=== PATIENT | male | born 1935 | race African-American/Black ===

== ENCOUNTER 2016-05-14 23:15 | Emergency (ER) | payer MEDICARE, MEDICAID ==
[~2016-05-14] VITALS: Ht 177.8 cm; Wt 90.7 kg
[~2016-05-14 23:15] MED LIST: ACETAMINOPHEN500 MG GT; ASPIR-LOW81 MG GT; AZO CRANBERRY1 EACH GT; CARAFATE1 G1 ORAL; COLACE100 MG GT; DIFLUCAN100 MG ORAL; DUONEB 0.5 MG-33 ML IH; FLOMAX0.4 MG GT; FLUCONAZOLE100 MG GT; GUAIFENESIN-CO118 M1 GT; INVANZ1 G1 IM; K-DUR20 MEQ GT; LACTULOSE20 GM/301 GT; LOPRESSOR25 M1 GT; M.V.I. ADULT10 ML GT; METOCLOPRAM5 MG/5 M1 GT; MULTIVITAMIN HEX5 ML GT; NEXIUM40 MG GT; NOVOLOG100 UNITS1 SUBQ; PROTONIX40 M2 GT; REGLAN5 MG GT; ROBITUSSIN COU118 M1 PO; SALINE 10ML FLU10 ML IVF; SIMVASTATIN20 MG GT; SIMVASTATIN40 MG GT; TYLENOL650 MG GT; VITAMIN D1000 UNI1 GT; VITAMIN D400 INTLU GT
[2016-05-14 23:30] VITALS: BP 142/72
[2016-05-15 01:30] VITALS: BP 132/69
[2016-05-15] MEDS ORDERED: BACITRACIN15 GM TOPIC (02:28)
[2016-05-15 03:00] VITALS: BP 135/70
[2016-05-15] MEDS ORDERED: TYLENOL325 MG ORAL (04:16)
[2016-05-15 05:00] VITALS: BP 137/76
[2016-05-15 06:36] VITALS: BP 127/82
--- NOTE | 2016-05-15 10:07 | Emergency Room Report ---
History of Present Illness General Chief Complaint: Multiple Trauma/Fall Source: EMS Present Illness HPI Pt fell and was sent to get xrays to eval for fx. Bedridden. Aphasic from CVA , but able to nod yes/no. The RN report only state "fall incident" but do not mention what or how. They also noted "scrape L hip area". Denies pain. G tube. No fever. Last admitted 2013 - . Sepsis, bacteremia, urinary tract infection. 2. Pneumonia. 3. Diabetes mellitus. 4. Old cerebrovascular accident. 5. Rhabdomyolysis. 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 Hx Speech Problem: Yes - APHASIA Hx Aphasia: Yes Hx Weakness: Yes - Generalized muscle weakness Review of Systems All Other Systems: limited Physical Exam Vital Signs Date Time Temp Pulse Resp B/P Pulse Ox O2 Delivery O2 Flow Rate FiO2 05/14/16 23:23 98.2 84 16 146/70 95 Sp02 EP Interpretation: reviewed, normal General Appearance: well appearing, no apparent distress, alert, non-toxic, Chronically Ill Head: normocephalic, atraumatic Eyes: bilateral eye PERRL, bilateral eye normal inspection ENT: hearing grossly normal, normal voice, moist mucus membranes Neck: full range of motion, supple, no bony tend Respiratory: chest non-tender, lungs clear, no respiratory distress, speaking full sentences Cardiovascular #1: regular rate, rhythm Cardiovascular #2: 2+ radial (L) Gastrointestinal: non tender, no mass, other - G tube Musculoskeletal: back normal, non-tender, no calf tenderness, pelvis stable, decreased range of mation - Contractures R UE, other - PROM bilat LE without tenderness Neurologic: alert, normal gait, aphasia, motor weakness - R Psychiatric: mood/affect normal Skin: no rash, other - min abrasion L hip Medical Decision Making Diagnostic Impression: Primary Impression: Fall Additional Impression: L hip contusion ER Course Patient presents post alleged mechanical fall. Patient with aphasia post stroke with hemiparesis. Complicated patient with some decreased mental capacity. Need to perform x-rays to exclude fx or bleed. Patient declines pain medicine at this time. Xrays with DJD, but no fx. Old lacunar infarct. Patient stable for outpatient observation and treatment. Chest X-Ray Diagnostic Results EP Interpretation: Yes Findings: no consolidation, no effusion, no pneumothorax, no acute cardiopulmonary disease Number of Views: 1 Other X-Ray Diagnostic Results Other X-Ray Diagnostic Results #1: X-Ray Ordered: pelvis EP Interpretation: Yes Findings: no fractures, no dislocation, no soft tissue swelling, other - DJD Number of Views: 1 Other X-Ray Diagnostic Results #2: X-Ray Ordered: L hip EP Interpretation: Yes Findings: no fractures, no dislocation, no soft tissue swelling, other - DJD Number of Views: 3 CT/MRI/US Diagnostic Results CT/MRI/US Diagnostic Results : Imaging Test Ordered: head Impression Old lacunar infarcts (stable) maxillary retention cysts Last Vital Signs Date Time Temp Pulse Resp B/P Pulse Ox O2 Delivery O2 Flow Rate FiO2 05/15/16 06:36 99.0 73 16 127/82 98 Status: unchanged Disposition: XFER SNF Condition: Stable Scripts Acetaminophen (Tylenol) 325 Mg Tablet 650 MG ORAL Q6H Y for Prn Pain/Headache/Temp > 101, #30 TAB 0 Refills Prov: Manuel Shelley M.D. 05/15/16 Patient Instructions: Contusion, Fall Prevention in Hospitals, Adult Manuel Shelley M.D. May 15, 2016 10:07
--- NOTE | 2016-05-15 14:37 | Diagnostic Imaging Report ---
Indications: Head trauma, pain Technique: Continuous helical CT imaging of the brain was performed with automatic exposure control on a Siemens sensation [address] scanner. Axial and coronal images were reconstructed at 5 mm slice thickness and interval. CTDI volume(s): 70 mGy Total DLP: 1453 mGy-cm Findings: Comparison: 05/08/2009 Old lacunar infarcts left basal ganglia and bilateral napier radiata, chronic microvascular ischemic changes bilateral cerebral periventricular and deep white matter, moderate diffuse atrophy unchanged.. No evidence of mass or hemorrhage, other attenuation abnormality, mass effect, midline shift, hydrocephalus or increased intracranial pressure. Bone window images are unremarkable. Polypoid soft tissue densities bilateral maxillary sinuses. Remainder visualized Paranasal sinuses and mastoid air cells are clear. IMPRESSION: No evidence of acute injury or other acute intracranial pathology, unchanged Stable chronic intracranial changes as described. 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 The CT scanner at [facility] is accredited by the [employer] and the scans are performed using protocols designed to limit radiation exposure to as low as reasonably achievable to attain images of sufficient resolution adequate for diagnostic evaluation.
--- NOTE | 2016-05-15 14:42 | Diagnostic Imaging Report ---
Indications: Trauma to left hip, pain Technique: 2 views left hip. Findings: Comparison: None No fracture, dislocation, joint space widening , surrounding soft tissue swelling/foreign body/other abnormality, or other acute changes are identified. IMPRESSION: No evidence of acute injury to left hip.
--- NOTE | 2016-05-17 08:30 | Diagnostic Imaging Report ---
Indications: Pelvic trauma, pain Technique: AP pelvis. Findings: Comparison: None No fracture, dislocation, joint space widening , surrounding soft tissue swelling/foreign body/other abnormality, or other acute changes are identified. IMPRESSION: No evidence of acute injury to the pelvis.
--- NOTE | 2016-05-17 08:30 | Diagnostic Imaging Report ---
Indications: Chest trauma, pain Technique: Portable AP chest Findings: Comparison: 10/15/15 Again, suboptimal inspiration limits evaluation. Increased interstitial/vascular markings persist in both lung bases. Gas lucencies persist in both hemidiaphragms. Cardiac silhouette partially obscured. No abnormal widening. Pulmonary vasculature within normal limits. No pleural abnormality. No obvious fracture demonstrated. IMPRESSION: No evidence of acute injury or other acute pathology, limited as described Stable chronic changes as described
== END 2016-05-15 06:36 ==
LOC: EDBD 23:15 → EMR 23:54
DX: S70.02XA Contusion of left hip, initial encounter (principal); S70.212A Abrasion, left hip, initial encounter; W19.XXXA Unspecified fall, initial encounter; Y92.129 Unspecified place in nursing home as the place of occurrence of the external cause; I69.320 Aphasia following cerebral infarction; I69.354 Hemiplegia and hemiparesis following cerebral infarction affecting left non-dominant side; E11.9 Type 2 diabetes mellitus without complications; J44.9 Chronic obstructive pulmonary disease, unspecified; I10 Essential (primary) hypertension; Z93.1 Gastrostomy status; M24.50 Contracture, unspecified joint; R51 Headache
CPT/HCPCS: 70450; 71010; 72170; 73502; 99284

== ENCOUNTER 2016-09-10 12:18 | Inpatient (IN) | payer MEDICARE, MEDICAID ==
[~2016-09-10] VITALS: Ht 175.3 cm; Wt 81.6 kg
[~2016-09-10 12:18] MED LIST changes: +BACITRACIN15 GM TOPIC; +TYLENOL325 MG ORAL
[2016-09-10 13:15] VITALS: BP 129/70
[2016-09-10] MEDS ORDERED: OMEPRAZOLE20 M2 GT (13:34)
[2016-09-10] MEDS ORDERED: Pantoprazole Inj IVP ONE (14:15)
[2016-09-10 14:16] LABS: BASOPHILS % (AUTO) 0.5 % (0.0-2.0); EOSINOPHILS % (AUTO) 0.1 % (0.0-3.0); LYMPHOCYTES % (AUTO) 12.2 % (20.0-45.0); MEAN CORPUSCULAR HEMOGLOBIN 31.4 PG (27.0-31.0); MEAN CORPUSCULAR HGB CONC 31.3 G/DL (32.0-36.0); MEAN CORPUSCULAR VOLUME 100 FL (80-99); MEAN PLATELET VOLUME 8.8 FL (6.5-10.1); MONOCYTES % (AUTO) 3.8 % (1.0-10.0); NEUTROPHILS % (AUTO) 83.5 % (45.0-75.0); PLATELET COUNT 225 K/UL (150-450); RED BLOOD COUNT 6.01 M/UL (4.70-6.10); RED CELL DISTRIBUTION WIDTH 13.2 % (11.6-14.8); WHITE BLOOD COUNT 9.7 K/UL (4.8-10.8)
[2016-09-10] MEDS ORDERED: Acetaminophen 650 MG SUPP RECTAL ONE ×2 (14:22→14:45)
[2016-09-10 14:25] VITALS: BP 129/70
[2016-09-10 14:29] LABS: TROPONIN I < 0.30 ng/mL (<=0.30)
[2016-09-10 14:45] LABS: APPEARANCE,URINE SLIGHTLY CLOUDY; KETONES,URINE NEGATIVE (NEGATIVE); LEUKOCYTE ESTERASE ,URINE 2+ (NEGATIVE); NITRITE,URINE POSITIVE (NEGATIVE); PH,URINE 5 (4.5-8.0); PROTEIN,URINE 2+ (NEGATIVE); UROBILINOGEN,URINE NORMAL MG/DL (0.0-1.0)
[2016-09-10 14:53] LABS: AMORPHOUS SEDIMENT,UR FEW /LPF; BACTERIA,URINE FEW /HPF; RBC,URINE 0-2 /HPF (0 - 0); SQUAMOUS EPITHELIAL CELL,UR MODERATE /LPF (NONE/OCC)
[2016-09-10 14:55] LABS: ALANINE AMINOTRANSFERASE 22 U/L (3-41); ANION GAP 19 (5-15); ASPARTATE AMINO TRANSFERASE 20 U/L (5-40); CALCIUM 9.6 mg/dL (8.6-10.2); CARBON DIOXIDE 20 mEQ/L (20-30); CHLORIDE 94 mEQ/L (98-107); CREATININE 0.9 mg/dL (0.7-1.2); HEMOLYSIS 2; POTASSIUM 4.2 mEQ/L (3.4-4.9); SODIUM 133 mEQ/L (135-145); TOTAL PROTEIN 7.7 g/dL (6.6-8.7)
[2016-09-10 15:05] LABS: CKMB < 1.5 ng/mL (< 6.7)
--- NOTE | 2016-09-10 15:10 | Diagnostic Imaging Report ---
Indication: Altered mental status Technique: Contiguous 5 mm thick transaxial imaging of the head obtained in a Siemens Sensation [address] scanner. Soft tissue and bone windows generated. Total Dose length Product (DLP): [address] Dose Index Volume (CTDIvol): 70.38 mGy Comparison: none Findings: There is moderate prominence of the ventricles, basal cisterns, and cerebral sulci consistent with atrophy. Moderate, nonspecific, white matter hypoattenuation is noted throughout the brain consistent with chronic small vessel disease. Volume loss associated with cystic changes in left basal ganglia region consistent with old infarct. Similar findings more mild in degree within the right frontal napier radiata. There is no midline shift, edema, acute hemorrhage, mass effect, or abnormal extra-axial fluid collections. Bones and extra osseous soft tissues are unremarkable. Impression: No acute intracranial bleed, mass effect or edema. Old small vessel infarcts. Moderate atrophy of the brain. Evidence of chronic small vessel disease involving white matter tracts. The CT scanner at [facility] is accredited by the [employer] and the scans are performed using protocols designed to limit radiation exposure to as low as reasonably achievable to attain images of sufficient resolution adequate for diagnostic evaluation.
--- NOTE | 2016-09-10 15:23 | Diagnostic Imaging Report ---
Indication: Chest Pain Comparison: 05/15/16 A single view chest radiograph was obtained. Findings: Interstitial opacities are prominent especially at the lung bases likely atelectasis. Mild heart failure is not excluded. Heart size is borderline enlarged. Bones are osteopenic. Impression: Basilar atelectasis. The possibility of mild interstitial edema is not excluded. Please correlate clinically.
[2016-09-10] MEDS ORDERED: cefTRIAXone 1 GM in D5W 55 ML IVPB ONE (15:30)
--- NOTE | 2016-09-10 15:35 | Emergency Room Report ---
History of Present Illness General Chief Complaint: Vomiting Source: Medical Record Present Illness HPI 81-year-old male presents to ED for evaluation. Per EMS patient noted to be vomiting twice today at detention. Patient also tachycardic. Patient has reported fever. Denies cough. Denies chest pain or shortness of breath. Patient is unable to provide any additional history at this time. PMD is Dr. Meza. no other aggravating or relieving factors. denies any other associated symptoms Allergies: Coded Allergies: MILK (Unverified Allergy, Unknown, 05/14/16) SOY (Unverified Allergy, Unknown, 05/14/16) SOYBEAN (Unverified Allergy, Unknown, 05/14/16) Patient History Past Medical History: DM, HTN, COPD, CVA/TIA Past Surgical History: none Pertinent Family History: none Social History: Denies: alcohol use, drug use, smoking Immunizations: UTD Reviewed Nursing Documentation: PMH: Agreed, PSxH: Agreed Nursing Documentation-PMH Hx Hypertension: Yes - Osteoarthritis Hx COPD: Yes Hx Diabetes: Yes Hx Cancer: No Hx Gastrointestinal Problems: Yes - G-tube Hx Neurological Problems: Yes 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 Hx Speech Problem: Yes - APHASIA Hx Aphasia: Yes Hx Weakness: Yes - Generalized muscle weakness Review of Systems All Other Systems: limited Physical Exam Vital Signs Date Time Temp Pulse Resp B/P Pulse Ox O2 Delivery O2 Flow Rate FiO2 09/10/16 12:20 97.7 120 18 146/82 92 Room Air 09/10/16 14:25 10.0 Sp02 EP Interpretation: reviewed, normal General Appearance: lethargic Head: normocephalic Eyes: bilateral eye PERRL, bilateral eye normal inspection ENT: normal ENT inspection Neck: normal inspection Respiratory: crackles Cardiovascular #1: tachycardia Gastrointestinal: normal bowel sounds, non tender, soft, non-distended, no guarding, no rebound, other - Gtube Rectal: deferred Genitourinary: no CVA tenderness Musculoskeletal: normal inspection Neurologic: other - dementia Psychiatric: other - dementia Skin: normal inspection Lymphatic: normal inspection Medical Decision Making Diagnostic Impression: Primary Impression: Fever Qualified Codes: R50.9 - Fever, unspecified Additional Impressions: UTI (urinary tract infection) Qualified Codes: N39.0 - Urinary tract infection, site not specified Pneumonia Qualified Codes: J18.9 - Pneumonia, unspecified organism ER Course Hospital Course 81-year-old male presenting to ED with generalized weakness, vomiting, fever Differential diagnoses include: Pneumonia, UTI, sepsis, dehydration, DC/ unstable angina Clinical course Patient placed on stretcher. 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 After initial history and physical, I ordered labs, IV fluids, EKG, chest x-ray, blood cultures, UA. CT head Labs - electrolytes ok, no leukocytosis, troponins negative, UA grossly positive for UTI EKG - sinus tachycardia CXR - bibasilar atelectasis CT head - no acute process rectal tylenol given. Abx given. IVFs given. tachycardia improving with IVFs. Case discussed with Dr Jo and they agreed to admit patient to their service for further care and support I feel this is a highly complex case requiring extensive working including EKG/ Rhythm strip, Xray/CT/US, Blood/urine lab work, repeat exams while in ED, and administration of strong opiates/narcotics for pain control, admission to hospital or close patient follow up. Diagnosis - fever, UTI, pneumonuia Patient admitted to telemetry in serious condition Labs Test 09/10/16 13:44 09/10/16 14:07 09/10/16 15:15 White Blood Count 9.7 K/UL (4.8-10.8) Red Blood Count 6.01 M/UL (4.70-6.10) Hemoglobin 18.9 G/DL (14.2-18.0) Hematocrit 60.2 % (42.0-52.0) Mean Corpuscular Volume 100 FL (80-99) Mean Corpuscular Hemoglobin 31.4 PG (27.0-31.0) Mean Corpuscular Hemoglobin Concent 31.3 G/DL (32.0-36.0) Red Cell Distribution Width 13.2 % (11.6-14.8) Platelet Count 225 K/UL (150-450) Mean Platelet Volume 8.8 FL (6.5-10.1) Neutrophils (%) (Auto) 83.5 % (45.0-75.0) Lymphocytes (%) (Auto) 12.2 % (20.0-45.0) Monocytes (%) (Auto) 3.8 % (1.0-10.0) Eosinophils (%) (Auto) 0.1 % (0.0-3.0) Basophils (%) (Auto) 0.5 % (0.0-2.0) Sodium Level 133 mEQ/L (135-145) Potassium Level 4.2 mEQ/L (3.4-4.9) Chloride Level 94 mEQ/L (98-107) Carbon Dioxide Level 20 mEQ/L (20-30) Anion Gap 19 (5-15) Blood Urea Nitrogen 10 mg/dL (7-23) Creatinine 0.9 mg/dL (0.7-1.2) Estimat Glomerular Filtration Rate mL/min (>60) Glucose Level 102 mg/dL (74-106) Calcium Level 9.6 mg/dL (8.6-10.2) Total Bilirubin 0.7 mg/dL (0.0-1.2) Aspartate Amino Transf (AST/SGOT) 20 U/L (5-40) Alanine Aminotransferase (ALT/SGPT) 22 U/L (3-41) Alkaline Phosphatase 67 U/L (40-129) Total Creatine Kinase 74 U/L (38-174) Creatine Kinase MB < 1.5 ng/mL (< 6.7) Creatine Kinase MB Relative Index Troponin I < 0.30 ng/mL (<=0.30) Pro-B-Type Natriuretic Peptide 59 pg/mL (0-450) Total Protein 7.7 g/dL (6.6-8.7) Albumin 3.9 g/dL (3.5-5.2) Globulin 3.8 g/dL Albumin/Globulin Ratio 1.0 (1.0-2.7) Urine Color Yellow Urine Appearance Slightly cloudy Urine pH 5 (4.5-8.0) Urine Specific [place] 1.025 (1.005-1.035) Urine Protein 2+ (NEGATIVE) Urine Glucose (UA) 1+ (NEGATIVE) Urine Ketones Negative (NEGATIVE) Urine Occult Blood 2+ (NEGATIVE) Urine Nitrite Positive (NEGATIVE) Urine Bilirubin Negative (NEGATIVE) Urine Urobilinogen Normal MG/DL (0.0-1.0) Urine Leukocyte Esterase 2+ (NEGATIVE) Urine RBC 0-2 /HPF (0 - 0) Urine WBC 5-10 /HPF (0 - 0) Urine Squamous Epithelial Cells Moderate /LPF (NONE/OCC) Urine Amorphous Sediment Few /LPF (NONE) Urine Bacteria Few /HPF (NONE) EKG Diagnostic Results Rate: tachycardiac Rhythm: NSR ST Segments: no acute changes ASA given to the pt in ED: No Rhythm Strip Diag. Results EP Interpretation: yes Rhythm: NSR, no PVC's, no ectopy Chest X-Ray Diagnostic Results EP Interpretation: No Findings: no pneumothorax, no acute cardiopulmonary disease, other - bibasilar atelectasis Number of Views: 1 CT/MRI/US Diagnostic Results CT/MRI/US Diagnostic Results : Imaging Test Ordered: CT head Impression old chronic changes. no acute process Last Vital Signs Date Time Temp Pulse Resp B/P Pulse Ox O2 Delivery O2 Flow Rate FiO2 09/10/16 14:25 104.1 129 28 129/70 99 Simple Mask 10.0 Status: improved Disposition: ADMITTED INPATIENT Condition: Serious Referrals: JULIANNE HERNÁNDEZ (PCP) MAYA COURTNEY M.D. September 10, 2016 15:35
[2016-09-10 15:46] VITALS: BP 124/83
[2016-09-10 15:48] LABS: REFLEX LACTIC ACID YES OR NO YES
--- NOTE | 2016-09-10 16:29 | Emergency Room Report ---
Physical Exam Vital Signs Date Time Temp Pulse Resp B/P Pulse Ox O2 Delivery O2 Flow Rate FiO2 09/10/16 12:20 97.7 120 18 146/82 92 Room Air 09/10/16 14:25 10.0 Medical Decision Making Diagnostic Impression: Primary Impression: Fever Qualified Codes: R50.9 - Fever, unspecified Additional Impressions: UTI (urinary tract infection) Qualified Codes: N39.0 - Urinary tract infection, site not specified Pneumonia Qualified Codes: J18.9 - Pneumonia, unspecified organism Sepsis Qualified Codes: A41.9 - Sepsis, unspecified organism ER Course lactate elevated. given 30cc/kg fluid bolus. Last Vital Signs Date Time Temp Pulse Resp B/P Pulse Ox O2 Delivery O2 Flow Rate FiO2 09/10/16 15:46 102.7 114 34 124/83 99 09/10/16 14:25 Simple Mask 10.0 Disposition: ADMITTED INPATIENT Condition: Serious Referrals: JULIANNE HERNÁNDEZ (PCP) MAYA COURTNEY M.D. September 10, 2016 16:29
[2016-09-10] MEDS ORDERED: Azithromycin 500 MG in NS 275 ML IV ONE (16:30)
[2016-09-10] MEDS ORDERED: Azithromycin Inj IV ONE (16:43)
[2016-09-10 16:55] VITALS: BP 123/62
--- NOTE | 2016-09-10 17:15 | History & Physical ---
History and Physical History & Physicial patient to ER with fever, tachycardia, vomiting and diarrhea Seen in ER - present examined data reviewed PAST MEDICAL HISTORY: Significant for recent pneumonia, urinary tract infection, diabetes mellitus, rhabdomyolysis and history of an old CVA with left hemiplegia. The patient also had a GT tube. The patient has a long history of tobacco abuse, degenerative joint disease, and COPD, also known to have high cholesterol. The patient has history of atrophic gastritis with Helicobacter, history of depression and contractures of the left side. status: Fever, high lactate, tachy: Sepsis UTI (urinary tract infection) Pneumonia ? asp Plan: Hydrate IV Protonix Antibiotics breathing treatment ID , Pulm vaneal # [id number] JULIANNE HERNÁNDEZ September 10, 2016 17:15
[2016-09-10 17:43] VITALS: BP 124/62
[2016-09-10] MEDS ORDERED: Sucralfate 1gm tab ORAL SCH (18:00)
[2016-09-10] MEDS: D5NS 1,000 ML IV SCH (18:33)
[2016-09-10] MEDS: DuoNeb 0.5-3(2.5)mg/3ml neb HHN SCH (19:16)
[2016-09-10 20:00] VITALS: BP 133/68
[2016-09-10] MEDS: Sucralfate 1gm tab GT SCH (20:55)
[2016-09-10] MEDS: Metoprolol 25mg tab GT SCH (20:56)
[2016-09-10] MEDS: Heparin 5000 units/ml inj SUBQ SCH (20:56)
[2016-09-10] MEDS ORDERED: Acetaminophen 650 MG SUPP RECTAL PRN (21:00)
[2016-09-10] MEDS: Piperacillin/Tazobactam 3.375 GM in D5W 110 ML IVPB SCH (21:51)
--- NOTE | 2016-09-10 21:51 | Consultation ---
Consult Note Consult Note ID Dic # [id number] ASIYA WETZEL M.D. September 10, 2016 21:51
[2016-09-11] VITALS (7 sets, daily range): BP systolic 108–130; BP diastolic 53–71
--- NOTE | 2016-09-11 04:38 | Consultation ---
DATE OF CONSULTATION: CONSULTING PHYSICIAN: Dany Cunningham M.D. REASON FOR CONSULTATION: Evaluation of the patient for sepsis, diarrhea, and fever, antibiotic management. HISTORY OF PRESENT ILLNESS: The patient is a 81-year-old male with multiple medical problems who was admitted from detention to emergency room for fever, nausea, and vomiting prior to admission and also history of diarrhea. The patient has been started on IV Zosyn and Infectious Disease consultation has been requested for further evaluation of the patient's antibiotic management. The patient is not able to provide detailed information. Much of the information is gathered through the chart after speaking with the staff. PAST MEDICAL HISTORY: 1. History of diabetes. 2. Hypertension. 3. Rhabdomyolysis. 4. COPD. 5. CVA. 6. Status post PEG placement for dysphagia. 7. Anemia. 8. Aphasia. MEDICATIONS: IV Zosyn. ALLERGIES: No known drug allergies. SOCIAL HISTORY: The patient resides in detention. FAMILY HISTORY: Unavailable. REVIEW OF SYSTEMS: Unobtainable. PHYSICAL EXAMINATION: VITAL SIGNS: Temperature 97.4 degrees, blood pressure 150/68, pulse 86, and respiratory rate 18. T-max 102.4 degrees. HEENT: Mild pale conjunctivae. No icterus. NECK: No lymphadenopathy. CHEST: Coarse breathing sounds. HEART: S1 and S2. ABDOMEN: Soft and nontender. EXTREMITIES: No cyanosis. NEUROLOGIC: Aphasic. LABORATORY AND DIAGNOSTIC DATA: White cell 9.7, hemoglobin 18.9 and platelet 225,000. Urinalysis, 5-10 white blood cells. BUN 10 and creatinine 0.9. Lactate is 3.9. ALT, AST and alkaline phosphatase within normal range. CT of head, no acute intracranial bleed. Chest x-ray mild interstitial edema. ASSESSMENT: The patient is a 81-year-old male with multiple medical problems as listed above who was admitted to due to fever and diarrhea. The patient has been started on IV Zosyn and cultures are pending. PLAN: 1. We will continue the patient on IV Zosyn day #1. 2. Monitor CBC. 3. Monitor BMP. 4. Monitor cultures (blood, stool and urine). 5. Stool for C. difficile. 6. Monitor chest x-ray. 7. Based on the patient's clinical course and labs, we will do further recommendation. Thank you, Dr. Mack, for allowing me to participate in the care in the care of this patient. I will follow the patient with you during this hospitalization. Dany Cunningham M.D. DR: LUCIEN JOB#: [id number] CC:
[2016-09-11] MEDS: Piperacillin/Tazobactam 3.375 GM in D5W 110 ML IVPB SCH ×3 (05:37→22:06)
[2016-09-11] MEDS: DuoNeb 0.5-3(2.5)mg/3ml neb HHN SCH ×4 (07:08→19:49)
[2016-09-11] MEDS: D5NS 1,000 ML IV SCH (07:30)
[2016-09-11 08:03] LABS: BASOPHILS % (AUTO) 0.6 % (0.0-2.0); EOSINOPHILS % (AUTO) 0.1 % (0.0-3.0); LYMPHOCYTES % (AUTO) 20.8 % (20.0-45.0); MEAN CORPUSCULAR HEMOGLOBIN 31.3 PG (27.0-31.0); MEAN CORPUSCULAR VOLUME 98 FL (80-99); MEAN PLATELET VOLUME 7.9 FL (6.5-10.1); MONOCYTES % (AUTO) 5.2 % (1.0-10.0); NEUTROPHILS % (AUTO) 73.2 % (45.0-75.0); PLATELET COUNT 179 K/UL (150-450); RED BLOOD COUNT 4.62 M/UL (4.70-6.10); RED CELL DISTRIBUTION WIDTH 13.1 % (11.6-14.8); WHITE BLOOD COUNT 14.5 K/UL (4.8-10.8)
[2016-09-11 08:18] LABS: REFLEX LACTIC ACID YES OR NO YES
[2016-09-11 08:22] LABS: ALANINE AMINOTRANSFERASE 17 U/L (3-41); ALBUMIN/GLOBULIN RATIO 0.6 (1.0-2.7); ANION GAP 12 (5-15); ASPARTATE AMINO TRANSFERASE 20 U/L (5-40); CALCIUM 8.8 mg/dL (8.6-10.2); CARBON DIOXIDE 24 mEQ/L (20-30); CHLORIDE 105 mEQ/L (98-107); CHOLESTEROL 108 mg/dL (< 200); CHOLESTEROL/HDL RATIO 3.5 (3.3-4.4); CRP QUANT 12.5 mg/dL (< 0.5); HEMOLYSIS 3; LDL CHOLESTEROL (CALC.) 61 mg/dL (60-99); LIPASE 27 U/L (< 60); MAGNESIUM 1.7 mg/dL (1.7-2.5); POTASSIUM 3.8 mEQ/L (3.4-4.9); SODIUM 141 mEQ/L (135-145); TOTAL PROTEIN 6.9 g/dL (6.6-8.7); URIC ACID 5.9 mg/dL (3.0-7.5)
[2016-09-11 08:48] LABS: THYROID STIMULATING HORMONE 0.901 uIU/mL (0.300-4.500)
[2016-09-11] MEDS: Sucralfate 1gm tab GT SCH ×4 (08:49→20:52)
[2016-09-11] MEDS: Aspirin Baby 81mg GT SCH (08:49)
[2016-09-11] MEDS: Metoprolol 25mg tab GT SCH ×2 (08:49→20:53)
[2016-09-11] MEDS: Heparin 5000 units/ml inj SUBQ SCH ×2 (08:50→20:54)
[2016-09-11 09:03] LABS: HEMOGLOBIN A1C 7.3 % (< 6.0)
[2016-09-11] MEDS ORDERED: Sterile Water Irrig 1000ml IRRIG ONE (09:25)
[2016-09-11] MEDS ORDERED: Tubing IV Secondary IV ONE (09:25)
[2016-09-11] MEDS ORDERED: NS 275ml ONE (09:25)
[2016-09-11] MEDS ORDERED: D5NS 1000ml IV ONE (09:25)
--- NOTE | 2016-09-11 10:14 | General Progress Note ---
Assessment/Plan Status: stable Status Narrative Clinically improved . Assessment/Plan Sepsis UTI ? Aspiration s/p CVA DM HTN Plan; Pulmonary toilet antibiotics resume feeding SS Insulin Monitor labs Subjective ROS Limited/Unobtainable: No Constitutional: Reports: malaise, other - non verbal, weakness Allergies: Coded Allergies: MILK (Unverified Allergy, Unknown, 05/14/16) SOY (Unverified Allergy, Unknown, 05/14/16) SOYBEAN (Unverified Allergy, Unknown, 05/14/16) Objective Last 24 Hour Vital Signs Date Time Temp Pulse Resp B/P Pulse Ox O2 Delivery O2 Flow Rate FiO2 09/11/16 08:49 89 122/60 09/11/16 08:00 89 09/11/16 08:00 96.5 89 17 122/53 95 Room Air 09/11/16 07:18 88 18 100 Nasal Cannula 3.0 32 09/11/16 07:08 86 18 97 Nasal Cannula 3.0 32 09/11/16 04:00 87 09/11/16 04:00 97.9 87 20 108/58 96 Nasal Cannula 2.0 09/11/16 00:00 97.2 94 20 124/64 99 Nasal Cannula 2.0 09/11/16 00:00 92 09/10/16 20:56 107 130/68 09/10/16 20:00 97.4 106 19 133/68 94 Nasal Cannula 2.0 09/10/16 20:00 99 09/10/16 19:22 89 18 100 Nasal Cannula 3.0 32 09/10/16 19:14 87 18 Nasal Cannula 3.0 32 09/10/16 19:14 87 18 100 Nasal Cannula 3.0 32 09/10/16 17:43 98.1 107 20 124/62 95 Nasal Cannula 5.0 09/10/16 17:07 105 22 123/62 94 Nasal Cannula 5.0 09/10/16 16:55 98.9 109 22 123/62 95 Nasal Cannula 5.0 09/10/16 15:46 102.7 114 34 124/83 99 09/10/16 14:25 104.1 129 28 129/70 99 Simple Mask 10.0 09/10/16 13:15 98.1 124 35 129/70 95 Nasal Cannula 4.0 09/10/16 12:20 97.7 120 18 146/82 92 Room Air Intake and Output 09/10/16 09/11/16 19:00 07:00 Intake Total 1274 ml 1037.5 ml Output Total 100 ml 1100 ml Balance 1174 ml -62.5 ml Intake IV Total 1274 ml 1037.5 ml Output Urine Total 1100 ml Emesis 100 ml # Bowel Movements 1 1 Laboratory Tests 09/10/16 13:44: White Blood Count 9.7, Red Blood Count 6.01, Hemoglobin 18.9*H, Hematocrit 60.2H , Mean Corpuscular Volume 100H, Mean Corpuscular Hemoglobin 31.4H, Mean Corpuscular Hemoglobin Concent 31.3L, Red Cell Distribution Width 13.2, Platelet Count 225, Mean Platelet Volume 8.8, Neutrophils (%) (Auto) 83.5H, Lymphocytes (%) (Auto) 12.2L, Monocytes (%) (Auto) 3.8, Eosinophils (%) (Auto) 0.1, Basophils (%) (Auto) 0.5, Sodium Level 133L, Potassium Level 4.2, Chloride Level 94L, Carbon Dioxide Level 20, Anion Gap 19H, Blood Urea Nitrogen 10, Creatinine 0.9, Estimat Glomerular Filtration Rate , Glucose Level 102, Calcium Level 9.6, Total Bilirubin 0.7, Aspartate Amino Transf (AST/SGOT) 20, Alanine Aminotransferase (ALT/SGPT) 22, Alkaline Phosphatase 67, Total Creatine Kinase 74, Creatine Kinase MB < 1.5, Creatine Kinase MB Relative Index , Troponin I < 0.30, Pro-B-Type Natriuretic Peptide 59, Total Protein 7.7, Albumin 3.9, Globulin 3.8, Albumin/Globulin Ratio 1.0 09/10/16 14:07: Urine Color Yellow, Urine Appearance Slightly cloudy, Urine pH 5, Urine Specific [place] 1.025, Urine Protein 2+H, Urine Glucose (UA) 1+H, Urine Ketones Negative, Urine Occult Blood 2+H, Urine Nitrite PositiveH, Urine Bilirubin Negative, Urine Urobilinogen Normal, Urine Leukocyte Esterase 2+H, Urine RBC 0-2H, Urine WBC 5-10H, Urine Squamous Epithelial Cells ModerateH, Urine Amorphous Sediment FewH, Urine Bacteria Few 09/10/16 15:15: Lactic Acid Level 3.80H 09/10/16 17:05: Lactic Acid Level 3.90H 09/11/16 07:30: White Blood Count 14.5H, Red Blood Count 4.62L, Hemoglobin 14.5, Hematocrit 45.2 , Mean Corpuscular Volume 98, Mean Corpuscular Hemoglobin 31.3H, Mean Corpuscular Hemoglobin Concent 32.0, Red Cell Distribution Width 13.1, Platelet Count 179, Mean Platelet Volume 7.9, Neutrophils (%) (Auto) 73.2, Lymphocytes (% ) (Auto) 20.8, Monocytes (%) (Auto) 5.2, Eosinophils (%) (Auto) 0.1, Basophils ( %) (Auto) 0.6, Sodium Level 141, Potassium Level 3.8, Chloride Level 105, Carbon Dioxide Level 24, Anion Gap 12, Blood Urea Nitrogen 21, Creatinine 1.0, Estimat Glomerular Filtration Rate , Glucose Level 191H, Hemoglobin A1c 7.3H, Lactic Acid Level 2.00, Uric Acid 5.9, Calcium Level 8.8, Phosphorus Level 2.0L , Magnesium Level 1.7, Total Bilirubin 0.8, Gamma Glutamyl Transpeptidase 65H, Aspartate Amino Transf (AST/SGOT) 20, Alanine Aminotransferase (ALT/SGPT) 17, Alkaline Phosphatase 63, Total Creatine Kinase 159, C-Reactive Protein, Quantitative 12.5H, Pro-B-Type Natriuretic Peptide 447, Total Protein 6.9, Albumin 2.8L, Globulin 4.1, Albumin/Globulin Ratio 0.6L, Triglycerides Level 80 , Cholesterol Level 108, LDL Cholesterol 61, HDL Cholesterol 31, Cholesterol/ HDL Ratio 3.5, Lipase 27, Thyroid Stimulating Hormone (TSH) 0.901 Height (Feet): 5 Height (Inches): 9.00 Weight (Pounds): 180 General Appearance: no apparent distress, lethargic Neck: limited range of motion Cardiovascular: tachycardia Respiratory/Chest: decreased breath sounds Abdomen: soft, distended, other - PEG Neurologic: other - left caleb JULIANNE HERNÁNDEZ September 11, 2016 10:14
[2016-09-11] MEDS ORDERED: KCl 10% 40mEq/30ml liquid GT ONE (11:11)
[2016-09-11] MEDS: NovoLOG Insulin Flexpen SUBQ SCH ×2 (11:29→17:19)
--- NOTE | 2016-09-11 11:55 | Infectious Diseases Prog Note ---
Assessment/Plan Assessment/Plan A: The patient is a 81-year-old male with Leukocytosis Sepsis Diarrhea Fever, SP SP nausea, and vomiting Chest x-ray : interstitial edema DM HTN hx of Rhabdomyolysis COPD CVA Status post PEG placement for dysphagia Anemia Aphasia PLAN: Cont on IV Zosyn day # 2 Monitor CBC Monitor BMP Monitor cultures (blood, stool and urine) Stool for C. difficile Monitor chest x-ray Subjective Constitutional: Denies: anorexia, chills, drenching sweats, fatigue, fever, no symptoms, other Allergies: Coded Allergies: MILK (Unverified Allergy, Unknown, 05/14/16) SOY (Unverified Allergy, Unknown, 05/14/16) SOYBEAN (Unverified Allergy, Unknown, 05/14/16) Objective Vital Signs Last 24 Hour Vital Signs Date Time Temp Pulse Resp B/P Pulse Ox O2 Delivery O2 Flow Rate FiO2 09/11/16 10:53 89 18 100 Nasal Cannula 2.0 28 09/11/16 10:43 85 18 97 Nasal Cannula 3.0 32 09/11/16 08:49 89 122/60 09/11/16 08:00 89 09/11/16 08:00 96.5 89 17 122/53 95 Room Air 09/11/16 07:18 88 18 100 Nasal Cannula 3.0 32 09/11/16 07:08 86 18 97 Nasal Cannula 3.0 32 09/11/16 04:00 87 09/11/16 04:00 97.9 87 20 108/58 96 Nasal Cannula 2.0 09/11/16 00:00 97.2 94 20 124/64 99 Nasal Cannula 2.0 09/11/16 00:00 92 09/10/16 20:56 107 130/68 09/10/16 20:00 97.4 106 19 133/68 94 Nasal Cannula 2.0 09/10/16 20:00 99 09/10/16 19:22 89 18 100 Nasal Cannula 3.0 32 09/10/16 19:14 87 18 Nasal Cannula 3.0 32 09/10/16 19:14 87 18 100 Nasal Cannula 3.0 32 09/10/16 17:43 98.1 107 20 124/62 95 Nasal Cannula 5.0 09/10/16 17:07 105 22 123/62 94 Nasal Cannula 5.0 09/10/16 16:55 98.9 109 22 123/62 95 Nasal Cannula 5.0 09/10/16 15:46 102.7 114 34 124/83 99 09/10/16 14:25 104.1 129 28 129/70 99 Simple Mask 10.0 09/10/16 13:15 98.1 124 35 129/70 95 Nasal Cannula 4.0 09/10/16 12:20 97.7 120 18 146/82 92 Room Air Height (Feet): 5 Height (Inches): 9.00 Weight (Pounds): 180 HEENT: anicteric Respiratory/Chest: normal breath sounds Cardiovascular: regular rhythm Abdomen: non distended Laboratory Tests Test 09/10/16 13:44 09/10/16 14:07 09/10/16 15:15 09/10/16 17:05 White Blood Count 9.7 K/UL (4.8-10.8) Red Blood Count 6.01 M/UL (4.70-6.10) Hemoglobin 18.9 G/DL (14.2-18.0) *H Hematocrit 60.2 % (42.0-52.0) H Mean Corpuscular Volume 100 FL (80-99) H Mean Corpuscular Hemoglobin 31.4 PG (27.0-31.0) H Mean Corpuscular Hemoglobin Concent 31.3 G/DL (32.0-36.0) L Red Cell Distribution Width 13.2 % (11.6-14.8) Platelet Count 225 K/UL (150-450) Mean Platelet Volume 8.8 FL (6.5-10.1) Neutrophils (%) (Auto) 83.5 % (45.0-75.0) H Lymphocytes (%) (Auto) 12.2 % (20.0-45.0) L Monocytes (%) (Auto) 3.8 % (1.0-10.0) Eosinophils (%) (Auto) 0.1 % (0.0-3.0) Basophils (%) (Auto) 0.5 % (0.0-2.0) Sodium Level 133 mEQ/L (135-145) L Potassium Level 4.2 mEQ/L (3.4-4.9) Chloride Level 94 mEQ/L (98-107) L Carbon Dioxide Level 20 mEQ/L (20-30) Anion Gap 19 (5-15) H Blood Urea Nitrogen 10 mg/dL (7-23) Creatinine 0.9 mg/dL (0.7-1.2) Estimat Glomerular Filtration Rate mL/min (>60) Glucose Level 102 mg/dL (74-106) Calcium Level 9.6 mg/dL (8.6-10.2) Total Bilirubin 0.7 mg/dL (0.0-1.2) Aspartate Amino Transf (AST/SGOT) 20 U/L (5-40) Alanine Aminotransferase (ALT/SGPT) 22 U/L (3-41) Alkaline Phosphatase 67 U/L (40-129) Total Creatine Kinase 74 U/L (38-174) Creatine Kinase MB < 1.5 ng/mL (< 6.7) Creatine Kinase MB Relative Index Troponin I < 0.30 ng/mL (<=0.30) Pro-B-Type Natriuretic Peptide 59 pg/mL (0-450) Total Protein 7.7 g/dL (6.6-8.7) Albumin 3.9 g/dL (3.5-5.2) Globulin 3.8 g/dL Albumin/Globulin Ratio 1.0 (1.0-2.7) Urine Color Yellow Urine Appearance Slightly cloudy Urine pH 5 (4.5-8.0) Urine Specific [place] 1.025 (1.005-1.035) Urine Protein 2+ (NEGATIVE) H Urine Glucose (UA) 1+ (NEGATIVE) H Urine Ketones Negative (NEGATIVE) Urine Occult Blood 2+ (NEGATIVE) H Urine Nitrite Positive (NEGATIVE) H Urine Bilirubin Negative (NEGATIVE) Urine Urobilinogen Normal MG/DL (0.0-1.0) Urine Leukocyte Esterase 2+ (NEGATIVE) H Urine RBC 0-2 /HPF (0 - 0) H Urine WBC 5-10 /HPF (0 - 0) H Urine Squamous Epithelial Cells Moderate /LPF (NONE/OCC) H Urine Amorphous Sediment Few /LPF (NONE) H Urine Bacteria Few /HPF (NONE) Lactic Acid Level 3.80 mmol/L (0.66-2.22) H 3.90 mmol/L (0.66-2.22) H Test 09/11/16 07:30 White Blood Count 14.5 K/UL (4.8-10.8) H Red Blood Count 4.62 M/UL (4.70-6.10) L Hemoglobin 14.5 G/DL (14.2-18.0) Hematocrit 45.2 % (42.0-52.0) Mean Corpuscular Volume 98 FL (80-99) Mean Corpuscular Hemoglobin 31.3 PG (27.0-31.0) H Mean Corpuscular Hemoglobin Concent 32.0 G/DL (32.0-36.0) Red Cell Distribution Width 13.1 % (11.6-14.8) Platelet Count 179 K/UL (150-450) Mean Platelet Volume 7.9 FL (6.5-10.1) Neutrophils (%) (Auto) 73.2 % (45.0-75.0) Lymphocytes (%) (Auto) 20.8 % (20.0-45.0) Monocytes (%) (Auto) 5.2 % (1.0-10.0) Eosinophils (%) (Auto) 0.1 % (0.0-3.0) Basophils (%) (Auto) 0.6 % (0.0-2.0) Sodium Level 141 mEQ/L (135-145) Potassium Level 3.8 mEQ/L (3.4-4.9) Chloride Level 105 mEQ/L (98-107) Carbon Dioxide Level 24 mEQ/L (20-30) Anion Gap 12 (5-15) Blood Urea Nitrogen 21 mg/dL (7-23) Creatinine 1.0 mg/dL (0.7-1.2) Estimat Glomerular Filtration Rate mL/min (>60) Glucose Level 191 mg/dL (74-106) H Hemoglobin A1c 7.3 % (< 6.0) H Lactic Acid Level 2.00 mmol/L (0.66-2.22) Uric Acid 5.9 mg/dL (3.0-7.5) Calcium Level 8.8 mg/dL (8.6-10.2) Phosphorus Level 2.0 mg/dL (2.5-4.8) L Magnesium Level 1.7 mg/dL (1.7-2.5) Total Bilirubin 0.8 mg/dL (0.0-1.2) Gamma Glutamyl Transpeptidase 65 U/L (8-61) H Aspartate Amino Transf (AST/SGOT) 20 U/L (5-40) Alanine Aminotransferase (ALT/SGPT) 17 U/L (3-41) Alkaline Phosphatase 63 U/L (40-129) Total Creatine Kinase 159 U/L (38-174) C-Reactive Protein, Quantitative 12.5 mg/dL (< 0.5) H Pro-B-Type Natriuretic Peptide 447 pg/mL (0-450) Total Protein 6.9 g/dL (6.6-8.7) Albumin 2.8 g/dL (3.5-5.2) L Globulin 4.1 g/dL Albumin/Globulin Ratio 0.6 (1.0-2.7) L Triglycerides Level 80 mg/dL (< 150) Cholesterol Level 108 mg/dL (< 200) LDL Cholesterol 61 mg/dL (60-99) HDL Cholesterol 31 mg/dL (> 60) Cholesterol/HDL Ratio 3.5 (3.3-4.4) Lipase 27 U/L (< 60) Thyroid Stimulating Hormone (TSH) 0.901 uIU/mL (0.300-4.500) Current Medications Medications (Trade) Dose Ordered Sig/Francesca Route PRN Reason Start Time Stop Time Status Last Admin Dose Admin Acetaminophen (Tylenol) 650 mg Q4H PRN RECTAL T>100.5 09/10/16 21:00 10/10/16 20:59 Acetaminophen (Tylenol) 650 mg Q6H PRN ORAL Prn Pain/Headache/Temp > 101 09/10/16 17:15 10/10/16 17:14 Albuterol/ Ipratropium (DuoNeb 0.5-3(2.5)mg/3ml) 3 ml QIDRT HHN 09/10/16 19:00 09/15/16 18:59 09/11/16 10:43 Aspirin (ASA) 81 mg DAILY GT 09/11/16 09:00 10/11/16 08:59 09/11/16 08:49 Dextrose (Dextrose 50%) STAT PRN IV Hypoglycemia 09/11/16 11:00 10/11/16 10:59 Heparin Sodium (Porcine) 5000 units 5,000 units EVERY 12 HOURS SUBQ 09/10/16 21:00 10/10/16 20:59 09/11/16 08:50 Insulin Aspart (NovoLOG) Q6HR SUBQ 09/11/16 12:00 10/11/16 11:59 Metoprolol Tartrate (Lopressor) 25 mg Q12HR GT 09/10/16 21:00 10/10/16 20:59 09/11/16 08:49 Piperacillin Sod/ Tazobactam Sod/ Dextrose (Zosyn/D5W) 110 ml @ 27.5 mls/hr EVERY 8 HOURS IVPB 09/10/16 22:00 09/15/16 21:59 09/11/16 05:37 Ranitidine HCl (Zantac) 150 mg TWICE A DAY GT 09/11/16 18:00 10/11/16 17:59 Sodium Chloride (Sodium Chloride 1000ml bag) 1,000 ml @ 75 mls/hr [id number] IV 09/11/16 11:00 10/11/16 10:59 09/11/16 11:29 Sucralfate 1 gm 1 gm FOUR TIMES A DAY GT 09/10/16 21:00 10/10/16 20:59 09/11/16 08:49 Tamsulosin HCl (Flomax) 0.4 mg DAILY GT 09/12/16 09:00 10/12/16 08:59 ASIYA WETZEL M.D. September 11, 2016 11:55
--- NOTE | 2016-09-11 12:47 | Cardiology Report ---
APPROVED REPORT EKG Measurement Heart [id number] CT [id number] [id number] Sinus tachycardia Left axis deviation Moderate voltage criteria for LVH, may be normal variant Possible Lateral infarct, age undetermined Inferior-posterior infarct, age undetermined Abnormal ECG
--- NOTE | 2016-09-11 15:35 | Consultation ---
History of Present Illness General Date patient seen: September 11, 2016 Chief Complaint: Vomiting Referring physician: dr. Hnut Reason for Consultation: aspiration Present Illness HPI 81-year-old male with hx of end stage dementia, s/p PEG, bed bound, longterm resident presented to ED for evaluation of vomiting twice at longterm. Patient was also tachycardic, had reported fever. Patient is unable to provide any additional history at this time. Initial CXR showed LLL atelectasis and pulmonary edema. Pt is admitted for further evaluation Allergies: Coded Allergies: MILK (Unverified Allergy, Unknown, 05/14/16) SOY (Unverified Allergy, Unknown, 05/14/16) SOYBEAN (Unverified Allergy, Unknown, 05/14/16) Medication History Scheduled Acetaminophen (Acetaminophen), 650 MG GT Q4HR, (Reported) Acetaminophen* (Tylenol Extra Strength*), 1,000 MG GT Q8H, (Reported) Aspirin* (Aspir-Low*), 81 MG GT DAILY, (Reported) Cholecalciferol (Vitamin D3)* (Vitamin D*), 2,000 UNITS GT DAILY, (Reported) Cranberry Conc/C/Bacill Coag (Azo Cranberry Tablet), 1 EACH GT DAILY, (Reported) Docusate Sodium* (Colace*), 100 MG GT DAILY, (Reported) Ertapenem (Invanz), 1 GM IM DAILY Esomeprazole Magnesium (Nexium), 40 MG GT ACBREAKFAST, (Reported) Fluconazole (Fluconazole), 200 MG GT DAILY, (Reported) Fluconazole* (Diflucan*), 200 MG ORAL DAILY Insulin Aspart (Novolog Flexpen), 0 UNITS SUBQ EVERY 6 HOURS Ipratropium/Albuterol Sulfate (Duoneb 0.5 Mg-3 Mg/3 Ml Soln), 3 ML IH QID, ( Reported) Lactulose (Lactulose*), 20 GM GT TID, (Reported) Metoclopramide HCl (Metoclopramide HCl), 5 MG GT EVERY 6 HOURS Metoprolol Tartrate (Metoprolol Tartrate), 25 MG GT Q12HR Multivitamins Liq* (Multivitamin Liq*), 15 ML GT DAILY, (Reported) Omeprazole (Omeprazole), 20 MG GT BID, (Reported) Pantoprazole Sodium (Protonix), 40 MG GT EVERY 12 HOURS Potassium Chloride (Klor-Con M20), 20 MEQ GT DAILY, (Reported) Sucralfate* (Carafate*), 1 GM ORAL FOUR TIMES A DAY Tamsulosin HCl (Flomax), 0.4 MG GT DAILY, (Reported) Scheduled PRN Acetaminophen (Tylenol), 650 MG ORAL Q6H PRN for Prn Pain/Headache/Temp > 101 Saline (Sodium Chloride), 10 ML IVF Q8H PRN for for line flush Patient History Healthcare decision maker Resuscitation status Full Code Advanced Directive on File Yes Past Medical/Surgical History Past Medical/Surgical History: (1) G-tube site cellulitis (2) CVA, old, aphasia (3) DM (diabetes mellitus) (4) Hypoalbuminemia Review of Systems All Other Systems: negative except mentioned in HPI Physical Exam General Appearance: WD/WN Lines, tubes and drains: central line HEENT: normocephalic, atraumatic Neck: non-tender, normal alignment Respiratory/Chest: chest wall non-tender, lungs clear Breasts: no masses Cardiovascular/Chest: normal peripheral pulses Genitourinary/Rectal: normal genital exam Extremities: normal range of motion Last 24 Hour Vital Signs Date Time Temp Pulse Resp B/P Pulse Ox O2 Delivery O2 Flow Rate FiO2 09/11/16 14:51 92 18 100 Nasal Cannula 2.0 28 09/11/16 14:41 89 18 94 Nasal Cannula 2.0 28 09/11/16 12:00 86 09/11/16 12:00 96.6 84 18 124/71 96 Room Air 09/11/16 10:53 89 18 100 Nasal Cannula 2.0 28 09/11/16 10:43 85 18 97 Nasal Cannula 3.0 32 09/11/16 08:49 89 122/60 09/11/16 08:00 89 09/11/16 08:00 96.5 89 17 122/53 95 Room Air 09/11/16 07:18 88 18 100 Nasal Cannula 3.0 32 09/11/16 07:08 86 18 97 Nasal Cannula 3.0 32 09/11/16 04:00 87 09/11/16 04:00 97.9 87 20 108/58 96 Nasal Cannula 2.0 09/11/16 00:00 97.2 94 20 124/64 99 Nasal Cannula 2.0 09/11/16 00:00 92 09/10/16 20:56 107 130/68 09/10/16 20:00 97.4 106 19 133/68 94 Nasal Cannula 2.0 09/10/16 20:00 99 09/10/16 19:22 89 18 100 Nasal Cannula 3.0 32 09/10/16 19:14 87 18 Nasal Cannula 3.0 32 09/10/16 19:14 87 18 100 Nasal Cannula 3.0 32 09/10/16 17:43 98.1 107 20 124/62 95 Nasal Cannula 5.0 09/10/16 17:07 105 22 123/62 94 Nasal Cannula 5.0 09/10/16 16:55 98.9 109 22 123/62 95 Nasal Cannula 5.0 09/10/16 15:46 102.7 114 34 124/83 99 Intake and Output 09/10/16 09/11/16 19:00 07:00 Intake Total 1274 ml 1037.5 ml Output Total 100 ml 1100 ml Balance 1174 ml -62.5 ml Intake IV Total 1274 ml 1037.5 ml Output Urine Total 1100 ml Emesis 100 ml # Bowel Movements 1 1 Laboratory Tests Test 09/10/16 17:05 09/11/16 07:30 09/11/16 12:30 Lactic Acid Level 3.90 mmol/L (0.66-2.22) H 2.00 mmol/L (0.66-2.22) 2.80 mmol/L (0.66-2.22) H White Blood Count 14.5 K/UL (4.8-10.8) H Red Blood Count 4.62 M/UL (4.70-6.10) L Hemoglobin 14.5 G/DL (14.2-18.0) Hematocrit 45.2 % (42.0-52.0) Mean Corpuscular Volume 98 FL (80-99) Mean Corpuscular Hemoglobin 31.3 PG (27.0-31.0) H Mean Corpuscular Hemoglobin Concent 32.0 G/DL (32.0-36.0) Red Cell Distribution Width 13.1 % (11.6-14.8) Platelet Count 179 K/UL (150-450) Mean Platelet Volume 7.9 FL (6.5-10.1) Neutrophils (%) (Auto) 73.2 % (45.0-75.0) Lymphocytes (%) (Auto) 20.8 % (20.0-45.0) Monocytes (%) (Auto) 5.2 % (1.0-10.0) Eosinophils (%) (Auto) 0.1 % (0.0-3.0) Basophils (%) (Auto) 0.6 % (0.0-2.0) Sodium Level 141 mEQ/L (135-145) Potassium Level 3.8 mEQ/L (3.4-4.9) Chloride Level 105 mEQ/L (98-107) Carbon Dioxide Level 24 mEQ/L (20-30) Anion Gap 12 (5-15) Blood Urea Nitrogen 21 mg/dL (7-23) Creatinine 1.0 mg/dL (0.7-1.2) Estimat Glomerular Filtration Rate mL/min (>60) Glucose Level 191 mg/dL (74-106) H Hemoglobin A1c 7.3 % (< 6.0) H Uric Acid 5.9 mg/dL (3.0-7.5) Calcium Level 8.8 mg/dL (8.6-10.2) Phosphorus Level 2.0 mg/dL (2.5-4.8) L Magnesium Level 1.7 mg/dL (1.7-2.5) Total Bilirubin 0.8 mg/dL (0.0-1.2) Gamma Glutamyl Transpeptidase 65 U/L (8-61) H Aspartate Amino Transf (AST/SGOT) 20 U/L (5-40) Alanine Aminotransferase (ALT/SGPT) 17 U/L (3-41) Alkaline Phosphatase 63 U/L (40-129) Total Creatine Kinase 159 U/L (38-174) C-Reactive Protein, Quantitative 12.5 mg/dL (< 0.5) H Pro-B-Type Natriuretic Peptide 447 pg/mL (0-450) Total Protein 6.9 g/dL (6.6-8.7) Albumin 2.8 g/dL (3.5-5.2) L Globulin 4.1 g/dL Albumin/Globulin Ratio 0.6 (1.0-2.7) L Triglycerides Level 80 mg/dL (< 150) Cholesterol Level 108 mg/dL (< 200) LDL Cholesterol 61 mg/dL (60-99) HDL Cholesterol 31 mg/dL (> 60) Cholesterol/HDL Ratio 3.5 (3.3-4.4) Lipase 27 U/L (< 60) Thyroid Stimulating Hormone (TSH) 0.901 uIU/mL (0.300-4.500) Microbiology Date/Time Source Procedure Growth Status 09/10/16 16:25 Stool Stool Culture Pending Resulted 09/10/16 16:25 Stool Clostridium difficile Toxin Assay - Final Resulted Height (Feet): 5 Height (Inches): 9.00 Weight (Pounds): 180 Medications Current Medications Medications (Trade) Dose Ordered Sig/Francesca Route PRN Reason Start Time Stop Time Status Last Admin Dose Admin Acetaminophen (Tylenol) 650 mg Q4H PRN RECTAL T>100.5 09/10/16 21:00 10/10/16 20:59 Acetaminophen (Tylenol) 650 mg Q6H PRN ORAL Prn Pain/Headache/Temp > 101 09/10/16 17:15 10/10/16 17:14 Albuterol/ Ipratropium (DuoNeb 0.5-3(2.5)mg/3ml) 3 ml QIDRT HHN 09/10/16 19:00 09/15/16 18:59 09/11/16 14:41 Aspirin (ASA) 81 mg DAILY GT 09/11/16 09:00 10/11/16 08:59 09/11/16 08:49 Dextrose (Dextrose 50%) STAT PRN IV Hypoglycemia 09/11/16 11:00 10/11/16 10:59 Heparin Sodium (Porcine) 5000 units 5,000 units EVERY 12 HOURS SUBQ 09/10/16 21:00 10/10/16 20:59 09/11/16 08:50 Insulin Aspart (NovoLOG) Q6HR SUBQ 09/11/16 12:00 10/11/16 11:59 Metoprolol Tartrate (Lopressor) 25 mg Q12HR GT 09/10/16 21:00 10/10/16 20:59 09/11/16 08:49 Piperacillin Sod/ Tazobactam Sod/ Dextrose (Zosyn/D5W) 110 ml @ 27.5 mls/hr EVERY 8 HOURS IVPB 09/10/16 22:00 09/15/16 21:59 09/11/16 13:22 Ranitidine HCl (Zantac) 150 mg TWICE A DAY GT 09/11/16 18:00 10/11/16 17:59 Sodium Chloride (Sodium Chloride 1000ml bag) 1,000 ml @ 75 mls/hr [id number] IV 09/11/16 11:00 10/11/16 10:59 09/11/16 11:29 Sucralfate 1 gm 1 gm FOUR TIMES A DAY GT 09/10/16 21:00 10/10/16 20:59 09/11/16 13:22 Tamsulosin HCl (Flomax) 0.4 mg DAILY GT 09/12/16 09:00 10/12/16 08:59 Assessment/Plan Problem List: (1) At high risk for aspiration ICD Codes: Z91.89 - Other specified personal risk factors, not elsewhere classified SNOMED: 495225265 (2) Pneumonia ICD Codes: J18.9 - Pneumonia SNOMED: 527383388 Qualifiers: Qualified Codes: J18.9 - Pneumonia, unspecified organism (3) G-tube site cellulitis ICD Codes: K94.22 - Gastrostomy infection; L03.319 - Cellulitis of trunk, unspecified SNOMED: 333173207, 200885940 (4) CVA, old, aphasia ICD Codes: I69.320 - Aphasia as late effect of cerebrovascular accident SNOMED: 432024524 (5) DM (diabetes mellitus) ICD Codes: E11.9 - Diabetes mellitus SNOMED: 46460454 Assessment/Plan sputum induction broad spectrum antibiotics chest pt aspiration precaution SWATI THOMAS September 11, 2016 15:35
--- NOTE | 2016-09-11 22:18 | History and Physical Report ---
DATE OF ADMISSION: 09/10/2016 The patient was seen in emergency room in the afternoon of 09/10/2016. HISTORY OF PRESENT ILLNESS: The patient is 81-year-old, -[place] male who lives in the [facility]. The patient had the diarrhea and vomited; came into emergency room; found to be tachycardic and febrile; and after initial evaluation and treatment, he is being admitted, with a diagnosis of sepsis with a possibility of aspiration pneumonia and UTI, to a monitored bed. ALLERGIES: To milk, soy, and soybean. PAST MEDICAL HISTORY: Significant for previous pneumonia and UTI. 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 The patient has a PEG. History of tobacco abuse in the past. The patient has COPD, degenerative joint disease, high cholesterol, hypertension, atrophic gastritis, depression, and contractures of the left side. PHYSICAL EXAMINATION: VITAL SIGNS: When seen in emergency room, pulse was 120, blood pressure 146/82, and pulse oximetry 92%. The patient already was resuscitated with 2 liters of normal saline. HEENT: Head, normocephalic. Eyes, nonicteric. NECK: Rigid to all directions. LUNGS: Decreased breath sounds over the bases. HEART: Tachycardic. ABDOMEN: GT tube in place. Mildly distended. Nontender. GENITOURINARY: He had a Johnson catheter in. NEUROLOGIC: Left caleb, dense EXTREMITIES: Lower extremities, no edema. LABORATORY AND DIAGNOSTIC DATA: Hemoglobin 18.9, white blood cells 9.7. Sodium 133, chloride 94. Urine had 10 white blood cells, 2+ leukocyte esterase, 2+ protein. Chest x-ray, mild interstitial edema and basal atelectasis. The initial lactate level was 3.8. IMPRESSION: This 81-year-old, male with multiple medical problems, develops diarrhea and vomiting, and presents to emergency room with fever, tachycardia, high lactic level, and evidence of urinary tract infection and possible pneumonia. Diagnosis is most likely sepsis. PLAN: Vigorous hydration, IV Protonix, antibiotics, breathing treatment, ID and Pulmonary evaluation. Monitor blood sugar, blood pressure, and hemodynamics support. According to how the patient's condition evolves, we will make the proper changes in our future management. Scott Mack M.D. DR: JOHN JOB#: [id number] CC:
[2016-09-12] MEDS: NovoLOG Insulin Flexpen SUBQ SCH ×5 (00:11→23:48)
[2016-09-12 03:44] VITALS: BP 115/62
[2016-09-12] MEDS: Piperacillin/Tazobactam 3.375 GM in D5W 110 ML IVPB SCH ×3 (05:58→22:07)
[2016-09-12 07:32] LABS: BASOPHILS % (AUTO) 0.6 % (0.0-2.0); EOSINOPHILS % (AUTO) 2.2 % (0.0-3.0); LYMPHOCYTES % (AUTO) 21.9 % (20.0-45.0); MEAN CORPUSCULAR HEMOGLOBIN 31.8 PG (27.0-31.0); MEAN CORPUSCULAR HGB CONC 32.3 G/DL (32.0-36.0); MEAN CORPUSCULAR VOLUME 99 FL (80-99); MEAN PLATELET VOLUME 8.1 FL (6.5-10.1); MONOCYTES % (AUTO) 6.9 % (1.0-10.0); NEUTROPHILS % (AUTO) 68.4 % (45.0-75.0); PLATELET COUNT 160 K/UL (150-450); RED BLOOD COUNT 4.47 M/UL (4.70-6.10); RED CELL DISTRIBUTION WIDTH 12.9 % (11.6-14.8); WHITE BLOOD COUNT 11.9 K/UL (4.8-10.8)
[2016-09-12 07:59] LABS: ALANINE AMINOTRANSFERASE 18 U/L (3-41); ALBUMIN/GLOBULIN RATIO 0.6 (1.0-2.7); ANION GAP 14 (5-15); ASPARTATE AMINO TRANSFERASE 26 U/L (5-40); CARBON DIOXIDE 25 mEQ/L (20-30); CHLORIDE 102 mEQ/L (98-107); CREATININE 0.9 mg/dL (0.7-1.2); CRP QUANT 13.2 mg/dL (< 0.5); HEMOLYSIS 23; MAGNESIUM 1.8 mg/dL (1.7-2.5); PHOSPHORUS 1.8 mg/dL (2.5-4.8); POTASSIUM 3.5 mEQ/L (3.4-4.9); SODIUM 141 mEQ/L (135-145); TOTAL PROTEIN 7.3 g/dL (6.6-8.7); URIC ACID 4.2 mg/dL (3.0-7.5)
[2016-09-12 08:00] VITALS: BP 130/63
[2016-09-12] MEDS: DuoNeb 0.5-3(2.5)mg/3ml neb HHN SCH ×4 (08:18→19:18)
[2016-09-12] MEDS: Aspirin Baby 81mg GT SCH (08:29)
[2016-09-12] MEDS: Sucralfate 1gm tab GT SCH ×4 (08:29→21:14)
[2016-09-12] MEDS: Heparin 5000 units/ml inj SUBQ SCH ×2 (08:29→21:15)
[2016-09-12] MEDS: Metoprolol 25mg tab GT SCH ×2 (08:30→21:14)
[2016-09-12] MEDS ORDERED: Tamsulosin 0.4mg cap GT SCH (09:00)
[2016-09-12] MEDS ORDERED: Sodium Phosphate 30 MM in NS 275 ML IVPB ONE ×2 (10:00→14:45)
--- NOTE | 2016-09-12 11:27 | General Progress Note ---
Assessment/Plan Status: stable Status Narrative clinically improving Assessment/Plan Sepsis UTI ? Aspiration s/p CVA DM HTN PAST MEDICAL HISTORY: Significant for previous pneumonia and UTI. 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 The patient has a PEG. History of tobacco abuse in the past. The patient has COPD, degenerative joint disease, high cholesterol, hypertension, atrophic gastritis, depression, and contractures of the left side. Plan; to med- surg Pulmonary toilet antibiotics GT feeding Decrease IV Phos supplement SS Insulin Monitor labs Subjective ROS Limited/Unobtainable: No Constitutional: Reports: malaise Allergies: Coded Allergies: MILK (Unverified Allergy, Unknown, 05/14/16) SOY (Unverified Allergy, Unknown, 05/14/16) SOYBEAN (Unverified Allergy, Unknown, 05/14/16) Objective Last 24 Hour Vital Signs Date Time Temp Pulse Resp B/P Pulse Ox O2 Delivery O2 Flow Rate FiO2 09/12/16 11:24 86 18 100 Nasal Cannula 3.0 32 09/12/16 11:20 88 18 96 Nasal Cannula 3.0 32 09/12/16 08:30 91 130/63 09/12/16 08:00 98.1 91 20 130/63 94 Nasal Cannula 3.0 09/12/16 07:35 88 18 100 Nasal Cannula 3.0 32 09/12/16 07:30 86 20 96 Nasal Cannula 3.0 32 09/12/16 07:30 96 Nasal Cannula 3.0 32 09/12/16 07:30 Nasal Cannula 3.0 32 09/12/16 04:56 84 09/12/16 03:44 98.1 87 21 115/62 96 Nasal Cannula 2.0 09/12/16 00:00 91 09/11/16 23:46 98.6 91 19 130/57 95 Nasal Cannula 2.0 09/11/16 20:53 99 122/66 09/11/16 20:01 98.4 58 20 122/66 99 Nasal Cannula 2.0 09/11/16 20:00 93 09/11/16 20:00 94 18 97 Nasal Cannula 3.0 32 09/11/16 19:48 Nasal Cannula 3.0 32 09/11/16 19:48 95 Nasal Cannula 3.0 32 09/11/16 19:47 91 20 95 Nasal Cannula 3.0 32 09/11/16 17:16 Nasal Cannula 2.0 28 09/11/16 17:16 94 Nasal Cannula 2.0 28 09/11/16 16:00 91 09/11/16 16:00 97.3 94 18 126/68 95 Nasal Cannula 2.0 09/11/16 14:51 92 18 100 Nasal Cannula 2.0 28 09/11/16 14:41 89 18 94 Nasal Cannula 2.0 28 09/11/16 12:00 86 09/11/16 12:00 96.6 84 18 124/71 96 Room Air Intake and Output 09/11/16 09/12/16 19:00 07:00 Intake Total 1012.5 ml 1405.0 ml Output Total 1960 ml 700 ml Balance -947.5 ml 705.0 ml Intake Free Water 30 ml 105 ml IV Total 942.5 ml 885.0 ml Tube Feeding 40 ml 415 ml Output Urine Total 1960 ml 700 ml # Bowel Movements 1 Laboratory Tests 09/11/16 12:30: Lactic Acid Level 2.80H 09/12/16 06:35: White Blood Count 11.9H, Red Blood Count 4.47L, Hemoglobin 14.2, Hematocrit 44.0 , Mean Corpuscular Volume 99, Mean Corpuscular Hemoglobin 31.8H, Mean Corpuscular Hemoglobin Concent 32.3, Red Cell Distribution Width 12.9, Platelet Count 160, Mean Platelet Volume 8.1, Neutrophils (%) (Auto) 68.4, Lymphocytes (% ) (Auto) 21.9, Monocytes (%) (Auto) 6.9, Eosinophils (%) (Auto) 2.2, Basophils ( %) (Auto) 0.6, Sodium Level 141, Potassium Level 3.5, Chloride Level 102, Carbon Dioxide Level 25, Anion Gap 14, Blood Urea Nitrogen 18, Creatinine 0.9, Estimat Glomerular Filtration Rate , Glucose Level 164H, Uric Acid 4.2, Calcium Level 9.0, Phosphorus Level 1.8L, Magnesium Level 1.8, Total Bilirubin 0.4, Aspartate Amino Transf (AST/SGOT) 26, Alanine Aminotransferase (ALT/SGPT) 18, Alkaline Phosphatase 71, C-Reactive Protein, Quantitative 13.2H, Pro-B-Type Natriuretic Peptide 296, Total Protein 7.3, Albumin 2.9L, Globulin 4.4, Albumin/ Globulin Ratio 0.6L Height (Feet): 5 Height (Inches): 9.00 Weight (Pounds): 180 General Appearance: no apparent distress Neck: stiff neck Respiratory/Chest: decreased breath sounds Abdomen: soft Edema: no edema noted Arm (L), no edema noted Arm (R), no edema noted Leg (L), no edema noted Leg (R), no edema noted Pedal (L), no edema noted Pedal (R), no edema noted Generalized Neurologic: other Objective other PE not changed JULIANNE HERNÁNDEZ September 12, 2016 11:27
[2016-09-12 12:05] VITALS: BP 138/78
--- NOTE | 2016-09-12 13:43 | Pulmonology Progress Note ---
Assessment/Plan Problems: (1) At high risk for aspiration (2) Pneumonia (3) G-tube site cellulitis (4) CVA, old, aphasia (5) DM (diabetes mellitus) Assessment/Plan wbc decreasing chest pt sliding scale check cultures continue antibioitcs Subjective ROS Limited/Unobtainable: Yes Interval Events: looks comfortable Allergies: Coded Allergies: MILK (Unverified Allergy, Unknown, 05/14/16) SOY (Unverified Allergy, Unknown, 05/14/16) SOYBEAN (Unverified Allergy, Unknown, 05/14/16) Objective Last 24 Hour Vital Signs Date Time Temp Pulse Resp B/P Pulse Ox O2 Delivery O2 Flow Rate FiO2 09/12/16 12:05 97.8 85 20 138/78 94 Nasal Cannula 3.0 09/12/16 12:00 86 09/12/16 11:24 86 18 100 Nasal Cannula 3.0 32 09/12/16 11:20 88 18 96 Nasal Cannula 3.0 32 09/12/16 08:30 91 130/63 09/12/16 08:00 98.1 91 20 130/63 94 Nasal Cannula 3.0 09/12/16 08:00 89 09/12/16 07:35 88 18 100 Nasal Cannula 3.0 32 09/12/16 07:30 86 20 96 Nasal Cannula 3.0 32 09/12/16 07:30 96 Nasal Cannula 3.0 32 09/12/16 07:30 Nasal Cannula 3.0 32 09/12/16 04:56 84 09/12/16 03:44 98.1 87 21 115/62 96 Nasal Cannula 2.0 09/12/16 00:00 91 09/11/16 23:46 98.6 91 19 130/57 95 Nasal Cannula 2.0 09/11/16 20:53 99 122/66 09/11/16 20:01 98.4 58 20 122/66 99 Nasal Cannula 2.0 09/11/16 20:00 93 09/11/16 20:00 94 18 97 Nasal Cannula 3.0 32 09/11/16 19:48 Nasal Cannula 3.0 32 09/11/16 19:48 95 Nasal Cannula 3.0 32 09/11/16 19:47 91 20 95 Nasal Cannula 3.0 32 09/11/16 17:16 Nasal Cannula 2.0 28 09/11/16 17:16 94 Nasal Cannula 2.0 28 09/11/16 16:00 91 09/11/16 16:00 97.3 94 18 126/68 95 Nasal Cannula 2.0 09/11/16 14:51 92 18 100 Nasal Cannula 2.0 28 09/11/16 14:41 89 18 94 Nasal Cannula 2.0 28 Intake and Output 09/11/16 09/12/16 19:00 07:00 Intake Total 1012.5 ml 1405.0 ml Output Total 1960 ml 700 ml Balance -947.5 ml 705.0 ml Intake Free Water 30 ml 105 ml IV Total 942.5 ml 885.0 ml Tube Feeding 40 ml 415 ml Output Urine Total 1960 ml 700 ml # Bowel Movements 1 General Appearance: WD/WN HEENT: normocephalic Respiratory/Chest: chest wall non-tender, lungs clear Cardiovascular: normal peripheral pulses, normal rate Abdomen: normal bowel sounds, soft, non tender Genitourinary: normal external genitalia 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 Resulted 09/10/16 16:25 Stool Clostridium difficile Toxin Assay - Final Resulted 09/10/16 23:50 Urine,Clean Catch Urine Culture - Preliminary Resulted Laboratory Tests 09/12/16 06:35: White Blood Count 11.9H, Red Blood Count 4.47L, Hemoglobin 14.2, Hematocrit 44.0 , Mean Corpuscular Volume 99, Mean Corpuscular Hemoglobin 31.8H, Mean Corpuscular Hemoglobin Concent 32.3, Red Cell Distribution Width 12.9, Platelet Count 160, Mean Platelet Volume 8.1, Neutrophils (%) (Auto) 68.4, Lymphocytes (% ) (Auto) 21.9, Monocytes (%) (Auto) 6.9, Eosinophils (%) (Auto) 2.2, Basophils ( %) (Auto) 0.6, Sodium Level 141, Potassium Level 3.5, Chloride Level 102, Carbon Dioxide Level 25, Anion Gap 14, Blood Urea Nitrogen 18, Creatinine 0.9, Estimat Glomerular Filtration Rate , Glucose Level 164H, Uric Acid 4.2, Calcium Level 9.0, Phosphorus Level 1.8L, Magnesium Level 1.8, Total Bilirubin 0.4, Aspartate Amino Transf (AST/SGOT) 26, Alanine Aminotransferase (ALT/SGPT) 18, Alkaline Phosphatase 71, C-Reactive Protein, Quantitative 13.2H, Pro-B-Type Natriuretic Peptide 296, Total Protein 7.3, Albumin 2.9L, Globulin 4.4, Albumin/ Globulin Ratio 0.6L Current Medications Medications (Trade) Dose Ordered Sig/Francesca Route PRN Reason Start Time Stop Time Status Last Admin Dose Admin Acetaminophen (Tylenol) 650 mg Q4H PRN RECTAL T>100.5 09/10/16 21:00 10/10/16 20:59 Acetaminophen (Tylenol) 650 mg Q6H PRN ORAL Prn Pain/Headache/Temp > 101 09/10/16 17:15 10/10/16 17:14 Albuterol/ Ipratropium (DuoNeb 0.5-3(2.5)mg/3ml) 3 ml QIDRT HHN 09/10/16 19:00 09/15/16 18:59 09/12/16 11:23 Aspirin (ASA) 81 mg DAILY GT 09/11/16 09:00 10/11/16 08:59 09/12/16 08:29 Dextrose STAT PRN IV Hypoglycemia 09/11/16 11:00 10/11/16 10:59 Heparin Sodium (Porcine) 5000 units 5,000 units EVERY 12 HOURS SUBQ 09/10/16 21:00 10/10/16 20:59 09/12/16 08:29 Insulin Aspart (NovoLOG) Q6HR SUBQ 09/11/16 12:00 10/11/16 11:59 09/12/16 12:10 Metoprolol Tartrate (Lopressor) 25 mg Q12HR GT 09/10/16 21:00 10/10/16 20:59 09/12/16 08:30 Piperacillin Sod/ Tazobactam Sod/ Dextrose (Zosyn/D5W) 110 ml @ 27.5 mls/hr EVERY 8 HOURS IVPB 09/10/16 22:00 09/15/16 21:59 09/12/16 13:23 Ranitidine HCl (Zantac) 150 mg TWICE A DAY GT 09/11/16 18:00 10/11/16 17:59 09/12/16 08:30 Sodium Chloride (Sodium Chloride 1000ml bag) 1,000 ml @ 50 mls/hr Q20H IV 09/13/16 11:45 10/13/16 11:44 Sodium Phosphate 30 mm/Sodium Chloride 285 ml @ 47.5 mls/hr ONCE ONCE IVPB 09/12/16 10:00 09/12/16 15:59 09/12/16 10:33 Sucralfate (Carafate) 1 gm FOUR TIMES A DAY GT 09/10/16 21:00 10/10/16 20:59 09/12/16 12:09 Tamsulosin HCl (Flomax) 0.4 mg DAILY GT 09/12/16 09:00 10/12/16 08:59 09/12/16 08:29 SWATI THOMAS September 12, 2016 13:43
--- NOTE | 2016-09-12 14:23 | Infectious Diseases Prog Note ---
Assessment/Plan Assessment/Plan ASSESSMENT: 81-year-old male with: Leukocytosis - improved Sepsis Diarrhea - improved - negative: C.difficile, stool Cx Fever SP SP nausea, and vomiting Chest x-ray : interstitial edema DM HTN hx of Rhabdomyolysis COPD CVA Status post PEG placement for dysphagia Anemia Aphasia No ABX allergies Full Code PLAN: Cont on IV Zosyn day # 3 / 5-7 f/u final cultures Monitor CBC Monitor BMP Monitor chest x-ray aspiration precautions Subjective Allergies: Coded Allergies: MILK (Unverified Allergy, Unknown, 05/14/16) SOY (Unverified Allergy, Unknown, 05/14/16) SOYBEAN (Unverified Allergy, Unknown, 05/14/16) Subjective remains afebrile cultures NGTD Objective Vital Signs Last 24 Hour Vital Signs Date Time Temp Pulse Resp B/P Pulse Ox O2 Delivery O2 Flow Rate FiO2 09/12/16 12:05 97.8 85 20 138/78 94 Nasal Cannula 3.0 09/12/16 12:00 86 09/12/16 11:24 86 18 100 Nasal Cannula 3.0 32 09/12/16 11:20 88 18 96 Nasal Cannula 3.0 32 09/12/16 08:30 91 130/63 09/12/16 08:00 98.1 91 20 130/63 94 Nasal Cannula 3.0 09/12/16 08:00 89 09/12/16 07:35 88 18 100 Nasal Cannula 3.0 32 09/12/16 07:30 86 20 96 Nasal Cannula 3.0 32 09/12/16 07:30 96 Nasal Cannula 3.0 32 09/12/16 07:30 Nasal Cannula 3.0 32 09/12/16 04:56 84 09/12/16 03:44 98.1 87 21 115/62 96 Nasal Cannula 2.0 09/12/16 00:00 91 09/11/16 23:46 98.6 91 19 130/57 95 Nasal Cannula 2.0 09/11/16 20:53 99 122/66 09/11/16 20:01 98.4 58 20 122/66 99 Nasal Cannula 2.0 09/11/16 20:00 93 09/11/16 20:00 94 18 97 Nasal Cannula 3.0 32 09/11/16 19:48 Nasal Cannula 3.0 32 09/11/16 19:48 95 Nasal Cannula 3.0 32 09/11/16 19:47 91 20 95 Nasal Cannula 3.0 32 09/11/16 17:16 Nasal Cannula 2.0 28 09/11/16 17:16 94 Nasal Cannula 2.0 28 09/11/16 16:00 91 09/11/16 16:00 97.3 94 18 126/68 95 Nasal Cannula 2.0 09/11/16 14:51 92 18 100 Nasal Cannula 2.0 28 09/11/16 14:41 89 18 94 Nasal Cannula 2.0 28 Height (Feet): 5 Height (Inches): 9.00 Weight (Pounds): 180 Microbiology Date/Time Source Procedure Growth Status 09/10/16 13:46 Blood Blood Culture - Preliminary NO GROWTH AFTER 24 HOURS Resulted 09/10/16 13:30 Blood Blood Culture - Preliminary NO GROWTH AFTER 24 HOURS Resulted 09/10/16 16:25 Stool Stool Culture - Preliminary NORMAL FECAL KASSANDRA. Resulted 09/10/16 16:25 Stool Clostridium difficile Toxin Assay - Final Resulted 09/10/16 23:50 Urine,Clean Catch Urine Culture - Preliminary Resulted Laboratory Tests Test 09/12/16 06:35 White Blood Count 11.9 K/UL (4.8-10.8) H Red Blood Count 4.47 M/UL (4.70-6.10) L Hemoglobin 14.2 G/DL (14.2-18.0) Hematocrit 44.0 % (42.0-52.0) Mean Corpuscular Volume 99 FL (80-99) Mean Corpuscular Hemoglobin 31.8 PG (27.0-31.0) H Mean Corpuscular Hemoglobin Concent 32.3 G/DL (32.0-36.0) Red Cell Distribution Width 12.9 % (11.6-14.8) Platelet Count 160 K/UL (150-450) Mean Platelet Volume 8.1 FL (6.5-10.1) Neutrophils (%) (Auto) 68.4 % (45.0-75.0) Lymphocytes (%) (Auto) 21.9 % (20.0-45.0) Monocytes (%) (Auto) 6.9 % (1.0-10.0) Eosinophils (%) (Auto) 2.2 % (0.0-3.0) Basophils (%) (Auto) 0.6 % (0.0-2.0) Sodium Level 141 mEQ/L (135-145) Potassium Level 3.5 mEQ/L (3.4-4.9) Chloride Level 102 mEQ/L (98-107) Carbon Dioxide Level 25 mEQ/L (20-30) Anion Gap 14 (5-15) Blood Urea Nitrogen 18 mg/dL (7-23) Creatinine 0.9 mg/dL (0.7-1.2) Estimat Glomerular Filtration Rate mL/min (>60) Glucose Level 164 mg/dL (74-106) H Uric Acid 4.2 mg/dL (3.0-7.5) Calcium Level 9.0 mg/dL (8.6-10.2) Phosphorus Level 1.8 mg/dL (2.5-4.8) L Magnesium Level 1.8 mg/dL (1.7-2.5) Total Bilirubin 0.4 mg/dL (0.0-1.2) Aspartate Amino Transf (AST/SGOT) 26 U/L (5-40) Alanine Aminotransferase (ALT/SGPT) 18 U/L (3-41) Alkaline Phosphatase 71 U/L (40-129) C-Reactive Protein, Quantitative 13.2 mg/dL (< 0.5) H Pro-B-Type Natriuretic Peptide 296 pg/mL (0-450) Total Protein 7.3 g/dL (6.6-8.7) Albumin 2.9 g/dL (3.5-5.2) L Globulin 4.4 g/dL Albumin/Globulin Ratio 0.6 (1.0-2.7) L Current Medications Medications (Trade) Dose Ordered Sig/Francesca Route PRN Reason Start Time Stop Time Status Last Admin Dose Admin Acetaminophen (Tylenol) 650 mg Q4H PRN RECTAL T>100.5 09/12/16 17:00 10/12/16 16:59 UNV Acetaminophen (Tylenol) 650 mg Q6H PRN ORAL Prn Pain/Headache/Temp > 101 09/12/16 17:15 10/12/16 17:14 UNV Albuterol/ Ipratropium (DuoNeb 0.5-3(2.5)mg/3ml) 3 ml QIDRT HHN 09/12/16 15:00 09/17/16 14:59 UNV Aspirin (ASA) 81 mg DAILY GT 09/13/16 09:00 10/13/16 08:59 UNV Dextrose (Dextrose 50%) STAT PRN IV Hypoglycemia 09/13/16 11:00 10/13/16 10:59 UNV Heparin Sodium (Porcine) (Heparin 5000 units/ml) 5,000 units EVERY 12 HOURS SUBQ 09/12/16 21:00 10/12/16 20:59 UNV Insulin Aspart (NovoLOG) Q6HR SUBQ 09/12/16 18:00 10/12/16 17:59 UNV Metoprolol Tartrate (Lopressor) 25 mg Q12HR GT 09/12/16 21:00 10/12/16 20:59 UNV Piperacillin Sod/ Tazobactam Sod 3.375 gm/Dextrose 110 ml @ 27.5 mls/hr EVERY 8 HOURS IVPB 09/12/16 22:00 09/17/16 21:59 UNV Ranitidine HCl (Zantac) 150 mg TWICE A DAY GT 09/12/16 18:00 10/12/16 17:59 UNV Sodium Chloride 1,000 ml @ 50 mls/hr Q20H IV 09/13/16 14:45 10/13/16 14:44 Sodium Phosphate/ Sodium Chloride (NaPO4/Sodium Chloride) 285 ml @ 47.5 mls/hr ONCE ONCE IVPB 09/12/16 14:45 09/12/16 20:44 Sucralfate (Carafate) 1 gm FOUR TIMES A DAY GT 09/12/16 18:00 10/12/16 17:59 UNV Tamsulosin HCl (Flomax) 0.4 mg DAILY GT 09/13/16 09:00 10/13/16 08:59 UNV FRANCISCO ERICKSON September 12, 2016 14:23
[2016-09-12] MEDS ORDERED: Acetaminophen 650 MG SUPP RECTAL PRN (15:00)
[2016-09-12 16:37] VITALS: BP 137/76
[2016-09-12 20:00] VITALS: BP 150/70
[2016-09-12] MEDS ORDERED: Zosyn 3.375gm inj ONE (22:00)
[2016-09-13] VITALS: BP 148/70
[2016-09-13 04:00] VITALS: BP 146/66
[2016-09-13] MEDS: NovoLOG Insulin Flexpen SUBQ SCH ×4 (06:09→23:56)
[2016-09-13] MEDS ORDERED: Zosyn 3.375gm inj ONE (06:11)
[2016-09-13] MEDS: Piperacillin/Tazobactam 3.375 GM in D5W 110 ML IVPB SCH ×3 (06:24→22:03)
[2016-09-13 08:12] LABS: BASOPHILS % (AUTO) 1.1 % (0.0-2.0); EOSINOPHILS % (AUTO) 2.4 % (0.0-3.0); MEAN CORPUSCULAR HGB CONC 32.8 G/DL (32.0-36.0); MEAN CORPUSCULAR VOLUME 97 FL (80-99); MEAN PLATELET VOLUME 8.7 FL (6.5-10.1); MONOCYTES % (AUTO) 7.5 % (1.0-10.0); NEUTROPHILS % (AUTO) 62.1 % (45.0-75.0); PLATELET COUNT 154 K/UL (150-450); RED BLOOD COUNT 4.02 M/UL (4.70-6.10); WHITE BLOOD COUNT 8.5 K/UL (4.8-10.8)
[2016-09-13 08:23] VITALS: BP 133/62
[2016-09-13 08:34] LABS: ALANINE AMINOTRANSFERASE 15 U/L (3-41); ALBUMIN/GLOBULIN RATIO 0.7 (1.0-2.7); ANION GAP 14 (5-15); ASPARTATE AMINO TRANSFERASE 22 U/L (5-40); CALCIUM 8.2 mg/dL (8.6-10.2); CARBON DIOXIDE 22 mEQ/L (20-30); CHLORIDE 104 mEQ/L (98-107); CREATININE 0.6 mg/dL (0.7-1.2); HEMOLYSIS 28; MAGNESIUM 1.6 mg/dL (1.7-2.5); PHOSPHORUS 2.6 mg/dL (2.5-4.8); POTASSIUM 3.3 mEQ/L (3.4-4.9); SODIUM 140 mEQ/L (135-145); TOTAL PROTEIN 6.3 g/dL (6.6-8.7)
[2016-09-13] MEDS: Aspirin Baby 81mg GT SCH (09:10)
[2016-09-13] MEDS: Sucralfate 1gm tab GT SCH ×4 (09:10→20:34)
[2016-09-13] MEDS: Tamsulosin 0.4mg cap GT SCH (09:10)
[2016-09-13] MEDS: Metoprolol 25mg tab GT SCH ×2 (09:11→20:32)
[2016-09-13] MEDS: Heparin 5000 units/ml inj SUBQ SCH ×2 (09:12→20:35)
[2016-09-13] MEDS: DuoNeb 0.5-3(2.5)mg/3ml neb HHN SCH ×4 (09:15→20:08)
[2016-09-13] MEDS ORDERED: KCl 10% 40mEq/30ml liquid NG ONE (09:30)
--- NOTE | 2016-09-13 09:53 | General Progress Note ---
Assessment/Plan Status: stable Assessment/Plan status; Sepsis UTI ? Aspiration s/p CVA DM HTN PAST MEDICAL HISTORY: Significant for previous pneumonia and UTI. 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 The patient has a PEG. History of tobacco abuse in the past. The patient has COPD, degenerative joint disease, high cholesterol, hypertension, atrophic gastritis, depression, and contractures of the left side. Plan; In med- surg Pulmonary toilet- DC IV- K Supplement- antibiotics GT feeding Phos supplement as needed SS Insulin Monitor labs Subjective ROS Limited/Unobtainable: No Constitutional: Reports: malaise, weakness Allergies: Coded Allergies: MILK (Unverified Allergy, Unknown, 05/14/16) SOY (Unverified Allergy, Unknown, 05/14/16) SOYBEAN (Unverified Allergy, Unknown, 05/14/16) Objective Last 24 Hour Vital Signs Date Time Temp Pulse Resp B/P Pulse Ox O2 Delivery O2 Flow Rate FiO2 09/13/16 09:11 78 133/62 09/13/16 08:23 97.9 78 16 133/62 95 Room Air 09/13/16 04:00 98.2 79 20 146/66 95 Nasal Cannula 2.0 09/13/16 00:00 98.6 88 18 148/70 94 Nasal Cannula 2.0 09/12/16 21:14 81 150/70 09/12/16 20:00 97.9 81 18 150/70 98 Nasal Cannula 5.0 09/12/16 19:21 86 18 98 Nasal Cannula 3.0 32 09/12/16 19:21 77 18 95 Nasal Cannula 3.0 32 09/12/16 19:20 Nasal Cannula 3.0 32 09/12/16 19:20 95 Nasal Cannula 3.0 32 09/12/16 16:37 97.2 66 18 137/76 95 Nasal Cannula 2.0 09/12/16 15:00 Nasal Cannula 09/12/16 15:00 Nasal Cannula 09/12/16 12:05 97.8 85 20 138/78 94 Nasal Cannula 3.0 09/12/16 12:00 86 09/12/16 11:24 86 18 100 Nasal Cannula 3.0 32 09/12/16 11:20 88 18 96 Nasal Cannula 3.0 32 Intake and Output 09/12/16 09/13/16 19:00 07:00 Intake Total 885.0 ml 470.0 ml Output Total 350 ml 800 ml Balance 535.0 ml -330.0 ml Intake Free Water 100 ml IV Total 395.0 ml 405.0 ml Tube Feeding 390 ml 65 ml Output Urine Total 350 ml 800 ml # Bowel Movements 2 Laboratory Tests 09/13/16 07:20: White Blood Count 8.5, Red Blood Count 4.02L, Hemoglobin 12.9L, Hematocrit 39.2L , Mean Corpuscular Volume 97, Mean Corpuscular Hemoglobin 32.0H, Mean Corpuscular Hemoglobin Concent 32.8, Red Cell Distribution Width 13.0, Platelet Count 154, Mean Platelet Volume 8.7, Neutrophils (%) (Auto) 62.1, Lymphocytes (% ) (Auto) 27.0, Monocytes (%) (Auto) 7.5, Eosinophils (%) (Auto) 2.4, Basophils ( %) (Auto) 1.1, Sodium Level 140, Potassium Level 3.3L, Chloride Level 104, Carbon Dioxide Level 22, Anion Gap 14, Blood Urea Nitrogen 12, Creatinine 0.6L, Estimat Glomerular Filtration Rate , Glucose Level 178H, Lactic Acid Level 0.90 , Calcium Level 8.2L, Phosphorus Level 2.6, Magnesium Level 1.6L, Total Bilirubin 0.4, Aspartate Amino Transf (AST/SGOT) 22, Alanine Aminotransferase ( ALT/SGPT) 15, Alkaline Phosphatase 53, Total Protein 6.3L, Albumin 2.6L, Globulin 3.7, Albumin/Globulin Ratio 0.7L Height (Feet): 5 Height (Inches): 9.00 Weight (Pounds): 180 General Appearance: no apparent distress Cardiovascular: regular rhythm Respiratory/Chest: decreased breath sounds Abdomen: soft Objective other PE not changed JULIANNE HERNÁNDEZ September 13, 2016 09:53
[2016-09-13 11:30] LABS: APPEARANCE,URINE CLEAR; KETONES,URINE NEGATIVE (NEGATIVE); LEUKOCYTE ESTERASE ,URINE NEGATIVE (NEGATIVE); NITRITE,URINE NEGATIVE (NEGATIVE); PH,URINE 6 (4.5-8.0); PROTEIN,URINE 2+ (NEGATIVE); UROBILINOGEN,URINE NORMAL MG/DL (0.0-1.0)
[2016-09-13 11:54] VITALS: BP 155/89
[2016-09-13 11:57] LABS: BACTERIA,URINE OCCASIONAL /HPF; RBC,URINE 40-60 /HPF (0 - 0); SQUAMOUS EPITHELIAL CELL,UR OCCASIONAL /LPF (NONE/OCC)
[2016-09-13] MEDS: Lactobacillus-GG tablet ORAL SCH ×2 (13:02→17:58)
[2016-09-13 15:55] VITALS: BP 141/71
--- NOTE | 2016-09-13 19:48 | Infectious Diseases Prog Note ---
Assessment/Plan Assessment/Plan ASSESSMENT: 81-year-old male with: Leukocytosis - resolved Sepsis Diarrhea - improved - negative: C.difficile, stool Cx Fever SP SP nausea, and vomiting Chest x-ray : interstitial edema DM HTN hx of Rhabdomyolysis COPD CVA Status post PEG placement for dysphagia Anemia Aphasia No ABX allergies Full Code PLAN: Cont on IV Zosyn day # 4 / 5-7 f/u final cultures Monitor CBC Monitor BMP Monitor chest x-ray aspiration precautions Subjective Allergies: Coded Allergies: MILK (Unverified Allergy, Unknown, 05/14/16) SOY (Unverified Allergy, Unknown, 05/14/16) SOYBEAN (Unverified Allergy, Unknown, 05/14/16) Subjective remains afebrile cultures no sig growth leukocytosis resolved Objective Vital Signs Last 24 Hour Vital Signs Date Time Temp Pulse Resp B/P Pulse Ox O2 Delivery O2 Flow Rate FiO2 09/13/16 15:55 98.6 84 22 141/71 97 Nasal Cannula 2.0 09/13/16 14:33 83 16 99 Nasal Cannula 3.0 32 09/13/16 14:25 81 16 96 Nasal Cannula 3.0 32 09/13/16 11:56 81 16 99 Nasal Cannula 3.0 32 09/13/16 11:54 98.3 79 22 155/89 97 Nasal Cannula 2.0 09/13/16 11:46 78 16 95 Nasal Cannula 3.0 32 09/13/16 09:25 88 18 98 Nasal Cannula 3.0 32 09/13/16 09:15 79 16 96 Nasal Cannula 3.0 32 09/13/16 09:15 96 Nasal Cannula 3.0 32 09/13/16 09:15 Nasal Cannula 3.0 32 09/13/16 09:11 78 133/62 09/13/16 08:23 97.9 78 16 133/62 95 Room Air 09/13/16 04:00 98.2 79 20 146/66 95 Nasal Cannula 2.0 09/13/16 00:00 98.6 88 18 148/70 94 Nasal Cannula 2.0 09/12/16 21:14 81 150/70 09/12/16 20:00 97.9 81 18 150/70 98 Nasal Cannula 5.0 Height (Feet): 5 Height (Inches): 9.00 Weight (Pounds): 180 General Appearance: no acute distress Respiratory/Chest: no respiratory distress Cardiovascular: normal rate, regular rhythm Abdomen: normal bowel sounds, soft, non tender, non distended Microbiology Date/Time Source Procedure Growth Status 09/10/16 23:50 Urine,Clean Catch Urine Culture - Final Mixed Urogenital Contaminants Complete Laboratory Tests Test 09/13/16 07:20 09/13/16 11:00 White Blood Count 8.5 K/UL (4.8-10.8) Red Blood Count 4.02 M/UL (4.70-6.10) L Hemoglobin 12.9 G/DL (14.2-18.0) L Hematocrit 39.2 % (42.0-52.0) L Mean Corpuscular Volume 97 FL (80-99) Mean Corpuscular Hemoglobin 32.0 PG (27.0-31.0) H Mean Corpuscular Hemoglobin Concent 32.8 G/DL (32.0-36.0) Red Cell Distribution Width 13.0 % (11.6-14.8) Platelet Count 154 K/UL (150-450) Mean Platelet Volume 8.7 FL (6.5-10.1) Neutrophils (%) (Auto) 62.1 % (45.0-75.0) Lymphocytes (%) (Auto) 27.0 % (20.0-45.0) Monocytes (%) (Auto) 7.5 % (1.0-10.0) Eosinophils (%) (Auto) 2.4 % (0.0-3.0) Basophils (%) (Auto) 1.1 % (0.0-2.0) Sodium Level 140 mEQ/L (135-145) Potassium Level 3.3 mEQ/L (3.4-4.9) L Chloride Level 104 mEQ/L (98-107) Carbon Dioxide Level 22 mEQ/L (20-30) Anion Gap 14 (5-15) Blood Urea Nitrogen 12 mg/dL (7-23) Creatinine 0.6 mg/dL (0.7-1.2) L Estimat Glomerular Filtration Rate mL/min (>60) Glucose Level 178 mg/dL (74-106) H Lactic Acid Level 0.90 mmol/L (0.66-2.22) Calcium Level 8.2 mg/dL (8.6-10.2) L Phosphorus Level 2.6 mg/dL (2.5-4.8) Magnesium Level 1.6 mg/dL (1.7-2.5) L Total Bilirubin 0.4 mg/dL (0.0-1.2) Aspartate Amino Transf (AST/SGOT) 22 U/L (5-40) Alanine Aminotransferase (ALT/SGPT) 15 U/L (3-41) Alkaline Phosphatase 53 U/L (40-129) Total Protein 6.3 g/dL (6.6-8.7) L Albumin 2.6 g/dL (3.5-5.2) L Globulin 3.7 g/dL Albumin/Globulin Ratio 0.7 (1.0-2.7) L Urine Color Pale yellow Urine Appearance Clear Urine pH 6 (4.5-8.0) Urine Specific [place] 1.015 (1.005-1.035) Urine Protein 2+ (NEGATIVE) H Urine Glucose (UA) Negative (NEGATIVE) Urine Ketones Negative (NEGATIVE) Urine Occult Blood 5+ (NEGATIVE) H Urine Nitrite Negative (NEGATIVE) Urine Bilirubin Negative (NEGATIVE) Urine Urobilinogen Normal MG/DL (0.0-1.0) Urine Leukocyte Esterase Negative (NEGATIVE) Urine RBC 40-60 /HPF (0 - 0) H Urine WBC 2-4 /HPF (0 - 0) Urine Squamous Epithelial Cells Occasional /LPF Urine Bacteria Occasional /HPF (NONE) Current Medications Medications (Trade) Dose Ordered Sig/Francesca Route PRN Reason Start Time Stop Time Status Last Admin Dose Admin Acetaminophen (Tylenol) 650 mg Q4H PRN RECTAL T>100.5 09/12/16 15:00 10/12/16 14:59 Acetaminophen (Tylenol) 650 mg Q6H PRN ORAL Prn Pain/Headache/Temp > 101 09/12/16 15:00 10/12/16 14:59 Albuterol/ Ipratropium (DuoNeb 0.5-3(2.5)mg/3ml) 3 ml QIDRT HHN 09/12/16 15:00 09/17/16 14:59 09/13/16 14:25 Aspirin (ASA) 81 mg DAILY GT 09/13/16 09:00 10/13/16 08:59 09/13/16 09:10 Dextrose (Dextrose 50%) STAT PRN IV Hypoglycemia 09/12/16 15:00 10/12/16 14:59 Heparin Sodium (Porcine) (Heparin 5000 units/ml) 5,000 units EVERY 12 HOURS SUBQ 09/12/16 21:00 10/12/16 20:59 09/13/16 09:12 Insulin Aspart (NovoLOG) Q6HR SUBQ 09/12/16 18:00 10/12/16 17:59 09/13/16 18:00 Lactobacillus Acidophilus (Culturelle) 1 tab THREE TIMES A DAY ORAL 09/13/16 13:00 10/13/16 12:59 09/13/16 17:58 Metoprolol Tartrate (Lopressor) 25 mg Q12HR GT 09/12/16 21:00 10/12/16 20:59 09/13/16 09:11 Piperacillin Sod/ Tazobactam Sod/ Dextrose (Zosyn/D5W) 110 ml @ 27.5 mls/hr EVERY 8 HOURS IVPB 09/12/16 22:00 09/17/16 21:59 09/13/16 14:30 Potassium Chloride (KCl 10% 40mEq Oral solution) 40 meq DAILY NG 09/14/16 09:00 10/14/16 08:59 Ranitidine HCl (Zantac) 150 mg TWICE A DAY GT 09/12/16 18:00 10/12/16 17:59 09/13/16 17:58 Sucralfate (Carafate) 1 gm FOUR TIMES A DAY GT 09/12/16 18:00 10/12/16 17:59 09/13/16 17:58 Tamsulosin HCl (Flomax) 0.4 mg DAILY GT 09/13/16 09:00 10/13/16 08:59 09/13/16 09:10 FRANCISCO ERICKSON September 13, 2016 19:47
[2016-09-13 21:50] VITALS: BP 141/69
--- NOTE | 2016-09-13 22:36 | Pulmonology Progress Note ---
Assessment/Plan Problems: (1) At high risk for aspiration (2) Pneumonia (3) G-tube site cellulitis (4) CVA, old, aphasia (5) DM (diabetes mellitus) Assessment/Plan wbc decreasing chest pt sliding scale check cultures continue antibioitcs all notes, and labs, meds reviewed Subjective ROS Limited/Unobtainable: No Allergies: Coded Allergies: MILK (Unverified Allergy, Unknown, 05/14/16) SOY (Unverified Allergy, Unknown, 05/14/16) SOYBEAN (Unverified Allergy, Unknown, 05/14/16) Objective Last 24 Hour Vital Signs Date Time Temp Pulse Resp B/P Pulse Ox O2 Delivery O2 Flow Rate FiO2 09/13/16 21:50 87 141/69 09/13/16 20:32 86 141/71 09/13/16 20:14 86 16 99 Nasal Cannula 2.0 28 09/13/16 20:10 28 09/13/16 20:09 83 16 91 Nasal Cannula 2.0 28 09/13/16 20:09 Nasal Cannula 2.0 28 09/13/16 20:08 91 Room Air 2.0 09/13/16 20:00 97.9 89 20 96 Nasal Cannula 2.0 09/13/16 15:55 98.6 84 22 141/71 97 Nasal Cannula 2.0 09/13/16 14:33 83 16 99 Nasal Cannula 3.0 32 09/13/16 14:25 81 16 96 Nasal Cannula 3.0 32 09/13/16 11:56 81 16 99 Nasal Cannula 3.0 32 09/13/16 11:54 98.3 79 22 155/89 97 Nasal Cannula 2.0 09/13/16 11:46 78 16 95 Nasal Cannula 3.0 32 09/13/16 09:25 88 18 98 Nasal Cannula 3.0 32 09/13/16 09:15 79 16 96 Nasal Cannula 3.0 32 09/13/16 09:15 96 Nasal Cannula 3.0 32 09/13/16 09:15 Nasal Cannula 3.0 32 09/13/16 09:11 78 133/62 09/13/16 08:23 97.9 78 16 133/62 95 Room Air 09/13/16 04:00 98.2 79 20 146/66 95 Nasal Cannula 2.0 09/13/16 00:00 98.6 88 18 148/70 94 Nasal Cannula 2.0 Intake and Output 09/12/16 09/13/16 19:00 07:00 Intake Total 885.0 ml 585.0 ml Output Total 350 ml 800 ml Balance 535.0 ml -215.0 ml Intake Free Water 100 ml IV Total 395.0 ml 455.0 ml Tube Feeding 390 ml 130 ml Output Urine Total 350 ml 800 ml # Bowel Movements 2 Objective General Appearance: WD/WN Lines, tubes and drains: peripheral HEENT: normocephalic Neck: non-tender Respiratory/Chest: chest wall non-tender, lungs clear Cardiovascular/Chest: normal peripheral pulses, normal rate Abdomen: normal bowel sounds Genitourinary/Rectal: normal genital exam Extremities: normal range of motion Microbiology Date/Time Source Procedure Growth Status 09/10/16 23:50 Urine,Clean Catch Urine Culture - Final Mixed Urogenital Contaminants Complete Laboratory Tests 09/13/16 07:20: White Blood Count 8.5, Red Blood Count 4.02L, Hemoglobin 12.9L, Hematocrit 39.2L , Mean Corpuscular Volume 97, Mean Corpuscular Hemoglobin 32.0H, Mean Corpuscular Hemoglobin Concent 32.8, Red Cell Distribution Width 13.0, Platelet Count 154, Mean Platelet Volume 8.7, Neutrophils (%) (Auto) 62.1, Lymphocytes (% ) (Auto) 27.0, Monocytes (%) (Auto) 7.5, Eosinophils (%) (Auto) 2.4, Basophils ( %) (Auto) 1.1, Sodium Level 140, Potassium Level 3.3L, Chloride Level 104, Carbon Dioxide Level 22, Anion Gap 14, Blood Urea Nitrogen 12, Creatinine 0.6L, Estimat Glomerular Filtration Rate , Glucose Level 178H, Lactic Acid Level 0.90 , Calcium Level 8.2L, Phosphorus Level 2.6, Magnesium Level 1.6L, Total Bilirubin 0.4, Aspartate Amino Transf (AST/SGOT) 22, Alanine Aminotransferase ( ALT/SGPT) 15, Alkaline Phosphatase 53, Total Protein 6.3L, Albumin 2.6L, Globulin 3.7, Albumin/Globulin Ratio 0.7L 09/13/16 11:00: Urine Color Pale yellow, Urine Appearance Clear, Urine pH 6, Urine Specific [place] 1.015, Urine Protein 2+H, Urine Glucose (UA) Negative, Urine Ketones Negative, Urine Occult Blood 5+H, Urine Nitrite Negative, Urine Bilirubin Negative, Urine Urobilinogen Normal, Urine Leukocyte Esterase Negative, Urine RBC 40-60H, Urine WBC 2-4, Urine Squamous Epithelial Cells Occasional, Urine Bacteria Occasional Current Medications Medications (Trade) Dose Ordered Sig/Francesca Route PRN Reason Start Time Stop Time Status Last Admin Dose Admin Acetaminophen (Tylenol) 650 mg Q4H PRN RECTAL T>100.5 09/12/16 15:00 10/12/16 14:59 Acetaminophen (Tylenol) 650 mg Q6H PRN ORAL Prn Pain/Headache/Temp > 101 09/12/16 15:00 10/12/16 14:59 Albuterol/ Ipratropium (DuoNeb 0.5-3(2.5)mg/3ml) 3 ml QIDRT HHN 09/12/16 15:00 09/17/16 14:59 09/13/16 20:08 Aspirin (ASA) 81 mg DAILY GT 09/13/16 09:00 10/13/16 08:59 09/13/16 09:10 Dextrose (Dextrose 50%) STAT PRN IV Hypoglycemia 09/12/16 15:00 10/12/16 14:59 Heparin Sodium (Porcine) (Heparin 5000 units/ml) 5,000 units EVERY 12 HOURS SUBQ 09/12/16 21:00 10/12/16 20:59 09/13/16 20:35 Insulin Aspart (NovoLOG) Q6HR SUBQ 09/12/16 18:00 10/12/16 17:59 09/13/16 18:00 Lactobacillus Acidophilus (Culturelle) 1 tab THREE TIMES A DAY ORAL 09/13/16 13:00 10/13/16 12:59 09/13/16 17:58 Metoprolol Tartrate (Lopressor) 25 mg Q12HR GT 09/12/16 21:00 10/12/16 20:59 09/13/16 20:32 Piperacillin Sod/ Tazobactam Sod/ Dextrose (Zosyn/D5W) 110 ml @ 27.5 mls/hr EVERY 8 HOURS IVPB 09/12/16 22:00 09/17/16 21:59 09/13/16 22:03 Potassium Chloride (KCl 10% 40mEq Oral solution) 40 meq DAILY NG 09/14/16 09:00 10/14/16 08:59 Ranitidine HCl (Zantac) 150 mg TWICE A DAY GT 09/12/16 18:00 10/12/16 17:59 09/13/16 17:58 Sucralfate (Carafate) 1 gm FOUR TIMES A DAY GT 09/12/16 18:00 10/12/16 17:59 09/13/16 20:34 Tamsulosin HCl (Flomax) 0.4 mg DAILY GT 09/13/16 09:00 10/13/16 08:59 09/13/16 09:10 SWATI THOMAS September 13, 2016 22:36
[2016-09-14] VITALS: BP 140/71
[2016-09-14 04:00] VITALS: BP 146/66
[2016-09-14] MEDS: Piperacillin/Tazobactam 3.375 GM in D5W 110 ML IVPB SCH (05:41)
[2016-09-14] MEDS: NovoLOG Insulin Flexpen SUBQ SCH ×4 (05:42→23:40)
[2016-09-14 06:34] LABS: BASOPHILS % (AUTO) 1.2 % (0.0-2.0); EOSINOPHILS % (AUTO) 2.5 % (0.0-3.0); LYMPHOCYTES % (AUTO) 30.1 % (20.0-45.0); MEAN CORPUSCULAR VOLUME 97 FL (80-99); MEAN PLATELET VOLUME 7.7 FL (6.5-10.1); MONOCYTES % (AUTO) 9.1 % (1.0-10.0); NEUTROPHILS % (AUTO) 57.1 % (45.0-75.0); PLATELET COUNT 166 K/UL (150-450); RED BLOOD COUNT 4.24 M/UL (4.70-6.10); RED CELL DISTRIBUTION WIDTH 12.3 % (11.6-14.8); WHITE BLOOD COUNT 8.7 K/UL (4.8-10.8)
[2016-09-14 06:43] LABS: ALANINE AMINOTRANSFERASE 21 U/L (3-41); ALBUMIN/GLOBULIN RATIO 0.6 (1.0-2.7); ANION GAP 16 (5-15); ASPARTATE AMINO TRANSFERASE 31 U/L (5-40); CALCIUM 9.1 mg/dL (8.6-10.2); CARBON DIOXIDE 23 mEQ/L (20-30); CHLORIDE 99 mEQ/L (98-107); CREATININE 0.7 mg/dL (0.7-1.2); CRP QUANT 5.8 mg/dL (< 0.5); HEMOLYSIS 4; MAGNESIUM 1.7 mg/dL (1.7-2.5); PHOSPHORUS 2.6 mg/dL (2.5-4.8); POTASSIUM 3.3 mEQ/L (3.4-4.9); SODIUM 138 mEQ/L (135-145); TOTAL PROTEIN 6.9 g/dL (6.6-8.7); URIC ACID 2.9 mg/dL (3.0-7.5)
[2016-09-14] MEDS: DuoNeb 0.5-3(2.5)mg/3ml neb HHN SCH ×4 (07:37→19:00)
[2016-09-14 07:47] VITALS: BP 159/78
[2016-09-14] MEDS: Sucralfate 1gm tab GT SCH ×4 (08:30→20:20)
[2016-09-14] MEDS: Metoprolol 25mg tab GT SCH (08:30)
[2016-09-14] MEDS: Tamsulosin 0.4mg cap GT SCH (08:30)
[2016-09-14] MEDS: Aspirin Baby 81mg GT SCH (08:30)
[2016-09-14] MEDS: Lactobacillus-GG tablet ORAL SCH ×3 (08:30→17:52)
[2016-09-14] MEDS: Heparin 5000 units/ml inj SUBQ SCH ×2 (08:31→20:22)
[2016-09-14] MEDS ORDERED: KCl 10% 40mEq/30ml liquid NG SCH (09:00)
[2016-09-14] MEDS ORDERED: Sterile Water For Irrig 2000ml IRRIG ONE (09:31)
[2016-09-14] MEDS ORDERED: NS Irrig 1000ml ONE (09:31)
[2016-09-14] MEDS ORDERED: Tubing IV Secondary IV ONE (09:31)
--- NOTE | 2016-09-14 10:27 | General Progress Note ---
Assessment/Plan Status: stable Assessment/Plan status; Sepsis UTI ? Aspiration s/p CVA DM HTN PAST MEDICAL HISTORY: Significant for previous pneumonia and UTI. 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 The patient has a PEG. History of tobacco abuse in the past. The patient has COPD, degenerative joint disease, high cholesterol, hypertension, atrophic gastritis, depression, and contractures of the left side. Plan; repeat cxr- urine c/s neg start GT flagyl and lactobacillus pending c dif c/s Pulmonary toilet- DC IV- K Supplement- DC antibiotics GT feeding Phos supplement as needed start starlix ? DC in am Subjective ROS Limited/Unobtainable: No Gastrointestinal/Abdominal: Reports: diarrhea Allergies: Coded Allergies: MILK (Unverified Allergy, Unknown, 05/14/16) SOY (Unverified Allergy, Unknown, 05/14/16) SOYBEAN (Unverified Allergy, Unknown, 05/14/16) Objective Last 24 Hour Vital Signs Date Time Temp Pulse Resp B/P Pulse Ox O2 Delivery O2 Flow Rate FiO2 09/14/16 08:30 86 159/78 09/14/16 07:47 97.5 86 16 159/78 93 Room Air 09/14/16 07:46 84 12 99 Nasal Cannula 2.0 28 09/14/16 07:36 Nasal Cannula 2.0 28 09/14/16 07:36 96 Nasal Cannula 2.0 28 09/14/16 07:32 76 14 96 Nasal Cannula 2.0 28 09/14/16 04:00 97.9 84 20 146/66 95 Nasal Cannula 2.0 09/14/16 00:00 98.2 85 20 140/71 97 Nasal Cannula 2.0 09/13/16 21:50 87 141/69 09/13/16 20:32 86 141/71 09/13/16 20:14 86 16 99 Nasal Cannula 2.0 28 09/13/16 20:10 28 09/13/16 20:09 83 16 91 Nasal Cannula 2.0 28 09/13/16 20:09 Nasal Cannula 2.0 28 09/13/16 20:08 91 Room Air 2.0 09/13/16 20:00 97.9 89 20 96 Nasal Cannula 2.0 09/13/16 15:55 98.6 84 22 141/71 97 Nasal Cannula 2.0 09/13/16 14:33 83 16 99 Nasal Cannula 3.0 32 09/13/16 14:25 81 16 96 Nasal Cannula 3.0 32 09/13/16 11:56 81 16 99 Nasal Cannula 3.0 32 09/13/16 11:54 98.3 79 22 155/89 97 Nasal Cannula 2.0 09/13/16 11:46 78 16 95 Nasal Cannula 3.0 32 Intake and Output 09/13/16 09/14/16 19:00 07:00 Intake Total 1320.0 ml 662.5 ml Output Total 1350 ml Balance -30.0 ml 662.5 ml Intake Free Water 100 ml 80 ml IV Total 460.0 ml 137.5 ml Tube Feeding 760 ml 445 ml Output Urine Total 1350 ml # Bowel Movements 2 Current Medications Medications (Trade) Dose Ordered Sig/Francesca Route PRN Reason Start Time Stop Time Status Last Admin Dose Admin Acetaminophen (Tylenol) 650 mg Q4H PRN RECTAL T>100.5 09/12/16 15:00 10/12/16 14:59 Acetaminophen (Tylenol) 650 mg Q6H PRN ORAL Prn Pain/Headache/Temp > 101 09/12/16 15:00 10/12/16 14:59 Albuterol/ Ipratropium (DuoNeb 0.5-3(2.5)mg/3ml) 3 ml QIDRT HHN 09/12/16 15:00 09/17/16 14:59 09/14/16 07:37 Aspirin (ASA) 81 mg DAILY GT 09/13/16 09:00 10/13/16 08:59 09/14/16 08:30 Dextrose (Dextrose 50%) STAT PRN IV Hypoglycemia 09/12/16 15:00 10/12/16 14:59 Heparin Sodium (Porcine) (Heparin 5000 units/ml) 5,000 units EVERY 12 HOURS SUBQ 09/12/16 21:00 10/12/16 20:59 09/14/16 08:31 Insulin Aspart (NovoLOG) Q6HR SUBQ 09/12/16 18:00 10/12/16 17:59 09/14/16 05:42 Lactobacillus Acidophilus (Culturelle) 1 tab THREE TIMES A DAY ORAL 09/13/16 13:00 10/13/16 12:59 09/14/16 08:30 Loperamide HCl (Imodium) 2 mg Q6H PRN NG Diarrhea 09/14/16 10:30 10/14/16 10:29 UNV Metoprolol Tartrate (Lopressor) 25 mg Q12HR GT 09/12/16 21:00 10/12/16 20:59 09/14/16 08:30 Metronidazole (Flagyl) 500 mg Q8HR GT 09/14/16 10:30 09/21/16 10:29 UNV Nateglinide (Starlix) 60 mg TIAC ORAL 09/14/16 11:30 10/14/16 11:29 Potassium Chloride (KCl 10% 40mEq Oral solution) 40 meq BID NG 09/14/16 18:00 10/14/16 17:59 Ranitidine HCl (Zantac) 150 mg TWICE A DAY GT 09/12/16 18:00 10/12/16 17:59 09/14/16 08:30 Sucralfate (Carafate) 1 gm FOUR TIMES A DAY GT 09/12/16 18:00 10/12/16 17:59 09/14/16 08:30 Tamsulosin HCl (Flomax) 0.4 mg DAILY GT 09/13/16 09:00 10/13/16 08:59 09/14/16 08:30 Laboratory Tests 09/13/16 11:00: Urine Color Pale yellow, Urine Appearance Clear, Urine pH 6, Urine Specific [place] 1.015, Urine Protein 2+H, Urine Glucose (UA) Negative, Urine Ketones Negative, Urine Occult Blood 5+H, Urine Nitrite Negative, Urine Bilirubin Negative, Urine Urobilinogen Normal, Urine Leukocyte Esterase Negative, Urine RBC 40-60H, Urine WBC 2-4, Urine Squamous Epithelial Cells Occasional, Urine Bacteria Occasional 09/14/16 06:00: White Blood Count 8.7, Red Blood Count 4.24L, Hemoglobin 13.6L, Hematocrit 41.1L , Mean Corpuscular Volume 97, Mean Corpuscular Hemoglobin 32.0H, Mean Corpuscular Hemoglobin Concent 33.0, Red Cell Distribution Width 12.3, Platelet Count 166, Mean Platelet Volume 7.7, Neutrophils (%) (Auto) 57.1, Lymphocytes (% ) (Auto) 30.1, Monocytes (%) (Auto) 9.1, Eosinophils (%) (Auto) 2.5, Basophils ( %) (Auto) 1.2, Sodium Level 138, Potassium Level 3.3L, Chloride Level 99, Carbon Dioxide Level 23, Anion Gap 16H, Blood Urea Nitrogen 13, Creatinine 0.7, Estimat Glomerular Filtration Rate , Glucose Level 186H, Uric Acid 2.9L, Calcium Level 9.1, Phosphorus Level 2.6, Magnesium Level 1.7, Total Bilirubin 0.4, Aspartate Amino Transf (AST/SGOT) 31, Alanine Aminotransferase (ALT/SGPT) 21, Alkaline Phosphatase 58, C-Reactive Protein, Quantitative 5.8H, Total Protein 6.9, Albumin 2.6L, Globulin 4.3, Albumin/Globulin Ratio 0.6L Height (Feet): 5 Height (Inches): 9.00 Weight (Pounds): 180 General Appearance: no apparent distress Respiratory/Chest: lungs clear Abdomen: soft Objective other PE not changed JULIANNE HERNÁNDEZ September 14, 2016 10:27
[2016-09-14] MEDS: metroNIDAZOLE 500mg tab GT SCH ×2 (10:53→14:02)
[2016-09-14 11:47] VITALS: BP 151/80
[2016-09-14] MEDS: Nateglinide 60mg tab ORAL SCH ×2 (12:07→16:50)
[2016-09-14 16:14] VITALS: BP 146/67
[2016-09-14] MEDS: KCl 10% 40mEq/30ml liquid NG SCH (18:02)
--- NOTE | 2016-09-14 18:32 | Infectious Diseases Prog Note ---
Assessment/Plan Assessment/Plan ASSESSMENT: 81-year-old male with: Leukocytosis - resolved Sepsis SP Diarrhea - improved - negative: C.difficile, stool Cx Fever SP SP nausea, and vomiting Chest x-ray : interstitial edema DM HTN hx of Rhabdomyolysis COPD CVA Status post PEG placement for dysphagia Anemia Aphasia No ABX allergies Full Code PLAN: limit Zosyn after today day # 5 / 5, monitor pt off of ABX f/u final cultures Monitor CBC Monitor BMP Monitor chest x-ray aspiration precautions Subjective Allergies: Coded Allergies: MILK (Unverified Allergy, Unknown, 05/14/16) SOY (Unverified Allergy, Unknown, 05/14/16) SOYBEAN (Unverified Allergy, Unknown, 05/14/16) Subjective remains afebrile cultures no sig growth leukocytosis resolved Objective Vital Signs Last 24 Hour Vital Signs Date Time Temp Pulse Resp B/P Pulse Ox O2 Delivery O2 Flow Rate FiO2 09/14/16 17:10 84 14 99 Nasal Cannula 2.0 09/14/16 17:01 75 15 98 Nasal Cannula 2.0 09/14/16 16:14 98.1 81 16 146/67 93 Room Air 09/14/16 11:47 97.2 85 16 151/80 93 Room Air 09/14/16 11:12 78 14 97 Nasal Cannula 2.0 09/14/16 11:12 87 14 99 Nasal Cannula 2.0 09/14/16 08:30 86 159/78 09/14/16 07:47 97.5 86 16 159/78 93 Room Air 09/14/16 07:46 84 12 99 Nasal Cannula 2.0 09/14/16 07:36 Nasal Cannula 2.0 09/14/16 07:36 96 Nasal Cannula 2.0 28 09/14/16 07:32 76 14 96 Nasal Cannula 2.0 28 09/14/16 04:00 97.9 84 20 146/66 95 Nasal Cannula 2.0 09/14/16 00:00 98.2 85 20 140/71 97 Nasal Cannula 2.0 09/13/16 21:50 87 141/69 09/13/16 20:32 86 141/71 09/13/16 20:14 86 16 99 Nasal Cannula 2.0 09/13/16 20:10 09/13/16 20:09 83 16 91 Nasal Cannula 2.0 28 09/13/16 20:09 Nasal Cannula 2.0 28 09/13/16 20:08 91 Room Air 2.0 09/13/16 20:00 97.9 89 20 96 Nasal Cannula 2.0 Height (Feet): 5 Height (Inches): 9.00 Weight (Pounds): 180 General Appearance: no acute distress Respiratory/Chest: no respiratory distress Cardiovascular: normal rate, regular rhythm Abdomen: normal bowel sounds, soft, non tender, non distended Microbiology Date/Time Source Procedure Growth Status 09/13/16 11:00 Indwelling Cath Urine Culture - Preliminary NO GROWTH Resulted Laboratory Tests Test 09/14/16 06:00 White Blood Count 8.7 K/UL (4.8-10.8) Red Blood Count 4.24 M/UL (4.70-6.10) L Hemoglobin 13.6 G/DL (14.2-18.0) L Hematocrit 41.1 % (42.0-52.0) L Mean Corpuscular Volume 97 FL (80-99) Mean Corpuscular Hemoglobin 32.0 PG (27.0-31.0) H Mean Corpuscular Hemoglobin Concent 33.0 G/DL (32.0-36.0) Red Cell Distribution Width 12.3 % (11.6-14.8) Platelet Count 166 K/UL (150-450) Mean Platelet Volume 7.7 FL (6.5-10.1) Neutrophils (%) (Auto) 57.1 % (45.0-75.0) Lymphocytes (%) (Auto) 30.1 % (20.0-45.0) Monocytes (%) (Auto) 9.1 % (1.0-10.0) Eosinophils (%) (Auto) 2.5 % (0.0-3.0) Basophils (%) (Auto) 1.2 % (0.0-2.0) Sodium Level 138 mEQ/L (135-145) Potassium Level 3.3 mEQ/L (3.4-4.9) L Chloride Level 99 mEQ/L (98-107) Carbon Dioxide Level 23 mEQ/L (20-30) Anion Gap 16 (5-15) H Blood Urea Nitrogen 13 mg/dL (7-23) Creatinine 0.7 mg/dL (0.7-1.2) Estimat Glomerular Filtration Rate mL/min (>60) Glucose Level 186 mg/dL (74-106) H Uric Acid 2.9 mg/dL (3.0-7.5) L Calcium Level 9.1 mg/dL (8.6-10.2) Phosphorus Level 2.6 mg/dL (2.5-4.8) Magnesium Level 1.7 mg/dL (1.7-2.5) Total Bilirubin 0.4 mg/dL (0.0-1.2) Aspartate Amino Transf (AST/SGOT) 31 U/L (5-40) Alanine Aminotransferase (ALT/SGPT) 21 U/L (3-41) Alkaline Phosphatase 58 U/L (40-129) C-Reactive Protein, Quantitative 5.8 mg/dL (< 0.5) H Total Protein 6.9 g/dL (6.6-8.7) Albumin 2.6 g/dL (3.5-5.2) L Globulin 4.3 g/dL Albumin/Globulin Ratio 0.6 (1.0-2.7) L Current Medications Medications (Trade) Dose Ordered Sig/Francesca Route PRN Reason Start Time Stop Time Status Last Admin Dose Admin Acetaminophen (Tylenol) 650 mg Q4H PRN RECTAL T>100.5 09/12/16 15:00 10/12/16 14:59 Acetaminophen (Tylenol) 650 mg Q6H PRN ORAL Prn Pain/Headache/Temp > 101 09/12/16 15:00 10/12/16 14:59 Albuterol/ Ipratropium (DuoNeb 0.5-3(2.5)mg/3ml) 3 ml QIDRT HHN 09/12/16 15:00 09/17/16 14:59 09/14/16 17:00 Aspirin (ASA) 81 mg DAILY GT 09/13/16 09:00 10/13/16 08:59 09/14/16 08:30 Dextrose (Dextrose 50%) STAT PRN IV Hypoglycemia 09/12/16 15:00 10/12/16 14:59 Heparin Sodium (Porcine) (Heparin 5000 units/ml) 5,000 units EVERY 12 HOURS SUBQ 09/12/16 21:00 10/12/16 20:59 09/14/16 08:31 Insulin Aspart (NovoLOG) Q6HR SUBQ 09/12/16 18:00 10/12/16 17:59 09/14/16 17:53 Lactobacillus Acidophilus (Culturelle) 1 tab THREE TIMES A DAY ORAL 09/13/16 13:00 10/13/16 12:59 09/14/16 17:52 Loperamide HCl (Imodium) 2 mg Q6H PRN NG Diarrhea 09/14/16 10:30 10/14/16 10:29 Metoprolol Tartrate (Lopressor) 50 mg Q12HR GT 09/14/16 21:00 10/14/16 20:59 Metronidazole (Flagyl) 500 mg Q8HR GT 09/14/16 10:30 09/21/16 10:29 09/14/16 14:02 Nateglinide (Starlix) 60 mg TIAC ORAL 09/14/16 11:30 10/14/16 11:29 09/14/16 16:50 Potassium Chloride (KCl 10% 40mEq Oral solution) 40 meq BID NG 09/14/16 18:00 10/14/16 17:59 09/14/16 18:02 Ranitidine HCl (Zantac) 150 mg TWICE A DAY GT 09/12/16 18:00 10/12/16 17:59 09/14/16 17:52 Sucralfate (Carafate) 1 gm FOUR TIMES A DAY GT 09/12/16 18:00 10/12/16 17:59 09/14/16 17:52 Tamsulosin HCl (Flomax) 0.4 mg DAILY GT 09/13/16 09:00 10/13/16 08:59 09/14/16 08:30 FRANCISCO ERICKSON September 14, 2016 18:32
[2016-09-14 20:00] VITALS: BP 143/77
[2016-09-14] MEDS: Metoprolol 50mg tab GT SCH (20:21)
--- NOTE | 2016-09-14 22:09 | Pulmonology Progress Note ---
Assessment/Plan Problems: (1) At high risk for aspiration (2) Pneumonia (3) G-tube site cellulitis (4) CVA, old, aphasia (5) DM (diabetes mellitus) Assessment/Plan all reviewed improving all cultures are negative wbc decreasing chest pt sliding scale check cultures continue antibioitcs Subjective ROS Limited/Unobtainable: No Allergies: Coded Allergies: MILK (Unverified Allergy, Unknown, 05/14/16) SOY (Unverified Allergy, Unknown, 05/14/16) SOYBEAN (Unverified Allergy, Unknown, 05/14/16) Objective Last 24 Hour Vital Signs Date Time Temp Pulse Resp B/P Pulse Ox O2 Delivery O2 Flow Rate FiO2 09/14/16 20:21 72 143/77 09/14/16 20:18 Nasal Cannula 09/14/16 20:17 72 15 95 Nasal Cannula 2.0 28 09/14/16 20:17 95 Nasal Cannula 2.0 28 09/14/16 20:17 Nasal Cannula 2.0 28 09/14/16 20:00 97.9 86 20 143/77 93 Room Air 09/14/16 17:10 84 14 99 Nasal Cannula 2.0 28 09/14/16 17:01 75 15 98 Nasal Cannula 2.0 28 09/14/16 16:14 98.1 81 16 146/67 93 Room Air 09/14/16 11:47 97.2 85 16 151/80 93 Room Air 09/14/16 11:12 78 14 97 Nasal Cannula 2.0 28 09/14/16 11:12 87 14 99 Nasal Cannula 2.0 09/14/16 08:30 86 159/78 09/14/16 07:47 97.5 86 16 159/78 93 Room Air 09/14/16 07:46 84 12 99 Nasal Cannula 2.0 09/14/16 07:36 Nasal Cannula 2.0 28 09/14/16 07:36 96 Nasal Cannula 2.0 28 09/14/16 07:32 76 14 96 Nasal Cannula 2.0 09/14/16 04:00 97.9 84 20 146/66 95 Nasal Cannula 2.0 09/14/16 00:00 98.2 85 20 140/71 97 Nasal Cannula 2.0 Intake and Output 09/13/16 09/14/16 19:00 07:00 Intake Total 1320.0 ml 727.5 ml Output Total 1350 ml Balance -30.0 ml 727.5 ml Intake Free Water 100 ml 80 ml IV Total 460.0 ml 137.5 ml Tube Feeding 760 ml 510 ml Output Urine Total 1350 ml # Bowel Movements 2 Objective General Appearance: WD/WN Lines, tubes and drains: peripheral HEENT: normocephalic Neck: non-tender Respiratory/Chest: chest wall non-tender, lungs clear Cardiovascular/Chest: normal peripheral pulses, normal rate Abdomen: normal bowel sounds Genitourinary/Rectal: normal genital exam Extremities: normal range of motion Microbiology Date/Time Source Procedure Growth Status 09/13/16 11:00 Indwelling Cath Urine Culture - Preliminary NO GROWTH Resulted Laboratory Tests 09/14/16 06:00: White Blood Count 8.7, Red Blood Count 4.24L, Hemoglobin 13.6L, Hematocrit 41.1L , Mean Corpuscular Volume 97, Mean Corpuscular Hemoglobin 32.0H, Mean Corpuscular Hemoglobin Concent 33.0, Red Cell Distribution Width 12.3, Platelet Count 166, Mean Platelet Volume 7.7, Neutrophils (%) (Auto) 57.1, Lymphocytes (% ) (Auto) 30.1, Monocytes (%) (Auto) 9.1, Eosinophils (%) (Auto) 2.5, Basophils ( %) (Auto) 1.2, Sodium Level 138, Potassium Level 3.3L, Chloride Level 99, Carbon Dioxide Level 23, Anion Gap 16H, Blood Urea Nitrogen 13, Creatinine 0.7, Estimat Glomerular Filtration Rate , Glucose Level 186H, Uric Acid 2.9L, Calcium Level 9.1, Phosphorus Level 2.6, Magnesium Level 1.7, Total Bilirubin 0.4, Aspartate Amino Transf (AST/SGOT) 31, Alanine Aminotransferase (ALT/SGPT) 21, Alkaline Phosphatase 58, C-Reactive Protein, Quantitative 5.8H, Total Protein 6.9, Albumin 2.6L, Globulin 4.3, Albumin/Globulin Ratio 0.6L Current Medications Medications (Trade) Dose Ordered Sig/Francesca Route PRN Reason Start Time Stop Time Status Last Admin Dose Admin Acetaminophen (Tylenol) 650 mg Q4H PRN RECTAL T>100.5 09/12/16 15:00 10/12/16 14:59 Acetaminophen (Tylenol) 650 mg Q6H PRN ORAL Prn Pain/Headache/Temp > 101 09/12/16 15:00 10/12/16 14:59 Albuterol/ Ipratropium (DuoNeb 0.5-3(2.5)mg/3ml) 3 ml QIDRT HHN 09/12/16 15:00 09/17/16 14:59 09/14/16 17:00 Aspirin (ASA) 81 mg DAILY GT 09/13/16 09:00 10/13/16 08:59 09/14/16 08:30 Dextrose (Dextrose 50%) STAT PRN IV Hypoglycemia 09/12/16 15:00 10/12/16 14:59 Heparin Sodium (Porcine) (Heparin 5000 units/ml) 5,000 units EVERY 12 HOURS SUBQ 09/12/16 21:00 10/12/16 20:59 09/14/16 20:22 Insulin Aspart (NovoLOG) Q6HR SUBQ 09/12/16 18:00 10/12/16 17:59 09/14/16 17:53 Lactobacillus Acidophilus (Culturelle) 1 tab THREE TIMES A DAY ORAL 09/13/16 13:00 10/13/16 12:59 09/14/16 17:52 Loperamide HCl (Imodium) 2 mg Q6H PRN NG Diarrhea 09/14/16 10:30 10/14/16 10:29 Metoprolol Tartrate (Lopressor) 50 mg Q12HR GT 09/14/16 21:00 10/14/16 20:59 09/14/16 20:21 Nateglinide (Starlix) 60 mg TIAC ORAL 09/14/16 11:30 10/14/16 11:29 09/14/16 16:50 Potassium Chloride (KCl 10% 40mEq Oral solution) 40 meq BID NG 09/14/16 18:00 10/14/16 17:59 09/14/16 18:02 Ranitidine HCl (Zantac) 150 mg TWICE A DAY GT 09/12/16 18:00 10/12/16 17:59 09/14/16 17:52 Sucralfate (Carafate) 1 gm FOUR TIMES A DAY GT 09/12/16 18:00 10/12/16 17:59 09/14/16 20:20 Tamsulosin HCl (Flomax) 0.4 mg DAILY GT 09/13/16 09:00 10/13/16 08:59 09/14/16 08:30 SWATI THOMAS September 14, 2016 22:09
[2016-09-15] VITALS: BP 148/79
[2016-09-15 04:00] VITALS: BP 137/77
[2016-09-15] MEDS: NovoLOG Insulin Flexpen SUBQ SCH (05:50)
[2016-09-15] MEDS: Nateglinide 60mg tab ORAL SCH (05:50)
[2016-09-15 07:14] LABS: BASOPHILS % (AUTO) 1.2 % (0.0-2.0); EOSINOPHILS % (AUTO) 3.3 % (0.0-3.0); LYMPHOCYTES % (AUTO) 27.5 % (20.0-45.0); MEAN CORPUSCULAR HEMOGLOBIN 33.2 PG (27.0-31.0); MEAN CORPUSCULAR HGB CONC 34.3 G/DL (32.0-36.0); MEAN CORPUSCULAR VOLUME 97 FL (80-99); MEAN PLATELET VOLUME 7.9 FL (6.5-10.1); MONOCYTES % (AUTO) 8.6 % (1.0-10.0); NEUTROPHILS % (AUTO) 59.4 % (45.0-75.0); PLATELET COUNT 167 K/UL (150-450); RED BLOOD COUNT 4.16 M/UL (4.70-6.10); RED CELL DISTRIBUTION WIDTH 12.8 % (11.6-14.8); WHITE BLOOD COUNT 9.9 K/UL (4.8-10.8)
[2016-09-15 07:27] LABS: ALANINE AMINOTRANSFERASE 36 U/L (3-41); ALBUMIN/GLOBULIN RATIO 0.6 (1.0-2.7); ANION GAP 16 (5-15); ASPARTATE AMINO TRANSFERASE 43 U/L (5-40); CALCIUM 9.3 mg/dL (8.6-10.2); CARBON DIOXIDE 23 mEQ/L (20-30); CHLORIDE 99 mEQ/L (98-107); CREATININE 0.6 mg/dL (0.7-1.2); CRP QUANT 5.7 mg/dL (< 0.5); HEMOLYSIS 7; MAGNESIUM 1.8 mg/dL (1.7-2.5); PHOSPHORUS 2.5 mg/dL (2.5-4.8); SODIUM 138 mEQ/L (135-145); TOTAL PROTEIN 7.1 g/dL (6.6-8.7)
[2016-09-15 08:00] VITALS: BP 161/78
--- NOTE | 2016-09-15 08:46 | Diagnostic Imaging Report ---
Indication: Shortness of breath Technique: XRAY CHEST 1 V Comparison: 09/10/16 Findings: Cardiomediastinal silhouette is stable. There is again atelectasis in the lung bases. Right perihilar/upper lobe subtle opacity is present. There is no pneumothorax or obvious effusion. Degenerative changes of the spine are seen. Impression: Subtle opacity of the right perihilar upper lobe could represent infiltrate. Redemonstration of bibasilar atelectasis. Clinical correlation/followup recommended.
[2016-09-15] MEDS: Tamsulosin 0.4mg cap GT SCH (08:57)
[2016-09-15] MEDS: Sucralfate 1gm tab GT SCH (08:57)
[2016-09-15] MEDS: Aspirin Baby 81mg GT SCH (08:57)
[2016-09-15] MEDS: Lactobacillus-GG tablet ORAL SCH (08:58)
[2016-09-15] MEDS: Metoprolol 50mg tab GT SCH (08:58)
[2016-09-15] MEDS: KCl 10% 40mEq/30ml liquid NG SCH (08:58)
[2016-09-15] MEDS: Heparin 5000 units/ml inj SUBQ SCH (08:59)
--- NOTE | 2016-09-15 09:10 | Infectious Diseases Prog Note ---
Assessment/Plan Assessment/Plan ASSESSMENT: 81-year-old male with: Leukocytosis - resolved Sepsis SP Diarrhea - improved - negative: C.difficile, stool Cx Fever SP SP nausea, and vomiting Chest x-ray : interstitial edema DM HTN hx of Rhabdomyolysis COPD CVA Status post PEG placement for dysphagia Anemia Aphasia No ABX allergies Full Code PLAN: monitor pt off of ABX ( 09/14 SP Zosyn day # 5 / 5 ) Monitor CBC Monitor BMP Monitor chest x-ray aspiration precautions Subjective Constitutional: Denies: anorexia, chills, drenching sweats, fatigue, fever, no symptoms, other Allergies: Coded Allergies: MILK (Unverified Allergy, Unknown, 05/14/16) SOY (Unverified Allergy, Unknown, 05/14/16) SOYBEAN (Unverified Allergy, Unknown, 05/14/16) Objective Vital Signs Last 24 Hour Vital Signs Date Time Temp Pulse Resp B/P Pulse Ox O2 Delivery O2 Flow Rate FiO2 09/15/16 08:00 98.1 79 18 161/78 93 Room Air 09/15/16 04:00 98.6 80 18 137/77 96 Nasal Cannula 2.0 09/15/16 00:00 98.0 84 18 148/79 95 Nasal Cannula 2.0 09/14/16 20:21 72 143/77 09/14/16 20:18 Nasal Cannula 09/14/16 20:17 72 15 95 Nasal Cannula 2.0 28 09/14/16 20:17 95 Nasal Cannula 2.0 28 09/14/16 20:17 Nasal Cannula 2.0 28 09/14/16 20:00 97.9 86 20 143/77 93 Room Air 09/14/16 17:10 84 14 99 Nasal Cannula 2.0 28 09/14/16 17:01 75 15 98 Nasal Cannula 2.0 28 09/14/16 16:14 98.1 81 16 146/67 93 Room Air 09/14/16 11:47 97.2 85 16 151/80 93 Room Air 09/14/16 11:12 78 14 97 Nasal Cannula 2.0 28 09/14/16 11:12 87 14 99 Nasal Cannula 2.0 28 Height (Feet): 5 Height (Inches): 9.00 Weight (Pounds): 180 HEENT: mucous membranes moist Respiratory/Chest: no respiratory distress Cardiovascular: regularly irregular Abdomen: no organomegaly Microbiology Date/Time Source Procedure Growth Status 09/13/16 11:00 Indwelling Cath Urine Culture - Preliminary NO GROWTH AFTER 24 HOURS Resulted Laboratory Tests Test 09/15/16 05:50 White Blood Count 9.9 K/UL (4.8-10.8) Red Blood Count 4.16 M/UL (4.70-6.10) L Hemoglobin 13.8 G/DL (14.2-18.0) L Hematocrit 40.3 % (42.0-52.0) L Mean Corpuscular Volume 97 FL (80-99) Mean Corpuscular Hemoglobin 33.2 PG (27.0-31.0) H Mean Corpuscular Hemoglobin Concent 34.3 G/DL (32.0-36.0) Red Cell Distribution Width 12.8 % (11.6-14.8) Platelet Count 167 K/UL (150-450) Mean Platelet Volume 7.9 FL (6.5-10.1) Neutrophils (%) (Auto) 59.4 % (45.0-75.0) Lymphocytes (%) (Auto) 27.5 % (20.0-45.0) Monocytes (%) (Auto) 8.6 % (1.0-10.0) Eosinophils (%) (Auto) 3.3 % (0.0-3.0) H Basophils (%) (Auto) 1.2 % (0.0-2.0) Sodium Level 138 mEQ/L (135-145) Potassium Level 4.0 mEQ/L (3.4-4.9) Chloride Level 99 mEQ/L (98-107) Carbon Dioxide Level 23 mEQ/L (20-30) Anion Gap 16 (5-15) H Blood Urea Nitrogen 14 mg/dL (7-23) Creatinine 0.6 mg/dL (0.7-1.2) L Estimat Glomerular Filtration Rate mL/min (>60) Glucose Level 205 mg/dL (74-106) H Calcium Level 9.3 mg/dL (8.6-10.2) Phosphorus Level 2.5 mg/dL (2.5-4.8) Magnesium Level 1.8 mg/dL (1.7-2.5) Total Bilirubin 0.4 mg/dL (0.0-1.2) Aspartate Amino Transf (AST/SGOT) 43 U/L (5-40) H Alanine Aminotransferase (ALT/SGPT) 36 U/L (3-41) Alkaline Phosphatase 62 U/L (40-129) C-Reactive Protein, Quantitative 5.7 mg/dL (< 0.5) H Total Protein 7.1 g/dL (6.6-8.7) Albumin 2.8 g/dL (3.5-5.2) L Globulin 4.3 g/dL Albumin/Globulin Ratio 0.6 (1.0-2.7) L Current Medications Medications (Trade) Dose Ordered Sig/Francesca Route PRN Reason Start Time Stop Time Status Last Admin Dose Admin Acetaminophen (Tylenol) 650 mg Q4H PRN RECTAL T>100.5 09/12/16 15:00 10/12/16 14:59 Acetaminophen (Tylenol) 650 mg Q6H PRN ORAL Prn Pain/Headache/Temp > 101 09/12/16 15:00 10/12/16 14:59 Albuterol/ Ipratropium (DuoNeb 0.5-3(2.5)mg/3ml) 3 ml QIDRT HHN 09/12/16 15:00 09/17/16 14:59 09/14/16 17:00 Aspirin (ASA) 81 mg DAILY GT 09/13/16 09:00 10/13/16 08:59 09/14/16 08:30 Dextrose (Dextrose 50%) STAT PRN IV Hypoglycemia 09/12/16 15:00 10/12/16 14:59 Heparin Sodium (Porcine) (Heparin 5000 units/ml) 5,000 units EVERY 12 HOURS SUBQ 09/12/16 21:00 10/12/16 20:59 09/14/16 20:22 Insulin Aspart (NovoLOG) Q6HR SUBQ 09/12/16 18:00 10/12/16 17:59 09/15/16 05:50 Lactobacillus Acidophilus (Culturelle) 1 tab THREE TIMES A DAY ORAL 09/13/16 13:00 10/13/16 12:59 09/14/16 17:52 Loperamide HCl (Imodium) 2 mg Q6H PRN NG Diarrhea 09/14/16 10:30 10/14/16 10:29 Metoprolol Tartrate (Lopressor) 50 mg Q12HR GT 09/14/16 21:00 10/14/16 20:59 09/14/16 20:21 Nateglinide (Starlix) 60 mg TIAC ORAL 09/14/16 11:30 10/14/16 11:29 09/15/16 05:50 Potassium Chloride (KCl 10% 40mEq Oral solution) 40 meq BID NG 09/14/16 18:00 10/14/16 17:59 09/14/16 18:02 Ranitidine HCl (Zantac) 150 mg TWICE A DAY GT 09/12/16 18:00 10/12/16 17:59 09/14/16 17:52 Sucralfate (Carafate) 1 gm FOUR TIMES A DAY GT 09/12/16 18:00 10/12/16 17:59 09/14/16 20:20 Tamsulosin HCl (Flomax) 0.4 mg DAILY GT 09/13/16 09:00 10/13/16 08:59 09/14/16 08:30 ASIYA WETZEL M.D. September 15, 2016 09:10
--- NOTE | 2016-09-15 09:21 | General Progress Note ---
Assessment/Plan Status: stable Assessment/Plan status; Sepsis UTI ? Aspiration s/p CVA DM HTN PAST MEDICAL HISTORY: Significant for previous pneumonia and UTI. 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 The patient has a PEG. History of tobacco abuse in the past. The patient has COPD, degenerative joint disease, high cholesterol, hypertension, atrophic gastritis, depression, and contractures of the left side. Plan; repeat cxr-Subtle opacity of the right perihilar upper lobe could represent infiltrate.Re demonstration of bibasilar atelectasis. urine c/s neg start GT flagyl and lactobacillus pending c dif c/s Pulmonary toilet- DC IV- K Supplement-as needed DC antibiotics, GT feeding Phos supplement as needed start starlix ? DC today off antibiotics - observe Subjective ROS Limited/Unobtainable: No Allergies: Coded Allergies: MILK (Unverified Allergy, Unknown, 05/14/16) SOY (Unverified Allergy, Unknown, 05/14/16) SOYBEAN (Unverified Allergy, Unknown, 05/14/16) Objective Last 24 Hour Vital Signs Date Time Temp Pulse Resp B/P Pulse Ox O2 Delivery O2 Flow Rate FiO2 09/15/16 08:58 79 161/78 09/15/16 08:00 98.1 79 18 161/78 93 Room Air 09/15/16 04:00 98.6 80 18 137/77 96 Nasal Cannula 2.0 09/15/16 00:00 98.0 84 18 148/79 95 Nasal Cannula 2.0 09/14/16 20:21 72 143/77 09/14/16 20:18 Nasal Cannula 09/14/16 20:17 72 15 95 Nasal Cannula 2.0 28 09/14/16 20:17 95 Nasal Cannula 2.0 28 09/14/16 20:17 Nasal Cannula 2.0 28 09/14/16 20:00 97.9 86 20 143/77 93 Room Air 09/14/16 17:10 84 14 99 Nasal Cannula 2.0 28 09/14/16 17:01 75 15 98 Nasal Cannula 2.0 28 09/14/16 16:14 98.1 81 16 146/67 93 Room Air 09/14/16 11:47 97.2 85 16 151/80 93 Room Air 09/14/16 11:12 78 14 97 Nasal Cannula 2.0 28 09/14/16 11:12 87 14 99 Nasal Cannula 2.0 28 Intake and Output 09/14/16 09/15/16 19:00 07:00 Intake Total 970.0 ml 815 ml Output Total 900 ml Balance 70.0 ml 815 ml Intake Free Water 100 ml 100 ml IV Total 90.0 ml Tube Feeding 780 ml 715 ml Output Urine Total 900 ml # Voids 3 Current Medications Medications (Trade) Dose Ordered Sig/Francesca Route PRN Reason Start Time Stop Time Status Last Admin Dose Admin Acetaminophen (Tylenol) 650 mg Q4H PRN RECTAL T>100.5 09/12/16 15:00 10/12/16 14:59 Acetaminophen (Tylenol) 650 mg Q6H PRN ORAL Prn Pain/Headache/Temp > 101 09/12/16 15:00 10/12/16 14:59 Albuterol/ Ipratropium (DuoNeb 0.5-3(2.5)mg/3ml) 3 ml QIDRT HHN 09/12/16 15:00 09/17/16 14:59 09/14/16 17:00 Aspirin (ASA) 81 mg DAILY GT 09/13/16 09:00 10/13/16 08:59 09/15/16 08:57 Dextrose (Dextrose 50%) STAT PRN IV Hypoglycemia 09/12/16 15:00 10/12/16 14:59 Heparin Sodium (Porcine) (Heparin 5000 units/ml) 5,000 units EVERY 12 HOURS SUBQ 09/12/16 21:00 10/12/16 20:59 09/15/16 08:59 Insulin Aspart (NovoLOG) Q6HR SUBQ 09/12/16 18:00 10/12/16 17:59 09/15/16 05:50 Lactobacillus Acidophilus (Culturelle) 1 tab THREE TIMES A DAY ORAL 09/13/16 13:00 10/13/16 12:59 09/15/16 08:58 Loperamide HCl (Imodium) 2 mg Q6H PRN NG Diarrhea 09/14/16 10:30 10/14/16 10:29 Metoprolol Tartrate (Lopressor) 50 mg Q12HR GT 09/14/16 21:00 10/14/16 20:59 09/15/16 08:58 Nateglinide (Starlix) 120 mg TIAC ORAL 09/15/16 11:30 10/15/16 11:29 UNV Ranitidine HCl (Zantac) 150 mg TWICE A DAY GT 09/12/16 18:00 10/12/16 17:59 09/15/16 08:57 Sucralfate (Carafate) 1 gm FOUR TIMES A DAY GT 09/12/16 18:00 10/12/16 17:59 09/15/16 08:57 Tamsulosin HCl (Flomax) 0.4 mg DAILY GT 09/13/16 09:00 10/13/16 08:59 09/15/16 08:57 Laboratory Tests 09/15/16 05:50: White Blood Count 9.9, Red Blood Count 4.16L, Hemoglobin 13.8L, Hematocrit 40.3L , Mean Corpuscular Volume 97, Mean Corpuscular Hemoglobin 33.2H, Mean Corpuscular Hemoglobin Concent 34.3, Red Cell Distribution Width 12.8, Platelet Count 167, Mean Platelet Volume 7.9, Neutrophils (%) (Auto) 59.4, Lymphocytes (% ) (Auto) 27.5, Monocytes (%) (Auto) 8.6, Eosinophils (%) (Auto) 3.3H, Basophils (%) (Auto) 1.2, Sodium Level 138, Potassium Level 4.0, Chloride Level 99, Carbon Dioxide Level 23, Anion Gap 16H, Blood Urea Nitrogen 14, Creatinine 0.6L , Estimat Glomerular Filtration Rate , Glucose Level 205H, Calcium Level 9.3, Phosphorus Level 2.5, Magnesium Level 1.8, Total Bilirubin 0.4, Aspartate Amino Transf (AST/SGOT) 43H, Alanine Aminotransferase (ALT/SGPT) 36, Alkaline Phosphatase 62, C-Reactive Protein, Quantitative 5.7H, Total Protein 7.1, Albumin 2.8L, Globulin 4.3, Albumin/Globulin Ratio 0.6L Height (Feet): 5 Height (Inches): 9.00 Weight (Pounds): 180 General Appearance: no apparent distress Objective other PE not changed JULIANNE HERNÁNDEZ September 15, 2016 09:21
[2016-09-15] MEDS ORDERED: STARLIX60 MG ORAL (09:26)
[2016-09-15] MEDS ORDERED: RANITIDINE HCL150 MG GT (09:26)
[2016-09-15] MEDS ORDERED: CULTURELLE1 EACH ORAL (09:26)
[2016-09-15] MEDS ORDERED: METOPROLOL TART50 MG GT (09:26)
[2016-09-15] MEDS ORDERED: DUONEB 0.5-3(2.53 ML HHN (09:26)
--- NOTE | 2016-09-15 09:28 | Discharge Instructions ---
Discharge Instructions Discharge Instructions Follow up with: fu with me at [facility] Diet: other - Diabetic GT feeding Special Instructions routin skin care- HHN QID for 10 days For Congestive Heart Failure Reminder Report to your physician any weight gain of 5 pounds or more in one week. JULIANNE HERNÁNDEZ September 15, 2016 09:28
[2016-09-15] MEDS: DuoNeb 0.5-3(2.5)mg/3ml neb HHN SCH ×2 (09:53→11:33)
[2016-09-15 12:00] VITALS: BP 149/81
--- NOTE | 2016-09-15 19:26 | Pulmonology Progress Note ---
Assessment/Plan Problems: (1) At high risk for aspiration (2) Pneumonia (3) G-tube site cellulitis (4) CVA, old, aphasia (5) DM (diabetes mellitus) Assessment/Plan all reviewed improving all cultures are negative wbc decreasing chest pt sliding scale check cultures Ok to dc to [facility] Subjective ROS Limited/Unobtainable: No Allergies: Coded Allergies: MILK (Unverified Allergy, Unknown, 05/14/16) SOY (Unverified Allergy, Unknown, 05/14/16) SOYBEAN (Unverified Allergy, Unknown, 05/14/16) Objective Last 24 Hour Vital Signs Date Time Temp Pulse Resp B/P Pulse Ox O2 Delivery O2 Flow Rate FiO2 09/15/16 12:00 96.4 79 18 149/81 96 Room Air 09/15/16 11:40 75 14 99 Nasal Cannula 2.0 28 09/15/16 11:34 63 14 97 Nasal Cannula 2.0 28 09/15/16 10:05 69 14 99 Nasal Cannula 2.0 28 09/15/16 09:53 61 16 96 Nasal Cannula 2.0 28 09/15/16 08:58 79 161/78 09/15/16 08:00 98.1 79 18 161/78 93 Room Air 09/15/16 07:15 96 Nasal Cannula 2.0 28 09/15/16 07:15 Nasal Cannula 2.0 28 09/15/16 04:00 98.6 80 18 137/77 96 Nasal Cannula 2.0 09/15/16 00:00 98.0 84 18 148/79 95 Nasal Cannula 2.0 09/14/16 20:21 72 143/77 09/14/16 20:18 Nasal Cannula 09/14/16 20:17 72 15 95 Nasal Cannula 2.0 28 09/14/16 20:17 95 Nasal Cannula 2.0 28 09/14/16 20:17 Nasal Cannula 2.0 28 09/14/16 20:00 97.9 86 20 143/77 93 Room Air Intake and Output 09/14/16 09/15/16 19:00 07:00 Intake Total 970.0 ml 880 ml Output Total 900 ml Balance 70.0 ml 880 ml Intake Free Water 100 ml 100 ml IV Total 90.0 ml Tube Feeding 780 ml 780 ml Output Urine Total 900 ml # Voids 3 Objective General Appearance: WD/WN Lines, tubes and drains: peripheral HEENT: normocephalic Neck: non-tender Respiratory/Chest: chest wall non-tender, lungs clear Cardiovascular/Chest: normal peripheral pulses, normal rate Abdomen: normal bowel sounds Genitourinary/Rectal: normal genital exam Extremities: normal range of motion Microbiology Date/Time Source Procedure Growth Status 09/13/16 11:00 Indwelling Cath Urine Culture - Preliminary NO GROWTH AFTER 24 HOURS Resulted Laboratory Tests 09/15/16 05:50: White Blood Count 9.9, Red Blood Count 4.16L, Hemoglobin 13.8L, Hematocrit 40.3L , Mean Corpuscular Volume 97, Mean Corpuscular Hemoglobin 33.2H, Mean Corpuscular Hemoglobin Concent 34.3, Red Cell Distribution Width 12.8, Platelet Count 167, Mean Platelet Volume 7.9, Neutrophils (%) (Auto) 59.4, Lymphocytes (% ) (Auto) 27.5, Monocytes (%) (Auto) 8.6, Eosinophils (%) (Auto) 3.3H, Basophils (%) (Auto) 1.2, Sodium Level 138, Potassium Level 4.0, Chloride Level 99, Carbon Dioxide Level 23, Anion Gap 16H, Blood Urea Nitrogen 14, Creatinine 0.6L , Estimat Glomerular Filtration Rate , Glucose Level 205H, Calcium Level 9.3, Phosphorus Level 2.5, Magnesium Level 1.8, Total Bilirubin 0.4, Aspartate Amino Transf (AST/SGOT) 43H, Alanine Aminotransferase (ALT/SGPT) 36, Alkaline Phosphatase 62, C-Reactive Protein, Quantitative 5.7H, Total Protein 7.1, Albumin 2.8L, Globulin 4.3, Albumin/Globulin Ratio 0.6L SWATI THOMAS September 15, 2016 19:26
--- NOTE | 2016-09-16 12:14 | Discharge Summary ---
Discharge Summary Hospital Course Date of Admission September 10, 2016 at 13:18 Date of Discharge September 15, 2016 at 13:13 Admitting Diagnosis vomiting/AMS HPI Patrick Hawley is a 81 year old male who was admitted on September 10, 2016 at 13: 18 for Vomiting, Altered Mental Status Hospital Course dc summary #[id number] Discharge Medications New Medications: Ipratropium/Albuterol Sulfate (DuoNeb 0.5-3(2.5)mg/3ml) 3 Ml Ampul.neb 3 ML HHN QIDRT for 14 Days, EA Lactobacillus Rhamnosus Gg* (Culturelle*) 1 Each Capsule 1 TAB ORAL THREE TIMES A DAY for 14 Days, CAP Metoprolol Tartrate* (Metoprolol Tartrate*) 50 Mg Tablet 50 MG GT Q12HR for 30 Days, TAB Nateglinide* (Starlix*) 60 Mg Tablet 120 MG ORAL TIAC for 30 Days, TAB Ranitidine Hcl* (Zantac*) 150 Mg Tablet 150 MG GT TWICE A DAY for 30 Days, TAB Continued Medications: Acetaminophen (Tylenol) 325 Mg Tablet 650 MG ORAL Q6H PRN for Prn Pain/Headache/Temp > 101, #30 TAB 0 Refills Aspirin* (Aspir-Low*) 81 Mg Tablet. 81 MG GT DAILY, TAB Cranberry Conc/C/Bacill Coag (Azo Cranberry Tablet) 1 Each Tablet 1 EACH GT DAILY Sucralfate* (Carafate*) 1 Gm Tablet 1 GM ORAL FOUR TIMES A DAY for 30 Days, TAB Tamsulosin HCl (Flomax) 0.4 Mg Cap 0.4 MG GT DAILY, CAP Discharge Condition Upon Discharge: stable Discharge Disposition Patient was discharged to SNF/Subacute Facility(03) Discharge Diagnoses: Discharge Instructions Discharge Instructions Follow up with: fup with Dr Jo at [facility] Special Instructions I have been assigned to complete a D/C Summary on this account. I was not involved in the patient management Eufemia Corona NP (Vanchtein) September 16, 2016 12:14
--- NOTE | 2016-09-17 12:02 | Discharge Summary 2 SIG ---
DATE OF ADMISSION: 09/10/2016 DATE OF DISCHARGE: 09/15/2016 REASON FOR ADMISSION: 81-year-old male presented to the emergency department for evaluation. According to paramedics, the patient noted to be vomiting blood at the [facility] facility. The patient was tachycardic with reported fever. He denied chest pain. Denied shortness of breath. Denied cough. The patient unable to provide any additional information at that time. Workup in the emergency room revealed WBC- 14.5. Urinalysis with pyuria, positive for nitrites, but few bacteria only. CT of the head revealed no acute intracranial pathology. Stable hemoglobin and hematocrit. Elevated lactic acid - 3.8. Troponin negative. Sodium -133 and anion gap -19. Chest x-ray with evidence of possible infiltrate. The patient was admitted for further management. ADMITTING DIAGNOSES: 1. Sepsis. 2. Urinary tract infection. 3. Possible pneumonia. HOSPITAL COURSE: The patient was admitted. The patient was started on vigorous hydration. Started on intravenous antibiotics. ID consult and Pulmonary consult requested. Sputum culture not collected. Blood culture negative. Stool culture negative. Stool for C dif toxin negative. Urine culture positive for mixed urogenital contaminants, colony counts less than 10,000. The patient status post treatment with antibiotics, prior to discharge off antibiotics as per ID recommendation, Observe closely off anabiotics in the facility. Supplemental oxygen, pulmonary toilet provided as needed. Chest x-ray will follow. Blood sugar was managed with sliding scale of insulin. Hemoglobin A1c - 7.3, nearly at goal. Blood pressure was managed with the current antihypertensive regimen, was stable. Hemodynamic support provided. Initially on IV fluids, which subsequently discontinued . DVT and GI prophylaxes provided. Added Carafate in addition to Zantac for GI protection. The patient was stable for discharge. DISCHARGE DIAGNOSES: : 1. Sepsis. 2. Pneumonia 3. Possible aspiration. 4. Dysphagia, gastrostomy tube. 5. Hypertension 6. History of cerebrovascular accident. 7. Diabetes mellitus. 8. Hypertension. DISCHARGE MEDICATIONS: See medication reconciliation list. DISCHARGE INSTRUCTIONS: The patient was discharged to the [facility] facility. Follow up with medical doctor at the facility.. Scott Mack M.D. I have been assigned to dictate discharge summary on this account and I was not involved in the patient's management. [facility] N[facility]PJunior DR: Urmila JOB#: [id number] CC: IFRAH
== END 2016-09-15 13:13 | DRG 871 ==
LOC: EDUNIT# 12:18 → EDBD 12:18 → EMR 12:55 → 2E 13:18 → EDBEDREQ 13:58 → 4E 09-12 13:41
DX: A41.9 Sepsis, unspecified organism (principal); J69.0 Pneumonitis due to inhalation of food and vomit; E11.8 Type 2 diabetes mellitus with unspecified complications; I69.354 Hemiplegia and hemiparesis following cerebral infarction affecting left non-dominant side; J44.9 Chronic obstructive pulmonary disease, unspecified; F03.90 Unspecified dementia, unspecified severity, without behavioral disturbance, psychotic disturbance, mood disturbance, and anxiety; R13.10 Dysphagia, unspecified; N39.0 Urinary tract infection, site not specified; Z43.1 Encounter for attention to gastrostomy; M19.90 Unspecified osteoarthritis, unspecified site; I10 Essential (primary) hypertension; K29.40 Chronic atrophic gastritis without bleeding; R19.7 Diarrhea, unspecified; E11.9 Type 2 diabetes mellitus without complications; I69.320 Aphasia following cerebral infarction
CPT/HCPCS: 36415; 70450; 71010; 80053; 80061; 81001; 81003; 82550; 82553; 82962; 82977; 83036; 83605; 83690; 83735; 83880; 84100; 84443; 84484; 84550; 85025; 86140; 87040; 87045; 87086; 87324; 93005; 94640; 94664; 94760; J1815; J2405; J7620

== ENCOUNTER 2016-10-19 13:35 | Inpatient (IN) | payer MEDICARE, MEDICAID ==
[~2016-10-19] VITALS: Ht 182.9 cm; Wt 90.7 kg
[~2016-10-19 13:35] MED LIST changes: +CULTURELLE1 EACH ORAL; +DUONEB 0.5-3(2.53 ML HHN; +GLYBURIDE2.5 MG GT; +METOPROLOL TART50 MG GT; +MOM30 ML ORAL; +OMEPRAZOLE20 M2 GT; +PROSTATE THERA1 EACH PO; +RANITIDINE HCL150 MG GT; +ROCEPHIN250 MG IV; +STARLIX60 MG ORAL; +TYLENOL650 MG/20. GT; +ZANTAC150 MG ORAL
[2016-10-19 13:47] VITALS: BP 129/65
[2016-10-19 13:57] LABS: BASOPHILS % (AUTO) 0.7 % (0.0-2.0); EOSINOPHILS % (AUTO) 1.2 % (0.0-3.0); LYMPHOCYTES % (AUTO) 24.2 % (20.0-45.0); MEAN CORPUSCULAR HEMOGLOBIN 32.1 PG (27.0-31.0); MEAN CORPUSCULAR HGB CONC 32.3 G/DL (32.0-36.0); MEAN CORPUSCULAR VOLUME 99 FL (80-99); MEAN PLATELET VOLUME 7.7 FL (6.5-10.1); MONOCYTES % (AUTO) 7.6 % (1.0-10.0); NEUTROPHILS % (AUTO) 66.3 % (45.0-75.0); PLATELET COUNT 168 K/UL (150-450)
[2016-10-19] MEDS ORDERED: cefTRIAXone 1 GM in NS 55 ML IVPB ONE (14:00)
--- NOTE | 2016-10-19 14:04 | Emergency Room Report ---
History of Present Illness General Chief Complaint: Altered Level of Consciousness Source: Medical Record, EMS Present Illness HPI Patient is a 81-year-old male sent in by nursing facility after increased altered mental status. Patient was noted to have markedly elevated blood sugar. Patient was recently seen and treated for infection and started on IV antibiotics. Patient had been noted to have a urinary tract infection in addition to a decubitus ulcer infection. Patient was reportedly taking multiple medications for his blood sugars which had not been able to control sugars. The patient was noted to be less responsive than usual. Allergies: Coded Allergies: MILK (Unverified Allergy, Unknown, 05/14/16) SOY (Unverified Allergy, Unknown, 05/14/16) SOYBEAN (Unverified Allergy, Unknown, 05/14/16) Uncoded Allergies: MILK & SOYBEAN (Allergy, Unknown, 10/19/16) Patient History Limited by: medical condition Past Medical History: see triage record Reviewed Nursing Documentation: PMH: Agreed, PSxH: Agreed Nursing Documentation-PMH Past Medical History: No History, Except For Hx Hypertension: Yes Hx COPD: Yes Hx Diabetes: Yes Hx Cancer: No Hx Cerebrovascular Accident: Yes 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 Hx Aphasia: Yes Hx Dysphasia: Yes Hx Weakness: Yes - Generalized muscle weakness Review of Systems All Other Systems: limited - by mental status Physical Exam Vital Signs Date Time Temp Pulse Resp B/P Pulse Ox O2 Delivery O2 Flow Rate FiO2 10/19/16 13:20 97.9 83 26 144/97 94 Nasal Cannula 4.0 Sp02 EP Interpretation: abnormal General Appearance: moderate distress, Chronically Ill Head: atraumatic Eyes: bilateral eye PERRL ENT: dry mucus membranes Neck: limited range of motion Respiratory: lungs clear, normal breath sounds Cardiovascular #1: regular rate, rhythm, edema - trace edema Gastrointestinal: normal bowel sounds, non tender, soft Genitourinary: normal inspection, penis normal Musculoskeletal: normal inspection, back normal Neurologic: responsive, motor weakness Psychiatric: other Skin: other - decubitis ulcer Medical Decision Making Diagnostic Impression: Primary Impression: DM (diabetes mellitus) Additional Impressions: Altered level of consciousness Encephalopathy Pneumonia ER Course Patient presented for altered mental status.Differential diagnosis included but was not limited to ischemic stroke, subarachnoid hemorrhage, hypoglycemia, spinal cord injury, neurodegenerative disorder, urinary tract infection, hypoxemia.Because of complexity of patient's case laboratory testing and imaging studies were ordered. The patient started on IV fluids as well as IV antibiotics empirically.EKG interpreted by me showed sinus tachycardia with rate [address] there were no acute ST changes noted. Patient was noted to have some T-wave inversion to the septal leads. CXR showed right lung infiltrate small left effusion. Patient was noted to have a condition which appears require hospital list at this time due to patient's hypoxemia as well as evidence of lung infection. Patient was given a coverage for facility acquired pneumonia. Dr. Scott Mack was contacted for inpatient management. Labs Test 10/19/16 13:40 10/19/16 14:00 White Blood Count 10.0 K/UL (4.8-10.8) Red Blood Count 4.10 M/UL (4.70-6.10) Hemoglobin 13.1 G/DL (14.2-18.0) Hematocrit 40.7 % (42.0-52.0) Mean Corpuscular Volume 99 FL (80-99) Mean Corpuscular Hemoglobin 32.1 PG (27.0-31.0) Mean Corpuscular Hemoglobin Concent 32.3 G/DL (32.0-36.0) Red Cell Distribution Width 13.0 % (11.6-14.8) Platelet Count 168 K/UL (150-450) Mean Platelet Volume 7.7 FL (6.5-10.1) Neutrophils (%) (Auto) 66.3 % (45.0-75.0) Lymphocytes (%) (Auto) 24.2 % (20.0-45.0) Monocytes (%) (Auto) 7.6 % (1.0-10.0) Eosinophils (%) (Auto) 1.2 % (0.0-3.0) Basophils (%) (Auto) 0.7 % (0.0-2.0) Sodium Level 145 mEQ/L (135-145) Potassium Level 3.8 mEQ/L (3.4-4.9) Chloride Level 108 mEQ/L (98-107) Carbon Dioxide Level 24 mEQ/L (20-30) Anion Gap 13 (5-15) Blood Urea Nitrogen 35 mg/dL (7-23) Creatinine 1.0 mg/dL (0.7-1.2) Estimat Glomerular Filtration Rate mL/min (>60) Glucose Level 417 mg/dL (74-106) Lactic Acid Level 1.80 mmol/L (0.66-2.22) Calcium Level 9.4 mg/dL (8.6-10.2) Magnesium Level 2.3 mg/dL (1.7-2.5) Total Bilirubin 0.4 mg/dL (0.0-1.2) Aspartate Amino Transf (AST/SGOT) 22 U/L (5-40) Alanine Aminotransferase (ALT/SGPT) 19 U/L (3-41) Alkaline Phosphatase 65 U/L (40-129) Total Creatine Kinase 450 U/L (38-174) Creatine Kinase MB 1.6 ng/mL (< 6.7) Creatine Kinase MB Relative Index 0.3 Troponin I < 0.30 ng/mL (<=0.30) Total Protein 7.9 g/dL (6.6-8.7) Albumin 2.9 g/dL (3.5-5.2) Globulin 5.0 g/dL Albumin/Globulin Ratio 0.5 (1.0-2.7) Acetone Level Negative (NEGATIVE) Urine Color Yellow Urine Appearance Clear Urine pH 5 (4.5-8.0) Urine Specific Everly 1.015 (1.005-1.035) Urine Protein 2+ (NEGATIVE) Urine Glucose (UA) 4+ (NEGATIVE) Urine Ketones Negative (NEGATIVE) Urine Occult Blood 2+ (NEGATIVE) Urine Nitrite Negative (NEGATIVE) Urine Bilirubin Negative (NEGATIVE) Urine Urobilinogen Normal MG/DL (0.0-1.0) Urine Leukocyte Esterase 1+ (NEGATIVE) Urine RBC 2-4 /HPF (0 - 0) Urine WBC 0-2 /HPF (0 - 0) Urine Squamous Epithelial Cells Few /LPF (NONE/OCC) Urine Bacteria Few /HPF (NONE) EKG Diagnostic Results Rate: tachycardiac - 100 Rhythm: NSR ST Segments: no acute changes Rhythm Strip Diag. Results EP Interpretation: yes Rhythm: NSR, no PVC's, no ectopy Chest X-Ray Diagnostic Results Chest X-Ray Ordered: Yes # of Views/Limited/Complete: 1 View Interpretation: other - left effusion Indication: Shortness of Breath Impression: Other Date Electronically Signed: Oct 19, 2016 Time Electronically Signed: 15:41 Interpreting ER Physician: Cy Last Vital Signs Date Time Temp Pulse Resp B/P Pulse Ox O2 Delivery O2 Flow Rate FiO2 10/19/16 13:47 97.9 101 26 129/65 94 Nasal Cannula 4.0 Status: unchanged Disposition: ADMITTED INPATIENT Condition: Cynthia BenoitEzra Oct 19, 2016 14:04
[2016-10-19 14:13] LABS: TROPONIN I < 0.30 ng/mL (<=0.30)
[2016-10-19 14:13] LABS: APPEARANCE,URINE CLEAR; KETONES,URINE NEGATIVE (NEGATIVE); LEUKOCYTE ESTERASE ,URINE 1+ (NEGATIVE); NITRITE,URINE NEGATIVE (NEGATIVE); PH,URINE 5 (4.5-8.0); PROTEIN,URINE 2+ (NEGATIVE); UROBILINOGEN,URINE NORMAL MG/DL (0.0-1.0)
[2016-10-19 14:16] LABS: ALANINE AMINOTRANSFERASE 19 U/L (3-41); ALBUMIN/GLOBULIN RATIO 0.5 (1.0-2.7); ANION GAP 13 (5-15); ASPARTATE AMINO TRANSFERASE 22 U/L (5-40); CALCIUM 9.4 mg/dL (8.6-10.2); CARBON DIOXIDE 24 mEQ/L (20-30); CHLORIDE 108 mEQ/L (98-107); HEMOLYSIS 9; MAGNESIUM 2.3 mg/dL (1.7-2.5); POTASSIUM 3.8 mEQ/L (3.4-4.9); SODIUM 145 mEQ/L (135-145); TOTAL PROTEIN 7.9 g/dL (6.6-8.7)
[2016-10-19 14:24] LABS: BACTERIA,URINE FEW /HPF; SQUAMOUS EPITHELIAL CELL,UR FEW /LPF (NONE/OCC); WBC,URINE 0-2 /HPF (0 - 0)
[2016-10-19 14:27] LABS: CKMB 1.6 ng/mL (< 6.7)
[2016-10-19 15:13] VITALS: BP 133/72
[2016-10-19 16:29] VITALS: BP 142/66
[2016-10-19 17:58] VITALS: BP 134/66
[2016-10-19 20:00] VITALS: BP 148/88
[2016-10-19] MEDS ORDERED: Acetaminophen 650mg/20.3ml GT PRN (21:45)
--- NOTE | 2016-10-19 21:49 | Consultation ---
Consult Note Consult Note Patient is a 81-year-old male sent in by nursing facility after increased altered mental status. Patient was noted to have markedly elevated blood sugar. Patient was recently seen and treated for infection and started on IV antibiotics. Patient had been noted to have a urinary tract infection in addition to a decubitus ulcer infection. Patient was reportedly taking multiple medications for his blood sugars which had not been able to control sugars. The patient was noted to be less responsive than usual. 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
[2016-10-19] MEDS ORDERED: Levemir Flexpen SUBQ ONE (22:30)
[2016-10-19] MEDS: Heparin 5000 units/ml inj SUBQ SCH (22:39)
[2016-10-19 23:23] VITALS: BP 159/81
[2016-10-19] MEDS: Albuterol ud Inhalation HHN SCH (23:24)
[2016-10-20] VITALS (7 sets, daily range): BP systolic 131–157; BP diastolic 57–76
[2016-10-20] MEDS: Albuterol ud Inhalation HHN SCH ×6 (03:21→23:26)
[2016-10-20] MEDS ORDERED: METOPROLOL TART25 MG ORAL (05:34)
[2016-10-20] MEDS ORDERED: CARAFATE1 G1 ORAL (05:34)
[2016-10-20] MEDS ORDERED: GlyBURIDE 2.5mg tab GT SCH (06:30)
[2016-10-20] MEDS: NovoLOG Insulin Flexpen SUBQ SCH ×3 (07:32→17:18)
[2016-10-20 08:55] LABS: BASOPHILS % (AUTO) 0.9 % (0.0-2.0); EOSINOPHILS % (AUTO) 1.4 % (0.0-3.0); LYMPHOCYTES % (AUTO) 22.2 % (20.0-45.0); MEAN CORPUSCULAR HEMOGLOBIN 32.1 PG (27.0-31.0); MEAN CORPUSCULAR HGB CONC 31.9 G/DL (32.0-36.0); MEAN CORPUSCULAR VOLUME 101 FL (80-99); MEAN PLATELET VOLUME 8.3 FL (6.5-10.1); MONOCYTES % (AUTO) 4.9 % (1.0-10.0); NEUTROPHILS % (AUTO) 70.6 % (45.0-75.0); PLATELET COUNT 147 K/UL (150-450); RED BLOOD COUNT 3.86 M/UL (4.70-6.10); RED CELL DISTRIBUTION WIDTH 12.9 % (11.6-14.8)
[2016-10-20] MEDS ORDERED: Levemir Flexpen SUBQ SCH ×2 (09:00→21:00)
[2016-10-20] MEDS: Heparin 5000 units/ml inj SUBQ SCH ×3 (09:00→21:50)
[2016-10-20 09:08] LABS: HEMOGLOBIN A1C 9.4 % (< 6.0)
[2016-10-20 09:16] LABS: ALANINE AMINOTRANSFERASE 16 U/L (3-41); ALBUMIN/GLOBULIN RATIO 0.5 (1.0-2.7); ANION GAP 14 (5-15); ASPARTATE AMINO TRANSFERASE 20 U/L (5-40); CALCIUM 9.1 mg/dL (8.6-10.2); CARBON DIOXIDE 21 mEQ/L (20-30); CHLORIDE 108 mEQ/L (98-107); CHOLESTEROL 140 mg/dL (< 200); CHOLESTEROL/HDL RATIO 4.5 (3.3-4.4); CREATININE 0.7 mg/dL (0.7-1.2); CRP QUANT 12.5 mg/dL (< 0.5); HEMOLYSIS 3; LDL CHOLESTEROL (CALC.) 81 mg/dL (60-99); PHOSPHORUS 2.4 mg/dL (2.5-4.8); POTASSIUM 3.8 mEQ/L (3.4-4.9); SODIUM 143 mEQ/L (135-145); TOTAL PROTEIN 7.3 g/dL (6.6-8.7); URIC ACID 5.6 mg/dL (3.0-7.5)
[2016-10-20] MEDS: Metoprolol 50mg tab GT SCH ×2 (09:41→21:49)
[2016-10-20] MEDS: Aspirin Baby 81mg GT SCH (09:41)
[2016-10-20] MEDS: Vitamin D 1000 IU Tab GT SCH (09:41)
--- NOTE | 2016-10-20 10:20 | Wound Care Consultation ---
Wound Assessment Wound Assessment #1: Wound Number: #1 Wound Present on Admission: Yes New Wound: No Status Change of Wound: No Wound Location Body Site: sacral Wound Type: scar Jessica Test: Does not Jessica Wound Thickness: Full Thickness Wound Length: 8.0 Wound Width: 9.0 Wound Depth: UTD Percent of Wound Sarepta/Red: 100 Wound Drainage Amount: None Wound Drainage Odor: None/Absent Tissue Surrounding Wound: Macerated Wound Assessment #2: Wound Number: #2 Wound Present on Admission: Yes New Wound: No Status Change of Wound: No Wound Location Body Site: sacral Wound Type: pressure ulcer Jessica Test: Does not Jessica Pressure Ulcer Stage: III - SCATTERED STAGE III. Wound Thickness: Full Thickness Wound Length: 8.0 - scattered Wound Width: 9.0 - scattered Wound Depth: 0.3 Percent of Wound Sarepta/Red: 100 Wound Drainage Description: Serosanguineous Wound Drainage Amount: Scant Wound Drainage Odor: None/Absent Tissue Surrounding Wound: Macerated Wound General Appearance: Reddened Wound Assessment #3: Wound Number: #3 Wound Present on Admission: Yes New Wound: No Status Change of Wound: No Wound Location Body Site Modif: right Wound Location Body Site: toe - 1st toe Wound Type: pressure ulcer Jessica Test: Does not Jessica Pressure Ulcer Stage: deep tissue injury Wound Thickness: Full Thickness Wound Length: 1.0 Wound Width: 2.0 Wound Depth: utd Percent of Wound Purple/Maroon: 100 Wound Drainage Amount: None Wound Drainage Odor: None/Absent Tissue Surrounding Wound: Intact Wound General Appearance: Reddened - maroon Wound Assessment #4: Wound Number: #4 Wound Present on Admission: Yes New Wound: No Status Change of Wound: No Wound Location Body Site Modif: left Wound Location Body Site: toe - 2nd toe Wound Type: pressure ulcer Jessica Test: Does not Jessica Pressure Ulcer Stage: deep tissue injury - site also noted with full thickness scar tissue. Wound Thickness: Full Thickness Wound Length: 1.0 Wound Width: 1.0 Wound Depth: utd Percent of Wound Purple/Maroon: 100 Wound Drainage Amount: None Wound Drainage Odor: None/Absent Tissue Surrounding Wound: Intact Wound General Appearance: Reddened - maroon Wound Assessment #5: Wound Number: #5 Wound Present on Admission: Yes New Wound: No Status Change of Wound: No Wound Location Body Site Modif: left Wound Location Body Site: heel Wound Type: pressure ulcer Jessica Test: Does not Jessica Pressure Ulcer Stage: deep tissue injury Wound Thickness: Full Thickness Wound Length: 6.0 Wound Width: 6.0 Wound Depth: utd Percent of Wound Purple/Maroon: 100 Wound Drainage Amount: None Wound Drainage Odor: None/Absent Tissue Surrounding Wound: Intact Wound General Appearance: Reddened - maroon,boggy. Wound Assessment #6: Wound Number: #6 Wound Present on Admission: Yes New Wound: No Status Change of Wound: No Wound Location Body Site Modif: right Wound Location Body Site: heel Wound Type: pressure ulcer Jessica Test: Does not Jessica Pressure Ulcer Stage: deep tissue injury Wound Thickness: Full Thickness Wound Length: 6.0 Wound Width: 6.0 Wound Depth: utd Percent of Wound Purple/Maroon: 100 Wound Drainage Amount: None Wound Drainage Odor: None/Absent Tissue Surrounding Wound: Intact Wound General Appearance: Reddened - maroon,boggy Wound Comment #1 Sacral full thickness scar tissue. #2 Sacral scattered pressure ulcer stage III. #3 Right great toe deep tissue injury. #4 Left 2nd toe suspected deep tissue injury. #5 Right heel deep tissue injury pressure ulcer. #6 Left heel deep tissue injury pressure ulcer. Recommendation. -Local wound care as ordered. -Apply low air loss overlay SPR. -Turn and reposition. -Optimize nutrition. -Keep clean and dry. -Offload affected sacral site. -Offload affected left and right heels with pillows. -Heel protectors. -Avoid shear and friction. -Assess and notify MD for any further changes of condition in skin. NIMO GIBSON Oct 20, 2016 10:20
[2016-10-20] MEDS ORDERED: 1/2 NS 1000ml IV ONE (10:35)
--- NOTE | 2016-10-20 11:36 | General Progress Note ---
Assessment/Plan Status: unchanged Assessment/Plan status; Pneumonia / Hypoxia ( in ECF) HyperGlycemia- failed OP management Klebsiella + in BC 10/14 Pseudomonas Urine 10/14 UTI CVA with left caleb HTN PEG COPD High Cholestrol Plan: HHN Insulin, levemir and SS insulin Ceftriaxone- Pulm eval, ID eval CXR Echo Subjective ROS Limited/Unobtainable: No Constitutional: Reports: malaise, weakness Allergies: Coded Allergies: MILK (Unverified Allergy, Unknown, 05/14/16) SOY (Unverified Allergy, Unknown, 05/14/16) SOYBEAN (Unverified Allergy, Unknown, 05/14/16) Objective Last 24 Hour Vital Signs Date Time Temp Pulse Resp B/P Pulse Ox O2 Delivery O2 Flow Rate FiO2 10/20/16 11:11 103 10/20/16 09:41 101 131/57 10/20/16 08:00 98.2 101 18 131/57 Nasal Cannula 2.0 100 10/20/16 07:59 92 18 99 Nasal Cannula 2.0 28 10/20/16 07:53 97 18 98 Nasal Cannula 2.0 28 10/20/16 07:53 Nasal Cannula 2.0 28 10/20/16 07:53 98 Nasal Cannula 2.0 28 10/20/16 04:00 107 10/20/16 03:45 99.1 106 17 137/71 97 Nasal Cannula 2.0 106 10/20/16 03:30 106 18 99 Nasal Cannula 2.0 28 10/20/16 03:20 104 18 96 Nasal Cannula 2.0 28 10/20/16 00:00 98 10/19/16 23:32 96 18 99 Nasal Cannula 2.0 28 10/19/16 23:23 97.5 96 20 159/81 95 Room Air 10/19/16 23:23 Nasal Cannula 2.0 28 10/19/16 23:23 97 Nasal Cannula 2.0 28 10/19/16 23:22 96 18 97 Nasal Cannula 2.0 28 10/19/16 23:22 96 18 Nasal Cannula 2.0 28 10/19/16 20:00 92 24 148/88 97 Nasal Cannula 2.0 10/19/16 19:12 97.7 96 20 146/76 95 Nasal Cannula 2.0 10/19/16 17:58 97.7 96 20 134/66 95 Nasal Cannula 2.0 10/19/16 16:29 92 20 142/66 95 Nasal Cannula 2.0 10/19/16 15:13 91 26 133/72 94 Nasal Cannula 2.0 10/19/16 13:47 97.9 101 26 129/65 94 Nasal Cannula 4.0 10/19/16 13:20 97.9 83 26 144/97 94 Nasal Cannula 4.0 Intake and Output 10/19/16 10/20/16 19:00 07:00 Intake Total 55 ml 577 ml Output Total 500 ml 1050 ml Balance -445 ml -473 ml Intake Oral 0 ml Free Water 60 ml IV Total 55 ml 422 ml Tube Feeding 95 ml Output Urine Total 500 ml 1050 ml Laboratory Tests 10/19/16 13:40: White Blood Count 10.0, Red Blood Count 4.10L, Hemoglobin 13.1L, Hematocrit 40.7L, Mean Corpuscular Volume 99, Mean Corpuscular Hemoglobin 32.1H, Mean Corpuscular Hemoglobin Concent 32.3, Red Cell Distribution Width 13.0, Platelet Count 168, Mean Platelet Volume 7.7, Neutrophils (%) (Auto) 66.3, Lymphocytes (% ) (Auto) 24.2, Monocytes (%) (Auto) 7.6, Eosinophils (%) (Auto) 1.2, Basophils ( %) (Auto) 0.7, Sodium Level 145, Potassium Level 3.8, Chloride Level 108H, Carbon Dioxide Level 24, Anion Gap 13, Blood Urea Nitrogen 35H, Creatinine 1.0, Estimat Glomerular Filtration Rate , Glucose Level 417H, Lactic Acid Level 1.80 , Calcium Level 9.4, Magnesium Level 2.3, Total Bilirubin 0.4, Aspartate Amino Transf (AST/SGOT) 22, Alanine Aminotransferase (ALT/SGPT) 19, Alkaline Phosphatase 65, Total Creatine Kinase 450H, Creatine Kinase MB 1.6, Creatine Kinase MB Relative Index 0.3, Troponin I < 0.30, Total Protein 7.9, Albumin 2.9L , Globulin 5.0, Albumin/Globulin Ratio 0.5L, Acetone Level Negative 10/19/16 14:00: Urine Color Yellow, Urine Appearance Clear, Urine pH 5, Urine Specific [place] 1.015, Urine Protein 2+H, Urine Glucose (UA) 4+H, Urine Ketones Negative, Urine Occult Blood 2+H, Urine Nitrite Negative, Urine Bilirubin Negative, Urine Urobilinogen Normal, Urine Leukocyte Esterase 1+H, Urine RBC 2-4H, Urine WBC 0-2 , Urine Squamous Epithelial Cells Few, Urine Bacteria Few 10/20/16 08:40: White Blood Count 11.0H, Red Blood Count 3.86L, Hemoglobin 12.4L, Hematocrit 38.8L, Mean Corpuscular Volume 101H, Mean Corpuscular Hemoglobin 32.1H, Mean Corpuscular Hemoglobin Concent 31.9L, Red Cell Distribution Width 12.9, Platelet Count 147L, Mean Platelet Volume 8.3, Neutrophils (%) (Auto) 70.6, Lymphocytes (%) (Auto) 22.2, Monocytes (%) (Auto) 4.9, Eosinophils (%) (Auto) 1.4, Basophils (%) (Auto) 0.9, Sodium Level 143, Potassium Level 3.8, Chloride Level 108H, Carbon Dioxide Level 21, Anion Gap 14, Blood Urea Nitrogen 22, Creatinine 0.7, Estimat Glomerular Filtration Rate , Glucose Level 296#H, Calcium Level 9.1, Magnesium Level 2.0, Total Bilirubin 0.4, Aspartate Amino Transf (AST/SGOT) 20, Alanine Aminotransferase (ALT/SGPT) 16, Alkaline Phosphatase 61, Total Creatine Kinase 413H, Total Protein 7.3, Albumin 2.6L, Globulin 4.7, Albumin/Globulin Ratio 0.5L, Hemoglobin A1c 9.4H, Uric Acid 5.6, Phosphorus Level 2.4L, Gamma Glutamyl Transpeptidase 57, C-Reactive Protein, Quantitative 12.5H, Pro-B-Type Natriuretic Peptide 179, Triglycerides Level 139 , Cholesterol Level 140, LDL Cholesterol 81, HDL Cholesterol 31, Cholesterol/ HDL Ratio 4.5H Height (Feet): 6 Height (Inches): 0.00 Weight (Pounds): 200 General Appearance: no apparent distress Neck: limited range of motion Cardiovascular: tachycardia Respiratory/Chest: decreased breath sounds Abdomen: soft, other - GT JULIANNE HERNÁNDEZ Oct 20, 2016 11:36
--- NOTE | 2016-10-20 12:03 | Diagnostic Imaging Report ---
Indications: Chest pain Technique: Portable AP chest Findings: Comparison: 10/14/16 Inspiratory effort remains suboptimal. Linear densities and increased interstitial markings persist in both lung bases, perhaps mildly increased. Mild indistinctness of left costophrenic angle persists; right remain sharp. Cardiac silhouette partially obscured. Pulmonary vasculature within normal limits. IMPRESSION: Apparent mild increase in pulmonary bibasal interstitial prominence, subsegmental atelectasis, may all be compressive in nature. Superimposed focal infiltrates not excludable. Persistent suggestion of small left pleural effusion
[2016-10-20] MEDS: Lactobacillus-GG tablet GT SCH ×2 (12:41→17:31)
[2016-10-20] MEDS: cefTRIAXone 1 GM in D5W 55 ML IVPB SCH (13:41)
--- NOTE | 2016-10-20 14:27 | Consultation ---
History of Present Illness General Date patient seen: Oct 20, 2016 Chief Complaint: Altered Level of Consciousness Referring physician: Dr. Mack Present Illness HPI 81-year-old male with hx of CVA, aphasia, dementia, Gtube, bed bound, jail resident with recurrent hospitalization, sent in for evaluation of altered mental status. He had markedly elevated blood sugar was noted to have a urinary tract infection in addition to a decubitus ulcer infection. Patient was reportedly taking multiple medications for his blood sugars which had not been able to control sugars. His CXR in ER was abnormal showing increasing interstitial infiltrate and possible pleural effusion. Pt can't give any history and all information and all information is obtained from the chart. Allergies: Coded Allergies: MILK (Unverified Allergy, Unknown, 05/14/16) SOY (Unverified Allergy, Unknown, 05/14/16) SOYBEAN (Unverified Allergy, Unknown, 05/14/16) Medication History Scheduled Aspirin* (Aspir-Low*), 81 MG GT DAILY, (Reported) Cholecalciferol (Vitamin D3)* (Vitamin D*), 2,000 UNITS GT DAILY, (Reported) Cranberry Conc/C/Bacill Coag (Azo Cranberry Tablet), 1 EACH GT DAILY, (Reported) Docusate Sodium* (Colace*), 100 MG GT DAILY, (Reported) Lactulose (Lactulose*), 20 GM GT TID, (Reported) Magnesium Hydroxide (Milk of Magnesia), 30 ML ORAL DAILY, (Reported) Metoprolol Tartrate* (Metoprolol Tartrate*), 25 MG ORAL EVERY 12 HOURS, ( Reported) Multivitamins Liq* (Multivitamin Liq*), 15 ML GT DAILY, (Reported) Nateglinide* (Starlix*), 120 MG ORAL TIAC Omeprazole (Omeprazole), 20 MG GT BID, (Reported) Ranitidine Hcl* (Zantac*), 150 MG ORAL TWICE A DAY, (Reported) Sucralfate* (Carafate*), 1 GM ORAL FOUR TIMES A DAY, (Reported) Tamsulosin HCl (Flomax), 0.4 MG GT DAILY, (Reported) Scheduled PRN Acetaminophen (Acetaminophen), 650 MG GT Q4H PRN Discontinued Medications Acetaminophen (Acetaminophen), 650 MG GT Q4HR, (Reported) Discontinued Reason: Therapy completed Acetaminophen (Tylenol), 650 MG ORAL Q6H PRN for Prn Pain/Headache/Temp > 101 Discontinued Reason: Therapy completed Acetaminophen* (Tylenol Extra Strength*), 1,000 MG GT Q8H, (Reported) Discontinued Reason: Pt stopped taking med Ceftriaxone Sod (Rocephin), 1,000 MG IV DAILY Discontinued Reason: Pt stopped taking med Ertapenem (Invanz), 1 GM IM DAILY Discontinued Reason: Therapy completed Esomeprazole Magnesium (Nexium), 40 MG GT ACBREAKFAST, (Reported) Discontinued Reason: Therapy completed Fluconazole (Fluconazole), 200 MG GT DAILY, (Reported) Discontinued Reason: Therapy completed Fluconazole* (Diflucan*), 200 MG ORAL DAILY Discontinued Reason: Therapy completed Glyburide (Glyburide), 5 MG GT BIAC Discontinued Reason: Pt stopped taking med Insulin Aspart (Novolog Flexpen), 0 UNITS SUBQ EVERY 6 HOURS Discontinued Reason: Pt stopped taking med Ipratropium/Albuterol Sulfate (Duoneb 0.5 Mg-3 Mg/3 Ml Soln), 3 ML IH QID, ( Reported) Discontinued Reason: Therapy completed Ipratropium/Albuterol Sulfate (DuoNeb 0.5-3(2.5)mg/3ml), 3 ML HHN QIDRT Discontinued Reason: Therapy completed Lactobacillus Rhamnosus Gg* (Culturelle*), 1 TAB ORAL THREE TIMES A DAY Discontinued Reason: Therapy completed -/Nettle/Pumpk/Saw Palmet (Prostate Therapy Softgel), 30 ML PO BID, (Reported ) Discontinued Reason: Pt stopped taking med Metoclopramide HCl (Metoclopramide HCl), 5 MG GT EVERY 6 HOURS Discontinued Reason: Therapy completed Metoprolol Tartrate (Metoprolol Tartrate), 25 MG GT Q12HR Discontinued Reason: Therapy completed Metoprolol Tartrate* (Metoprolol Tartrate*), 50 MG GT Q12HR Discontinued Reason: Pt stopped taking med Pantoprazole Sodium (Protonix), 40 MG GT EVERY 12 HOURS Discontinued Reason: Therapy completed Potassium Chloride (Klor-Con M20), 20 MEQ GT DAILY, (Reported) Discontinued Reason: Therapy completed Ranitidine Hcl* (Zantac*), 150 MG GT TWICE A DAY Discontinued Reason: Therapy completed Saline (Sodium Chloride), 10 ML IVF Q8H PRN for for line flush Discontinued Reason: Therapy completed Sucralfate* (Carafate*), 1 GM ORAL FOUR TIMES A DAY Discontinued Reason: Therapy completed Patient History Healthcare decision maker Resuscitation status Full Code Advanced Directive on File Yes Past Medical/Surgical History Past Medical/Surgical History: (1) DM (diabetes mellitus) (2) At high risk for aspiration (3) G-tube site cellulitis (4) CVA, old, aphasia Review of Systems All Other Systems: negative except mentioned in HPI Physical Exam General Appearance: WD/WN Lines, tubes and drains: peripheral HEENT: normocephalic, atraumatic Neck: non-tender, normal alignment Respiratory/Chest: chest wall non-tender, rhonchi - left, rhonchi - right Cardiovascular/Chest: normal peripheral pulses, normal rate Abdomen: normal bowel sounds, non tender Genitourinary/Rectal: normal genital exam Extremities: normal range of motion 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 Last 24 Hour Vital Signs Date Time Temp Pulse Resp B/P Pulse Ox O2 Delivery O2 Flow Rate FiO2 10/20/16 12:00 97.9 83 18 134/74 99 Nasal Cannula 2.0 28 10/20/16 12:00 98 10/20/16 11:48 94 18 99 Nasal Cannula 2.0 28 10/20/16 11:38 96 18 98 Nasal Cannula 2.0 28 10/20/16 11:11 103 10/20/16 09:41 101 131/57 10/20/16 08:00 98.2 101 18 131/57 Nasal Cannula 2.0 100 10/20/16 07:59 92 18 99 Nasal Cannula 2.0 28 10/20/16 07:53 97 18 98 Nasal Cannula 2.0 28 10/20/16 07:53 Nasal Cannula 2.0 28 10/20/16 07:53 98 Nasal Cannula 2.0 28 10/20/16 04:00 107 10/20/16 03:45 99.1 106 17 137/71 97 Nasal Cannula 2.0 106 10/20/16 03:30 106 18 99 Nasal Cannula 2.0 28 10/20/16 03:20 104 18 96 Nasal Cannula 2.0 28 10/20/16 00:00 98 10/19/16 23:32 96 18 99 Nasal Cannula 2.0 28 10/19/16 23:23 97.5 96 20 159/81 95 Room Air 10/19/16 23:23 Nasal Cannula 2.0 28 10/19/16 23:23 97 Nasal Cannula 2.0 28 10/19/16 23:22 96 18 97 Nasal Cannula 2.0 28 10/19/16 23:22 96 18 Nasal Cannula 2.0 28 10/19/16 20:00 92 24 148/88 97 Nasal Cannula 2.0 10/19/16 19:12 97.7 96 20 146/76 95 Nasal Cannula 2.0 10/19/16 17:58 97.7 96 20 134/66 95 Nasal Cannula 2.0 10/19/16 16:29 92 20 142/66 95 Nasal Cannula 2.0 10/19/16 15:13 91 26 133/72 94 Nasal Cannula 2.0 Intake and Output 10/19/16 10/20/16 19:00 07:00 Intake Total 55 ml 577 ml Output Total 500 ml 1050 ml Balance -445 ml -473 ml Intake Oral 0 ml Free Water 60 ml IV Total 55 ml 422 ml Tube Feeding 95 ml Output Urine Total 500 ml 1050 ml Laboratory Tests Test 10/20/16 08:40 White Blood Count 11.0 K/UL (4.8-10.8) H Red Blood Count 3.86 M/UL (4.70-6.10) L Hemoglobin 12.4 G/DL (14.2-18.0) L Hematocrit 38.8 % (42.0-52.0) L Mean Corpuscular Volume 101 FL (80-99) H Mean Corpuscular Hemoglobin 32.1 PG (27.0-31.0) H Mean Corpuscular Hemoglobin Concent 31.9 G/DL (32.0-36.0) L Red Cell Distribution Width 12.9 % (11.6-14.8) Platelet Count 147 K/UL (150-450) L Mean Platelet Volume 8.3 FL (6.5-10.1) Neutrophils (%) (Auto) 70.6 % (45.0-75.0) Lymphocytes (%) (Auto) 22.2 % (20.0-45.0) Monocytes (%) (Auto) 4.9 % (1.0-10.0) Eosinophils (%) (Auto) 1.4 % (0.0-3.0) Basophils (%) (Auto) 0.9 % (0.0-2.0) Sodium Level 143 mEQ/L (135-145) Potassium Level 3.8 mEQ/L (3.4-4.9) Chloride Level 108 mEQ/L (98-107) H Carbon Dioxide Level 21 mEQ/L (20-30) Anion Gap 14 (5-15) Blood Urea Nitrogen 22 mg/dL (7-23) Creatinine 0.7 mg/dL (0.7-1.2) Estimat Glomerular Filtration Rate mL/min (>60) Glucose Level 296 mg/dL (74-106) #H Hemoglobin A1c 9.4 % (< 6.0) H Uric Acid 5.6 mg/dL (3.0-7.5) Calcium Level 9.1 mg/dL (8.6-10.2) Phosphorus Level 2.4 mg/dL (2.5-4.8) L Magnesium Level 2.0 mg/dL (1.7-2.5) Total Bilirubin 0.4 mg/dL (0.0-1.2) Gamma Glutamyl Transpeptidase 57 U/L (8-61) Aspartate Amino Transf (AST/SGOT) 20 U/L (5-40) Alanine Aminotransferase (ALT/SGPT) 16 U/L (3-41) Alkaline Phosphatase 61 U/L (40-129) Total Creatine Kinase 413 U/L (38-174) H C-Reactive Protein, Quantitative 12.5 mg/dL (< 0.5) H Pro-B-Type Natriuretic Peptide 179 pg/mL (0-450) Total Protein 7.3 g/dL (6.6-8.7) Albumin 2.6 g/dL (3.5-5.2) L Globulin 4.7 g/dL Albumin/Globulin Ratio 0.5 (1.0-2.7) L Triglycerides Level 139 mg/dL (< 150) Cholesterol Level 140 mg/dL (< 200) LDL Cholesterol 81 mg/dL (60-99) HDL Cholesterol 31 mg/dL (> 60) Cholesterol/HDL Ratio 4.5 (3.3-4.4) H Microbiology Date/Time Source Procedure Growth Status 10/20/16 07:10 Wound Gram Stain - Final Resulted 10/20/16 07:10 Wound Wound Culture Pending Resulted Height (Feet): 6 Height (Inches): 0.00 Weight (Pounds): 200 Medications Current Medications Medications (Trade) Dose Ordered Sig/Francesca Route PRN Reason Start Time Stop Time Status Last Admin Dose Admin Acetaminophen (Tylenol) 650 mg Q4H PRN GT temp 100 and above 10/19/16 21:45 11/18/16 21:44 Albuterol Sulfate (Proventil) 2.5 mg Q4HRT HHN 10/19/16 23:00 10/24/16 22:59 10/20/16 11:38 Aspirin (ASA) 81 mg DAILY GT 10/20/16 09:00 11/19/16 08:59 10/20/16 09:41 Ceftriaxone Sodium/Dextrose (Rocephin/D5W) 55 ml @ 110 mls/hr Q24H IVPB 10/20/16 14:00 10/27/16 13:59 10/20/16 13:41 Dextrose (Dextrose 50%) STAT PRN IV Hypoglycemia 10/20/16 03:00 11/19/16 02:59 Heparin Sodium (Porcine) (Heparin 5000 units/ml) 5,000 units EVERY 12 HOURS SUBQ 10/19/16 22:30 11/18/16 22:29 10/20/16 12:42 Insulin Aspart (NovoLOG) Q6HR SUBQ 10/20/16 06:00 11/19/16 05:59 10/20/16 13:54 Insulin Detemir (Levemir) 25 units Q12HR SUBQ 10/20/16 21:00 11/19/16 20:59 Lactobacillus Acidophilus (Culturelle) 1 tab THREE TIMES A DAY GT 10/20/16 13:00 11/19/16 12:59 10/20/16 12:41 Metoprolol Tartrate (Lopressor) 50 mg Q12HR GT 10/20/16 09:00 11/19/16 08:59 10/20/16 09:41 Ranitidine HCl 150 mg 150 mg TWICE A DAY GT 10/20/16 09:00 11/19/16 08:59 10/20/16 09:40 Vitamin D (Vitamin D) 1,000 intlu DAILY GT 10/20/16 09:00 11/19/16 08:59 10/20/16 09:41 Assessment/Plan Problem List: (1) Pneumonia ICD Codes: J18.9 - Pneumonia SNOMED: 924447572 (2) At high risk for aspiration ICD Codes: Z91.89 - Other specified personal risk factors, not elsewhere classified SNOMED: 475035810 (3) Encephalopathy ICD Codes: G93.40 - Encephalopathy, unspecified SNOMED: 60044324, 020260141 (4) CVA, old, aphasia ICD Codes: I69.320 - Aphasia as late effect of cerebrovascular accident SNOMED: 203431164 (5) DM (diabetes mellitus) ICD Codes: E11.9 - Diabetes mellitus SNOMED: 91876710 Assessment/Plan respiratory treatment IV antibiotics check sputum check blood sugar diabetic diet sliding scale dvt prophylaxis consider comfort care and DNR SWATI THOMAS Oct 20, 2016 14:27
--- NOTE | 2016-10-20 17:00 | History and Physical Report ---
DATE OF ADMISSION: 10/19/2016 HISTORY OF PRESENT ILLNESS: The patient was seen in the emergency room in the evening of 10/19/2016 where he was brought in for hypoxia and hyperglycemia. The patient was then evaluated by Dr. Ezra Benoit, the emergency room physician, and subsequently admitted with diagnoses of pneumonia, encephalopathy, and diabetes mellitus out of control. The patient had a recent encounter at [facility] on 10/14/2016 when he was put on observation 24 hours and was discharged on Rocephin for urinary tract infection and indeed later on, the culture results were all sensitive to Rocephin. PAST MEDICAL HISTORY: Significant for urinary tract infection, diabetes mellitus, CVA with left caleb, PEG, history of tobacco abuse in the past, chronic obstructive pulmonary disease, degenerative joint disease, high cholesterol, hypertension, atrophic gastritis, depression, and contractures of the left side. PHYSICAL EXAMINATION: VITAL SIGNS: When seen in the emergency room last night, temperature was 97.9, pulse rate 83, respiratory rate 26, pulse oximetry 94% on 4 liters of oxygen. GENERAL: The patient in mild distress. HEENT: Head normocephalic. NECK: Rigid to all directions. Sclerae are not icteric. LUNGS: Decreased breath sounds over the bases. GT tube in place. ABDOMEN: Soft. HEART: Slightly tachycardic. NEUROLOGICAL: Left caleb. LABORATORY AND DIAGNOSTIC DATA: EKG, normal sinus rhythm, no acute changes. Chest x-ray, left effusion, possible right base opacity versus atelectasis. White blood cell count is 10,000, hemoglobin 13.1, and glucose 417. Electrolytes normal. CK 450. The urine showed 4 RBCs, 2 white blood cell counts, and 1+ leukocyte esterase. IMPRESSION: The patient is being admitted with pneumonia, hypoxia, and hyperglycemia. As mentioned earlier on 10/14/2016 was positive for Klebsiella and on 10/14/2016 for Pseudomonas. The patient was under treatment for urinary tract infection. Other conditions include cerebrovascular accident with left hemiparesis, hypertension, gastrostomy tube feeding, chronic obstructive pulmonary disease, high cholesterol. PLAN: Breathing treatment and adjustment of the insulin for blood sugar control. Continue ceftriaxone, pulmonary evaluation, and according to how the patient's condition evolves, we make the proper changes in our future management. Scott Mack M.D. DR: JOHN JOB#: [id number] CC:
--- NOTE | 2016-10-20 17:46 | Infectious Diseases Prog Note ---
Assessment/Plan Assessment/Plan Full consult dictated: A) 1) hx klebsiella bacteremia 2) hx pseudomonas species uti 3) ? aspiration pna/hcap 4) wounds are not infected 5) mild leukocytosis P) 1) rocephin and flagyl (cover aspiration) 2) check uc, bc, labs and chest x-ray 3) wound care per protocol 4) thank you Subjective Allergies: Coded Allergies: MILK (Unverified Allergy, Unknown, 05/14/16) SOY (Unverified Allergy, Unknown, 05/14/16) SOYBEAN (Unverified Allergy, Unknown, 05/14/16) Objective Vital Signs Last 24 Hour Vital Signs Date Time Temp Pulse Resp B/P Pulse Ox O2 Delivery O2 Flow Rate FiO2 10/20/16 17:32 97.9 96 18 157/76 98 Nasal Cannula 2.0 28 10/20/16 17:10 97.9 96 18 157/76 98 Nasal Cannula 2.0 28 10/20/16 16:00 91 18 99 Nasal Cannula 2.0 28 10/20/16 15:54 92 18 97 Nasal Cannula 2.0 28 10/20/16 12:00 97.9 83 18 134/74 99 Nasal Cannula 2.0 28 10/20/16 12:00 98 10/20/16 11:48 94 18 99 Nasal Cannula 2.0 28 10/20/16 11:38 96 18 98 Nasal Cannula 2.0 28 10/20/16 11:11 103 10/20/16 09:41 101 131/57 10/20/16 08:00 98.2 101 18 131/57 Nasal Cannula 2.0 100 10/20/16 07:59 92 18 99 Nasal Cannula 2.0 28 10/20/16 07:53 97 18 98 Nasal Cannula 2.0 28 10/20/16 07:53 Nasal Cannula 2.0 28 10/20/16 07:53 98 Nasal Cannula 2.0 28 10/20/16 04:00 107 10/20/16 03:45 99.1 106 17 137/71 97 Nasal Cannula 2.0 106 10/20/16 03:30 106 18 99 Nasal Cannula 2.0 28 10/20/16 03:20 104 18 96 Nasal Cannula 2.0 28 10/20/16 00:00 98 10/19/16 23:32 96 18 99 Nasal Cannula 2.0 28 10/19/16 23:23 97.5 96 20 159/81 95 Room Air 10/19/16 23:23 Nasal Cannula 2.0 28 10/19/16 23:23 97 Nasal Cannula 2.0 28 10/19/16 23:22 96 18 97 Nasal Cannula 2.0 28 10/19/16 23:22 96 18 Nasal Cannula 2.0 28 10/19/16 20:00 92 24 148/88 97 Nasal Cannula 2.0 10/19/16 19:12 97.7 96 20 146/76 95 Nasal Cannula 2.0 10/19/16 17:58 97.7 96 20 134/66 95 Nasal Cannula 2.0 Height (Feet): 6 Height (Inches): 0.00 Weight (Pounds): 200 Microbiology Date/Time Source Procedure Growth Status 10/20/16 07:10 Wound Gram Stain - Final Resulted 10/20/16 07:10 Wound Wound Culture Pending Resulted Laboratory Tests Test 10/20/16 08:40 White Blood Count 11.0 K/UL (4.8-10.8) H Red Blood Count 3.86 M/UL (4.70-6.10) L Hemoglobin 12.4 G/DL (14.2-18.0) L Hematocrit 38.8 % (42.0-52.0) L Mean Corpuscular Volume 101 FL (80-99) H Mean Corpuscular Hemoglobin 32.1 PG (27.0-31.0) H Mean Corpuscular Hemoglobin Concent 31.9 G/DL (32.0-36.0) L Red Cell Distribution Width 12.9 % (11.6-14.8) Platelet Count 147 K/UL (150-450) L Mean Platelet Volume 8.3 FL (6.5-10.1) Neutrophils (%) (Auto) 70.6 % (45.0-75.0) Lymphocytes (%) (Auto) 22.2 % (20.0-45.0) Monocytes (%) (Auto) 4.9 % (1.0-10.0) Eosinophils (%) (Auto) 1.4 % (0.0-3.0) Basophils (%) (Auto) 0.9 % (0.0-2.0) Sodium Level 143 mEQ/L (135-145) Potassium Level 3.8 mEQ/L (3.4-4.9) Chloride Level 108 mEQ/L (98-107) H Carbon Dioxide Level 21 mEQ/L (20-30) Anion Gap 14 (5-15) Blood Urea Nitrogen 22 mg/dL (7-23) Creatinine 0.7 mg/dL (0.7-1.2) Estimat Glomerular Filtration Rate mL/min (>60) Glucose Level 296 mg/dL (74-106) #H Hemoglobin A1c 9.4 % (< 6.0) H Uric Acid 5.6 mg/dL (3.0-7.5) Calcium Level 9.1 mg/dL (8.6-10.2) Phosphorus Level 2.4 mg/dL (2.5-4.8) L Magnesium Level 2.0 mg/dL (1.7-2.5) Total Bilirubin 0.4 mg/dL (0.0-1.2) Gamma Glutamyl Transpeptidase 57 U/L (8-61) Aspartate Amino Transf (AST/SGOT) 20 U/L (5-40) Alanine Aminotransferase (ALT/SGPT) 16 U/L (3-41) Alkaline Phosphatase 61 U/L (40-129) Total Creatine Kinase 413 U/L (38-174) H C-Reactive Protein, Quantitative 12.5 mg/dL (< 0.5) H Pro-B-Type Natriuretic Peptide 179 pg/mL (0-450) Total Protein 7.3 g/dL (6.6-8.7) Albumin 2.6 g/dL (3.5-5.2) L Globulin 4.7 g/dL Albumin/Globulin Ratio 0.5 (1.0-2.7) L Triglycerides Level 139 mg/dL (< 150) Cholesterol Level 140 mg/dL (< 200) LDL Cholesterol 81 mg/dL (60-99) HDL Cholesterol 31 mg/dL (> 60) Cholesterol/HDL Ratio 4.5 (3.3-4.4) H Current Medications Medications (Trade) Dose Ordered Sig/Francesca Route PRN Reason Start Time Stop Time Status Last Admin Dose Admin Acetaminophen (Tylenol) 650 mg Q4H PRN GT temp 100 and above 10/19/16 21:45 11/18/16 21:44 Albuterol Sulfate (Proventil) 2.5 mg Q4HRT HHN 10/19/16 23:00 10/24/16 22:59 10/20/16 15:55 Aspirin (ASA) 81 mg DAILY GT 10/20/16 09:00 11/19/16 08:59 10/20/16 09:41 Ceftriaxone Sodium/Dextrose (Rocephin/D5W) 55 ml @ 110 mls/hr Q24H IVPB 10/20/16 14:00 10/27/16 13:59 10/20/16 13:41 Dextrose (Dextrose 50%) STAT PRN IV Hypoglycemia 10/20/16 03:00 11/19/16 02:59 Heparin Sodium (Porcine) (Heparin 5000 units/ml) 5,000 units EVERY 12 HOURS SUBQ 10/19/16 22:30 11/18/16 22:29 10/20/16 12:42 Insulin Aspart (NovoLOG) Q6HR SUBQ 10/20/16 06:00 11/19/16 05:59 10/20/16 17:18 Insulin Detemir (Levemir) 25 units Q12HR SUBQ 10/20/16 21:00 11/19/16 20:59 Lactobacillus Acidophilus 1 tab 1 tab THREE TIMES A DAY GT 10/20/16 13:00 11/19/16 12:59 10/20/16 17:31 Metoprolol Tartrate (Lopressor) 50 mg Q12HR GT 10/20/16 09:00 11/19/16 08:59 10/20/16 09:41 Metronidazole (Flagyl) 100 ml @ 100 mls/hr Q8H IVPB 10/20/16 18:00 10/27/16 17:59 Ranitidine HCl 150 mg 150 mg TWICE A DAY GT 10/20/16 09:00 11/19/16 08:59 10/20/16 17:30 Vitamin D (Vitamin D) 1,000 intlu DAILY GT 10/20/16 09:00 11/19/16 08:59 10/20/16 09:41 ILYA AYON Oct 20, 2016 17:46
[2016-10-20] MEDS: metroNIDAZOLE 500mg 100 ML IVPB SCH (18:49)
[2016-10-20 18:59] LABS: APPEARANCE,URINE SLIGHTLY CLOUDY; KETONES,URINE NEGATIVE (NEGATIVE); LEUKOCYTE ESTERASE ,URINE 1+ (NEGATIVE); NITRITE,URINE NEGATIVE (NEGATIVE); PH,URINE 7 (4.5-8.0); PROTEIN,URINE 2+ (NEGATIVE); UROBILINOGEN,URINE 1 MG/DL (0.0-1.0)
[2016-10-20 19:08] LABS: RBC,URINE TNTC /HPF (0 - 0)
[2016-10-20 19:09] LABS: BACTERIA,URINE OCCASIONAL /HPF; YEAST,URINE MODERATE /HPF
--- NOTE | 2016-10-20 23:30 | Consultation ---
DATE OF CONSULTATION: 10/20/2016 CONSULTING PHYSICIAN: Rich Manning M.D. REFERRING PHYSICIAN: Scott Mack M.D. REASON FOR CONSULTATION: History of klebsiella bacteremia, pseudomonas species urinary tract infection, possible pneumonia, leukocytosis. CHIEF COMPLAINT: The patient's chief complaint coming to the hospital is altered mental status, hyperglycemia, pneumonia. HISTORY OF PRESENT ILLNESS: This is a 81-year-old male who was recently at hospital at [facility] and was diagnosed with klebsiella bacteremia and pseudomonas species urinary tract infection, covered by Rocephin which was the patient was discharged on. The patient presents now to [facility] with altered mental status and possible pneumonia. Infectious consultation requested for antibiotic management. The patient is at high risk of aspiration pneumonia in addition to healthcare-acquired pneumonia. The patient was placed on Rocephin and Flagyl, pending work. MAR was noted. Orders were noted. Notes were reviewed. Case discussed with RN. PAST MEDICAL HISTORY: The patient's past medical history obtained from the records. The patient has a past medical history of hypertension, chronic obstructive pulmonary disease, diabetes, history of cerebrovascular accident, aspiration risk, history of paralysis, history of aphasia, history of dysphagia, history of weakness, history of PEG and dysphagia, hypercholesterolemia or dyslipidemia, history of generalized weakness, history of anemia, history of urinary tract infection and bacteremia, history of wounds, history of nicotine dependency in the past, history of degenerative joint disease, history of gastritis, depression, and contractures. Please see past medical in medical order. MEDICATIONS: Upon reviewing the MAR, the patient on the following medications. He is on insulin, Rocephin, Flagyl, lactobacillus, aspirin, vitamin D, Lopressor, Zantac, NovoLog insulin, albuterol treatments, heparin, acetaminophen. Please see medications in medical order. ALLERGIES: Milk, soy, and soya beans. SOCIAL HISTORY: Per records, past history of smoking. No alcohol or drug abuse. FAMILY HISTORY: Per record is noncontributory. No mention of exposure to tuberculosis or cancer. REVIEW OF SYSTEMS: Constitutional: He has generalized weakness and fatigue. He is a poor historian. No fevers. No pressures. Head And Neck: No head pain or neck pain. He is responsive. Cardiac: No chest pain or pressure. Gastrointestinal: No nausea, vomiting, or diarrhea. Genitourinary: He has Johnson. Pulmonary: He has mild congestion and shortness of breath. No significant secretions. Skin: No rash or itching. Extremity: No extremity pain. Neurologic: No seizures. Otherwise limited review of systems. PHYSICAL EXAMINATION: VITAL SIGNS: Temperature is 97.9, pulse rate is 96, respirations 18, blood pressure 157/76, and saturation 98% on two liters. GENERAL: Arousable, alert, open eyes. HEENT: Head and neck examination, oral exam no thrush. Eye exam, no icterus. Normocephalic. No facial droop. No neck stiffness. Neck is supple. HEART: Regular. No murmur or gallop. LUNGS: Few bilateral rhonchi and possible rales versus crackles. Decreased breath sounds. ABDOMEN: Soft. Positive bowel sounds. SKIN: No rash or dermatitis. Wounds were reviewed, they do not look acutely infected. MUSCULOSKELETAL: No effusion. Lower extremity with contractures. Legs are without cellulitis. PERIPHERAL VASCULAR: No cyanosis or gangrene. RECTAL: Deferred. GENITOURINARY: He has Johnson. LINES: Line site is without phlebitis. NEUROLOGIC: Generalized weakness, responsive. LABORATORY AND DIAGNOSTIC DATA: Creatinine is 0.7, white count 11.0, hemoglobin 12.4. Urinalysis 1+ leukocyte esterase. Cultures are pending. Chest x-ray shows pulmonary bibasilar interstitial atelectasis, cannot rule out infiltrates, this is noted and reviewed. Cultures are pending. Previous cultures and recent cultures noted. Blood culture grew out Klebsiella sensitive to Rocephin and urine culture grew out pseudomonas species. ASSESSMENT: 1. The patient has Klebsiella bacteremia and Pseudomonas species urinary tract infection. The patient is currently on Rocephin. We will continue with Rocephin. We will check blood cultures to see if the blood cultures are still and urine culture is resolving. Urinalysis seems to have improved. Continue Rocephin for now for Klebsiella bacteremia and history of Pseudomonas species urinary tract infection. 2. Possible aspiration pneumonia, healthcare acquired pneumonia. Continue Rocephin and Flagyl for aspiration of pathogens and check serum . Continue pulmonary treatment. 3. The patient has a history of diabetes. 4. Hypertension. 5. Blood sugar and blood pressure control per primary. 6. History of smoking and nicotine dependency. 7. Chronic obstructive pulmonary disease. 8. Anemia. 9. Cerebrovascular accident. 10. Aspiration risk. 11. Weakness. 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 13. Aphasia. 14. Dysphagia. 15. PEG tube or G-tube. 16. Wounds are not acutely infected. Continue wound care protocol. 17. Degenerative joint disease . 18. Depression. 19. Dyslipidemia, hypercholesterolemia. 20. Gastritis. 21. Contractures. 22. Social history, past smoker. 23. Family History noncontributory. 24. MAR was noted. 25. Case was discussed with RN. 26. Allergies to milk, soy, soya beans. 27. Continue treatment per primary consultants 28. Continue wound care protocol. Rich Manning M.D. DR: Savanah JOB#: [id number] CC:
[2016-10-21] VITALS: BP 139/76
[2016-10-21] MEDS: metroNIDAZOLE 500mg 100 ML IVPB SCH ×3 (01:31→17:49)
[2016-10-21] MEDS: NovoLOG Insulin Flexpen SUBQ SCH ×5 (01:31→21:31)
[2016-10-21] MEDS: Albuterol ud Inhalation HHN SCH ×6 (03:00→23:21)
[2016-10-21 04:05] VITALS: BP 135/60
[2016-10-21 08:26] VITALS: BP 127/62
[2016-10-21] MEDS: Heparin 5000 units/ml inj SUBQ SCH ×2 (09:00→21:30)
[2016-10-21] MEDS: Vitamin D 1000 IU Tab GT SCH (09:43)
[2016-10-21] MEDS: Metoprolol 50mg tab GT SCH ×2 (09:44→21:29)
[2016-10-21] MEDS: Aspirin Baby 81mg GT SCH (09:44)
[2016-10-21] MEDS: Lactobacillus-GG tablet GT SCH ×3 (09:44→17:49)
--- NOTE | 2016-10-21 09:46 | General Progress Note ---
Assessment/Plan Status: stable Assessment/Plan status; Pneumonia / Hypoxia ( in ECF) HyperGlycemia- failed OP management Klebsiella + in BC 10/14 Pseudomonas Urine 10/14 UTI CVA with left caleb HTN PEG COPD High Cholestrol Plan: HHN Insulin, levemir and SS insulin Ceftriaxone- and flagyl Pulm eval, ID eval CXR- repeat pending Echo Ej Fx 55% Subjective ROS Limited/Unobtainable: No Constitutional: Reports: malaise Allergies: Coded Allergies: MILK (Unverified Allergy, Unknown, 05/14/16) SOY (Unverified Allergy, Unknown, 05/14/16) SOYBEAN (Unverified Allergy, Unknown, 05/14/16) Objective Last 24 Hour Vital Signs Date Time Temp Pulse Resp B/P Pulse Ox O2 Delivery O2 Flow Rate FiO2 10/21/16 08:26 97.9 92 20 127/62 97 Nasal Cannula 2.0 10/21/16 06:40 85 18 97 Nasal Cannula 2.0 10/21/16 06:40 86 18 99 Nasal Cannula 2.0 10/21/16 06:40 97 Nasal Cannula 2.0 10/21/16 06:40 Nasal Cannula 2.0 10/21/16 04:05 98.4 85 20 135/60 94 Nasal Cannula 2.0 10/21/16 04:00 85 10/21/16 03:45 Nasal Cannula 2.0 10/21/16 03:45 Nasal Cannula 2.0 10/21/16 00:00 80 10/21/16 00:00 98.1 61 20 139/76 98 Nasal Cannula 2.0 10/20/16 23:28 81 18 100 Nasal Cannula 2.0 10/20/16 23:27 81 18 98 Nasal Cannula 2.0 10/20/16 21:49 86 142/67 10/20/16 20:00 89 10/20/16 20:00 98.6 86 20 142/67 100 Nasal Cannula 2.0 10/20/16 19:29 86 18 100 Nasal Cannula 2.0 10/20/16 19:28 97 Nasal Cannula 2.0 10/20/16 19:28 Nasal Cannula 2.0 28 10/20/16 19:28 89 18 97 Nasal Cannula 2.0 10/20/16 18:15 98 10/20/16 17:32 97.9 96 18 157/76 98 Nasal Cannula 2.0 28 10/20/16 17:10 97.9 96 18 157/76 98 Nasal Cannula 2.0 28 10/20/16 16:00 91 18 99 Nasal Cannula 2.0 28 10/20/16 16:00 97.9 101 18 134/74 99 Nasal Cannula 2.0 28 83 10/20/16 15:54 92 18 97 Nasal Cannula 2.0 28 10/20/16 12:00 97.9 83 18 134/74 99 Nasal Cannula 2.0 28 10/20/16 12:00 98 10/20/16 11:48 94 18 99 Nasal Cannula 2.0 28 10/20/16 11:38 96 18 98 Nasal Cannula 2.0 28 10/20/16 11:11 103 Intake and Output 10/20/16 10/21/16 19:00 07:00 Intake Total 630 ml 816 ml Output Total 700 ml Balance 630 ml 116 ml Free Water 80 ml IV Total 200 ml 100 ml Tube Feeding 430 ml 636 ml Output Urine Total 700 ml # Bowel Movements 1 Laboratory Tests 10/20/16 18:30: Urine Color Yellow, Urine Appearance Slightly cloudy, Urine pH 7, Urine Specific [place] 1.010, Urine Protein 2+H, Urine Glucose (UA) 4+H, Urine Ketones Negative, Urine Occult Blood 5+H, Urine Nitrite Negative, Urine Bilirubin Negative, Urine Urobilinogen 1H, Urine Leukocyte Esterase 1+H, Urine RBC TntcH, Urine WBC 5-10H, Urine Squamous Epithelial Cells None, Urine Bacteria Occasional, Urine Yeast ModerateH Height (Feet): 6 Height (Inches): 0.00 Weight (Pounds): 200 General Appearance: no apparent distress, lethargic Neck: limited range of motion Cardiovascular: tachycardia Respiratory/Chest: decreased breath sounds Abdomen: soft, distended Neurologic: other - left caleb Objective other PE not changed JULIANNE HERNÁNDEZ Oct 21, 2016 09:46
[2016-10-21] MEDS: Levemir Flexpen SUBQ SCH ×2 (09:56→21:31)
[2016-10-21] MEDS: cefTRIAXone 1 GM in D5W 55 ML IVPB SCH (10:06)
[2016-10-21 11:57] VITALS: BP 126/68
--- NOTE | 2016-10-21 12:17 | Diagnostic Imaging Report ---
Indication: COUGH Technique: One view of the chest Comparison: 10/19/2016 Findings: Borderline interstitial congestive changes persists, largely stable. No new infiltrates. Upper limits of normal heart size. Impression: Unchanged, over 2 days, findings as above.
[2016-10-21 16:03] VITALS: BP 141/79
--- NOTE | 2016-10-21 16:09 | Infectious Diseases Prog Note ---
Assessment/Plan Assessment/Plan ASSESSMENT/PLAN: 1. klebsiella bacteremia and pseudomonas species uti: - surveillance blood cultures and urine culture negative - continue rocephin for now 2. Possible aspiration pneumonia, healthcare acquired pneumonia vs pvc - f/u chest x-ray stable - continue rocphin and flagyl 3. The patient has a history of diabetes. 4. Hypertension. 5. Blood sugar and blood pressure control per primary. 6. History of smoking and nicotine dependency. 7. Chronic obstructive pulmonary disease. 8. Anemia. 9. Cerebrovascular accident. 10. Aspiration risk. 11. Weakness. 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 13. Aphasia. 14. Dysphagia. 15. PEG tube or G-tube. 16. Wounds are not acutely infected. Continue wound care protocol. 17. Degenerative joint disease . 18. Depression. 19. Dyslipidemia, hypercholesterolemia. 20. Gastritis. 21. Contractures. 22. Social history, past smoker. 23. Family History noncontributory. 24. MAR was noted. 25. Case was discussed with RN. 26. Allergies to milk, soy, soya beans. 27. Continue treatment per primary consultants 28. Continue wound care protocol. 29. d/w Dr. Mack about abx treatment 30. watch labs and chest x-ray Subjective Constitutional: Denies: fever HEENT: Reports: congestion - mild Respiratory: Reports: shortness of breath - mild Cardiovascular: Denies: chest pain Gastrointestinal/Abdominal: Denies: diarrhea, nausea, vomiting Genitourinary: Reports: other - + garcia Neurologic: Denies: headache Psychiatric: Denies: depression Skin: Denies: rash Hematologic: Denies: bleeding Musculoskeletal: Denies: pain Allergies: Coded Allergies: MILK (Unverified Allergy, Unknown, 05/14/16) SOY (Unverified Allergy, Unknown, 05/14/16) SOYBEAN (Unverified Allergy, Unknown, 05/14/16) Objective Vital Signs Last 24 Hour Vital Signs Date Time Temp Pulse Resp B/P Pulse Ox O2 Delivery O2 Flow Rate FiO2 10/21/16 15:40 89 18 99 Nasal Cannula 2.0 28 10/21/16 15:39 86 18 97 Nasal Cannula 2.0 28 10/21/16 12:00 88 10/21/16 11:57 97.9 79 20 126/68 98 Nasal Cannula 2.0 10/21/16 11:41 89 18 99 Nasal Cannula 2.0 28 /20/17 11:40 89 18 97 Nasal Cannula 2.0 10/21/16 09:44 92 127/62 10/21/16 08:26 97.9 92 20 127/62 97 Nasal Cannula 2.0 10/21/16 08:00 88 10/21/16 06:40 85 18 97 Nasal Cannula 2.0 10/21/16 06:40 86 18 99 Nasal Cannula 2.0 10/21/16 06:40 97 Nasal Cannula 2.0 10/21/16 06:40 Nasal Cannula 2.0 10/21/16 04:05 98.4 85 20 135/60 94 Nasal Cannula 2.0 10/21/16 04:00 85 10/21/16 03:45 Nasal Cannula 2.0 10/21/16 03:45 Nasal Cannula 2.0 10/21/16 00:00 80 10/21/16 00:00 98.1 61 20 139/76 98 Nasal Cannula 2.0 10/20/16 23:28 81 18 100 Nasal Cannula 2.0 10/20/16 23:27 81 18 98 Nasal Cannula 2.0 10/20/16 21:49 86 142/67 10/20/16 20:00 89 10/20/16 20:00 98.6 86 20 142/67 100 Nasal Cannula 2.0 10/20/16 19:29 86 18 100 Nasal Cannula 2.0 10/20/16 19:28 97 Nasal Cannula 2.0 10/20/16 19:28 Nasal Cannula 2.0 10/20/16 19:28 89 18 97 Nasal Cannula 2.0 10/20/16 18:15 98 10/20/16 17:32 97.9 96 18 157/76 98 Nasal Cannula 2.0 10/20/16 17:10 97.9 96 18 157/76 98 Nasal Cannula 2.0 10/20/16 16:00 91 18 99 Nasal Cannula 2.0 10/20/16 16:00 97.9 101 18 134/74 99 Nasal Cannula 2.0 28 83 Height (Feet): 6 Height (Inches): 0.00 Weight (Pounds): 200 General Appearance: no acute distress HEENT: normocephalic, atraumatic, anicteric, mucous membranes moist, PERRL, EOMI, pharynx normal, supple, no JVD Respiratory/Chest: lungs clear, normal breath sounds, no respiratory distress Cardiovascular: normal rate, regular rhythm, no gallop/murmur, no JVD Abdomen: normal bowel sounds, soft, non tender, no organomegaly, non distended Genitourinary: other - + garcia Extremities: other - wounds - covered Skin: no rash 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 No new infiltrates. Upper limits of normal heart size. Impression: Unchanged, over 2 days, findings as above. Microbiology Date/Time Source Procedure Growth Status 10/19/16 13:55 Blood Blood Culture - Preliminary NO GROWTH AFTER 24 HOURS Resulted 10/19/16 13:40 Blood Blood Culture - Preliminary NO GROWTH AFTER 24 HOURS Resulted 10/20/16 07:10 Wound Gram Stain - Final Resulted 10/20/16 07:10 Wound Culture - Preliminary Gram Positive Cocci Resulted 10/20/16 18:30 Indwelling Cath Urine Culture - Preliminary NO GROWTH Resulted Labs Test 10/19/16 13:40 10/19/16 14:00 10/20/16 08:40 10/20/16 18:30 White Blood Count 10.0 K/UL (4.8-10.8) 11.0 K/UL (4.8-10.8) Red Blood Count 4.10 M/UL (4.70-6.10) 3.86 M/UL (4.70-6.10) Hemoglobin 13.1 G/DL (14.2-18.0) 12.4 G/DL (14.2-18.0) Hematocrit 40.7 % (42.0-52.0) 38.8 % (42.0-52.0) Mean Corpuscular Volume 99 FL (80-99) 101 FL (80-99) Mean Corpuscular Hemoglobin 32.1 PG (27.0-31.0) 32.1 PG (27.0-31.0) Mean Corpuscular Hemoglobin Concent 32.3 G/DL (32.0-36.0) 31.9 G/DL (32.0-36.0) Red Cell Distribution Width 13.0 % (11.6-14.8) 12.9 % (11.6-14.8) Platelet Count 168 K/UL (150-450) 147 K/UL (150-450) Mean Platelet Volume 7.7 FL (6.5-10.1) 8.3 FL (6.5-10.1) Neutrophils (%) (Auto) 66.3 % (45.0-75.0) 70.6 % (45.0-75.0) Lymphocytes (%) (Auto) 24.2 % (20.0-45.0) 22.2 % (20.0-45.0) Monocytes (%) (Auto) 7.6 % (1.0-10.0) 4.9 % (1.0-10.0) Eosinophils (%) (Auto) 1.2 % (0.0-3.0) 1.4 % (0.0-3.0) Basophils (%) (Auto) 0.7 % (0.0-2.0) 0.9 % (0.0-2.0) Sodium Level 145 mEQ/L (135-145) 143 mEQ/L (135-145) Potassium Level 3.8 mEQ/L (3.4-4.9) 3.8 mEQ/L (3.4-4.9) Chloride Level 108 mEQ/L (98-107) 108 mEQ/L (98-107) Carbon Dioxide Level 24 mEQ/L (20-30) 21 mEQ/L (20-30) Anion Gap 13 (5-15) 14 (5-15) Blood Urea Nitrogen 35 mg/dL (7-23) 22 mg/dL (7-23) Creatinine 1.0 mg/dL (0.7-1.2) 0.7 mg/dL (0.7-1.2) Estimat Glomerular Filtration Rate mL/min (>60) mL/min (>60) Glucose Level 417 mg/dL (74-106) 296 mg/dL (74-106) Lactic Acid Level 1.80 mmol/L (0.66-2.22) Calcium Level 9.4 mg/dL (8.6-10.2) 9.1 mg/dL (8.6-10.2) Magnesium Level 2.3 mg/dL (1.7-2.5) 2.0 mg/dL (1.7-2.5) Total Bilirubin 0.4 mg/dL (0.0-1.2) 0.4 mg/dL (0.0-1.2) Aspartate Amino Transf (AST/SGOT) 22 U/L (5-40) 20 U/L (5-40) Alanine Aminotransferase (ALT/SGPT) 19 U/L (3-41) 16 U/L (3-41) Alkaline Phosphatase 65 U/L (40-129) 61 U/L (40-129) Total Creatine Kinase 450 U/L (38-174) 413 U/L (38-174) Creatine Kinase MB 1.6 ng/mL (< 6.7) Creatine Kinase MB Relative Index 0.3 Troponin I < 0.30 ng/mL (<=0.30) Total Protein 7.9 g/dL (6.6-8.7) 7.3 g/dL (6.6-8.7) Albumin 2.9 g/dL (3.5-5.2) 2.6 g/dL (3.5-5.2) Globulin 5.0 g/dL 4.7 g/dL Albumin/Globulin Ratio 0.5 (1.0-2.7) 0.5 (1.0-2.7) Acetone Level Negative (NEGATIVE) Urine Color Yellow Yellow Urine Appearance Clear Slightly cloudy Urine pH 5 (4.5-8.0) 7 (4.5-8.0) Urine Specific [place] 1.015 (1.005-1.035) 1.010 (1.005-1.035) Urine Protein 2+ (NEGATIVE) 2+ (NEGATIVE) Urine Glucose (UA) 4+ (NEGATIVE) 4+ (NEGATIVE) Urine Ketones Negative (NEGATIVE) Negative (NEGATIVE) Urine Occult Blood 2+ (NEGATIVE) 5+ (NEGATIVE) Urine Nitrite Negative (NEGATIVE) Negative (NEGATIVE) Urine Bilirubin Negative (NEGATIVE) Negative (NEGATIVE) Urine Urobilinogen Normal MG/DL (0.0-1.0) 1 MG/DL (0.0-1.0) Urine Leukocyte Esterase 1+ (NEGATIVE) 1+ (NEGATIVE) Urine RBC 2-4 /HPF (0 - 0) Tntc /HPF (0 - 0) Urine WBC 0-2 /HPF (0 - 0) 5-10 /HPF (0 - 0) Urine Squamous Epithelial Cells Few /LPF (NONE/OCC) None /LPF (NONE/OCC) Urine Bacteria Few /HPF (NONE) Occasional /HPF (NONE) Hemoglobin A1c 9.4 % (< 6.0) Uric Acid 5.6 mg/dL (3.0-7.5) Phosphorus Level 2.4 mg/dL (2.5-4.8) Gamma Glutamyl Transpeptidase 57 U/L (8-61) C-Reactive Protein, Quantitative 12.5 mg/dL (< 0.5) Pro-B-Type Natriuretic Peptide 179 pg/mL (0-450) Triglycerides Level 139 mg/dL (< 150) Cholesterol Level 140 mg/dL (< 200) LDL Cholesterol 81 mg/dL (60-99) HDL Cholesterol 31 mg/dL (> 60) Cholesterol/HDL Ratio 4.5 (3.3-4.4) Urine Yeast Moderate /HPF (NONE) Laboratory Tests Test 10/20/16 18:30 Urine Color Yellow Urine Appearance Slightly cloudy Urine pH 7 (4.5-8.0) Urine Specific [place] 1.010 (1.005-1.035) Urine Protein 2+ (NEGATIVE) H Urine Glucose (UA) 4+ (NEGATIVE) H Urine Ketones Negative (NEGATIVE) Urine Occult Blood 5+ (NEGATIVE) H Urine Nitrite Negative (NEGATIVE) Urine Bilirubin Negative (NEGATIVE) Urine Urobilinogen 1 MG/DL (0.0-1.0) H Urine Leukocyte Esterase 1+ (NEGATIVE) H Urine RBC Tntc /HPF (0 - 0) H Urine WBC 5-10 /HPF (0 - 0) H Urine Squamous Epithelial Cells None /LPF (NONE/OCC) Urine Bacteria Occasional /HPF (NONE) Urine Yeast Moderate /HPF (NONE) H Current Medications Medications (Trade) Dose Ordered Sig/Francesca Route PRN Reason Start Time Stop Time Status Last Admin Dose Admin Acetaminophen (Tylenol) 650 mg Q4H PRN GT temp 100 and above 10/19/16 21:45 11/18/16 21:44 Albuterol Sulfate (Proventil) 2.5 mg Q4HRT HHN 10/19/16 23:00 10/24/16 22:59 10/21/16 15:39 Aspirin (ASA) 81 mg DAILY GT 10/20/16 09:00 11/19/16 08:59 10/21/16 09:44 Ceftriaxone Sodium/Dextrose (Rocephin/D5W) 55 ml @ 110 mls/hr Q24H IVPB 10/20/16 14:00 10/27/16 13:59 10/21/16 10:06 Dextrose (Dextrose 50%) STAT PRN IV Hypoglycemia 10/20/16 03:00 11/19/16 02:59 Heparin Sodium (Porcine) (Heparin 5000 units/ml) 5,000 units EVERY 12 HOURS SUBQ 10/19/16 22:30 11/18/16 22:29 10/20/16 21:50 Insulin Aspart (NovoLOG) Q6HR SUBQ 10/20/16 06:00 11/19/16 05:59 10/21/16 11:59 Insulin Detemir (Levemir) 30 units Q12HR SUBQ 10/21/16 10:00 11/20/16 09:59 10/21/16 09:56 Lactobacillus Acidophilus 1 tab 1 tab THREE TIMES A DAY GT 10/20/16 13:00 11/19/16 12:59 10/21/16 14:26 Metoprolol Tartrate (Lopressor) 50 mg Q12HR GT 10/20/16 09:00 11/19/16 08:59 10/21/16 09:44 Metronidazole (Flagyl) 100 ml @ 100 mls/hr Q8H IVPB 10/20/16 18:00 10/27/16 17:59 10/21/16 11:56 Ranitidine HCl 150 mg 150 mg TWICE A DAY GT 10/20/16 09:00 11/19/16 08:59 10/21/16 09:44 Vitamin D (Vitamin D) 1,000 intlu DAILY GT 10/20/16 09:00 11/19/16 08:59 10/21/16 09:43 ILYA AYON Oct 21, 2016 16:09
--- NOTE | 2016-10-21 17:50 | Pulmonology Progress Note ---
Assessment/Plan Problems: (1) Pneumonia (2) At high risk for aspiration (3) Encephalopathy (4) CVA, old, aphasia (5) DM (diabetes mellitus) Assessment/Plan repeat cxr didn't show any changes from today continue abx check cultures titrate fio2 to sat of 92% tolerating diet med/surg? Subjective Interval Events: no new complains Allergies: Coded Allergies: MILK (Unverified Allergy, Unknown, 05/14/16) SOY (Unverified Allergy, Unknown, 05/14/16) SOYBEAN (Unverified Allergy, Unknown, 05/14/16) Objective Last 24 Hour Vital Signs Date Time Temp Pulse Resp B/P Pulse Ox O2 Delivery O2 Flow Rate FiO2 10/21/16 16:03 97.5 83 20 141/79 98 Nasal Cannula 2.0 10/21/16 16:00 81 10/21/16 15:40 89 18 99 Nasal Cannula 2.0 28 10/21/16 15:39 86 18 97 Nasal Cannula 2.0 10/21/16 12:00 88 10/21/16 11:57 97.9 79 20 126/68 98 Nasal Cannula 2.0 10/21/16 11:41 89 18 99 Nasal Cannula 2.0 28 10/21/16 11:40 89 18 97 Nasal Cannula 2.0 10/21/16 09:44 92 127/62 10/21/16 08:26 97.9 92 20 127/62 97 Nasal Cannula 2.0 10/21/16 08:00 88 10/21/16 06:40 85 18 97 Nasal Cannula 2.0 10/21/16 06:40 86 18 99 Nasal Cannula 2.0 10/21/16 06:40 97 Nasal Cannula 2.0 10/21/16 06:40 Nasal Cannula 2.0 10/21/16 04:05 98.4 85 20 135/60 94 Nasal Cannula 2.0 10/21/16 04:00 85 10/21/16 03:45 Nasal Cannula 2.0 10/21/16 03:45 Nasal Cannula 2.0 28 10/21/16 00:00 80 10/21/16 00:00 98.1 61 20 139/76 98 Nasal Cannula 2.0 10/20/16 23:28 81 18 100 Nasal Cannula 2.0 28 6/19/17 23:27 81 18 98 Nasal Cannula 2.0 28 10/20/16 21:49 86 142/67 10/20/16 20:00 89 10/20/16 20:00 98.6 86 20 142/67 100 Nasal Cannula 2.0 10/20/16 19:29 86 18 100 Nasal Cannula 2.0 28 10/20/16 19:28 97 Nasal Cannula 2.0 28 10/20/16 19:28 Nasal Cannula 2.0 28 10/20/16 19:28 89 18 97 Nasal Cannula 2.0 28 10/20/16 18:15 98 Intake and Output 10/20/16 10/21/16 19:00 07:00 Intake Total 630 ml 816 ml Output Total 700 ml Balance 630 ml 116 ml Free Water 80 ml IV Total 200 ml 100 ml Tube Feeding 430 ml 636 ml Output Urine Total 700 ml # Bowel Movements 1 General Appearance: WD/WN HEENT: normocephalic Respiratory/Chest: chest wall non-tender, crackles/rales Cardiovascular: normal peripheral pulses, normal rate, regular rhythm Abdomen: normal bowel sounds, soft, non tender Genitourinary: normal external genitalia Extremities: no cyanosis, no clubbing Skin: no rash 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 Lymphatic: no neck adenopathy Microbiology Date/Time Source Procedure Growth Status 10/19/16 13:55 Blood Blood Culture - Preliminary NO GROWTH AFTER 24 HOURS Resulted 10/19/16 13:40 Blood Blood Culture - Preliminary NO GROWTH AFTER 24 HOURS Resulted 10/20/16 07:10 Wound Gram Stain - Final Resulted 10/20/16 07:10 Wound Culture - Preliminary Gram Positive Cocci Resulted 10/20/16 18:30 Indwelling Cath Urine Culture - Preliminary NO GROWTH Resulted Laboratory Tests 10/20/16 18:30: Urine Color Yellow, Urine Appearance Slightly cloudy, Urine pH 7, Urine Specific [place] 1.010, Urine Protein 2+H, Urine Glucose (UA) 4+H, Urine Ketones Negative, Urine Occult Blood 5+H, Urine Nitrite Negative, Urine Bilirubin Negative, Urine Urobilinogen 1H, Urine Leukocyte Esterase 1+H, Urine RBC TntcH, Urine WBC 5-10H, Urine Squamous Epithelial Cells None, Urine Bacteria Occasional, Urine Yeast ModerateH Current Medications Medications (Trade) Dose Ordered Sig/Francesca Route PRN Reason Start Time Stop Time Status Last Admin Dose Admin Acetaminophen (Tylenol) 650 mg Q4H PRN GT temp 100 and above 10/19/16 21:45 11/18/16 21:44 Albuterol Sulfate (Proventil) 2.5 mg Q4HRT HHN 10/19/16 23:00 10/24/16 22:59 10/21/16 15:39 Aspirin (ASA) 81 mg DAILY GT 10/20/16 09:00 11/19/16 08:59 10/21/16 09:44 Ceftriaxone Sodium/Dextrose (Rocephin/D5W) 55 ml @ 110 mls/hr Q24H IVPB 10/20/16 14:00 10/27/16 13:59 10/21/16 10:06 Dextrose (Dextrose 50%) STAT PRN IV Hypoglycemia 10/20/16 03:00 11/19/16 02:59 Heparin Sodium (Porcine) (Heparin 5000 units/ml) 5,000 units EVERY 12 HOURS SUBQ 10/19/16 22:30 11/18/16 22:29 10/20/16 21:50 Insulin Aspart (NovoLOG) Q6HR SUBQ 10/20/16 06:00 11/19/16 05:59 10/21/16 11:59 Insulin Detemir (Levemir) 30 units Q12HR SUBQ 10/21/16 10:00 11/20/16 09:59 10/21/16 09:56 Lactobacillus Acidophilus 1 tab 1 tab THREE TIMES A DAY GT 10/20/16 13:00 11/19/16 12:59 10/21/16 14:26 Metoprolol Tartrate (Lopressor) 50 mg Q12HR GT 10/20/16 09:00 11/19/16 08:59 10/21/16 09:44 Metronidazole (Flagyl) 100 ml @ 100 mls/hr Q8H IVPB 10/20/16 18:00 10/27/16 17:59 10/21/16 11:56 Ranitidine HCl 150 mg 150 mg TWICE A DAY GT 10/20/16 09:00 11/19/16 08:59 10/21/16 09:44 Vitamin D (Vitamin D) 1,000 intlu DAILY GT 10/20/16 09:00 11/19/16 08:59 10/21/16 09:43 SWATI THOMAS Oct 21, 2016 17:50
[2016-10-21 20:00] VITALS: BP 137/64
[2016-10-21] MEDS ORDERED: OLANZapine 2.5mg tab ORAL PRN (23:00)
[2016-10-22] VITALS: BP 142/70
[2016-10-22] MEDS ORDERED: OLANZapine 2.5mg tab ORAL PRN (00:30)
--- NOTE | 2016-10-22 00:30 | Consultation ---
DATE OF CONSULTATION: 10/20/2016 CONSULTING PHYSICIAN: Neema Grady M.D. HISTORY OF PRESENT ILLNESS: The patient is well known to this physician from [facility]. The patient is a 81-year-old male who was admitted to the hospital with hypoxia, hyperglycemia, and altered mental status. The patient has been presenting with waxing and waning consciousness and is unable to provide any history and with impairment of concentration, memory, and attention. PAST PSYCHIATRIC HISTORY: He has a history of cognitive impairment. PAST MEDICAL HISTORY: Urinary tract infection, diabetes mellitus, CVA, PEG, chronic obstructive pulmonary disease, degenerative joint disease, high cholesterol, hypertension, contracture of the left side, and depression. ALLERGIES: No known drug allergies. SUBSTANCE ABUSE HISTORY: He has a history of smoking. No illicit drug use or alcohol. MENTAL STATUS EXAMINATION: The patient is confused, presented with waxing and waning consciousness. Mood is neutral. Affect is constricted, congruent with mood. Thought process is concrete. Thought content, no suicidal or homicidal ideations. ASSESSMENT: Beasley I Delirium due to general medical condition and major depressive disorder. Beasley II Deferred. Beasley III As above. Beasley IV Moderate. Beasley V Global assessment of functioning is 20. PLAN: 1. We will start the patient on Zyprexa 2.5 mg at bedtime. 2. We will continue to follow and readjust the medications. Neema Grady M.D. DR: KVNG JOB#: [id number] CC:
[2016-10-22] MEDS: metroNIDAZOLE 500mg 100 ML IVPB SCH ×3 (02:15→17:09)
[2016-10-22] MEDS: Albuterol ud Inhalation HHN SCH ×6 (03:22→23:21)
[2016-10-22 04:00] VITALS: BP 123/54
[2016-10-22] MEDS: NovoLOG Insulin Flexpen SUBQ SCH ×3 (06:26→17:37)
--- NOTE | 2016-10-22 07:48 | Cardiology Report ---
APPROVED REPORT EKG Measurement Heart [id number] Normal sinus rhythm Left axis deviation Incomplete right bundle branch block Inferior infarct, age undetermined Prolonged QT Abnormal ECG
--- NOTE | 2016-10-22 07:49 | Cardiology Report ---
APPROVED REPORT EXAM: Two-dimensional and M-mode echocardiogram with Doppler and color Doppler. INDICATION Congestive Heart Failure M-Mode DIMENSIONS Left Atrium (MM)3.6 (1.6-4.0cm) Aortic Root2.4 (2.0-3.7cm) Aortic Cusp Exc.1.5 (1.5-2.0cm) Technically difficult study due to poor acoustic windows. Study quality precludes accurate assessment of regional wall motion. M-mode measurements not obtainable due to cardiac position. Normal left ventricular chamber size, systolic function and wall motion. Left ventricular ejection fraction estimated to be 55 %. No evidence of ventricular hypertrophy. Anterior Echo-free space, may be due to pericardial fat or effusion. All other cardiac chamber sizes are within normal limits. Mild focal aortic valve sclerosis with adequate cusp excursion. Mildly thickened mitral valve leaflets with normal excursion. Mild mitral annulus and aortic root calcification. Pulmonic valve not visualized. Normal tricuspid valve structure. IVC not obtainable. A color flow and spectral Doppler study was performed and revealed: No aortic regurgitation. Trace mitral regurgitation. Mitral diastolic velocities suggest reduced left ventricular relaxation (Grade I). Trace tricuspid regurgitation. No pulmonic regurgitation visualized.
[2016-10-22 08:05] LABS: EOSINOPHILS % (AUTO) 2.6 % (0.0-3.0); LYMPHOCYTES % (AUTO) 29.4 % (20.0-45.0); MEAN CORPUSCULAR HGB CONC 33.7 G/DL (32.0-36.0); MEAN CORPUSCULAR VOLUME 98 FL (80-99); MEAN PLATELET VOLUME 8.4 FL (6.5-10.1); MONOCYTES % (AUTO) 6.6 % (1.0-10.0); NEUTROPHILS % (AUTO) 60.4 % (45.0-75.0); PLATELET COUNT 178 K/UL (150-450); RED CELL DISTRIBUTION WIDTH 12.7 % (11.6-14.8); WHITE BLOOD COUNT 9.1 K/UL (4.8-10.8)
[2016-10-22 08:21] LABS: ANION GAP 14 (5-15); CALCIUM 9.1 mg/dL (8.6-10.2); CARBON DIOXIDE 24 mEQ/L (20-30); CHLORIDE 107 mEQ/L (98-107); CREATININE 0.7 mg/dL (0.7-1.2); HEMOLYSIS 0; POTASSIUM 3.7 mEQ/L (3.4-4.9); SODIUM 145 mEQ/L (135-145)
[2016-10-22 08:29] LABS: ALANINE AMINOTRANSFERASE 18 U/L (3-41); ASPARTATE AMINO TRANSFERASE 27 U/L (5-40); BILIRUBIN,DIRECT 0.1 mg/dL (0.1-0.3); CRP QUANT 9.2 mg/dL (< 0.5); HEMOLYSIS 4; PHOSPHORUS 2.6 mg/dL (2.5-4.8); TOTAL PROTEIN 7.1 g/dL (6.6-8.7)
[2016-10-22 08:40] VITALS: BP 109/51
[2016-10-22] MEDS: Metoprolol 50mg tab GT SCH ×2 (09:25→21:37)
[2016-10-22] MEDS: Aspirin Baby 81mg GT SCH (09:25)
[2016-10-22] MEDS: Vitamin D 1000 IU Tab GT SCH (09:25)
[2016-10-22] MEDS: Lactobacillus-GG tablet GT SCH ×3 (09:26→17:31)
[2016-10-22] MEDS: Levemir Flexpen SUBQ SCH ×2 (09:31→21:38)
[2016-10-22] MEDS: Heparin 5000 units/ml inj SUBQ SCH ×2 (09:35→21:38)
[2016-10-22 11:44] VITALS: BP 129/64
--- NOTE | 2016-10-22 11:45 | General Progress Note ---
Assessment/Plan Status: stable Assessment/Plan status; Pneumonia / Hypoxia ( in ECF) HyperGlycemia- failed OP management Klebsiella + in BC 10/14 Pseudomonas Urine 10/14 UTI CVA with left caleb HTN PEG COPD High Cholestrol Plan: low dose Lasix IV HHN Insulin, levemir and SS insulin Ceftriaxone- and flagyl Pulm eval, ID eval CXR- repeat pending Echo Ej Fx 55% DC in am on PO Flagyl and Levaquin Subjective ROS Limited/Unobtainable: No Constitutional: Reports: malaise Allergies: Coded Allergies: MILK (Unverified Allergy, Unknown, 05/14/16) SOY (Unverified Allergy, Unknown, 05/14/16) SOYBEAN (Unverified Allergy, Unknown, 05/14/16) Objective Last 24 Hour Vital Signs Date Time Temp Pulse Resp B/P Pulse Ox O2 Delivery O2 Flow Rate FiO2 10/22/16 10:47 77 18 98 Nasal Cannula 2.0 28 10/22/16 10:42 77 18 98 Nasal Cannula 2.0 28 10/22/16 09:25 91 109/51 10/22/16 08:40 98.1 91 20 109/51 100 Nasal Cannula 3.0 10/22/16 08:00 92 10/22/16 06:57 91 18 96 Nasal Cannula 3.0 32 10/22/16 06:52 90 18 92 Nasal Cannula 3.0 32 10/22/16 06:52 Nasal Cannula 3.0 32 10/22/16 06:52 92 Nasal Cannula 3.0 32 10/22/16 04:00 94 10/22/16 04:00 97.9 95 20 123/54 97 Nasal Cannula 2.0 10/22/16 03:23 86 18 98 Nasal Cannula 2.0 28 10/22/16 03:23 86 18 99 Nasal Cannula 2.0 28 10/22/16 00:00 97.0 82 19 142/70 97 Nasal Cannula 2.0 10/22/16 00:00 81 10/21/16 23:22 78 18 98 Nasal Cannula 2.0 28 10/21/16 23:22 78 18 99 Nasal Cannula 2.0 28 10/21/16 21:29 87 137/64 10/21/16 20:00 97.7 87 20 137/64 100 Nasal Cannula 2.0 10/21/16 20:00 86 10/21/16 19:37 87 18 99 Nasal Cannula 2.0 28 10/21/16 19:37 86 18 97 Nasal Cannula 2.0 28 10/21/16 19:37 Nasal Cannula 2.0 10/21/16 19:36 97 Nasal Cannula 2.0 10/21/16 16:03 97.5 83 20 141/79 98 Nasal Cannula 2.0 10/21/16 16:00 81 10/21/16 15:40 89 18 99 Nasal Cannula 2.0 10/21/16 15:39 86 18 97 Nasal Cannula 2.0 28 10/21/16 12:00 88 10/21/16 11:57 97.9 79 20 126/68 98 Nasal Cannula 2.0 Intake and Output 10/21/16 10/22/16 19:00 07:00 Intake Total 480 ml Output Total 400 ml 600 ml Balance -400 ml -120 ml Free Water 80 ml Tube Feeding 400 ml Output Urine Total 400 ml 600 ml # Bowel Movements 1 2 Laboratory Tests 10/22/16 06:55: White Blood Count 9.1, Red Blood Count 3.80L, Hemoglobin 12.5L, Hematocrit 37.2L , Mean Corpuscular Volume 98, Mean Corpuscular Hemoglobin 33.0H, Mean Corpuscular Hemoglobin Concent 33.7, Red Cell Distribution Width 12.7, Platelet Count 178, Mean Platelet Volume 8.4, Neutrophils (%) (Auto) 60.4, Lymphocytes (% ) (Auto) 29.4, Monocytes (%) (Auto) 6.6, Eosinophils (%) (Auto) 2.6, Basophils ( %) (Auto) 1.0, Sodium Level 145, Potassium Level 3.7, Chloride Level 107, Carbon Dioxide Level 24, Anion Gap 14, Blood Urea Nitrogen 19, Creatinine 0.7, Estimat Glomerular Filtration Rate , Glucose Level 191H, Calcium Level 9.1, Phosphorus Level 2.6, Magnesium Level 2.0, Total Bilirubin < 0.2, Direct Bilirubin 0.1, Aspartate Amino Transf (AST/SGOT) 27, Alanine Aminotransferase ( ALT/SGPT) 18, Alkaline Phosphatase 62, C-Reactive Protein, Quantitative 9.2H, Pro-B-Type Natriuretic Peptide 442, Total Protein 7.1, Albumin 2.6L Height (Feet): 6 Height (Inches): 0.00 Weight (Pounds): 200 General Appearance: no apparent distress, lethargic Cardiovascular: normal rate Respiratory/Chest: decreased breath sounds Abdomen: soft Objective other PE not changed JULIANNE HERNÁNDEZ Oct 22, 2016 11:45
[2016-10-22] MEDS ORDERED: KCl 10% 40mEq/30ml liquid NG ONE (12:00)
--- NOTE | 2016-10-22 15:12 | Pulmonology Progress Note ---
Assessment/Plan Problems: (1) Pneumonia (2) At high risk for aspiration (3) Encephalopathy (4) CVA, old, aphasia (5) DM (diabetes mellitus) Assessment/Plan continue abx may go to correction in am with oral antibiotics check cultures titrate fio2 to sat of 92% tolerating diet med/surg? dc planning in process on low does diuretics Subjective ROS Limited/Unobtainable: Yes Interval Events: no new complains Allergies: Coded Allergies: MILK (Unverified Allergy, Unknown, 05/14/16) SOY (Unverified Allergy, Unknown, 05/14/16) SOYBEAN (Unverified Allergy, Unknown, 05/14/16) Objective Last 24 Hour Vital Signs Date Time Temp Pulse Resp B/P Pulse Ox O2 Delivery O2 Flow Rate FiO2 10/22/16 11:44 98.1 76 20 129/64 98 Nasal Cannula 3.0 10/22/16 10:47 77 18 98 Nasal Cannula 2.0 28 10/22/16 10:42 77 18 98 Nasal Cannula 2.0 28 10/22/16 09:25 91 109/51 10/22/16 08:40 98.1 91 20 109/51 100 Nasal Cannula 3.0 10/22/16 08:00 92 10/22/16 06:57 91 18 96 Nasal Cannula 3.0 32 10/22/16 06:52 90 18 92 Nasal Cannula 3.0 32 10/22/16 06:52 Nasal Cannula 3.0 32 10/22/16 06:52 92 Nasal Cannula 3.0 32 10/22/16 04:00 94 10/22/16 04:00 97.9 95 20 123/54 97 Nasal Cannula 2.0 10/22/16 03:23 86 18 98 Nasal Cannula 2.0 28 10/22/16 03:23 86 18 99 Nasal Cannula 2.0 28 10/22/16 00:00 97.0 82 19 142/70 97 Nasal Cannula 2.0 10/22/16 00:00 81 10/21/16 23:22 78 18 98 Nasal Cannula 2.0 28 10/21/16 23:22 78 18 99 Nasal Cannula 2.0 28 10/21/16 21:29 87 137/64 10/21/16 20:00 97.7 87 20 137/64 100 Nasal Cannula 2.0 10/21/16 20:00 86 10/21/16 19:37 87 18 99 Nasal Cannula 2.0 28 10/21/16 19:37 86 18 97 Nasal Cannula 2.0 28 10/21/16 19:37 Nasal Cannula 2.0 28 10/21/16 19:36 97 Nasal Cannula 2.0 28 10/21/16 16:03 97.5 83 20 141/79 98 Nasal Cannula 2.0 10/21/16 16:00 81 10/21/16 15:40 89 18 99 Nasal Cannula 2.0 28 10/21/16 15:39 86 18 97 Nasal Cannula 2.0 28 Intake and Output 10/21/16 10/22/16 19:00 07:00 Intake Total 760 ml Output Total 400 ml 600 ml Balance -400 ml 160 ml Free Water 160 ml Tube Feeding 600 ml Output Urine Total 400 ml 600 ml # Bowel Movements 1 2 General Appearance: WD/WN HEENT: normocephalic, atraumatic Respiratory/Chest: chest wall non-tender, lungs clear Cardiovascular: normal peripheral pulses, normal rate Abdomen: normal bowel sounds, no organomegaly Genitourinary: normal external genitalia Skin: no lesions, no ulcers Microbiology Date/Time Source Procedure Growth Status 10/20/16 07:10 Wound Gram Stain - Final Resulted 10/20/16 07:10 Wound Culture - Preliminary Enterococcus Faecalis Resulted 10/20/16 18:30 Indwelling Cath Urine Culture - Preliminary YEAST Resulted Laboratory Tests 10/22/16 06:55: White Blood Count 9.1, Red Blood Count 3.80L, Hemoglobin 12.5L, Hematocrit 37.2L , Mean Corpuscular Volume 98, Mean Corpuscular Hemoglobin 33.0H, Mean Corpuscular Hemoglobin Concent 33.7, Red Cell Distribution Width 12.7, Platelet Count 178, Mean Platelet Volume 8.4, Neutrophils (%) (Auto) 60.4, Lymphocytes (% ) (Auto) 29.4, Monocytes (%) (Auto) 6.6, Eosinophils (%) (Auto) 2.6, Basophils ( %) (Auto) 1.0, Sodium Level 145, Potassium Level 3.7, Chloride Level 107, Carbon Dioxide Level 24, Anion Gap 14, Blood Urea Nitrogen 19, Creatinine 0.7, Estimat Glomerular Filtration Rate , Glucose Level 191H, Calcium Level 9.1, Phosphorus Level 2.6, Magnesium Level 2.0, Total Bilirubin < 0.2, Direct Bilirubin 0.1, Aspartate Amino Transf (AST/SGOT) 27, Alanine Aminotransferase ( ALT/SGPT) 18, Alkaline Phosphatase 62, C-Reactive Protein, Quantitative 9.2H, Pro-B-Type Natriuretic Peptide 442, Total Protein 7.1, Albumin 2.6L Current Medications Medications (Trade) Dose Ordered Sig/Francesca Route PRN Reason Start Time Stop Time Status Last Admin Dose Admin Acetaminophen (Tylenol) 650 mg Q4H PRN GT temp 100 and above 10/19/16 21:45 11/18/16 21:44 Albuterol Sulfate (Proventil) 2.5 mg Q4HRT HHN 10/19/16 23:00 10/24/16 22:59 10/22/16 10:42 Aspirin (ASA) 81 mg DAILY GT 10/20/16 09:00 11/19/16 08:59 10/22/16 09:25 Ceftriaxone Sodium/Dextrose (Rocephin/D5W) 55 ml @ 110 mls/hr Q24H IVPB 10/20/16 14:00 10/27/16 13:59 10/21/16 10:06 Dextrose (Dextrose 50%) STAT PRN IV Hypoglycemia 10/20/16 03:00 11/19/16 02:59 Heparin Sodium (Porcine) (Heparin 5000 units/ml) 5,000 units EVERY 12 HOURS SUBQ 10/19/16 22:30 11/18/16 22:29 10/22/16 09:35 Insulin Aspart (NovoLOG) Q6HR SUBQ 10/20/16 06:00 11/19/16 05:59 10/22/16 11:43 Insulin Detemir (Levemir) 30 units Q12HR SUBQ 10/21/16 10:00 11/20/16 09:59 10/22/16 09:31 Lactobacillus Acidophilus 1 tab 1 tab THREE TIMES A DAY GT 10/20/16 13:00 11/19/16 12:59 10/22/16 13:00 Metoprolol Tartrate (Lopressor) 50 mg Q12HR GT 10/20/16 09:00 11/19/16 08:59 10/22/16 09:25 Metronidazole (Flagyl) 100 ml @ 100 mls/hr Q8H IVPB 10/20/16 18:00 10/27/16 17:59 10/22/16 10:16 Olanzapine (ZyPREXA) 2.5 mg BEDTIME PRN ORAL Agitation 10/22/16 00:30 11/21/16 00:29 Ranitidine HCl 150 mg 150 mg TWICE A DAY GT 10/20/16 09:00 11/19/16 08:59 10/22/16 09:25 Vitamin D (Vitamin D) 1,000 intlu DAILY GT 10/20/16 09:00 11/19/16 08:59 10/22/16 09:25 SWATI THOMAS Oct 22, 2016 15:12
[2016-10-22] MEDS: cefTRIAXone 1 GM in D5W 55 ML IVPB SCH (16:06)
[2016-10-22 16:22] VITALS: BP 129/67
[2016-10-22] MEDS ORDERED: Fluconazole 100mg tab ORAL SCH (16:30)
[2016-10-22] MEDS ORDERED: Ascorbic Acid 500mg tab ORAL SCH (18:00)
[2016-10-22 20:00] VITALS: BP 137/70
--- NOTE | 2016-10-22 20:19 | Infectious Diseases Prog Note ---
Assessment/Plan Assessment/Plan ASSESSMENT/PLAN: 1. klebsiella bacteremia and pseudomonas species uti, fungal uti now - surveillance blood cultures and urine culture negative - continue rocephin for now 2. Possible aspiration pneumonia, healthcare acquired pneumonia vs pvc - f/u chest x-ray stable - continue rocphin and flagyl 3. can discharge on levofloxacin and flagyl for 6 days and diflucan po for 5 days 4. Hypertension, dm - tx per primary 5. Blood sugar and blood pressure control per primary. 6. History of smoking and nicotine dependency. 7. Chronic obstructive pulmonary disease. 8. Anemia. 9. Cerebrovascular accident. 10. Aspiration risk. 11. Weakness. 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 13. Aphasia. 14. Dysphagia. 15. PEG tube or G-tube. 16. Wounds are not acutely infected. Continue wound care protocol, would not tx vre wc which is likely colonizer. 17. Degenerative joint disease . 18. Depression. 19. Dyslipidemia, hypercholesterolemia. 20. Gastritis. 21. Contractures. 22. Social history, past smoker. 23. Family History noncontributory. 24. MAR was noted. 25. Case was discussed with RN. 26. Allergies to milk, soy, soya beans. 27. Continue treatment per primary consultants 28. Continue wound care protocol. 29. d/w Dr. Mack about abx treatment 30. watch labs and chest x-ray Subjective Constitutional: Denies: fever HEENT: Denies: congestion Respiratory: Denies: shortness of breath Cardiovascular: Denies: chest pain Gastrointestinal/Abdominal: Denies: diarrhea, nausea, vomiting Genitourinary: Reports: other - + garcia Neurologic: Denies: headache Psychiatric: Denies: depression Skin: Denies: rash Hematologic: Denies: bleeding Musculoskeletal: Denies: pain Allergies: Coded Allergies: MILK (Unverified Allergy, Unknown, 05/14/16) SOY (Unverified Allergy, Unknown, 05/14/16) SOYBEAN (Unverified Allergy, Unknown, 05/14/16) Objective Vital Signs Last 24 Hour Vital Signs Date Time Temp Pulse Resp B/P Pulse Ox O2 Delivery O2 Flow Rate FiO2 10/22/16 19:48 90 18 96 Nasal Cannula 2.0 28 10/22/16 19:39 Nasal Cannula 2.0 28 10/22/16 19:39 94 Nasal Cannula 2.0 28 10/22/16 19:38 88 18 94 Nasal Cannula 2.0 10/22/16 16:40 72 10/22/16 16:22 97.9 83 20 129/67 98 Nasal Cannula 3.0 10/22/16 15:50 85 18 98 Nasal Cannula 2.0 10/22/16 15:48 82 18 98 Nasal Cannula 2.0 10/22/16 12:00 78 10/22/16 11:44 98.1 76 20 129/64 98 Nasal Cannula 3.0 10/22/16 10:47 77 18 98 Nasal Cannula 2.0 10/22/16 10:42 77 18 98 Nasal Cannula 2.0 10/22/16 09:25 91 109/51 10/22/16 08:40 98.1 91 20 109/51 100 Nasal Cannula 3.0 10/22/16 08:00 92 10/22/16 06:57 91 18 96 Nasal Cannula 3.0 10/22/16 06:52 90 18 92 Nasal Cannula 3.0 10/22/16 06:52 Nasal Cannula 3.0 32 10/22/16 06:52 92 Nasal Cannula 3.0 32 10/22/16 04:00 94 10/22/16 04:00 97.9 95 20 123/54 97 Nasal Cannula 2.0 10/22/16 03:23 86 18 98 Nasal Cannula 2.0 10/22/16 03:23 86 18 99 Nasal Cannula 2.0 10/22/16 00:00 97.0 82 19 142/70 97 Nasal Cannula 2.0 10/22/16 00:00 81 10/21/16 23:22 78 18 98 Nasal Cannula 2.0 10/21/16 23:22 78 18 99 Nasal Cannula 2.0 10/21/16 21:29 87 137/64 Height (Feet): 6 Height (Inches): 0.00 Weight (Pounds): 200 General Appearance: no acute distress HEENT: normocephalic, atraumatic, anicteric, mucous membranes moist, PERRL, EOMI, pharynx normal, supple, no JVD Respiratory/Chest: crackles/rales - few, rhonchi - bilaterally - few Cardiovascular: normal rate, regular rhythm, no gallop/murmur, no JVD Abdomen: normal bowel sounds, soft, non tender, no organomegaly, non distended Genitourinary: other - + garcia - urine failry clear Extremities: no cyanosis Skin: no rash, other - wounds covered Neurologic/Psychiatric: alert, responsive Lymphatic: no neck adenopathy Musculoskeletal: no effusion Objective 10/21 chest x-ray: Comparison: 10/19/2016 Findings: Borderline interstitial congestive changes persists, largely stable. No new infiltrates. Upper limits of normal heart size. Impression: Unchanged, over 2 days, findings as above. Microbiology Date/Time Source Procedure Growth Status 10/20/16 07:10 Wound Gram Stain - Final Resulted 10/20/16 07:10 Wound Culture - Preliminary Enterococcus Faecalis Resulted 10/20/16 18:30 Indwelling Cath Urine Culture - Preliminary YEAST Resulted Laboratory Tests Test 10/22/16 06:55 White Blood Count 9.1 K/UL (4.8-10.8) Red Blood Count 3.80 M/UL (4.70-6.10) L Hemoglobin 12.5 G/DL (14.2-18.0) L Hematocrit 37.2 % (42.0-52.0) L Mean Corpuscular Volume 98 FL (80-99) Mean Corpuscular Hemoglobin 33.0 PG (27.0-31.0) H Mean Corpuscular Hemoglobin Concent 33.7 G/DL (32.0-36.0) Red Cell Distribution Width 12.7 % (11.6-14.8) Platelet Count 178 K/UL (150-450) Mean Platelet Volume 8.4 FL (6.5-10.1) Neutrophils (%) (Auto) 60.4 % (45.0-75.0) Lymphocytes (%) (Auto) 29.4 % (20.0-45.0) Monocytes (%) (Auto) 6.6 % (1.0-10.0) Eosinophils (%) (Auto) 2.6 % (0.0-3.0) Basophils (%) (Auto) 1.0 % (0.0-2.0) Sodium Level 145 mEQ/L (135-145) Potassium Level 3.7 mEQ/L (3.4-4.9) Chloride Level 107 mEQ/L (98-107) Carbon Dioxide Level 24 mEQ/L (20-30) Anion Gap 14 (5-15) Blood Urea Nitrogen 19 mg/dL (7-23) Creatinine 0.7 mg/dL (0.7-1.2) Estimat Glomerular Filtration Rate mL/min (>60) Glucose Level 191 mg/dL (74-106) H Calcium Level 9.1 mg/dL (8.6-10.2) Phosphorus Level 2.6 mg/dL (2.5-4.8) Magnesium Level 2.0 mg/dL (1.7-2.5) Total Bilirubin < 0.2 mg/dL (0.0-1.2) Direct Bilirubin 0.1 mg/dL (0.1-0.3) Aspartate Amino Transf (AST/SGOT) 27 U/L (5-40) Alanine Aminotransferase (ALT/SGPT) 18 U/L (3-41) Alkaline Phosphatase 62 U/L (40-129) C-Reactive Protein, Quantitative 9.2 mg/dL (< 0.5) H Pro-B-Type Natriuretic Peptide 442 pg/mL (0-450) Total Protein 7.1 g/dL (6.6-8.7) Albumin 2.6 g/dL (3.5-5.2) L Current Medications Medications (Trade) Dose Ordered Sig/Francesca Route PRN Reason Start Time Stop Time Status Last Admin Dose Admin Acetaminophen (Tylenol) 650 mg Q4H PRN GT temp 100 and above 10/19/16 21:45 11/18/16 21:44 Albuterol Sulfate (Proventil) 2.5 mg Q4HRT HHN 10/19/16 23:00 10/24/16 22:59 10/22/16 19:39 Ascorbic Acid (Vitamin C) 500 mg TWICE A DAY ORAL 10/22/16 18:00 11/21/16 17:59 10/22/16 17:10 Aspirin (ASA) 81 mg DAILY GT 10/20/16 09:00 11/19/16 08:59 10/22/16 09:25 Ceftriaxone Sodium/Dextrose (Rocephin/D5W) 55 ml @ 110 mls/hr Q24H IVPB 10/20/16 14:00 10/27/16 13:59 10/22/16 16:06 Dextrose (Dextrose 50%) STAT PRN IV Hypoglycemia 10/20/16 03:00 11/19/16 02:59 Fluconazole (Diflucan) 100 mg QPM ORAL 10/22/16 16:30 10/27/16 16:29 10/22/16 17:09 Heparin Sodium (Porcine) (Heparin 5000 units/ml) 5,000 units EVERY 12 HOURS SUBQ 10/19/16 22:30 11/18/16 22:29 10/22/16 09:35 Insulin Aspart (NovoLOG) Q6HR SUBQ 10/20/16 06:00 11/19/16 05:59 10/22/16 17:37 Insulin Detemir (Levemir) 30 units Q12HR SUBQ 10/21/16 10:00 11/20/16 09:59 10/22/16 09:31 Lactobacillus Acidophilus 1 tab 1 tab THREE TIMES A DAY GT 10/20/16 13:00 11/19/16 12:59 10/22/16 17:31 Metoprolol Tartrate (Lopressor) 50 mg Q12HR GT 10/20/16 09:00 11/19/16 08:59 10/22/16 09:25 Metronidazole (Flagyl) 100 ml @ 100 mls/hr Q8H IVPB 10/20/16 18:00 10/27/16 17:59 10/22/16 17:09 Olanzapine (ZyPREXA) 2.5 mg BEDTIME PRN ORAL Agitation 10/22/16 00:30 11/21/16 00:29 Ranitidine HCl 150 mg 150 mg TWICE A DAY GT 10/20/16 09:00 11/19/16 08:59 10/22/16 17:09 Vitamin D (Vitamin D) 1,000 intlu DAILY GT 10/20/16 09:00 11/19/16 08:59 10/22/16 09:25 ILYA AYON Oct 22, 2016 20:19
[2016-10-23] VITALS: BP 135/69
[2016-10-23] MEDS: NovoLOG Insulin Flexpen SUBQ SCH ×3 (00:31→12:11)
[2016-10-23] MEDS ORDERED: Acetaminophen 650mg/20.3ml GT PRN (01:45)
[2016-10-23] MEDS: metroNIDAZOLE 500mg 100 ML IVPB SCH ×2 (02:29→09:32)
[2016-10-23] MEDS: Albuterol ud Inhalation HHN SCH ×3 (03:07→15:31)
[2016-10-23 04:00] VITALS: BP 132/64
[2016-10-23 08:00] VITALS: BP 112/57
[2016-10-23] MEDS ORDERED: Ascorbic Acid 500mg tab ORAL SCH (09:00)
[2016-10-23] MEDS ORDERED: Heparin 5000 units/ml inj SUBQ SCH (09:00)
[2016-10-23] MEDS ORDERED: Vitamin D 1000 IU Tab GT SCH (09:00)
[2016-10-23] MEDS ORDERED: Aspirin Baby 81mg GT SCH (09:00)
[2016-10-23] MEDS ORDERED: Metoprolol 50mg tab GT SCH (09:00)
[2016-10-23] MEDS ORDERED: Levemir Flexpen SUBQ SCH (09:00)
[2016-10-23] MEDS: Lactobacillus-GG tablet GT SCH ×2 (09:32→14:09)
--- NOTE | 2016-10-23 11:30 | Progress Note ---
SUBJECTIVE: The patient is doing well. No behavior issues. He presented with waxing and waning consciousness. Cognition is impaired. He is improving. MENTAL STATUS EXAMINATION: The patient is aphasic. Due to CVA, mood is neutral. Affect is constricted. Congruent mood. Thought process is concrete. Thought content, no suicidal or homicidal ideation. Cognition is impaired. ASSESSMENT: Delirium, cerebrovascular accident, pneumonia. PLAN: 1. The patient will be continued on p.r.n. Zyprexa for agitation. 2. We will continue follow and readjust the medications. Neema Grady M.D. DR: Breann JOB#: [id number] CC:
[2016-10-23 11:48] VITALS: BP 120/58
--- NOTE | 2016-10-23 13:16 | General Progress Note ---
Assessment/Plan Status: stable Assessment/Plan status; Pneumonia / Hypoxia ( in ECF) HyperGlycemia- failed OP management Klebsiella + in BC 10/14 Pseudomonas Urine 10/14 UTI CVA with left caleb HTN PEG COPD High Cholestrol Plan: HHN Insulin, levemir and SS insulin Pulm eval, ID eval CXR- repeat pending Echo Ej Fx 55% DC in am on PO Flagyl and Levaquin and Fluconozol ID note on 10/22 : can discharge on levofloxacin and flagyl for 6 days and diflucan po for 5 days Subjective ROS Limited/Unobtainable: No Constitutional: Reports: malaise Allergies: Coded Allergies: MILK (Unverified Allergy, Unknown, 05/14/16) SOY (Unverified Allergy, Unknown, 05/14/16) SOYBEAN (Unverified Allergy, Unknown, 05/14/16) Objective Last 24 Hour Vital Signs Date Time Temp Pulse Resp B/P Pulse Ox O2 Delivery O2 Flow Rate FiO2 10/23/16 11:48 97.7 89 19 120/58 97 Nasal Cannula 2.0 10/23/16 11:23 86 14 98 Nasal Cannula 2.0 28 10/23/16 11:13 85 18 96 Nasal Cannula 2.0 28 10/23/16 08:00 97.3 88 19 112/57 97 Nasal Cannula 2.0 10/23/16 07:23 85 14 98 Nasal Cannula 2.0 28 10/23/16 07:13 96 Nasal Cannula 2.0 28 10/23/16 07:13 83 18 96 Nasal Cannula 2.0 28 10/23/16 07:13 Nasal Cannula 2.0 28 10/23/16 04:00 97.9 90 20 132/64 95 Nasal Cannula 2.0 10/23/16 03:17 86 14 98 Nasal Cannula 2.0 28 10/23/16 03:06 84 18 95 Nasal Cannula 2.0 28 10/23/16 00:00 81 10/23/16 00:00 97.7 85 22 135/69 97 Nasal Cannula 2.0 10/22/16 22:15 88 16 97 Nasal Cannula 2.0 28 10/22/16 22:05 84 14 96 Nasal Cannula 2.0 28 10/22/16 21:37 88 137/70 10/22/16 20:00 97.8 88 22 137/70 98 Nasal Cannula 2.0 10/22/16 20:00 88 10/22/16 19:48 90 18 96 Nasal Cannula 2.0 28 10/22/16 19:39 Nasal Cannula 2.0 28 10/22/16 19:39 94 Nasal Cannula 2.0 28 10/22/16 19:38 88 18 94 Nasal Cannula 2.0 28 10/22/16 16:40 72 10/22/16 16:22 97.9 83 20 129/67 98 Nasal Cannula 3.0 10/22/16 15:50 85 18 98 Nasal Cannula 2.0 28 10/22/16 15:48 82 18 98 Nasal Cannula 2.0 28 Intake and Output 10/22/16 10/23/16 19:00 07:00 Intake Total 330 ml 530 ml Output Total 1400 ml 900 ml Balance -1070 ml -370 ml Free Water 80 ml 130 ml IV Total 100 ml Tube Feeding 250 ml 300 ml Output Urine Total 1400 ml 900 ml # Bowel Movements 2 1 Current Medications Medications (Trade) Dose Ordered Sig/Francesca Route PRN Reason Start Time Stop Time Status Last Admin Dose Admin Acetaminophen (Tylenol) 650 mg Q4H PRN GT temp 100 and above 10/23/16 01:45 11/22/16 01:44 Albuterol Sulfate (Proventil) 2.5 mg Q4HRT HHN 10/23/16 03:00 10/28/16 02:59 10/23/16 07:13 Ascorbic Acid (Vitamin C) 500 mg TWICE A DAY ORAL 10/23/16 09:00 11/22/16 08:59 10/23/16 09:32 Aspirin (ASA) 81 mg DAILY GT 10/23/16 09:00 11/22/16 08:59 10/23/16 09:32 Ceftriaxone Sodium 1 gm/ Dextrose 55 ml @ 110 mls/hr Q24H IVPB 10/23/16 14:00 10/30/16 13:59 Dextrose (Dextrose 50%) STAT PRN IV Hypoglycemia 10/23/16 03:00 11/22/16 02:59 Fluconazole (Diflucan) 100 mg QPM ORAL 10/23/16 16:30 10/30/16 16:29 Heparin Sodium (Porcine) (Heparin 5000 units/ml) 5,000 units EVERY 12 HOURS SUBQ 10/23/16 09:00 11/22/16 08:59 10/23/16 09:36 Insulin Aspart (NovoLOG) Q6HR SUBQ 10/23/16 06:00 11/22/16 05:59 10/23/16 12:11 Insulin Detemir (Levemir) 30 units Q12HR SUBQ 10/23/16 09:00 11/22/16 08:59 10/23/16 09:36 Lactobacillus Acidophilus (Culturelle) 1 tab THREE TIMES A DAY GT 10/23/16 09:00 11/22/16 08:59 10/23/16 09:32 Metoprolol Tartrate (Lopressor) 50 mg Q12HR GT 10/23/16 09:00 11/22/16 08:59 Metronidazole (Flagyl) 100 ml @ 100 mls/hr Q8H IVPB 10/23/16 02:00 10/30/16 01:59 10/23/16 09:32 Olanzapine (ZyPREXA) 2.5 mg BEDTIME PRN ORAL Agitation 10/23/16 21:00 11/22/16 20:59 Ranitidine HCl (Zantac) 150 mg TWICE A DAY GT 10/23/16 09:00 11/22/16 08:59 10/23/16 09:32 Vitamin D (Vitamin D) 1,000 intlu DAILY GT 10/23/16 09:00 11/22/16 08:59 10/23/16 09:31 Height (Feet): 6 Height (Inches): 0.00 Weight (Pounds): 200 General Appearance: no apparent distress Respiratory/Chest: decreased breath sounds Abdomen: soft Neurologic: other - left caleb Objective other PE not changed JULIANNE HERNÁNDEZ Oct 23, 2016 13:16
[2016-10-23] MEDS ORDERED: LEVEMIR FL100 UNIT/1 SUBQ (13:21)
[2016-10-23] MEDS ORDERED: ALBUTEROL2.5 MG/3 M HHN (13:21)
[2016-10-23] MEDS ORDERED: METRONIDAZOLE500 MG ORAL (13:21)
[2016-10-23] MEDS ORDERED: LEVAQUIN500 MG ORAL (13:21)
--- NOTE | 2016-10-23 13:24 | Discharge Instructions ---
Discharge Instructions Discharge Instructions Follow up with: with myself in facility Diet: other - GT feeding Glucerna 1.5 ......50 cc hour Special Instructions SS insulin 6-12-6-12 with humalog insulin as before continue levemir 30 U 9am and 9 pm patient NOT allergic to Glucerna 1.5 feeding- if developes diarrhea please call me rout[facility] skin [facility]- Aspiration percautions For Congestive Heart Failure Reminder Report to your physician any weight gain of 5 pounds or more in one week. JULIANNE HERNÁNDEZ Oct 23, 2016 13:24
[2016-10-23] MEDS ORDERED: cefTRIAXone 1 GM in D5W 55 ML IVPB SCH (14:00)
[2016-10-23] MEDS ORDERED: Tubing IV Secondary IV ONE ×2 (15:21→15:59)
[2016-10-23 15:49] VITALS: BP 138/70
[2016-10-23] MEDS ORDERED: NS 275ml ONE (15:59)
[2016-10-23] MEDS ORDERED: Sterile Water Irrig 1000ml IRRIG ONE (15:59)
[2016-10-23] MEDS ORDERED: Fluconazole 100mg tab ORAL SCH (16:30)
--- NOTE | 2016-10-23 18:35 | Pulmonology Progress Note ---
Assessment/Plan Problems: (1) Pneumonia (2) At high risk for aspiration (3) Encephalopathy (4) CVA, old, aphasia (5) DM (diabetes mellitus) Assessment/Plan continue abx may go to retirement in am with oral antibiotics check cultures titrate fio2 to sat of 92% tolerating diet med/surg? dc planning in process on low does diuretics Subjective Allergies: Coded Allergies: MILK (Unverified Allergy, Unknown, 05/14/16) SOY (Unverified Allergy, Unknown, 05/14/16) SOYBEAN (Unverified Allergy, Unknown, 05/14/16) Objective Last 24 Hour Vital Signs Date Time Temp Pulse Resp B/P Pulse Ox O2 Delivery O2 Flow Rate FiO2 10/23/16 15:49 97.6 90 18 138/70 99 Nasal Cannula 2.0 10/23/16 15:25 87 14 98 Nasal Cannula 2.0 28 10/23/16 15:15 85 18 96 Nasal Cannula 2.0 28 10/23/16 11:48 97.7 89 19 120/58 97 Nasal Cannula 2.0 10/23/16 11:23 86 14 98 Nasal Cannula 2.0 28 10/23/16 11:13 85 18 96 Nasal Cannula 2.0 28 10/23/16 08:00 97.3 88 19 112/57 97 Nasal Cannula 2.0 10/23/16 07:23 85 14 98 Nasal Cannula 2.0 28 10/23/16 07:13 96 Nasal Cannula 2.0 28 10/23/16 07:13 83 18 96 Nasal Cannula 2.0 28 10/23/16 07:13 Nasal Cannula 2.0 28 10/23/16 04:00 97.9 90 20 132/64 95 Nasal Cannula 2.0 10/23/16 03:17 86 14 98 Nasal Cannula 2.0 28 10/23/16 03:06 84 18 95 Nasal Cannula 2.0 28 10/23/16 00:00 81 10/23/16 00:00 97.7 85 22 135/69 97 Nasal Cannula 2.0 10/22/16 22:15 88 16 97 Nasal Cannula 2.0 28 10/22/16 22:05 84 14 96 Nasal Cannula 2.0 28 10/22/16 21:37 88 137/70 10/22/16 20:00 97.8 88 22 137/70 98 Nasal Cannula 2.0 10/22/16 20:00 88 10/22/16 19:48 90 18 96 Nasal Cannula 2.0 28 10/22/16 19:39 Nasal Cannula 2.0 28 10/22/16 19:39 94 Nasal Cannula 2.0 28 10/22/16 19:38 88 18 94 Nasal Cannula 2.0 28 Intake and Output 10/22/16 10/23/16 19:00 07:00 Intake Total 330 ml 530 ml Output Total 1400 ml 900 ml Balance -1070 ml -370 ml Free Water 80 ml 130 ml IV Total 100 ml Tube Feeding 250 ml 300 ml Output Urine Total 1400 ml 900 ml # Bowel Movements 2 1 Microbiology Date/Time Source Procedure Growth Status 10/22/16 03:30 Sputum Induced Gram Stain - Final Resulted 10/22/16 03:30 Sputum Induced Sputum Culture - Preliminary Resulted SWATI THOMAS Oct 23, 2016 18:35
[2016-10-23] MEDS ORDERED: OLANZapine 2.5mg tab ORAL PRN (21:00)
--- NOTE | 2016-10-24 09:31 | Discharge Summary ---
Discharge Summary Hospital Course Date of Admission Oct 19, 2016 at 16:39 Date of Discharge Oct 23, 2016 at 16:00 Admitting Diagnosis ams, hyperglycemia, pneumonia HPI Patrick Hawley is a 81 year old male who was admitted on Oct 19, 2016 at 16: 39 for Altered Mental Status,Hyperglycemia,Pneumonia Hospital Course [id number] Discharge Discharge Disposition Patient was discharged to SNF/Subacute Facility(03) Discharge Diagnoses: Discharge Instructions Discharge Instructions Follow up with: with myself in facility Zahra Marquez NP Oct 24, 2016 09:31
--- NOTE | 2016-10-25 00:30 | Discharge Summary 2 SIG ---
DATE OF ADMISSION: 10/19/2016 DATE OF DISCHARGE: 10/23/2016 CONSULTANTS: 1. Veronica Castellanos M.D. 2. Neema Grady M.D. 3. Rich Manning M.D. BRIEF HOSPITAL COURSE: The patient is a 81-year-old male who was brought in to ED for hypoxia and hyperglycemia. On evaluation at ED, EKG showed sinus tachycardia. There was some T-wave inversion to the septal leads. Chest x-ray showed right lung infiltrate. He was started empirically on IV antibiotic and was admitted for hypoxia, pneumonia, and hyperglycemia. He was given breathing treatment and was started on ceftriaxone. He had a previous urinary tract infection with Pseudomonas and [facility]. Cultures were obtained. Surveillance blood culture and urine culture was negative. However, there was growth of yeast. He was also given Flagyl for possible aspiration pneumonia and healthcare-acquired pneumonia. He presented with waxing and waning of consciousness and was diagnosed to have delirium and major depressive disorder. Zyprexa 2.5 mg at bedtime was given prn agitation. Blood glucose was monitored and was continued on sliding scale insulin with NovoLog and Levemir. Echocardiogram done showed ejection fraction of 55%. He came in with multiple pressure ulcers. Wound culture showed growth of Enterococcus and yeast. He was given daily wound care, and was eventually [facility] on oral antibiotics to continue levofloxacin and Flagyl for six days and Diflucan for five days via G-tube. FINAL DIAGNOSES: 1. Pneumonia. 2. Hyperglycemia with failed outpatient management. 3. Klebsiella bacteremia and Pseudomonas urinary tract infection. 4. Fungal urinary tract infection. 5. Cerebrovascular accident with left hemiparesis. 6. Hypertension. 7. Percutaneous endoscopic gastrostomy. 8. Chronic obstructive pulmonary disease. 9. Hypercholesterolemia. 10. Diabetes mellitus. 11. Delirium. 12. Major depressive disorder. 13. Multiple pressure ulcers, present on admission. Scott Mack M.D. I have been assigned to dictate discharge summary on this account and I was not involved in the patient's management. Zahra Marquez N.P. DR: PEDRO JOB#: [id number] CC: IFRAH
== END 2016-10-23 16:00 | DRG 193 ==
LOC: EDBD 13:35 → EMR 14:10 → 2E 16:39 → EDBEDREQ 16:44 → 2E 20:15 → 4W 10-23 00:41
DX: J18.9 Pneumonia, unspecified organism (principal); G93.40 Encephalopathy, unspecified; E11.65 Type 2 diabetes mellitus with hyperglycemia; I69.954 Hemiplegia and hemiparesis following unspecified cerebrovascular disease affecting left non-dominant side; N39.0 Urinary tract infection, site not specified; I10 Essential (primary) hypertension; B96.1 Klebsiella pneumoniae [K. pneumoniae] as the cause of diseases classified elsewhere; B96.5 Pseudomonas (aeruginosa) (mallei) (pseudomallei) as the cause of diseases classified elsewhere; I69.920 Aphasia following unspecified cerebrovascular disease; R09.02 Hypoxemia; E78.00 Pure hypercholesterolemia, unspecified; J44.9 Chronic obstructive pulmonary disease, unspecified; M19.90 Unspecified osteoarthritis, unspecified site; L89.90 Pressure ulcer of unspecified site, unspecified stage; R00.0 Tachycardia, unspecified; Z93.1 Gastrostomy status; Z74.01 Bed confinement status; Z79.4 Long term (current) use of insulin; Z87.891 Personal history of nicotine dependence
CPT/HCPCS: 36415; 71010; 80048; 80053; 80061; 80076; 81003; 82009; 82550; 82553; 82962; 82977; 83036; 83605; 83735; 83880; 84100; 84484; 84550; 85025; 86140; 87040; 87070; 87086; 87181; 87205; 93005; 93306; 94640; 94664; 94760; J1815; S5561

== ENCOUNTER 2016-11-04 13:17 | Inpatient (IN) | payer MEDICARE, MEDICAID ==
[~2016-11-04] VITALS: Ht 172.7 cm; Wt 81.2 kg
[2016-11-04 13:15] VITALS: BP 118/70
[~2016-11-04 13:17] MED LIST changes: +ALBUTEROL2.5 MG/3 M HHN; +LEVAQUIN500 MG ORAL; +LEVEMIR FL100 UNIT/1 SUBQ; +METOPROLOL TART25 MG ORAL; +METRONIDAZOLE500 MG ORAL
--- NOTE | 2016-11-04 13:36 | Emergency Room Report ---
History of Present Illness General Chief Complaint: Altered Level of Consciousness Source: Family Member, EMS Present Illness HPI Patient is a 81-year-old male who presented after increased altered level consciousness. The patient prior history of COPD. The patient was noted to have a diminished level consciousness. The patient was sent from assisted. The patient previously been bedridden from CVA. Patient had gradually worsening mental status. He was noted to be less responsive and usual. He was noted to have chronic at once to both lower extremities. He had recently been hospitalized for Klebsiella bacteremia Allergies: Coded Allergies: MILK (Unverified Allergy, Unknown, 05/14/16) SOY (Unverified Allergy, Unknown, 05/14/16) SOYBEAN (Unverified Allergy, Unknown, 05/14/16) Patient History Past Medical History: see triage record Social History: Reports: smoking Reviewed Nursing Documentation: PMH: Agreed, PSxH: Agreed Nursing Documentation-PMH Past Medical History: No History, Except For Hx Hypertension: Yes - Anemia, high cholesterol Hx COPD: Yes - PNA Hx Diabetes: Yes Hx Cancer: No Hx Cerebrovascular Accident: Yes - Muscle weakness, Hemiplagia, hemiparesis, right sided weakness 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 Hx Aphasia: Yes Hx Dysphasia: Yes Hx Weakness: Yes - Generalized muscle weakness Review of Systems All Other Systems: limited - by mental status Physical Exam Vital Signs Date Time Temp Pulse Resp B/P Pulse Ox O2 Delivery O2 Flow Rate FiO2 11/04/16 13:07 98.4 105 18 118/70 94 Nasal Cannula 2.0 Sp02 EP Interpretation: reviewed, normal General Appearance: moderate distress, other - poor alertness, Chronically Ill Head: normocephalic, atraumatic ENT: uvula midline, dry mucus membranes Neck: limited range of motion Respiratory: other - decreased breath sounds left lung, Cardiovascular #1: normal peripheral pulses, other - trace edema Gastrointestinal: soft, no guarding, no hernia Genitourinary: no CVA tenderness Neurologic: sensory deficit, other - poorly responsive Psychiatric: other - unable to assess Skin: other - wounds to both lower extremities Medical Decision Making Diagnostic Impression: Primary Impression: Pleural effusion Additional Impressions: COPD (chronic obstructive pulmonary disease) Encephalopathy Uncontrolled diabetes mellitus Severe sepsis ER Course Patient presented for altered mental status. Differential diagnosis included but was not limited to ischemic stroke, subarachnoid hemorrhage, hypoglycemia, spinal cord injury, neurodegenerative disorder, urinary tract infection, hypoxemia.Because of complexity of patient's case laboratory testing and imaging studies were ordered. Per assisted staff the patient was less responsive than baseline. The patient started on BiPAP due to respiratory difficulty. Arterial blood gas was ordered. EKG showed sinus tachycardia without acute ST or T wave changes. Patient was noted to have decreased breath sounds to his left lung. Chest x- ray one view interpreted by me showed a small left pleural effusion on with no definite infiltrate normal cardiac size.Patient was given IV fluids as well as IV cefepime and Flagyl. Dr. Scott Mack was contacted for inpatient management due to primary care physician Labs Test 11/04/16 13:45 White Blood Count 16.7 K/UL (4.8-10.8) Red Blood Count 4.75 M/UL (4.70-6.10) Hemoglobin 15.1 G/DL (14.2-18.0) Hematocrit 48.2 % (42.0-52.0) Mean Corpuscular Volume 101 FL (80-99) Mean Corpuscular Hemoglobin 31.7 PG (27.0-31.0) Mean Corpuscular Hemoglobin Concent 31.3 G/DL (32.0-36.0) Red Cell Distribution Width 14.0 % (11.6-14.8) Platelet Count 165 K/UL (150-450) Mean Platelet Volume 9.9 FL (6.5-10.1) Neutrophils (%) (Auto) 70.9 % (45.0-75.0) Lymphocytes (%) (Auto) 20.2 % (20.0-45.0) Monocytes (%) (Auto) 7.9 % (1.0-10.0) Eosinophils (%) (Auto) 0.0 % (0.0-3.0) Basophils (%) (Auto) 0.9 % (0.0-2.0) Prothrombin Time 10.6 SEC (9.30-11.50) Prothromb Time International Ratio 1.0 (0.9-1.1) Activated Partial Thromboplast Time 24 SEC (23-33) EKG Diagnostic Results Rate: tachycardiac Rhythm: NSR ST Segments: no acute changes ASA given to the pt in ED: No Rhythm Strip Diag. Results EP Interpretation: yes Rhythm: no PVC's, no ectopy, other - sinus tachycardia rate 105 Last Vital Signs Date Time Temp Pulse Resp B/P Pulse Ox O2 Delivery O2 Flow Rate FiO2 11/04/16 13:15 18 118/70 94 Nasal Cannula 2.0 11/04/16 13:07 98.4 105 Status: unchanged Disposition: ADMITTED INPATIENT Condition: Serious Ezra Benoit Nov 04, 2016 13:36
[2016-11-04 14:12] LABS: BASOPHILS % (AUTO) 0.9 % (0.0-2.0); LYMPHOCYTES % (AUTO) 20.2 % (20.0-45.0); MEAN CORPUSCULAR HEMOGLOBIN 31.7 PG (27.0-31.0); MEAN CORPUSCULAR HGB CONC 31.3 G/DL (32.0-36.0); MEAN CORPUSCULAR VOLUME 101 FL (80-99); MEAN PLATELET VOLUME 9.9 FL (6.5-10.1); MONOCYTES % (AUTO) 7.9 % (1.0-10.0); NEUTROPHILS % (AUTO) 70.9 % (45.0-75.0); PLATELET COUNT 165 K/UL (150-450); RED BLOOD COUNT 4.75 M/UL (4.70-6.10); WHITE BLOOD COUNT 16.7 K/UL (4.8-10.8)
[2016-11-04 14:21] LABS: PROTHROMBIN TIME 10.6 SEC (9.30-11.50)
[2016-11-04 14:26] LABS: TROPONIN I < 0.30 ng/mL (<=0.30)
[2016-11-04 14:29] LABS: ALANINE AMINOTRANSFERASE 18 U/L (3-41); ALBUMIN/GLOBULIN RATIO 0.6 (1.0-2.7); ANION GAP 14 (5-15); ASPARTATE AMINO TRANSFERASE 19 U/L (5-40); CALCIUM 10.6 mg/dL (8.6-10.2); CARBON DIOXIDE 23 mEQ/L (20-30); CHLORIDE 109 mEQ/L (98-107); CREATININE 1.2 mg/dL (0.7-1.2); HEMOLYSIS 3; POTASSIUM 4.2 mEQ/L (3.4-4.9); SODIUM 146 mEQ/L (135-145); TOTAL PROTEIN 8.9 g/dL (6.6-8.7)
[2016-11-04] MEDS ORDERED: Cefepime HCl 1 GM in D5W 55 ML IVPB ONE (14:30)
[2016-11-04] MEDS ORDERED: metroNIDAZOLE 500mg 100 ML IVPB ONE (14:30)
[2016-11-04 14:31] LABS: REFLEX LACTIC ACID YES OR NO YES
[2016-11-04] MEDS ORDERED: Cefepime 1gm vial ONE (14:31)
[2016-11-04 14:39] LABS: CKMB < 1.5 ng/mL (< 6.7)
[2016-11-04 14:46] LABS: APPEARANCE,URINE CLEAR; KETONES,URINE 1+ (NEGATIVE); LEUKOCYTE ESTERASE ,URINE 1+ (NEGATIVE); NITRITE,URINE NEGATIVE (NEGATIVE); PH,URINE 5 (4.5-8.0); PROTEIN,URINE 2+ (NEGATIVE); UROBILINOGEN,URINE 1 MG/DL (0.0-1.0)
[2016-11-04 14:53] LABS: BACTERIA,URINE FEW /HPF; SQUAMOUS EPITHELIAL CELL,UR OCCASIONAL /LPF (NONE/OCC)
[2016-11-04 14:57] LABS: ABG ALLEN TEST POSITIVE; ABG BASE EXCESS -1.6
[2016-11-04] MEDS ORDERED: LEVEMIR100 UNIT/1 SUBQ (15:05)
[2016-11-04] MEDS ORDERED: VITAMIN D1000 UNI1 GT (15:08)
[2016-11-04] MEDS ORDERED: TYLENOL EXTRA500 MG GT (15:08)
[2016-11-04 15:38] VITALS: BP 135/64
--- NOTE | 2016-11-04 15:51 | History & Physical ---
History and Physical History & Physicial Sepsis / Hypoxia / Tchycardia / High Lactate Hyperglycemia Past c/s Klebsiella + in BC 10/14 Pseudomonas Urine 10/14 Others: UTI CVA with left caleb HTN PEG COPD High Cholestrol Plan: BIPAP - [facility] Insulin, levemir and SS insulin Pulm eval, ID eval Past Echo Ej Fx 55% # [id number] JULIANNE HERNÁNDEZ Nov 04, 2016 15:51
[2016-11-04] MEDS ORDERED: Acetaminophen 650mg/20.3ml GT PRN (16:00)
[2016-11-04] MEDS: Sucralfate 1gm tab ORAL SCH ×4 (18:00→23:20)
[2016-11-04 18:02] VITALS: BP 136/69
[2016-11-04] MEDS: Albuterol ud Inhalation HHN SCH ×2 (19:08→23:42)
--- NOTE | 2016-11-04 19:14 | Infectious Diseases Prog Note ---
Assessment/Plan Assessment/Plan Patient seen in ER: Full consult dictated: A) 1) sepsis, leukocytosis, ams, encephalopathy, sob, sirs, tachycardia 2) ? aspiration pna/?hcap, copd, ? uti, ? c.diff., fungemia risk 3) pmh noted P) 1) vancomycin, cefepime, flagyl, diflucan 2) panculture, check labs and chest x-ray 3) wound care per protocol 4) orders entered 5) continue treatment per Dr. Mack Subjective Allergies: Coded Allergies: MILK (Unverified Allergy, Unknown, 05/14/16) SOY (Unverified Allergy, Unknown, 05/14/16) SOYBEAN (Unverified Allergy, Unknown, 05/14/16) Objective Vital Signs Last 24 Hour Vital Signs Date Time Temp Pulse Resp B/P Pulse Ox O2 Delivery O2 Flow Rate FiO2 11/04/16 18:46 109 28 99 Facial 60 11/04/16 18:02 98.2 109 24 136/69 99 2.0 60 11/04/16 17:00 112 28 99 Facial 60 11/04/16 15:38 98.3 105 18 135/64 99 Bi-pap 2.0 60 11/04/16 14:45 114 37 99 Facial 60 11/04/16 14:01 109 41 Bi-pap 60 11/04/16 14:01 109 41 95 Facial 60 11/04/16 13:15 18 118/70 94 Nasal Cannula 2.0 11/04/16 13:07 98.4 105 18 118/70 94 Nasal Cannula 2.0 Height (Feet): 6 Height (Inches): 2.00 Weight (Pounds): 230 Laboratory Tests Test 11/04/16 13:26 11/04/16 13:45 11/04/16 14:25 11/04/16 14:44 Arterial Blood pH 7.480 (7.350-7.450) Arterial Blood Partial Pressure CO2 34.0 mmHg (35.0-45.0) L Arterial Blood Partial Pressure O2 88.0 mmHg (75.0-100.0) Arterial Blood HCO3 24.5 mmol/L (22.0-26.0) Arterial Blood Oxygen Saturation 96.0 % (92.0-98.0) Arterial Blood Base Excess -1.6 Edmund Test Positive White Blood Count 16.7 K/UL (4.8-10.8) H Red Blood Count 4.75 M/UL (4.70-6.10) Hemoglobin 15.1 G/DL (14.2-18.0) Hematocrit 48.2 % (42.0-52.0) Mean Corpuscular Volume 101 FL (80-99) H Mean Corpuscular Hemoglobin 31.7 PG (27.0-31.0) H Mean Corpuscular Hemoglobin Concent 31.3 G/DL (32.0-36.0) L Red Cell Distribution Width 14.0 % (11.6-14.8) Platelet Count 165 K/UL (150-450) Mean Platelet Volume 9.9 FL (6.5-10.1) Neutrophils (%) (Auto) 70.9 % (45.0-75.0) Lymphocytes (%) (Auto) 20.2 % (20.0-45.0) Monocytes (%) (Auto) 7.9 % (1.0-10.0) Eosinophils (%) (Auto) 0.0 % (0.0-3.0) Basophils (%) (Auto) 0.9 % (0.0-2.0) Prothrombin Time 10.6 SEC (9.30-11.50) Prothromb Time International Ratio 1.0 (0.9-1.1) Activated Partial Thromboplast Time 24 SEC (23-33) Sodium Level 146 mEQ/L (135-145) H Potassium Level 4.2 mEQ/L (3.4-4.9) Chloride Level 109 mEQ/L (98-107) H Carbon Dioxide Level 23 mEQ/L (20-30) Anion Gap 14 (5-15) Blood Urea Nitrogen 41 mg/dL (7-23) H Creatinine 1.2 mg/dL (0.7-1.2) Estimat Glomerular Filtration Rate mL/min (>60) Glucose Level 434 mg/dL (74-106) H Lactic Acid Level 2.90 mmol/L (0.66-2.22) H 2.10 mmol/L (0.66-2.22) Calcium Level 10.6 mg/dL (8.6-10.2) H Total Bilirubin 0.9 mg/dL (0.0-1.2) Aspartate Amino Transf (AST/SGOT) 19 U/L (5-40) Alanine Aminotransferase (ALT/SGPT) 18 U/L (3-41) Alkaline Phosphatase 65 U/L (40-129) Total Creatine Kinase 144 U/L (38-174) Creatine Kinase MB < 1.5 ng/mL (< 6.7) Creatine Kinase MB Relative Index Troponin I < 0.30 ng/mL (<=0.30) Total Protein 8.9 g/dL (6.6-8.7) H Albumin 3.4 g/dL (3.5-5.2) L Globulin 5.5 g/dL Albumin/Globulin Ratio 0.6 (1.0-2.7) L Urine Color Yellow Urine Appearance Clear Urine pH 5 (4.5-8.0) Urine Specific [place] 1.020 (1.005-1.035) Urine Protein 2+ (NEGATIVE) H Urine Glucose (UA) 4+ (NEGATIVE) H Urine Ketones 1+ (NEGATIVE) H Urine Occult Blood 1+ (NEGATIVE) H Urine Nitrite Negative (NEGATIVE) Urine Bilirubin Negative (NEGATIVE) Urine Urobilinogen 1 MG/DL (0.0-1.0) H Urine Leukocyte Esterase 1+ (NEGATIVE) H Urine RBC 2-4 /HPF (0 - 0) H Urine WBC 2-4 /HPF (0 - 0) Urine Squamous Epithelial Cells Occasional /LPF Urine Bacteria Few /HPF (NONE) Current Medications Medications (Trade) Dose Ordered Sig/Francesca Route PRN Reason Start Time Stop Time Status Last Admin Dose Admin Acetaminophen (Tylenol) 650 mg Q4H PRN GT fever 100.5 and above 11/04/16 16:00 12/04/16 15:59 Albuterol Sulfate (Proventil) 2.5 mg Q4HRT HHN 11/04/16 19:00 11/09/16 18:59 Aspirin (ASA) 81 mg DAILY GT 11/05/16 09:00 12/05/16 08:59 Ceftriaxone Sodium 1 gm/ Sodium Chloride 55 ml @ 110 mls/hr ONCE ONCE IVPB 11/04/16 21:00 11/04/16 21:29 Fluconazole (Diflucan 100mg/ 50ml) 50 ml @ 50 mls/hr Q24H IV 11/04/16 20:00 11/11/16 19:59 Insulin Detemir (Levemir) 30 units Q12HR SUBQ 11/04/16 21:00 12/04/16 20:59 Lactobacillus Acidophilus (Culturelle) 1 tab BID GT 11/04/16 18:30 12/04/16 18:29 Lactulose (Cephulac) 20 gm TID GT 11/04/16 18:00 12/04/16 17:59 Metoprolol Tartrate (Lopressor) 25 mg EVERY 12 HOURS ORAL 11/04/16 21:00 12/04/16 20:59 Metronidazole 100 ml @ 100 mls/hr Q8HR IVPB 11/04/16 22:00 11/11/16 21:59 Ranitidine HCl (Zantac) 150 mg TWICE A DAY ORAL 11/04/16 18:00 12/04/16 17:59 Sodium Chloride 1,000 ml @ 50 mls/hr Q20H IV 11/04/16 17:00 12/04/16 16:59 11/04/16 18:11 Sucralfate 1 gm 1 gm FOUR TIMES A DAY ORAL 11/04/16 18:00 12/04/16 17:59 ILYA AYON Nov 04, 2016 19:14
--- NOTE | 2016-11-04 19:15 | History and Physical Report ---
DATE OF ADMISSION: 11/04/2016 HISTORY OF PRESENT ILLNESS: The patient is a 81-year-old male, a resident of [facility] [[email or web address] I was called that the patient's blood sugar is over 500 and his pulse ox is 88% with a fever of 100.5. The patient was summoned to come to the emergency room and after initial evaluation in the emergency room, the patient is being admitted with the diagnosis of sepsis and hyperglycemia. PAST MEDICAL HISTORY: Significant for UTI, diabetes mellitus, CVA with left caleb, GT tube, history of tobacco abuse in the past, COPD, degenerative joint disease, high cholesterol, hypertension, atrophic gastritis, depression, and contractures of the left side. MEDICATIONS: According to the list when the patient was discharged last, the patient received Tylenol, breathing treatment, vitamin C, aspirin, ceftriaxone, fluconazole, Flagyl, also Levemir insulin, metoprolol, Zantac, and vitamin D. ALLERGIES: Reported to be milk, soy, and soybean. However, during the last two admissions the patient tolerated Glucerna G-tube feeding very well. PHYSICAL EXAMINATION: GENERAL: Lethargic, opens eyes, nonverbal. VITAL SIGNS: Right now, the patient is tachycardic pulse rate 105. Temperature is down to 98.4 and blood pressure 118/70. Pulse ox on cannula is 94%. However, the patient is tachypneic. HEENT: Head is normocephalic. NECK: Rigid to all directions. LUNGS: The patient has decreased breath sounds over the bases. HEART: Tachycardic ABDOMEN: Soft, slightly distended. GT tube in place. NEUROLOGIC: Left caleb. LABORATORY AND DIAGNOSTIC DATA: Chest x-ray - opacities on the bases, more over the left side. White blood cell 16.7. Glucose 434. Calcium 10.6. Urine - 1+ leukocyte esterase, 4 white blood cells. Coags are normal. The initial ABG, pH of 7.48, pCO2 34, and pO2 88, and I think it was taken on BiPAP. IMPRESSION: This patient is being admitted with the diagnosis of sepsis, hypoxia, tachycardia, high lactate level, and hyperglycemia. Other conditions are history of CVA, hypertension, high cholesterol, chronic obstructive pulmonary disease, and PEG. PLAN: BiPAP. Admit to [facility]. Insulin, to adjust blood sugar. We will start the patient back on Rocephin, Flagyl, and fluconazole pending ID evaluation. The patient has received cefepime in the ER. Pulmonary evaluation is also being sought. According to how the patient's condition evolves, we will make the proper changes in our future management. Scott Mack M.D. DR: IVAN JOB#: [id number] CC:
[2016-11-04 20:40] VITALS: BP 126/71
[2016-11-04 21:00] VITALS: BP 121/65
[2016-11-04] MEDS ORDERED: cefTRIAXone 1 GM in NS 55 ML IVPB ONE (21:00)
[2016-11-04] MEDS: Levemir Flexpen SUBQ SCH (22:13)
[2016-11-04] MEDS: Lactobacillus-GG tablet GT SCH (22:16)
[2016-11-04] MEDS: Metoprolol 25mg tab ORAL SCH (22:18)
[2016-11-04] MEDS: metroNIDAZOLE 500mg 100 ML IVPB SCH (22:19)
[2016-11-04] MEDS: Lactulose 20gm/30ml UDC GT SCH (22:20)
[2016-11-04] MEDS: NovoLOG Insulin Flexpen SUBQ SCH (23:58)
[2016-11-05] VITALS: BP 110/66
[2016-11-05] MEDS: Vancomycin 1gm in Dextrose 275ml IVPB SCH ×3 (00:26→14:06)
--- NOTE | 2016-11-05 02:45 | Consultation ---
DATE OF CONSULTATION: 11/04/2016 INFECTIOUS DISEASES CONSULTATION CONSULTING PHYSICIAN: Rich Manning M.D. ATTENDING PHYSICIAN: Scott Mack M.D. REASON FOR CONSULTATION: Sepsis, elevated white count, altered mental status, SIRS criteria. CHIEF COMPLAINT: The patient's chief complaint coming to the hospital is hypoxia, sepsis, elevated white count, respiratory failure, and encephalopathy. HISTORY OF PRESENT ILLNESS: This is a 81-year-old male who has history of multiple medical problems including recent treatment for urinary tract infection and history of bacteremia. The patient presented to [facility] with hypoxia and altered mental status. The patient has significantly elevated white count. He is on BiPAP. The patient was seen in the emergency room. Infectious Diseases consultation was requested for antibiotic management. The patient's white count is 16.7. The patient was started on broad-spectrum antibiotics, vancomycin, and supplemental Flagyl. He is on Diflucan. He is also at risk for C. difficile fungemia, induration, aspiration, healthcare-acquired pneumonia, and UTI. The patient will be pancultured. MAR was noted. Orders were noted. Notes were reviewed. Case was discussed with RN. REVIEW OF SYSTEMS: Constitutional: The patient has a Johnson. He has BiPAP. He has generalized weakness, poorly responsive, lethargic, and encephalopathic. Head And Neck: No obvious head pain or neck pain, but limited. Cardiac: No pressors. GI: No nausea, vomiting, or diarrhea. : He has a Johnson. Pulmonary: Congestion and shortness of breath on BiPAP. No significant secretions. Skin: No new rash. It is unclear if wounds are covered that he does have. Neurologic: No seizures. He has generalized weakness and fatigue. No fevers at this time. PAST MEDICAL HISTORY: The patient's past medical history includes history of following: The patient has a past medical history of hypertension. He has history of aspiration pneumonia and Klebsiella bacteremia. He has history of diabetes. In addition to hypertension, he has diabetes. He has a history of nicotine dependence. He has a history of anemia, CVA, aspiration risk. He has a history of weakness, paralysis, aphagia, dysphagia, and G-tube. He has a history of wounds. He has a history of degenerative joint disease, depression, dyslipidemia, hypercholesterolemia, gastritis, and contractures. MEDICATIONS: Upon reviewing the MAR, the patient is on the following medications. The patient is on aspirin, metronidazole, Flagyl, vancomycin, and cefepime, who was given Rocephin and cefepime in the emergency room. He is on Diflucan. He is on Lactobacillus, lactulose, ranitidine, sucralfate, and IV fluids. He is on acetaminophen. He is on insulin. He is on metoprolol. Please see medications in the medical order record and also medication order was reconciliated. Please see past medical history in medical order. ALLERGIES: Include milk and soybeans, but no known drug allergies. FAMILY HISTORY: Per the record, there is no mention of exposure to tuberculosis or cancer. It is noncontributory. SOCIAL HISTORY: The patient is a past smoker. Currently, no alcohol, drug abuse, or smoking. PHYSICAL EXAMINATION: GENERAL: The patient is lethargic and weak. He is arousable, but he is on BiPAP. VITAL SIGNS: Pulse rate 113, temperature 98.2, respiratory rate 29, and saturation 99% on BiPAP, FiO2 of 60%. HEAD AND NECK: Oral exam, no thrush. Eye exam, no icterus. Normocephalic. Neck seems to be no JVD. Supple. HEART: Regular. No gallop or murmur. No friction rub. ABDOMEN: Soft. Positive bowel sounds. Nontender. LUNGS: Bilaterally rhonchi and rales. SKIN: No rash or dermatitis. Wounds are covered. MUSCULOSKELETAL: No effusion or contractures. Legs are without cellulitis. PERIPHERAL VASCULAR: No evidence of gangrene. EXTREMITIES: Limited. RECTAL: Deferred. GENITOURINARY: He has a Johnson. LINES: Line sites are without phlebitis. NEUROLOGIC: Generalized weakness and poorly responsive. LABORATORY AND DIAGNOSTIC DATA: Laboratory data as follows, white count 16.7 and hemoglobin 15.1. Creatinine is 1.2. Lactate level was 2.9. Cultures are pending. UA was 1+ leukocyte esterase, 4 white blood cells. Chest x-ray is pending. ASSESSMENT AND PLAN: 1. The patient has likely sepsis syndrome with systemic inflammatory response syndrome criteria, altered mental status, elevated heart rate, leukocytosis, encephalopathy. The patient has systemic inflammatory response syndrome criteria, likely septic to respiratory process. He is on BiPAP. He is certainly at risk for aspiration and healthcare-acquired pneumonia. He is also at risk for Clostridium difficile urinary tract infection and fungemia. Continue vancomycin, cefepime, Flagyl, and Diflucan. Check cultures, labs, and chest x-rays. Continue treatment per Dr. Mack, Pulmonary Medicine. Currently, he is on BiPAP. Continue antibiotics. Check final workup. 2. Wound care protocol. 3. The patient has a history of hypertension. 4. Diabetes. 5. Blood sugar and blood pressure control per Dr. Mack and consultants. 6. Anemia. 7. Chronic obstructive pulmonary disease. 8. Pulmonary treatment. 9. Cerebrovascular accident. 10. Aspiration risk. 11. Weakness. 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 13. Dysphagia, on gastrostomy tube. 14. Aphasia. 15. Degenerative joint disease. 16. Depression. 17. Dyslipidemia, hypercholesterolemia. 18. Gastritis. 19. Contractures. 20. Past medical history is noted. 21. Social history, past smoker. 22. Family History noncontributory. 23. MAR was noted. 24. Case was discussed with RN. 25. Allergies to milk, soy, and soybeans. 26. Continue treatment per primary consultants. 27. Wound care protocol. 28. Notes were reviewed. 29. The patient was seen in the ER. 30. The patient will go to [facility]. Rich Manning M.D. DR: BEATRIZ JOB#: [id number] CC:
[2016-11-05] MEDS ORDERED: VITAMIN C500 M1 GT (02:50)
[2016-11-05] MEDS ORDERED: FERROUS SULFAT325 MG GT (02:50)
[2016-11-05] MEDS ORDERED: ZINC SULFATE220 M1 GT (02:50)
[2016-11-05] MEDS: Albuterol ud Inhalation HHN SCH ×6 (03:24→23:21)
[2016-11-05 05:33] LABS: EOSINOPHILS % (AUTO) 0.3 % (0.0-3.0); LYMPHOCYTES % (AUTO) 19.4 % (20.0-45.0); MEAN CORPUSCULAR HEMOGLOBIN 32.3 PG (27.0-31.0); MEAN CORPUSCULAR HGB CONC 31.1 G/DL (32.0-36.0); MEAN CORPUSCULAR VOLUME 104 FL (80-99); MEAN PLATELET VOLUME 10.5 FL (6.5-10.1); MONOCYTES % (AUTO) 8.4 % (1.0-10.0); NEUTROPHILS % (AUTO) 70.9 % (45.0-75.0); PLATELET COUNT 126 K/UL (150-450); RED BLOOD COUNT 4.08 M/UL (4.70-6.10); RED CELL DISTRIBUTION WIDTH 14.3 % (11.6-14.8); WHITE BLOOD COUNT 13.8 K/UL (4.8-10.8)
[2016-11-05 06:02] LABS: ALANINE AMINOTRANSFERASE 15 U/L (3-41); ALBUMIN/GLOBULIN RATIO 0.5 (1.0-2.7); ANION GAP 9 (5-15); ASPARTATE AMINO TRANSFERASE 19 U/L (5-40); CALCIUM 9.5 mg/dL (8.6-10.2); CARBON DIOXIDE 25 mEQ/L (20-30); CHLORIDE 112 mEQ/L (98-107); CHOLESTEROL 136 mg/dL (< 200); CHOLESTEROL/HDL RATIO 3.6 (3.3-4.4); CREATININE 0.9 mg/dL (0.7-1.2); CRP QUANT 24.3 mg/dL (< 0.5); HEMOLYSIS 6; LDL CHOLESTEROL (CALC.) 74 mg/dL (60-99); MAGNESIUM 2.3 mg/dL (1.7-2.5); PHOSPHORUS 2.5 mg/dL (2.5-4.8); POTASSIUM 4.3 mEQ/L (3.4-4.9); SODIUM 146 mEQ/L (135-145); TOTAL PROTEIN 7.6 g/dL (6.6-8.7); URIC ACID 7.5 mg/dL (3.0-7.5)
[2016-11-05] MEDS: metroNIDAZOLE 500mg 100 ML IVPB SCH ×3 (06:19→22:06)
[2016-11-05 06:21] LABS: HEMOGLOBIN A1C 9.7 % (< 6.0)
[2016-11-05] MEDS: NovoLOG Insulin Flexpen SUBQ SCH ×4 (06:21→23:35)
[2016-11-05 08:00] VITALS: BP 113/66
[2016-11-05] MEDS ORDERED: Aspirin Baby 81mg GT SCH (09:00)
[2016-11-05] MEDS: Sucralfate 1gm tab ORAL SCH ×4 (09:31→20:45)
[2016-11-05] MEDS: Lactulose 20gm/30ml UDC GT SCH ×3 (09:31→17:49)
[2016-11-05] MEDS: Metoprolol 25mg tab ORAL SCH ×2 (09:31→20:45)
[2016-11-05] MEDS: Lactobacillus-GG tablet GT SCH ×2 (09:32→17:50)
[2016-11-05] MEDS: Levemir Flexpen SUBQ SCH ×2 (09:34→20:48)
--- NOTE | 2016-11-05 11:30 | Consultation ---
History of Present Illness General Date patient seen: Nov 05, 2016 Chief Complaint: Altered Level of Consciousness Referring physician: Dr. Mack Reason for Consultation: dypsnea Present Illness HPI 81-year-old male wtih hx of COPD, CVA, Dementia,. Gtube, bed bound, jail who presented after altered level consciousness. The patient was noted to have a diminished level consciousness. He was noted to be less responsive and usual. He had recently been hospitalized for Klebsiella bacteremia. He is admitted again for possibility of sepsis. He was hypoxemic and was put on BIPAP and transferred to [facility]. Allergies: Coded Allergies: MILK (Unverified Allergy, Unknown, 05/14/16) SOY (Unverified Allergy, Unknown, 05/14/16) SOYBEAN (Unverified Allergy, Unknown, 05/14/16) Medication History Scheduled Albuterol Sulfate* (Albuterol Sulfate Hhn*), 2.5 MG HHN Q4HRT Ascorbic Acid* (Vitamin C*), 500 MG GT DAILY, (Reported) Aspirin* (Aspir-Low*), 81 MG GT DAILY, (Reported) Cholecalciferol (Vitamin D3)* (Vitamin D*), 2,000 UNITS GT DAILY, (Reported) Cholecalciferol (Vitamin D3)* (Vitamin D*), 2,000 UNITS GT DAILY, (Reported) Cranberry Conc/C/Bacill Coag (Azo Cranberry Tablet), 1 EACH GT DAILY, (Reported) Docusate Sodium* (Colace*), 100 MG GT DAILY, (Reported) Ferrous Sulfate* (Ferrous Sulfate*), 325 MG GT TID, (Reported) Insulin Detemir (Levemir Flexpen), 30 UNITS SUBQ Q12HR Insulin Detemir (Levemir), 30 UNITS SUBQ EVERY 12 HOURS, (Reported) Lactulose (Lactulose*), 20 GM GT TID, (Reported) Levofloxacin* (Levaquin*), 500 MG ORAL DAILY Magnesium Hydroxide (Milk of Magnesia), 30 ML ORAL DAILY, (Reported) Metoprolol Tartrate* (Metoprolol Tartrate*), 25 MG ORAL EVERY 12 HOURS, ( Reported) Metronidazole* (Flagyl*), 500 MG ORAL EVERY 8 HOURS Multivitamins Liq* (Multivitamin Liq*), 5 ML GT DAILY, (Reported) Nateglinide* (Starlix*), 120 MG ORAL TIAC Omeprazole (Omeprazole), 20 MG GT BID, (Reported) Ranitidine Hcl* (Zantac*), 150 MG ORAL TWICE A DAY, (Reported) Sucralfate* (Carafate*), 1 GM ORAL FOUR TIMES A DAY, (Reported) Tamsulosin HCl (Flomax), 0.4 MG GT DAILY, (Reported) Zinc Sulfate (Zinc Sulfate*), 220 MG GT DAILY, (Reported) Scheduled PRN Acetaminophen (Acetaminophen), 650 MG GT Q4H PRN Acetaminophen* (Tylenol Extra Strength*), 1,000 MG GT DAILY PRN for Mild Pain/ Temp > 100.5, (Reported) Patient History Healthcare decision maker SEE ABOVE Resuscitation status Full Code Advanced Directive on File No Past Medical/Surgical History Past Medical/Surgical History: (1) Rhabdomyolysis (2) CVA, old, dysphagia (3) bleeding from gtube site (4) Gastrointestinal hemorrhage (5) COPD (chronic obstructive pulmonary disease) (6) CVA, old, aphasia Review of Systems All Other Systems: negative except mentioned in HPI Physical Exam General Appearance: WD/WN Lines, tubes and drains: peripheral, central line HEENT: normocephalic, atraumatic Neck: non-tender, normal alignment Respiratory/Chest: chest wall non-tender, lungs clear Breasts: no masses Cardiovascular/Chest: normal peripheral pulses, normal rate Abdomen: normal bowel sounds, non tender Genitourinary/Rectal: normal genital exam, normal rectal exam Extremities: normal range of motion Last 24 Hour Vital Signs Date Time Temp Pulse Resp B/P Pulse Ox O2 Delivery O2 Flow Rate FiO2 11/05/16 10:49 55 11/05/16 10:48 86 15 93 Venturi Mask 14.0 55 11/05/16 09:31 98 113/66 11/05/16 09:26 100 14.0 55 11/05/16 09:22 98 17 Venturi Mask 14.0 55 11/05/16 08:00 98.4 98 20 113/66 100 Non-Rebreather 100 11/05/16 07:48 97 11/05/16 06:54 99 17 100 Venturi Mask 14.0 55 11/05/16 06:44 98 17 99 Venturi Mask 15.0 100 11/05/16 06:44 100 7/5/17 06:44 100 15.0 100 11/05/16 03:34 90 11/05/16 03:33 91 20 100 Non-Rebreather 10.0 60 11/05/16 03:24 92 18 99 Non-Rebreather 10.0 60 11/05/16 03:24 60 11/05/16 00:00 97.1 89 20 110/66 97 Non-Rebreather 11/04/16 23:54 88 11/04/16 23:49 87 20 99 Non-Rebreather 10.0 60 11/04/16 23:42 89 20 99 Non-Rebreather 60 11/04/16 23:42 60 11/04/16 22:18 106 121/65 11/04/16 21:00 97.5 102 20 121/65 100 Non-Rebreather 100 11/04/16 21:00 60 11/04/16 20:46 98.2 109 29 126/71 99 Bi-pap 2.0 60 11/04/16 20:40 98.2 109 29 126/71 99 Bi-pap 2.0 60 11/04/16 20:39 60 11/04/16 19:17 113 29 99 Bi-pap 10.0 60 11/04/16 19:11 110 29 Bi-pap 60 11/04/16 19:08 60 11/04/16 19:08 110 22 Bi-pap 60 11/04/16 19:08 110 27 99 Bi-pap 60 11/04/16 18:46 109 28 99 Facial 60 11/04/16 18:02 98.2 109 24 136/69 99 2.0 60 11/04/16 17:00 112 28 99 Facial 60 11/04/16 15:38 98.3 105 18 135/64 99 Bi-pap 2.0 60 11/04/16 14:45 114 37 99 Facial 60 11/04/16 14:01 109 41 Bi-pap 60 11/04/16 14:01 109 41 95 Facial 60 11/04/16 13:15 18 118/70 94 Nasal Cannula 2.0 11/04/16 13:07 98.4 105 18 118/70 94 Nasal Cannula 2.0 Intake and Output 11/04/16 11/05/16 19:00 07:00 Intake Total 1155 ml 1135 ml Balance 1155 ml 1135 ml Intake Oral 0 ml Free Water 30 ml IV Total 1155 ml 925 ml Tube Feeding 180 ml # Bowel Movements 3 Laboratory Tests Test 11/04/16 13:26 11/04/16 13:45 11/04/16 14:25 11/04/16 14:44 Arterial Blood pH 7.480 (7.350-7.450) Arterial Blood Partial Pressure CO2 34.0 mmHg (35.0-45.0) L Arterial Blood Partial Pressure O2 88.0 mmHg (75.0-100.0) Arterial Blood HCO3 24.5 mmol/L (22.0-26.0) Arterial Blood Oxygen Saturation 96.0 % (92.0-98.0) Arterial Blood Base Excess -1.6 Edmund Test Positive White Blood Count 16.7 K/UL (4.8-10.8) H Red Blood Count 4.75 M/UL (4.70-6.10) Hemoglobin 15.1 G/DL (14.2-18.0) Hematocrit 48.2 % (42.0-52.0) Mean Corpuscular Volume 101 FL (80-99) H Mean Corpuscular Hemoglobin 31.7 PG (27.0-31.0) H Mean Corpuscular Hemoglobin Concent 31.3 G/DL (32.0-36.0) L Red Cell Distribution Width 14.0 % (11.6-14.8) Platelet Count 165 K/UL (150-450) Mean Platelet Volume 9.9 FL (6.5-10.1) Neutrophils (%) (Auto) 70.9 % (45.0-75.0) Lymphocytes (%) (Auto) 20.2 % (20.0-45.0) Monocytes (%) (Auto) 7.9 % (1.0-10.0) Eosinophils (%) (Auto) 0.0 % (0.0-3.0) Basophils (%) (Auto) 0.9 % (0.0-2.0) Prothrombin Time 10.6 SEC (9.30-11.50) Prothromb Time International Ratio 1.0 (0.9-1.1) Activated Partial Thromboplast Time 24 SEC (23-33) Sodium Level 146 mEQ/L (135-145) H Potassium Level 4.2 mEQ/L (3.4-4.9) Chloride Level 109 mEQ/L (98-107) H Carbon Dioxide Level 23 mEQ/L (20-30) Anion Gap 14 (5-15) Blood Urea Nitrogen 41 mg/dL (7-23) H Creatinine 1.2 mg/dL (0.7-1.2) Estimat Glomerular Filtration Rate mL/min (>60) Glucose Level 434 mg/dL (74-106) H Lactic Acid Level 2.90 mmol/L (0.66-2.22) H 2.10 mmol/L (0.66-2.22) Calcium Level 10.6 mg/dL (8.6-10.2) H Total Bilirubin 0.9 mg/dL (0.0-1.2) Aspartate Amino Transf (AST/SGOT) 19 U/L (5-40) Alanine Aminotransferase (ALT/SGPT) 18 U/L (3-41) Alkaline Phosphatase 65 U/L (40-129) Total Creatine Kinase 144 U/L (38-174) Creatine Kinase MB < 1.5 ng/mL (< 6.7) Creatine Kinase MB Relative Index Troponin I < 0.30 ng/mL (<=0.30) Total Protein 8.9 g/dL (6.6-8.7) H Albumin 3.4 g/dL (3.5-5.2) L Globulin 5.5 g/dL Albumin/Globulin Ratio 0.6 (1.0-2.7) L Urine Color Yellow Urine Appearance Clear Urine pH 5 (4.5-8.0) Urine Specific Ney 1.020 (1.005-1.035) Urine Protein 2+ (NEGATIVE) H Urine Glucose (UA) 4+ (NEGATIVE) H Urine Ketones 1+ (NEGATIVE) H Urine Occult Blood 1+ (NEGATIVE) H Urine Nitrite Negative (NEGATIVE) Urine Bilirubin Negative (NEGATIVE) Urine Urobilinogen 1 MG/DL (0.0-1.0) H Urine Leukocyte Esterase 1+ (NEGATIVE) H Urine RBC 2-4 /HPF (0 - 0) H Urine WBC 2-4 /HPF (0 - 0) Urine Squamous Epithelial Cells Occasional /LPF Urine Bacteria Few /HPF (NONE) Test 11/05/16 04:30 White Blood Count 13.8 K/UL (4.8-10.8) H Red Blood Count 4.08 M/UL (4.70-6.10) L Hemoglobin 13.2 G/DL (14.2-18.0) L Hematocrit 42.3 % (42.0-52.0) Mean Corpuscular Volume 104 FL (80-99) H Mean Corpuscular Hemoglobin 32.3 PG (27.0-31.0) H Mean Corpuscular Hemoglobin Concent 31.1 G/DL (32.0-36.0) L Red Cell Distribution Width 14.3 % (11.6-14.8) Platelet Count 126 K/UL (150-450) L Mean Platelet Volume 10.5 FL (6.5-10.1) H Neutrophils (%) (Auto) 70.9 % (45.0-75.0) Lymphocytes (%) (Auto) 19.4 % (20.0-45.0) L Monocytes (%) (Auto) 8.4 % (1.0-10.0) Eosinophils (%) (Auto) 0.3 % (0.0-3.0) Basophils (%) (Auto) 1.0 % (0.0-2.0) Sodium Level 146 mEQ/L (135-145) H Potassium Level 4.3 mEQ/L (3.4-4.9) Chloride Level 112 mEQ/L (98-107) H Carbon Dioxide Level 25 mEQ/L (20-30) Anion Gap 9 (5-15) Blood Urea Nitrogen 33 mg/dL (7-23) H Creatinine 0.9 mg/dL (0.7-1.2) Estimat Glomerular Filtration Rate mL/min (>60) Glucose Level 368 mg/dL (74-106) H Hemoglobin A1c 9.7 % (< 6.0) H Uric Acid 7.5 mg/dL (3.0-7.5) Calcium Level 9.5 mg/dL (8.6-10.2) Phosphorus Level 2.5 mg/dL (2.5-4.8) Magnesium Level 2.3 mg/dL (1.7-2.5) Total Bilirubin 1.0 mg/dL (0.0-1.2) Gamma Glutamyl Transpeptidase 50 U/L (8-61) Aspartate Amino Transf (AST/SGOT) 19 U/L (5-40) Alanine Aminotransferase (ALT/SGPT) 15 U/L (3-41) Alkaline Phosphatase 68 U/L (40-129) Total Creatine Kinase 224 U/L (38-174) H C-Reactive Protein, Quantitative 24.3 mg/dL (< 0.5) H Pro-B-Type Natriuretic Peptide 264 pg/mL (0-450) Total Protein 7.6 g/dL (6.6-8.7) Albumin 2.8 g/dL (3.5-5.2) L Globulin 4.8 g/dL Albumin/Globulin Ratio 0.5 (1.0-2.7) L Triglycerides Level 121 mg/dL (< 150) Cholesterol Level 136 mg/dL (< 200) LDL Cholesterol 74 mg/dL (60-99) HDL Cholesterol 38 mg/dL (> 60) Cholesterol/HDL Ratio 3.6 (3.3-4.4) Height (Feet): 5 Height (Inches): 8.00 Weight (Pounds): 179 Medications Current Medications Medications (Trade) Dose Ordered Sig/Francesca Route PRN Reason Start Time Stop Time Status Last Admin Dose Admin Acetaminophen (Tylenol) 650 mg Q4H PRN GT fever 100.5 and above 11/04/16 16:00 12/04/16 15:59 Albuterol Sulfate (Proventil) 2.5 mg Q4HRT HHN 11/04/16 19:00 11/09/16 18:59 11/05/16 10:48 Aspirin (ASA) 81 mg DAILY GT 11/05/16 09:00 12/05/16 08:59 11/05/16 09:30 Cefepime HCl 1 gm/ Dextrose 50 ml @ 100 mls/hr Q12HR@1000,2200 IVPB 11/04/16 22:00 11/11/16 21:59 11/05/16 10:21 Dextrose (Dextrose 50%) STAT PRN IV Hypoglycemia 11/04/16 22:00 12/04/16 21:59 Fluconazole (Diflucan 100mg/ 50ml) 50 ml @ 50 mls/hr Q24H IV 11/04/16 20:00 11/11/16 19:59 11/04/16 21:48 Insulin Aspart (NovoLOG) FSBS Q6 hours Q6HR SUBQ 11/05/16 00:00 12/05/16 00:00 11/05/16 06:21 Insulin Detemir (Levemir) 30 units Q12HR SUBQ 11/04/16 21:00 12/04/16 20:59 11/05/16 09:34 Lactobacillus Acidophilus (Culturelle) 1 tab BID GT 11/04/16 18:30 12/04/16 18:29 11/05/16 09:32 Lactulose (Cephulac) 20 gm TID GT 11/04/16 18:00 12/04/16 17:59 11/05/16 09:31 Metoprolol Tartrate (Lopressor) 25 mg EVERY 12 HOURS ORAL 11/04/16 21:00 12/04/16 20:59 11/05/16 09:31 Metronidazole 100 ml @ 100 mls/hr Q8HR IVPB 11/04/16 22:00 11/11/16 21:59 11/05/16 06:19 Ranitidine HCl (Zantac) 150 mg TWICE A DAY ORAL 11/04/16 18:00 12/04/16 17:59 11/05/16 09:31 Sodium Chloride 1,000 ml @ 50 mls/hr Q20H IV 11/04/16 17:00 12/04/16 16:59 11/04/16 18:11 Sucralfate 1 gm 1 gm FOUR TIMES A DAY ORAL 11/04/16 18:00 12/04/16 17:59 11/05/16 09:31 Vancomycin HCl 1 ea 1 ea DAILY PRN MISC Per rx protocol 11/04/16 19:15 12/04/16 19:14 Vancomycin HCl/ Dextrose (Vancomycin/D5W) 275 ml @ 183.708 mls/hr Q8HR@0700,1500,2300 IVPB 11/04/16 23:00 11/09/16 22:59 11/05/16 07:33 Assessment/Plan Problem List: (1) COPD (chronic obstructive pulmonary disease) ICD Codes: J44.9 - Chronic obstructive pulmonary disease, unspecified SNOMED: 08989506 (2) Sepsis ICD Codes: A41.9 - Sepsis SNOMED: 88775429 (3) Encephalopathy ICD Codes: G93.40 - Encephalopathy, unspecified SNOMED: 90334625, 146639913 (4) CVA, old, aphasia ICD Codes: I69.320 - Aphasia as late effect of cerebrovascular accident SNOMED: 666059108 Assessment/Plan ratliff culture broad specturm antibiotics respiratory treatment biapap on stand by check sputum dvt prophylaxis Gtube feeding SWATI THOMAS Nov 05, 2016 11:30
[2016-11-05 12:00] VITALS: BP 111/56
--- NOTE | 2016-11-05 13:34 | Diagnostic Imaging Report ---
Indication: Chest pain Comparison: 10/21/16 A single view chest radiograph was obtained. Findings: There is slight blunting of the left costophrenic angle. There is an ill-defined parenchymal opacity at the left lung base. Pneumonia certainly possible. These correlate clinically. Heart size is normal. The bones are osteopenic. Impression: Possible pneumonia versus atelectasis left lung base. Suspect a small pleural effusion
--- NOTE | 2016-11-05 14:48 | General Progress Note ---
Assessment/Plan Status: stable Assessment/Plan This patient is being admitted with the diagnosis of sepsis, hypoxia, tachycardia, high lactate level, and hyperglycemia. Other conditions are history of CVA, hypertension, high cholesterol, chronic obstructive pulmonary disease, and PEG. Plan: HHN Antibiotics- Sugar control Per ID and Pulm Subjective ROS Limited/Unobtainable: Yes Allergies: Coded Allergies: MILK (Unverified Allergy, Unknown, 05/14/16) SOY (Unverified Allergy, Unknown, 05/14/16) SOYBEAN (Unverified Allergy, Unknown, 05/14/16) Objective Last 24 Hour Vital Signs Date Time Temp Pulse Resp B/P Pulse Ox O2 Delivery O2 Flow Rate FiO2 11/05/16 13:10 94 14.0 55 11/05/16 12:00 98.1 89 21 111/56 99 Venturi Mask 55 11/05/16 11:37 88 11/05/16 11:23 94 14.0 55 11/05/16 10:59 87 17 94 Venturi Mask 14.0 55 11/05/16 10:49 55 11/05/16 10:48 86 15 93 Venturi Mask 14.0 55 11/05/16 09:31 98 113/66 11/05/16 09:26 100 14.0 55 11/05/16 09:22 98 17 Venturi Mask 14.0 55 11/05/16 08:00 98.4 98 20 113/66 100 Non-Rebreather 100 11/05/16 07:48 97 11/05/16 06:54 99 17 100 Venturi Mask 14.0 55 11/05/16 06:44 98 17 99 Venturi Mask 15.0 100 11/05/16 06:44 100 11/05/16 06:44 100 15.0 100 11/05/16 03:34 90 11/05/16 03:33 91 20 100 Non-Rebreather 10.0 60 11/05/16 03:24 92 18 99 Non-Rebreather 10.0 60 11/05/16 03:24 60 11/05/16 00:00 97.1 89 20 110/66 97 Non-Rebreather 11/04/16 23:54 88 11/04/16 23:49 87 20 99 Non-Rebreather 10.0 60 11/04/16 23:42 89 20 99 Non-Rebreather 60 11/04/16 23:42 60 11/04/16 22:18 106 121/65 11/04/16 21:00 97.5 102 20 121/65 100 Non-Rebreather 100 11/04/16 21:00 60 11/04/16 20:46 98.2 109 29 126/71 99 Bi-pap 2.0 60 11/04/16 20:40 98.2 109 29 126/71 99 Bi-pap 2.0 60 11/04/16 20:39 60 11/04/16 19:17 113 29 99 Bi-pap 10.0 60 11/04/16 19:11 110 29 Bi-pap 60 11/04/16 19:08 60 11/04/16 19:08 110 22 Bi-pap 60 11/04/16 19:08 110 27 99 Bi-pap 60 11/04/16 18:46 109 28 99 Facial 60 11/04/16 18:02 98.2 109 24 136/69 99 2.0 60 11/04/16 17:00 112 28 99 Facial 60 11/04/16 15:38 98.3 105 18 135/64 99 Bi-pap 2.0 60 Intake and Output 11/04/16 11/05/16 19:00 07:00 Intake Total 1155 ml 1135 ml Balance 1155 ml 1135 ml Intake Oral 0 ml Free Water 30 ml IV Total 1155 ml 925 ml Tube Feeding 180 ml # Bowel Movements 3 Laboratory Tests 11/05/16 04:30: White Blood Count 13.8H, Red Blood Count 4.08L, Hemoglobin 13.2L, Hematocrit 42.3, Mean Corpuscular Volume 104H, Mean Corpuscular Hemoglobin 32.3H, Mean Corpuscular Hemoglobin Concent 31.1L, Red Cell Distribution Width 14.3, Platelet Count 126L, Mean Platelet Volume 10.5H, Neutrophils (%) (Auto) 70.9, Lymphocytes (%) (Auto) 19.4L, Monocytes (%) (Auto) 8.4, Eosinophils (%) (Auto) 0.3, Basophils (%) (Auto) 1.0, Sodium Level 146H, Potassium Level 4.3, Chloride Level 112H, Carbon Dioxide Level 25, Anion Gap 9, Blood Urea Nitrogen 33H, Creatinine 0.9, Estimat Glomerular Filtration Rate , Glucose Level 368H, Hemoglobin A1c 9.7H, Uric Acid 7.5, Calcium Level 9.5, Phosphorus Level 2.5, Magnesium Level 2.3, Total Bilirubin 1.0, Gamma Glutamyl Transpeptidase 50, Aspartate Amino Transf (AST/SGOT) 19, Alanine Aminotransferase (ALT/SGPT) 15, Alkaline Phosphatase 68, Total Creatine Kinase 224H, C-Reactive Protein, Quantitative 24.3H, Pro-B-Type Natriuretic Peptide 264, Total Protein 7.6, Albumin 2.8L, Globulin 4.8, Albumin/Globulin Ratio 0.5L, Triglycerides Level 121 , Cholesterol Level 136, LDL Cholesterol 74, HDL Cholesterol 38, Cholesterol/ HDL Ratio 3.6 Height (Feet): 5 Height (Inches): 8.00 Weight (Pounds): 179 General Appearance: no apparent distress Cardiovascular: tachycardia Respiratory/Chest: decreased breath sounds Abdomen: distended JULIANNE HERNÁNDEZ Nov 05, 2016 14:48
[2016-11-05 16:00] VITALS: BP 129/69
[2016-11-05] MEDS ORDERED: NovoLOG Insulin Flexpen SUBQ SCH ×2 (16:30→18:00)
--- NOTE | 2016-11-05 16:51 | Cardiology Report ---
APPROVED REPORT EKG Measurement Heart [id number] Sinus tachycardia Left axis deviation Incomplete right bundle branch block Minimal voltage criteria for LVH, may be normal variant Inferior infarct, age undetermined Possible Anterior infarct, age undetermined Abnormal ECG
[2016-11-05] MEDS ORDERED: Acetaminophen 650mg/20.3ml GT PRN (17:00)
[2016-11-05] MEDS ORDERED: Tubing IV Secondary IV ONE (17:47)
[2016-11-05] MEDS ORDERED: NS 275ml ONE (17:47)
[2016-11-05 19:24] VITALS: BP 103/57
--- NOTE | 2016-11-05 21:04 | Infectious Diseases Prog Note ---
Assessment/Plan Assessment/Plan ASSESSMENT AND PLAN: 1. sepsis, possible aspiration pna/hcap, ? uti, leukocytosis, ? c.diff - continue vancomycin, cefepime, flagyl, diflucan - check cultures, labs and chest x-ray - pulmonary treatment 2. Wound care protocol. 3. The patient has a history of hypertension. 4. Diabetes. 5. Blood sugar and blood pressure control per Dr. Mack and consultants. 6. Anemia. 7. Chronic obstructive pulmonary disease. 8. Pulmonary treatment. 9. Cerebrovascular accident. 10. Aspiration risk. 11. Weakness. 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 13. Dysphagia, on gastrostomy tube. 14. Aphasia. 15. Degenerative joint disease. 16. Depression. 17. Dyslipidemia, hypercholesterolemia. 18. Gastritis. 19. Contractures. 20. Past medical history is noted. 21. Social history, past smoker. 22. Family History noncontributory. 23. MAR was noted. 24. Case was discussed with RN. 25. Allergies to milk, soy, and soybeans. 26. Continue treatment per primary consultants. 27. Wound care protocol. 28. Notes were reviewed. 29. d/w Dr. Mack about patient care Subjective Constitutional: Reports: fatigue, other - lethargic, Denies: fever HEENT: Reports: congestion Respiratory: Reports: shortness of breath Cardiovascular: Denies: chest pain Gastrointestinal/Abdominal: Denies: diarrhea, nausea, vomiting Genitourinary: Reports: other - + garcia Neurologic: Reports: confusion, other - lethargic Psychiatric: Reports: no symptoms - na Skin: Denies: rash Hematologic: Denies: bleeding Allergies: Coded Allergies: MILK (Unverified Allergy, Unknown, 05/14/16) SOY (Unverified Allergy, Unknown, 05/14/16) SOYBEAN (Unverified Allergy, Unknown, 05/14/16) Objective Vital Signs Last 24 Hour Vital Signs Date Time Temp Pulse Resp B/P Pulse Ox O2 Delivery O2 Flow Rate FiO2 11/05/16 20:45 88 103/57 11/05/16 19:24 97.5 88 20 103/57 98 Nasal Cannula 15.0 11/05/16 19:10 89 18 97 Venturi Mask 14.0 55 11/05/16 19:06 93 14.0 55 11/05/16 19:04 55 11/05/16 19:01 89 18 94 Venturi Mask 14.0 55 11/05/16 19:01 89 18 Venturi Mask 14.0 55 11/05/16 16:00 98.9 95 21 129/69 100 Venturi Mask 55 11/05/16 15:23 91 17 95 Venturi Mask 14.0 55 11/05/16 15:13 55 11/05/16 15:13 89 16 94 Venturi Mask 14.0 55 11/05/16 15:09 93 14.0 55 11/05/16 13:10 94 14.0 55 11/05/16 12:00 98.1 89 21 111/56 99 Venturi Mask 55 11/05/16 11:37 88 11/05/16 11:23 94 14.0 55 11/05/16 10:59 87 17 94 Venturi Mask 14.0 55 11/05/16 10:49 55 11/05/16 10:48 86 15 93 Venturi Mask 14.0 55 11/05/16 09:31 98 113/66 11/05/16 09:26 100 14.0 55 11/05/16 09:22 98 17 Venturi Mask 14.0 55 11/05/16 08:00 98.4 98 20 113/66 100 Non-Rebreather 100 11/05/16 07:48 97 11/05/16 06:54 99 17 100 Venturi Mask 14.0 55 11/05/16 06:44 98 17 99 Venturi Mask 15.0 100 11/05/16 06:44 100 11/05/16 06:44 100 15.0 100 11/05/16 03:34 90 11/05/16 03:33 91 20 100 Non-Rebreather 10.0 60 11/05/16 03:24 92 18 99 Non-Rebreather 10.0 60 11/05/16 03:24 60 11/05/16 00:00 97.1 89 20 110/66 97 Non-Rebreather 11/04/16 23:54 88 11/04/16 23:49 87 20 99 Non-Rebreather 10.0 60 11/04/16 23:42 89 20 99 Non-Rebreather 60 11/04/16 23:42 60 11/04/16 22:18 106 121/65 11/04/16 21:00 97.5 102 20 121/65 100 Non-Rebreather 100 11/04/16 21:00 60 Height (Feet): 5 Height (Inches): 8.00 Weight (Pounds): 179 General Appearance: other - + sob/congestion HEENT: normocephalic, atraumatic, anicteric, EOMI, supple, no JVD Respiratory/Chest: crackles/rales, rhonchi - bilaterally Cardiovascular: normal rate, regular rhythm, no gallop/murmur, no JVD Abdomen: normal bowel sounds, soft, non tender, no organomegaly, non distended Genitourinary: other - + garcia - urine cloudy Extremities: no cyanosis Skin: no rash Neurologic/Psychiatric: pilot II-XII grossly normal, motor weakness, other - lethargic Lymphatic: no neck adenopathy Musculoskeletal: no effusion Objective 11/04 - chest x-ray: Findings: There is slight blunting of the left costophrenic angle. There is an ill-defined parenchymal opacity at the left lung base. Pneumonia certainly possible. These correlate clinically. Heart size is normal. The bones are osteopenic. Impression: Possible pneumonia versus atelectasis left lung base. Suspect a small pleural effusion pending Laboratory Tests Test 11/05/16 04:30 White Blood Count 13.8 K/UL (4.8-10.8) H Red Blood Count 4.08 M/UL (4.70-6.10) L Hemoglobin 13.2 G/DL (14.2-18.0) L Hematocrit 42.3 % (42.0-52.0) Mean Corpuscular Volume 104 FL (80-99) H Mean Corpuscular Hemoglobin 32.3 PG (27.0-31.0) H Mean Corpuscular Hemoglobin Concent 31.1 G/DL (32.0-36.0) L Red Cell Distribution Width 14.3 % (11.6-14.8) Platelet Count 126 K/UL (150-450) L Mean Platelet Volume 10.5 FL (6.5-10.1) H Neutrophils (%) (Auto) 70.9 % (45.0-75.0) Lymphocytes (%) (Auto) 19.4 % (20.0-45.0) L Monocytes (%) (Auto) 8.4 % (1.0-10.0) Eosinophils (%) (Auto) 0.3 % (0.0-3.0) Basophils (%) (Auto) 1.0 % (0.0-2.0) Sodium Level 146 mEQ/L (135-145) H Potassium Level 4.3 mEQ/L (3.4-4.9) Chloride Level 112 mEQ/L (98-107) H Carbon Dioxide Level 25 mEQ/L (20-30) Anion Gap 9 (5-15) Blood Urea Nitrogen 33 mg/dL (7-23) H Creatinine 0.9 mg/dL (0.7-1.2) Estimat Glomerular Filtration Rate mL/min (>60) Glucose Level 368 mg/dL (74-106) H Hemoglobin A1c 9.7 % (< 6.0) H Uric Acid 7.5 mg/dL (3.0-7.5) Calcium Level 9.5 mg/dL (8.6-10.2) Phosphorus Level 2.5 mg/dL (2.5-4.8) Magnesium Level 2.3 mg/dL (1.7-2.5) Total Bilirubin 1.0 mg/dL (0.0-1.2) Gamma Glutamyl Transpeptidase 50 U/L (8-61) Aspartate Amino Transf (AST/SGOT) 19 U/L (5-40) Alanine Aminotransferase (ALT/SGPT) 15 U/L (3-41) Alkaline Phosphatase 68 U/L (40-129) Total Creatine Kinase 224 U/L (38-174) H C-Reactive Protein, Quantitative 24.3 mg/dL (< 0.5) H Pro-B-Type Natriuretic Peptide 264 pg/mL (0-450) Total Protein 7.6 g/dL (6.6-8.7) Albumin 2.8 g/dL (3.5-5.2) L Globulin 4.8 g/dL Albumin/Globulin Ratio 0.5 (1.0-2.7) L Triglycerides Level 121 mg/dL (< 150) Cholesterol Level 136 mg/dL (< 200) LDL Cholesterol 74 mg/dL (60-99) HDL Cholesterol 38 mg/dL (> 60) Cholesterol/HDL Ratio 3.6 (3.3-4.4) Current Medications Medications (Trade) Dose Ordered Sig/Francesca Route PRN Reason Start Time Stop Time Status Last Admin Dose Admin Acetaminophen (Tylenol) 650 mg Q4H PRN GT fever 100.5 and above 11/05/16 17:00 12/05/16 16:59 Albuterol Sulfate (Proventil) 2.5 mg Q4HRT HHN 11/05/16 19:00 11/10/16 18:59 11/05/16 19:00 Aspirin (ASA) 81 mg DAILY GT 11/06/16 09:00 12/06/16 08:59 Cefepime HCl 1 gm/ Dextrose 50 ml @ 100 mls/hr Q12HR@1000,2200 IVPB 11/05/16 22:00 11/12/16 21:59 Dextrose (Dextrose 50%) STAT PRN IV Hypoglycemia 11/05/16 17:00 12/05/16 16:59 Fluconazole 50 ml @ 50 mls/hr Q24H IV 11/05/16 20:00 11/12/16 19:59 11/05/16 19:35 Insulin Aspart (NovoLOG) Q6HR SUBQ 11/05/16 18:00 12/05/16 17:59 11/05/16 17:48 Insulin Detemir (Levemir) 30 units Q12HR SUBQ 11/05/16 21:00 12/05/16 20:59 11/05/16 20:48 Lactobacillus Acidophilus (Culturelle) 1 tab BID GT 11/05/16 18:00 12/05/16 17:59 11/05/16 17:50 Lactulose (Cephulac) 20 gm TID GT 11/05/16 18:00 12/05/16 17:59 11/05/16 17:49 Metoprolol Tartrate (Lopressor) 25 mg EVERY 12 HOURS ORAL 11/05/16 21:00 12/05/16 20:59 Metronidazole 100 ml @ 100 mls/hr Q8HR IVPB 11/05/16 22:00 11/12/16 21:59 Ranitidine HCl (Zantac) 150 mg TWICE A DAY ORAL 11/05/16 18:00 12/05/16 17:59 11/05/16 17:49 Sodium Chloride 1,000 ml @ 50 mls/hr Q20H IV 11/05/16 16:30 12/05/16 16:29 11/05/16 17:50 Sucralfate (Carafate) 1 gm FOUR TIMES A DAY ORAL 11/05/16 18:00 12/05/16 17:59 11/05/16 20:45 Vancomycin HCl (Vanco rx to dose) 1 ea DAILY PRN MISC Per rx protocol 11/05/16 17:00 12/05/16 16:59 Vancomycin HCl/ Dextrose (Vancomycin/D5W) 275 ml @ 183.708 mls/hr Q8HR@0700,1500,2300 IVPB 11/05/16 23:00 11/10/16 22:59 ILYA AYON Nov 05, 2016 21:04
[2016-11-05] MEDS: Vancomycin 1 GM in D5W 275 ML IVPB SCH (23:08)
[2016-11-05 23:18] VITALS: BP 120/67
--- NOTE | 2016-11-06 02:23 | Wound Care Consultation ---
Wound Assessment Wound Assessment #1: Wound Number: #1 Wound Present on Admission: Yes New Wound: No Status Change of Wound: No Wound Location Body Site Modif: mid Wound Location Body Site: sacral Wound Type: pressure ulcer Jessica Test: Does not Jessica Pressure Ulcer Stage: III - scattered Wound Thickness: Full Thickness Wound Length: 8.0 Wound Width: 9.0 Wound Depth: 0.2 Percent of Wound Cavour/Red: 100 Wound Drainage Description: Serosanguineous Wound Drainage Amount: Scant Wound Drainage Odor: None/Absent Tissue Surrounding Wound: extensive full thickness scar tissue Wound General Appearance: Reddened Wound Assessment #2: Wound Number: #2 Wound Present on Admission: Yes New Wound: No Status Change of Wound: No Wound Location Body Site Modif: left, lateral Wound Location Body Site: heel Wound Type: pressure ulcer Jessica Test: Does not Jessica Pressure Ulcer Stage: IV/unstageable Wound Thickness: Full Thickness Wound Length: 4.5 Wound Width: 4.5 Wound Depth: utd Percent of Wound Cavour/Red: 30 Percent of Wound Black/Brown: 70 Wound Drainage Description: Serosanguineous Wound Drainage Amount: Scant Wound Drainage Odor: None/Absent Tissue Surrounding Wound: Macerated Wound General Appearance: Blackened, Draining Wound Assessment #3: Wound Number: #3 Wound Present on Admission: Yes New Wound: No Status Change of Wound: No Wound Location Body Site Modif: right, lateral Wound Location Body Site: heel Wound Type: pressure ulcer Jessica Test: Does not Jessica Pressure Ulcer Stage: IV/unstageable Wound Thickness: Full Thickness Wound Length: 6.0 Wound Width: 6.0 Wound Depth: utd Percent of Wound Bed Yellow/Wh: 60 Percent of Wound Black/Brown: 40 Wound Drainage Description: Serosanguineous Wound Drainage Amount: Scant Wound Drainage Odor: None/Absent Tissue Surrounding Wound: Macerated Wound General Appearance: Draining, Necrotic Wound Assessment #4: Wound Number: #4 Wound Present on Admission: Yes New Wound: No Status Change of Wound: No Wound Location Body Site Modif: right, lateral Wound Location Body Site: malleolus/ankle Wound Type: pressure ulcer Jessica Test: Does not Jessica Pressure Ulcer Stage: IV/unstageable Wound Thickness: Full Thickness Wound Length: 2.5 Wound Width: 2.0 Wound Depth: utd Percent of Wound Black/Brown: 100 Wound Drainage Description: Serosanguineous Wound Drainage Amount: Scant Wound Drainage Odor: None/Absent Tissue Surrounding Wound: Erythemic Wound General Appearance: Blackened Wound Comment #1 Sacral full thickness scar tissue. #2 Sacral scattered pressure ulcer stage III. #3 Right lateral heel unstageable pressure ulcer. #4 Left lateral heel unstageable pressure ulcer. #5 Right lateral malleolus unstageable pressure ulcer Recommendation. -Sacral scattered stage III and Right lateral malleolus pressure ulcers Cleanse with saline pat dry apply Triad cream cover with Bordered gauze daily and PRN soiled/dislodged -Left and right heel unstageable pressure ulcers Cleanse with saline, pat dry, apply Therahoney gel to wound bed, cover with 4x4 , wrap with Kerlix daily and PRN soiled/dislodged -Local wound care as ordered. -Apply low air loss overlay SPR. -Turn and reposition. -Optimize nutrition. -Keep clean and dry. -Offload affected left and right heels -Heel protectors. -Avoid shear and friction. -Assess and notify MD for any further changes of condition in skin. BAMBI TUBBS RN Nov 06, 2016 02:23
[2016-11-06] MEDS: Albuterol ud Inhalation HHN SCH ×6 (03:16→23:09)
[2016-11-06 03:50] VITALS: BP 139/68
[2016-11-06] MEDS: metroNIDAZOLE 500mg 100 ML IVPB SCH ×2 (05:30→13:18)
[2016-11-06] MEDS: NovoLOG Insulin Flexpen SUBQ SCH ×3 (05:53→17:40)
[2016-11-06] MEDS: Vancomycin 1 GM in D5W 275 ML IVPB SCH ×3 (06:16→22:00)
[2016-11-06 07:05] LABS: BASOPHILS % (AUTO) 0.8 % (0.0-2.0); EOSINOPHILS % (AUTO) 2.6 % (0.0-3.0); LYMPHOCYTES % (AUTO) 22.5 % (20.0-45.0); MEAN CORPUSCULAR HEMOGLOBIN 32.4 PG (27.0-31.0); MEAN CORPUSCULAR HGB CONC 31.1 G/DL (32.0-36.0); MEAN CORPUSCULAR VOLUME 104 FL (80-99); MEAN PLATELET VOLUME 10.5 FL (6.5-10.1); MONOCYTES % (AUTO) 8.3 % (1.0-10.0); NEUTROPHILS % (AUTO) 65.8 % (45.0-75.0); PLATELET COUNT 116 K/UL (150-450); RED BLOOD COUNT 3.52 M/UL (4.70-6.10); RED CELL DISTRIBUTION WIDTH 13.8 % (11.6-14.8); WHITE BLOOD COUNT 8.9 K/UL (4.8-10.8)
[2016-11-06 07:22] LABS: ALANINE AMINOTRANSFERASE 14 U/L (3-41); ALBUMIN/GLOBULIN RATIO 0.5 (1.0-2.7); ANION GAP 10 (5-15); ASPARTATE AMINO TRANSFERASE 20 U/L (5-40); CARBON DIOXIDE 26 mEQ/L (20-30); CHLORIDE 109 mEQ/L (98-107); CREATININE 0.7 mg/dL (0.7-1.2); HEMOLYSIS 4; POTASSIUM 3.5 mEQ/L (3.4-4.9); SODIUM 145 mEQ/L (135-145)
[2016-11-06] MEDS: Levemir Flexpen SUBQ SCH ×2 (08:30→20:56)
[2016-11-06 08:44] VITALS: BP 131/66
[2016-11-06] MEDS: Lactulose 20gm/30ml UDC GT SCH ×3 (09:00→17:45)
[2016-11-06] MEDS: Metoprolol 25mg tab ORAL SCH ×2 (09:16→20:51)
[2016-11-06] MEDS: Aspirin Baby 81mg GT SCH (09:16)
[2016-11-06] MEDS: Lactobacillus-GG tablet GT SCH ×2 (09:16→17:32)
[2016-11-06] MEDS: Sucralfate 1gm tab ORAL SCH ×4 (09:16→20:54)
--- NOTE | 2016-11-06 09:33 | General Progress Note ---
Assessment/Plan Status: stable Status Narrative WBCs down- Assessment/Plan This patient is being admitted with the diagnosis of sepsis, hypoxia, tachycardia, high lactate level, and hyperglycemia. Other conditions are history of CVA, hypertension, high cholesterol, chronic obstructive pulmonary disease, and PEG. Plan: Stop IV hydration- Increase GT feeding 50- HHN Antibiotics- Sugar control Per ID and Pulm Subjective ROS Limited/Unobtainable: No Constitutional: Reports: malaise Allergies: Coded Allergies: MILK (Unverified Allergy, Unknown, 05/14/16) SOY (Unverified Allergy, Unknown, 05/14/16) SOYBEAN (Unverified Allergy, Unknown, 05/14/16) Objective Last 24 Hour Vital Signs Date Time Temp Pulse Resp B/P Pulse Ox O2 Delivery O2 Flow Rate FiO2 11/06/16 08:44 97.7 89 20 131/66 100 Nasal Cannula 10.0 11/06/16 07:31 83 16 99 Venturi Mask 14.0 55 11/06/16 07:24 80 16 98 Venturi Mask 14.0 55 11/06/16 07:24 55 11/06/16 07:24 80 16 Venturi Mask 14.0 55 11/06/16 03:50 97.5 91 18 139/68 100 Nasal Cannula 15.0 11/06/16 03:27 91 18 97 Venturi Mask 14.0 55 11/06/16 03:16 55 11/06/16 03:16 88 18 92 Venturi Mask 14.0 55 11/05/16 23:30 55 11/05/16 23:30 92 18 99 Venturi Mask 14.0 55 11/05/16 23:22 88 18 99 Venturi Mask 14.0 55 11/05/16 23:22 55 11/05/16 23:18 97.5 88 20 120/67 99 Nasal Cannula 15.0 11/05/16 20:45 88 103/57 11/05/16 19:24 97.5 88 20 103/57 98 Nasal Cannula 15.0 11/05/16 19:10 89 18 97 Venturi Mask 14.0 55 11/05/16 19:06 93 14.0 55 11/05/16 19:04 55 11/05/16 19:01 89 18 94 Venturi Mask 14.0 55 11/05/16 19:01 89 18 Venturi Mask 14.0 55 11/05/16 16:00 98.9 95 21 129/69 100 Venturi Mask 55 11/05/16 15:23 91 17 95 Venturi Mask 14.0 55 11/05/16 15:13 55 11/05/16 15:13 89 16 94 Venturi Mask 14.0 55 11/05/16 15:09 93 14.0 55 11/05/16 13:10 94 14.0 55 11/05/16 12:00 98.1 89 21 111/56 99 Venturi Mask 55 11/05/16 11:37 88 11/05/16 11:23 94 14.0 55 11/05/16 10:59 87 17 94 Venturi Mask 14.0 55 11/05/16 10:49 55 11/05/16 10:48 86 15 93 Venturi Mask 14.0 55 Intake and Output 11/05/16 11/06/16 19:00 07:00 Intake Total 1500.000 ml 1355.000 ml Output Total 525 ml 475 ml Balance 975.000 ml 880.000 ml Free Water 140 ml 30 ml IV Total 1240.000 ml 1025.000 ml Tube Feeding 120 ml 300 ml Output Urine Total 525 ml 475 ml # Bowel Movements 3 4 Current Medications Medications (Trade) Dose Ordered Sig/Francesca Route PRN Reason Start Time Stop Time Status Last Admin Dose Admin Acetaminophen (Tylenol) 650 mg Q4H PRN GT fever 100.5 and above 11/05/16 17:00 12/05/16 16:59 Albuterol Sulfate (Proventil) 2.5 mg Q4HRT HHN 11/05/16 19:00 11/10/16 18:59 11/06/16 07:23 Aspirin (ASA) 81 mg DAILY GT 11/06/16 09:00 12/06/16 08:59 Cefepime HCl 1 gm/ Dextrose 50 ml @ 100 mls/hr Q12HR@1000,2200 IVPB 11/05/16 22:00 11/12/16 21:59 11/05/16 21:11 Dextrose (Dextrose 50%) STAT PRN IV Hypoglycemia 11/05/16 17:00 12/05/16 16:59 Fluconazole 50 ml @ 50 mls/hr Q24H IV 11/05/16 20:00 11/12/16 19:59 11/05/16 19:35 Insulin Aspart (NovoLOG) Q6HR SUBQ 11/05/16 18:00 12/05/16 17:59 11/06/16 05:53 Insulin Detemir (Levemir) 30 units Q12HR SUBQ 11/05/16 21:00 12/05/16 20:59 11/05/16 20:48 Lactobacillus Acidophilus (Culturelle) 1 tab BID GT 11/05/16 18:00 12/05/16 17:59 11/05/16 17:50 Lactulose (Cephulac) 20 gm TID GT 11/05/16 18:00 12/05/16 17:59 11/05/16 17:49 Metoprolol Tartrate (Lopressor) 25 mg EVERY 12 HOURS ORAL 11/05/16 21:00 12/05/16 20:59 Metronidazole 100 ml @ 100 mls/hr Q8HR IVPB 11/05/16 22:00 11/12/16 21:59 11/06/16 05:30 Ranitidine HCl (Zantac) 150 mg TWICE A DAY ORAL 11/05/16 18:00 12/05/16 17:59 11/05/16 17:49 Sodium Chloride 1,000 ml @ 50 mls/hr Q20H IV 11/05/16 16:30 12/05/16 16:29 11/05/16 17:50 Sucralfate (Carafate) 1 gm FOUR TIMES A DAY ORAL 11/05/16 18:00 12/05/16 17:59 11/05/16 20:45 Vancomycin HCl (Vanco rx to dose) 1 ea DAILY PRN MISC Per rx protocol 11/05/16 17:00 12/05/16 16:59 Vancomycin HCl/ Dextrose (Vancomycin/D5W) 275 ml @ 183.708 mls/hr Q8HR@0700,1500,2300 IVPB 11/05/16 23:00 11/10/16 22:59 11/06/16 06:16 Laboratory Tests 11/05/16 21:50: Vancomycin Level Trough 19.9H 11/06/16 04:35: Sodium Level 145, Potassium Level 3.5, Chloride Level 109H, Carbon Dioxide Level 26, Anion Gap 10, Blood Urea Nitrogen 19, Creatinine 0.7, Estimat Glomerular Filtration Rate , Glucose Level 220#H, Calcium Level 9.0, Total Bilirubin 0.4, Aspartate Amino Transf (AST/SGOT) 20, Alanine Aminotransferase ( ALT/SGPT) 14, Alkaline Phosphatase 60, Pro-B-Type Natriuretic Peptide 316, Total Protein 7.0, Albumin 2.6L, Globulin 4.4, Albumin/Globulin Ratio 0.5L 11/06/16 04:55: White Blood Count 8.9, Red Blood Count 3.52L, Hemoglobin 11.4L, Hematocrit 36.7L , Mean Corpuscular Volume 104H, Mean Corpuscular Hemoglobin 32.4H, Mean Corpuscular Hemoglobin Concent 31.1L, Red Cell Distribution Width 13.8, Platelet Count 116L, Mean Platelet Volume 10.5H, Neutrophils (%) (Auto) 65.8, Lymphocytes (%) (Auto) 22.5, Monocytes (%) (Auto) 8.3, Eosinophils (%) (Auto) 2.6, Basophils (%) (Auto) 0.8 Height (Feet): 5 Height (Inches): 8.00 Weight (Pounds): 179 General Appearance: no apparent distress Respiratory/Chest: decreased breath sounds Abdomen: soft JULIANNE HERNÁNDEZ Nov 06, 2016 09:33
[2016-11-06 12:35] VITALS: BP 104/54
--- NOTE | 2016-11-06 15:10 | Diagnostic Imaging Report ---
Indication: Dyspnea Comparison: 11/04/16 A single view chest radiograph was obtained. Findings: There is mild atelectasis present the right lung base. The left basal atelectasis seen yesterday has improved slightly. The small focus of costophrenic angle blunting on the left is no longer seen. Impression: Mild basilar atelectasis noted currently
[2016-11-06 16:00] VITALS: BP 102/53
--- NOTE | 2016-11-06 16:50 | Infectious Diseases Prog Note ---
Assessment/Plan Assessment/Plan ASSESSMENT AND PLAN: 1. sepsis, leukocytosis, possible aspiration pna/hcap vs atx, ? gram neg sacral wound infection - clinically improved, less sob, leukocytosis resolved - continue vancomycin, cefepime, flagyl, diflucan - check sc, labs and chest x-ray, check wound culture - pulmonary treatment - wound care per protocol - adjust abx pending final cultures 2. Wound care protocol. 3. The patient has a history of hypertension. 4. Diabetes. 5. Blood sugar and blood pressure control per Dr. Mack and consultants. 6. Anemia. 7. Chronic obstructive pulmonary disease. 8. Pulmonary treatment. 9. Cerebrovascular accident. 10. Aspiration risk. 11. Weakness. 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 13. Dysphagia, on gastrostomy tube. 14. Aphasia. 15. Degenerative joint disease. 16. Depression. 17. Dyslipidemia, hypercholesterolemia. 18. Gastritis. 19. Contractures. 20. Past medical history is noted. 21. Social history, past smoker. 22. Family History noncontributory. 23. MAR was noted. 24. Case was discussed with RN. 25. Allergies to milk, soy, and soybeans. 26. Continue treatment per primary consultants. 27. Wound care protocol. 28. Notes were reviewed. 29. d/w Dr. Mack about patient care Subjective Constitutional: Denies: fever HEENT: Reports: congestion - less Respiratory: Reports: other - + cough per RN, shortness of breath - less Cardiovascular: Denies: chest pain Gastrointestinal/Abdominal: Denies: diarrhea, nausea, vomiting Genitourinary: Reports: other - + garcia Neurologic: Denies: headache Psychiatric: Denies: depression Skin: Denies: rash Hematologic: Denies: bleeding Musculoskeletal: Denies: pain Allergies: Coded Allergies: MILK (Unverified Allergy, Unknown, 05/14/16) SOY (Unverified Allergy, Unknown, 05/14/16) SOYBEAN (Unverified Allergy, Unknown, 05/14/16) Objective Vital Signs Last 24 Hour Vital Signs Date Time Temp Pulse Resp B/P Pulse Ox O2 Delivery O2 Flow Rate FiO2 11/06/16 16:00 98.1 85 20 102/53 99 Simple Mask 10.0 11/06/16 12:35 97.7 85 20 104/54 100 Simple Mask 10.0 11/06/16 10:58 78 16 98 Venturi Mask 14.0 55 11/06/16 10:51 78 16 96 Venturi Mask 14.0 55 11/06/16 10:51 55 11/06/16 09:16 89 131/66 11/06/16 08:44 97.7 89 20 131/66 100 Simple Mask 10.0 11/06/16 07:31 83 16 99 Venturi Mask 14.0 55 11/06/16 07:24 80 16 98 Venturi Mask 14.0 55 11/06/16 07:24 55 11/06/16 07:24 80 16 Venturi Mask 14.0 55 11/06/16 03:50 97.5 91 18 139/68 100 Nasal Cannula 15.0 11/06/16 03:27 91 18 97 Venturi Mask 14.0 55 11/06/16 03:16 55 11/06/16 03:16 88 18 92 Venturi Mask 14.0 55 11/05/16 23:30 55 11/05/16 23:30 92 18 99 Venturi Mask 14.0 11/05/16 23:22 88 18 99 Venturi Mask 14.0 55 11/05/16 23:22 55 11/05/16 23:18 97.5 88 20 120/67 99 Nasal Cannula 15.0 11/05/16 20:45 88 103/57 11/05/16 19:24 97.5 88 20 103/57 98 Nasal Cannula 15.0 11/05/16 19:10 89 18 97 Venturi Mask 14.0 55 11/05/16 19:06 93 14.0 55 11/05/16 19:04 55 11/05/16 19:01 89 18 94 Venturi Mask 14.0 55 11/05/16 19:01 89 18 Venturi Mask 14.0 55 Height (Feet): 5 Height (Inches): 8.00 Weight (Pounds): 179 General Appearance: no acute distress, other - less sob HEENT: normocephalic, atraumatic, anicteric Respiratory/Chest: decreased breath sounds, crackles/rales, rhonchi - bilaterally Cardiovascular: normal rate, regular rhythm, no gallop/murmur, no JVD Abdomen: normal bowel sounds, soft, non tender, no organomegaly, non distended Genitourinary: other - + garcia - urine slt cloudy Extremities: no cyanosis Skin: no rash, other - wounds reviewed Neurologic/Psychiatric: continuity person II-XII grossly normal, alert, responsive Lymphatic: no neck adenopathy Musculoskeletal: no effusion Objective 11/04 - chest x-ray: Findings: There is slight blunting of the left costophrenic angle. There is an ill-defined parenchymal opacity at the left lung base. Pneumonia certainly possible. These correlate clinically. Heart size is normal. The bones are osteopenic. Impression: Possible pneumonia versus atelectasis left lung base. Suspect a small pleural effusion Microbiology Date/Time Source Procedure Growth Status 11/04/16 13:45 Blood Blood Culture - Preliminary NO GROWTH AFTER 24 HOURS Resulted 11/04/16 13:30 Blood Blood Culture - Preliminary NO GROWTH AFTER 24 HOURS Resulted 11/04/16 23:00 Indwelling Cath Urine Culture - Preliminary NO GROWTH Resulted 11/05/16 00:30 Sacral Wound Gram Stain - Final Resulted 11/05/16 00:30 Wound Culture - Preliminary Gram Negative Bacillus 1 Resulted Laboratory Tests Test 11/05/16 21:50 11/06/16 04:35 11/06/16 04:55 Vancomycin Level Trough 19.9 ug/mL (5.0-12.0) H Sodium Level 145 mEQ/L (135-145) Potassium Level 3.5 mEQ/L (3.4-4.9) Chloride Level 109 mEQ/L (98-107) H Carbon Dioxide Level 26 mEQ/L (20-30) Anion Gap 10 (5-15) Blood Urea Nitrogen 19 mg/dL (7-23) Creatinine 0.7 mg/dL (0.7-1.2) Estimat Glomerular Filtration Rate mL/min (>60) Glucose Level 220 mg/dL (74-106) #H Calcium Level 9.0 mg/dL (8.6-10.2) Total Bilirubin 0.4 mg/dL (0.0-1.2) Aspartate Amino Transf (AST/SGOT) 20 U/L (5-40) Alanine Aminotransferase (ALT/SGPT) 14 U/L (3-41) Alkaline Phosphatase 60 U/L (40-129) Pro-B-Type Natriuretic Peptide 316 pg/mL (0-450) Total Protein 7.0 g/dL (6.6-8.7) Albumin 2.6 g/dL (3.5-5.2) L Globulin 4.4 g/dL Albumin/Globulin Ratio 0.5 (1.0-2.7) L White Blood Count 8.9 K/UL (4.8-10.8) Red Blood Count 3.52 M/UL (4.70-6.10) L Hemoglobin 11.4 G/DL (14.2-18.0) L Hematocrit 36.7 % (42.0-52.0) L Mean Corpuscular Volume 104 FL (80-99) H Mean Corpuscular Hemoglobin 32.4 PG (27.0-31.0) H Mean Corpuscular Hemoglobin Concent 31.1 G/DL (32.0-36.0) L Red Cell Distribution Width 13.8 % (11.6-14.8) Platelet Count 116 K/UL (150-450) L Mean Platelet Volume 10.5 FL (6.5-10.1) H Neutrophils (%) (Auto) 65.8 % (45.0-75.0) Lymphocytes (%) (Auto) 22.5 % (20.0-45.0) Monocytes (%) (Auto) 8.3 % (1.0-10.0) Eosinophils (%) (Auto) 2.6 % (0.0-3.0) Basophils (%) (Auto) 0.8 % (0.0-2.0) Current Medications Medications (Trade) Dose Ordered Sig/Francesca Route PRN Reason Start Time Stop Time Status Last Admin Dose Admin Acetaminophen (Tylenol) 650 mg Q4H PRN GT fever 100.5 and above 11/05/16 17:00 12/05/16 16:59 Albuterol Sulfate (Proventil) 2.5 mg Q4HRT HHN 11/05/16 19:00 11/10/16 18:59 11/06/16 10:51 Aspirin (ASA) 81 mg DAILY GT 11/06/16 09:00 12/06/16 08:59 11/06/16 09:16 Cefepime HCl 1 gm/ Dextrose 50 ml @ 100 mls/hr Q12HR@1000,2200 IVPB 11/05/16 22:00 11/12/16 21:59 11/06/16 09:54 Dextrose (Dextrose 50%) STAT PRN IV Hypoglycemia 11/05/16 17:00 12/05/16 16:59 Fluconazole 50 ml @ 50 mls/hr Q24H IV 11/05/16 20:00 11/12/16 19:59 11/05/16 19:35 Insulin Aspart (NovoLOG) Q6HR SUBQ 11/05/16 18:00 12/05/16 17:59 11/06/16 12:09 Insulin Detemir (Levemir) 40 units Q12HR SUBQ 11/06/16 21:00 12/06/16 20:59 Lactobacillus Acidophilus (Culturelle) 1 tab BID GT 11/05/16 18:00 12/05/16 17:59 11/06/16 09:16 Lactulose (Cephulac) 20 gm TID GT 11/05/16 18:00 12/05/16 17:59 11/05/16 17:49 Metoprolol Tartrate (Lopressor) 25 mg EVERY 12 HOURS ORAL 11/05/16 21:00 12/05/16 20:59 11/06/16 09:16 Metronidazole 100 ml @ 100 mls/hr Q8HR IVPB 11/05/16 22:00 11/12/16 21:59 11/06/16 13:18 Ranitidine HCl (Zantac) 150 mg TWICE A DAY ORAL 11/05/16 18:00 12/05/16 17:59 11/06/16 09:16 Sucralfate (Carafate) 1 gm FOUR TIMES A DAY ORAL 11/05/16 18:00 12/05/16 17:59 11/06/16 12:15 Vancomycin HCl (Vanco rx to dose) 1 ea DAILY PRN MISC Per rx protocol 11/05/16 17:00 12/05/16 16:59 Vancomycin HCl/ Dextrose (Vancomycin/D5W) 275 ml @ 183.708 mls/hr Q8HR@0700,1500,2300 IVPB 11/05/16 23:00 11/10/16 22:59 11/06/16 15:08 ILYA AYON Nov 06, 2016 16:50
[2016-11-06] MEDS ORDERED: Tubing IV Secondary IV ONE ×2 (17:13→17:23)
[2016-11-06] MEDS ORDERED: NS 275ml ONE ×2 (17:13→17:23)
[2016-11-06] MEDS ORDERED: 1/2 NS 1000ml IV ONE (17:13)
[2016-11-06] MEDS: metroNIDAZOLE 500mg tab ORAL SCH (17:44)
[2016-11-06] MEDS: Fluconazole 100mg tab ORAL SCH (17:45)
--- NOTE | 2016-11-06 18:59 | Pulmonology Progress Note ---
Assessment/Plan Problems: (1) COPD (chronic obstructive pulmonary disease) (2) Sepsis (3) Encephalopathy (4) CVA, old, aphasia Assessment/Plan improving respiratory treatment check cultures check electrolytes all notes, meds reviewed. Subjective ROS Limited/Unobtainable: No Interval Events: comfortable Constitutional: Reports: no symptoms Allergies: Coded Allergies: MILK (Unverified Allergy, Unknown, 05/14/16) SOY (Unverified Allergy, Unknown, 05/14/16) SOYBEAN (Unverified Allergy, Unknown, 05/14/16) Objective Last 24 Hour Vital Signs Date Time Temp Pulse Resp B/P Pulse Ox O2 Delivery O2 Flow Rate FiO2 11/06/16 16:00 98.1 85 20 102/53 99 Simple Mask 10.0 11/06/16 12:35 97.7 85 20 104/54 100 Simple Mask 10.0 11/06/16 10:58 78 16 98 Venturi Mask 14.0 55 11/06/16 10:51 78 16 96 Venturi Mask 14.0 55 11/06/16 10:51 55 11/06/16 09:16 89 131/66 11/06/16 08:44 97.7 89 20 131/66 100 Simple Mask 10.0 11/06/16 07:31 83 16 99 Venturi Mask 14.0 55 11/06/16 07:24 80 16 98 Venturi Mask 14.0 55 11/06/16 07:24 55 11/06/16 07:24 80 16 Venturi Mask 14.0 55 11/06/16 03:50 97.5 91 18 139/68 100 Nasal Cannula 15.0 11/06/16 03:27 91 18 97 Venturi Mask 14.0 55 11/06/16 03:16 55 11/06/16 03:16 88 18 92 Venturi Mask 14.0 55 11/05/16 23:30 55 11/05/16 23:30 92 18 99 Venturi Mask 14.0 55 11/05/16 23:22 88 18 99 Venturi Mask 14.0 55 11/05/16 23:22 55 11/05/16 23:18 97.5 88 20 120/67 99 Nasal Cannula 15.0 11/05/16 20:45 88 103/57 11/05/16 19:24 97.5 88 20 103/57 98 Nasal Cannula 15.0 11/05/16 19:10 89 18 97 Venturi Mask 14.0 55 11/05/16 19:06 93 14.0 55 11/05/16 19:04 55 11/05/16 19:01 89 18 94 Venturi Mask 14.0 55 11/05/16 19:01 89 18 Venturi Mask 14.0 55 Intake and Output 11/05/16 11/06/16 19:00 07:00 Intake Total 1500.000 ml 1355.000 ml Output Total 525 ml 475 ml Balance 975.000 ml 880.000 ml Free Water 140 ml 30 ml IV Total 1240.000 ml 1025.000 ml Tube Feeding 120 ml 300 ml Output Urine Total 525 ml 475 ml # Bowel Movements 3 4 General Appearance: WD/WN HEENT: normocephalic, atraumatic Respiratory/Chest: chest wall non-tender, lungs clear Cardiovascular: normal peripheral pulses, normal rate Abdomen: normal bowel sounds, soft, non tender Genitourinary: normal external genitalia Extremities: no cyanosis Skin: no rash, no ulcers Neurologic/Psychiatric: toll operator II-XII grossly normal, abnormal gait Microbiology Date/Time Source Procedure Growth Status 11/04/16 13:45 Blood Blood Culture - Preliminary NO GROWTH AFTER 24 HOURS Resulted 11/04/16 13:30 Blood Blood Culture - Preliminary NO GROWTH AFTER 24 HOURS Resulted 11/04/16 23:00 Indwelling Cath Urine Culture - Preliminary NO GROWTH Resulted 11/05/16 00:30 Sacral Wound Gram Stain - Final Resulted 11/05/16 00:30 Wound Culture - Preliminary Gram Negative Bacillus 1 Resulted Laboratory Tests 11/05/16 21:50: Vancomycin Level Trough 19.9H 11/06/16 04:35: Sodium Level 145, Potassium Level 3.5, Chloride Level 109H, Carbon Dioxide Level 26, Anion Gap 10, Blood Urea Nitrogen 19, Creatinine 0.7, Estimat Glomerular Filtration Rate , Glucose Level 220#H, Calcium Level 9.0, Total Bilirubin 0.4, Aspartate Amino Transf (AST/SGOT) 20, Alanine Aminotransferase ( ALT/SGPT) 14, Alkaline Phosphatase 60, Pro-B-Type Natriuretic Peptide 316, Total Protein 7.0, Albumin 2.6L, Globulin 4.4, Albumin/Globulin Ratio 0.5L 11/06/16 04:55: White Blood Count 8.9, Red Blood Count 3.52L, Hemoglobin 11.4L, Hematocrit 36.7L , Mean Corpuscular Volume 104H, Mean Corpuscular Hemoglobin 32.4H, Mean Corpuscular Hemoglobin Concent 31.1L, Red Cell Distribution Width 13.8, Platelet Count 116L, Mean Platelet Volume 10.5H, Neutrophils (%) (Auto) 65.8, Lymphocytes (%) (Auto) 22.5, Monocytes (%) (Auto) 8.3, Eosinophils (%) (Auto) 2.6, Basophils (%) (Auto) 0.8 Current Medications Medications (Trade) Dose Ordered Sig/Francesca Route PRN Reason Start Time Stop Time Status Last Admin Dose Admin Acetaminophen (Tylenol) 650 mg Q4H PRN GT fever 100.5 and above 11/05/16 17:00 12/05/16 16:59 Albuterol Sulfate (Proventil) 2.5 mg Q4HRT HHN 11/05/16 19:00 11/10/16 18:59 11/06/16 10:51 Aspirin (ASA) 81 mg DAILY GT 11/06/16 09:00 12/06/16 08:59 11/06/16 09:16 Cefepime HCl 1 gm/ Dextrose 50 ml @ 100 mls/hr Q12HR@1000,2200 IVPB 11/05/16 22:00 11/12/16 21:59 11/06/16 09:54 Dextrose (Dextrose 50%) STAT PRN IV Hypoglycemia 11/05/16 17:00 12/05/16 16:59 Fluconazole (Diflucan) 100 mg Q24H ORAL 11/06/16 18:00 11/13/16 17:59 11/06/16 17:45 Insulin Aspart (NovoLOG) Q6HR SUBQ 11/05/16 18:00 12/05/16 17:59 11/06/16 17:40 Insulin Detemir (Levemir) 40 units Q12HR SUBQ 11/06/16 21:00 12/06/16 20:59 Lactobacillus Acidophilus (Culturelle) 1 tab BID GT 11/05/16 18:00 12/05/16 17:59 11/06/16 17:32 Lactulose (Cephulac) 20 gm TID GT 11/05/16 18:00 12/05/16 17:59 11/05/16 17:49 Metoprolol Tartrate (Lopressor) 25 mg EVERY 12 HOURS ORAL 11/05/16 21:00 12/05/16 20:59 11/06/16 09:16 Metronidazole (Flagyl) 500 mg Q8HR ORAL 11/06/16 18:00 11/13/16 17:59 11/06/16 17:44 Ranitidine HCl (Zantac) 150 mg TWICE A DAY ORAL 11/05/16 18:00 12/05/16 17:59 11/06/16 17:32 Sucralfate (Carafate) 1 gm FOUR TIMES A DAY ORAL 11/05/16 18:00 12/05/16 17:59 11/06/16 17:32 Vancomycin HCl (Vanco rx to dose) 1 ea DAILY PRN MISC Per rx protocol 11/05/16 17:00 12/05/16 16:59 Vancomycin HCl/ Dextrose (Vancomycin/D5W) 275 ml @ 183.708 mls/hr Q8HR@0700,1500,2300 IVPB 11/05/16 23:00 11/10/16 22:59 11/06/16 15:08 SWATI THOMAS Nov 06, 2016 18:58
[2016-11-06 20:00] VITALS: BP 96/46
[2016-11-07] VITALS: BP 121/57
[2016-11-07] MEDS: NovoLOG Insulin Flexpen SUBQ SCH ×5 (00:14→23:58)
[2016-11-07] MEDS: Albuterol ud Inhalation HHN SCH ×6 (03:08→23:23)
[2016-11-07 04:00] VITALS: BP 154/59
[2016-11-07] MEDS: metroNIDAZOLE 500mg tab ORAL SCH ×3 (05:02→23:42)
[2016-11-07] MEDS: Vancomycin 1 GM in D5W 275 ML IVPB SCH ×3 (06:03→23:41)
[2016-11-07 08:00] VITALS: BP 134/79
[2016-11-07] MEDS: Metoprolol 25mg tab ORAL SCH ×2 (08:30→23:45)
[2016-11-07] MEDS: Sucralfate 1gm tab ORAL SCH ×4 (08:30→23:41)
[2016-11-07] MEDS: Lactobacillus-GG tablet GT SCH ×2 (08:30→17:53)
[2016-11-07] MEDS: Levemir Flexpen SUBQ SCH ×3 (08:30→23:56)
[2016-11-07] MEDS: Aspirin Baby 81mg GT SCH (08:30)
--- NOTE | 2016-11-07 08:46 | General Progress Note ---
Assessment/Plan Status: doing well Assessment/Plan This patient is being admitted with the diagnosis of sepsis, hypoxia, tachycardia, high lactate level, and hyperglycemia. possible aspiration pna/hcap vs atx, ? gram neg sacral wound infection Other conditions are history of CVA, hypertension, high cholesterol, chronic obstructive pulmonary disease, and PEG. Plan: Stop IV hydration- Increase GT feeding 50- HHN Antibiotics- Sugar control- increase levemir Per ID and Pulm Subjective ROS Limited/Unobtainable: No Constitutional: Reports: malaise, other - more responsive Allergies: Coded Allergies: MILK (Unverified Allergy, Unknown, 05/14/16) SOY (Unverified Allergy, Unknown, 05/14/16) SOYBEAN (Unverified Allergy, Unknown, 05/14/16) Objective Last 24 Hour Vital Signs Date Time Temp Pulse Resp B/P Pulse Ox O2 Delivery O2 Flow Rate FiO2 11/07/16 08:00 97.0 65 19 134/79 93 Room Air 11/07/16 07:20 82 20 99 Venturi Mask 14.0 55 11/07/16 07:15 80 18 Venturi Mask 14.0 55 11/07/16 07:15 55 11/07/16 07:15 85 20 96 Venturi Mask 14.0 55 11/07/16 04:00 98.2 87 20 154/59 96 Room Air 11/07/16 03:12 95 18 99 Venturi Mask 14.0 55 11/07/16 03:06 55 11/07/16 03:06 85 20 96 Venturi Mask 14.0 55 11/07/16 00:00 98.0 87 23 121/57 93 Room Air 11/06/16 23:17 88 18 99 Venturi Mask 14.0 55 11/06/16 23:09 81 20 97 Venturi Mask 14.0 55 11/06/16 23:09 55 11/06/16 20:51 99 95/46 11/06/16 20:00 98.1 90 23 96/46 99 Bi-pap 11/06/16 19:18 80 18 99 Venturi Mask 14.0 55 11/06/16 19:13 80 18 Venturi Mask 14.0 55 11/06/16 19:12 74 18 97 Venturi Mask 14.0 55 11/06/16 19:11 55 11/06/16 16:00 98.1 85 20 102/53 99 Simple Mask 10.0 11/06/16 12:35 97.7 85 20 104/54 100 Simple Mask 10.0 11/06/16 10:58 78 16 98 Venturi Mask 14.0 55 11/06/16 10:51 78 16 96 Venturi Mask 14.0 55 11/06/16 10:51 55 11/06/16 09:16 89 131/66 Intake and Output 11/06/16 11/07/16 19:00 07:00 Intake Total 450 ml 600 ml Output Total 350 ml 600 ml Balance 100 ml 0 ml Tube Feeding 450 ml 600 ml Output Urine Total 350 ml 600 ml # Bowel Movements 1 1 Height (Feet): 5 Height (Inches): 8.00 Weight (Pounds): 179 General Appearance: no apparent distress, lethargic Cardiovascular: normal rate Respiratory/Chest: decreased breath sounds Abdomen: soft, distended JULIANNE HERNÁNDEZ Nov 07, 2016 08:46
[2016-11-07] MEDS: Lactulose 20gm/30ml UDC GT SCH ×3 (08:48→18:00)
[2016-11-07 12:00] VITALS: BP 137/56
--- NOTE | 2016-11-07 12:48 | Diagnostic Imaging Report ---
APPROVED REPORT CPT Code: 51031 Present Symptoms Comments: Numb/cold extremities BILATERAL: Imaging reveals a patent deep venous system bilaterally. There is no evidence of thrombus within the femoral, popliteal or tibial segments. The greater saphenous veins are also within normal limits. Doppler indicates normal spontaneous flow within these segments.
--- NOTE | 2016-11-07 15:19 | Consultation ---
History of Present Illness General Chief Complaint: Altered Level of Consciousness Referring physician: Dr. Mack Reason for Consultation: dypsnea Present Illness HPI the patient is a 81-year-old male who was admitted to the hospital with hypoxia , hyperglycemia, and altered mental status. The patient has been presenting with waxing and waning consciousness and is unable to provide any history and with impairment of concentration, memory, and attention. the pt is aphasic. no agitation. he was agitated yesterday. Allergies: Coded Allergies: MILK (Unverified Allergy, Unknown, 05/14/16) SOY (Unverified Allergy, Unknown, 05/14/16) SOYBEAN (Unverified Allergy, Unknown, 05/14/16) Medication History Scheduled Albuterol Sulfate* (Albuterol Sulfate Hhn*), 2.5 MG HHN Q4HRT Ascorbic Acid* (Vitamin C*), 500 MG GT DAILY, (Reported) Aspirin* (Aspir-Low*), 81 MG GT DAILY, (Reported) Cholecalciferol (Vitamin D3)* (Vitamin D*), 2,000 UNITS GT DAILY, (Reported) Cholecalciferol (Vitamin D3)* (Vitamin D*), 2,000 UNITS GT DAILY, (Reported) Cranberry Conc/C/Bacill Coag (Azo Cranberry Tablet), 1 EACH GT DAILY, (Reported) Docusate Sodium* (Colace*), 100 MG GT DAILY, (Reported) Ferrous Sulfate* (Ferrous Sulfate*), 325 MG GT TID, (Reported) Insulin Detemir (Levemir Flexpen), 30 UNITS SUBQ Q12HR Insulin Detemir (Levemir), 30 UNITS SUBQ EVERY 12 HOURS, (Reported) Lactulose (Lactulose*), 20 GM GT TID, (Reported) Levofloxacin* (Levaquin*), 500 MG ORAL DAILY Magnesium Hydroxide (Milk of Magnesia), 30 ML ORAL DAILY, (Reported) Metoprolol Tartrate* (Metoprolol Tartrate*), 25 MG ORAL EVERY 12 HOURS, ( Reported) Metronidazole* (Flagyl*), 500 MG ORAL EVERY 8 HOURS Multivitamins Liq* (Multivitamin Liq*), 5 ML GT DAILY, (Reported) Nateglinide* (Starlix*), 120 MG ORAL TIAC Omeprazole (Omeprazole), 20 MG GT BID, (Reported) Ranitidine Hcl* (Zantac*), 150 MG ORAL TWICE A DAY, (Reported) Sucralfate* (Carafate*), 1 GM ORAL FOUR TIMES A DAY, (Reported) Tamsulosin HCl (Flomax), 0.4 MG GT DAILY, (Reported) Zinc Sulfate (Zinc Sulfate*), 220 MG GT DAILY, (Reported) Scheduled PRN Acetaminophen (Acetaminophen), 650 MG GT Q4H PRN Acetaminophen* (Tylenol Extra Strength*), 1,000 MG GT DAILY PRN for Mild Pain/ Temp > 100.5, (Reported) Patient History Limited by: medical condition History Provided By: Medical Record, PMD Healthcare decision maker SEE ABOVE Resuscitation status Full Code Advanced Directive on File No Past Medical/Surgical History Past Medical/Surgical History: (1) feeding tube replacement (2) Malfunction of gastrostomy tube (3) Hypernatremia (4) Malfunction of gastrostomy tube (5) Acute GI hemorrhage (6) Symptomatic anemia (7) Atelectasis (8) Acute GI bleeding (9) Pneumonia (10) Encounter for feeding tube placement (11) Venous stasis dermatitis (12) Fall (13) Hypoalbuminemia (14) UTI (urinary tract infection) (15) Hyperglycemia (16) DM (diabetes mellitus) (17) At high risk for aspiration (18) G-tube site cellulitis (19) Pneumonia (20) COPD (chronic obstructive pulmonary disease) (21) Pleural effusion (22) Uncontrolled diabetes mellitus (23) Severe sepsis (24) Respiratory failure (25) Gastrointestinal hemorrhage (26) Rhabdomyolysis (27) CVA, old, aphasia (28) CVA, old, dysphagia (29) bleeding from gtube site (30) Encephalopathy (31) Sepsis Review of Systems Constitutional: Reports: malaise, weakness Psychiatric: Reports: anxiety, depressed feelings, emotional problems, prior hx Physical Exam General Appearance: no apparent distress, confused, agitated, thin Neurologic: unresponsiveness, depressed affect Last 24 Hour Vital Signs Date Time Temp Pulse Resp B/P Pulse Ox O2 Delivery O2 Flow Rate FiO2 11/07/16 14:50 86 18 99 Nasal Cannula 3.0 32 11/07/16 14:42 32 11/07/16 14:42 82 18 98 Nasal Cannula 3.0 32 11/07/16 12:00 97.8 87 20 137/56 97 Room Air 11/07/16 11:34 84 20 99 Nasal Cannula 3.0 32 11/07/16 11:30 80 20 95 Nasal Cannula 3.0 32 11/07/16 11:30 32 11/07/16 08:30 65 134/79 11/07/16 08:00 97.0 65 19 134/79 93 Room Air 11/07/16 07:20 82 20 99 Venturi Mask 14.0 55 11/07/16 07:15 80 18 Venturi Mask 14.0 55 11/07/16 07:15 55 11/07/16 07:15 85 20 96 Venturi Mask 14.0 55 11/07/16 04:00 98.2 87 20 154/59 96 Room Air 11/07/16 03:12 95 18 99 Venturi Mask 14.0 55 11/07/16 03:06 55 11/07/16 03:06 85 20 96 Venturi Mask 14.0 55 11/07/16 00:00 98.0 87 23 121/57 93 Room Air 11/06/16 23:17 88 18 99 Venturi Mask 14.0 55 11/06/16 23:09 81 20 97 Venturi Mask 14.0 55 11/06/16 23:09 55 11/06/16 20:51 99 95/46 11/06/16 20:00 98.1 90 23 96/46 99 Bi-pap 11/06/16 19:18 80 18 99 Venturi Mask 14.0 55 11/06/16 19:13 80 18 Venturi Mask 14.0 55 11/06/16 19:12 74 18 97 Venturi Mask 14.0 55 11/06/16 19:11 55 11/06/16 16:00 98.1 85 20 102/53 99 Simple Mask 10.0 Intake and Output 11/06/16 11/07/16 19:00 07:00 Intake Total 450 ml 600 ml Output Total 350 ml 600 ml Balance 100 ml 0 ml Tube Feeding 450 ml 600 ml Output Urine Total 350 ml 600 ml # Bowel Movements 1 1 Height (Feet): 5 Height (Inches): 8.00 Weight (Pounds): 179 Medications Current Medications Medications (Trade) Dose Ordered Sig/Francesca Route PRN Reason Start Time Stop Time Status Last Admin Dose Admin Acetaminophen (Tylenol) 650 mg Q4H PRN GT fever 100.5 and above 11/05/16 17:00 12/05/16 16:59 Albuterol Sulfate (Proventil) 2.5 mg Q4HRT HHN 11/05/16 19:00 11/10/16 18:59 11/07/16 14:42 Aspirin (ASA) 81 mg DAILY GT 11/06/16 09:00 12/06/16 08:59 11/07/16 08:30 Cefepime HCl 1 gm/ Dextrose 50 ml @ 100 mls/hr Q12HR@1000,2200 IVPB 11/05/16 22:00 11/12/16 21:59 11/07/16 10:14 Dextrose (Dextrose 50%) STAT PRN IV Hypoglycemia 11/05/16 17:00 12/05/16 16:59 Fluconazole (Diflucan) 100 mg Q24H ORAL 11/06/16 18:00 11/13/16 17:59 11/06/16 17:45 Insulin Aspart (NovoLOG) Q6HR SUBQ 11/05/16 18:00 12/05/16 17:59 11/07/16 11:37 Insulin Detemir (Levemir) 50 units Q12HR SUBQ 11/07/16 09:00 12/07/16 08:59 Lactobacillus Acidophilus (Culturelle) 1 tab BID GT 11/05/16 18:00 12/05/16 17:59 11/07/16 08:30 Lactulose (Cephulac) 20 gm TID GT 11/05/16 18:00 12/05/16 17:59 11/05/16 17:49 Metoprolol Tartrate (Lopressor) 25 mg EVERY 12 HOURS ORAL 11/05/16 21:00 12/05/16 20:59 11/07/16 08:30 Metronidazole (Flagyl) 500 mg Q8HR ORAL 11/06/16 18:00 11/13/16 17:59 11/07/16 13:33 Ranitidine HCl (Zantac) 150 mg TWICE A DAY ORAL 11/05/16 18:00 12/05/16 17:59 11/07/16 08:30 Sucralfate (Carafate) 1 gm FOUR TIMES A DAY ORAL 11/05/16 18:00 12/05/16 17:59 11/07/16 13:33 Vancomycin HCl (Vanco rx to dose) 1 ea DAILY PRN MISC Per rx protocol 11/05/16 17:00 12/05/16 16:59 Vancomycin HCl/ Dextrose (Vancomycin/D5W) 275 ml @ 183.708 mls/hr Q8HR@0700,1500,2300 IVPB 11/05/16 23:00 11/10/16 22:59 11/07/16 14:59 Assessment/Plan Status: stable Assessment/Plan prn seroquel delirium due to c Neema Grady M.D. Nov 07, 2016 15:19
[2016-11-07 16:28] VITALS: BP 132/72
[2016-11-07] MEDS: Fluconazole 100mg tab ORAL SCH (17:54)
--- NOTE | 2016-11-07 18:37 | Pulmonology Progress Note ---
Assessment/Plan Problems: (1) COPD (chronic obstructive pulmonary disease) (2) Sepsis (3) Encephalopathy (4) CVA, old, aphasia Assessment/Plan cxr showing mild bibasilar infiltrarte improving respiratory treatment check cultures check electrolytes all notes, meds reviewed. Subjective ROS Limited/Unobtainable: No Constitutional: Reports: no symptoms HEENT: Repors: no symptoms Respiratory: Reports: no symptoms Cardiovascular: Reports: no symptoms Allergies: Coded Allergies: MILK (Unverified Allergy, Unknown, 05/14/16) SOY (Unverified Allergy, Unknown, 05/14/16) SOYBEAN (Unverified Allergy, Unknown, 05/14/16) Objective Last 24 Hour Vital Signs Date Time Temp Pulse Resp B/P Pulse Ox O2 Delivery O2 Flow Rate FiO2 11/07/16 16:28 96.8 89 18 132/72 98 Nasal Cannula 3.0 11/07/16 14:50 86 18 99 Nasal Cannula 3.0 32 11/07/16 14:42 32 11/07/16 14:42 82 18 98 Nasal Cannula 3.0 32 11/07/16 12:00 97.8 87 20 137/56 97 Room Air 11/07/16 11:34 84 20 99 Nasal Cannula 3.0 32 11/07/16 11:30 80 20 95 Nasal Cannula 3.0 32 11/07/16 11:30 32 11/07/16 08:30 65 134/79 11/07/16 08:00 97.0 65 19 134/79 93 Room Air 11/07/16 07:20 82 20 99 Venturi Mask 14.0 55 11/07/16 07:15 80 18 Venturi Mask 14.0 55 11/07/16 07:15 55 11/07/16 07:15 85 20 96 Venturi Mask 14.0 55 11/07/16 04:00 98.2 87 20 154/59 96 Room Air 11/07/16 03:12 95 18 99 Venturi Mask 14.0 55 11/07/16 03:06 55 11/07/16 03:06 85 20 96 Venturi Mask 14.0 55 11/07/16 00:00 98.0 87 23 121/57 93 Room Air 11/06/16 23:17 88 18 99 Venturi Mask 14.0 55 11/06/16 23:09 81 20 97 Venturi Mask 14.0 55 11/06/16 23:09 55 11/06/16 20:51 99 95/46 11/06/16 20:00 98.1 90 23 96/46 99 Bi-pap 11/06/16 19:18 80 18 99 Venturi Mask 14.0 55 11/06/16 19:13 80 18 Venturi Mask 14.0 55 11/06/16 19:12 74 18 97 Venturi Mask 14.0 55 11/06/16 19:11 55 Intake and Output 11/06/16 11/07/16 19:00 07:00 Intake Total 450 ml 600 ml Output Total 350 ml 600 ml Balance 100 ml 0 ml Tube Feeding 450 ml 600 ml Output Urine Total 350 ml 600 ml # Bowel Movements 1 1 General Appearance: WD/WN HEENT: normocephalic, anicteric Respiratory/Chest: decreased breath sounds, crackles/rales Cardiovascular: normal peripheral pulses, normal rate, regular rhythm Abdomen: no organomegaly Genitourinary: normal external genitalia Extremities: no cyanosis Skin: no rash 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, abnormal gait Microbiology Date/Time Source Procedure Growth Status 11/05/16 04:30 Sputum Induced Gram Stain Pending Resulted 11/05/16 04:30 Sputum Induced Sputum Culture - Preliminary Resulted 11/04/16 23:00 Indwelling Cath Urine Culture - Preliminary NO GROWTH AFTER 24 HOURS Resulted 11/05/16 00:30 Sacral Wound Gram Stain - Final Resulted 11/05/16 00:30 Wound Culture - Preliminary Escherichia Coli Gram Positive Cocci Resulted Current Medications Medications (Trade) Dose Ordered Sig/Francesca Route PRN Reason Start Time Stop Time Status Last Admin Dose Admin Acetaminophen (Tylenol) 650 mg Q4H PRN GT fever 100.5 and above 11/05/16 17:00 12/05/16 16:59 Albuterol Sulfate (Proventil) 2.5 mg Q4HRT HHN 11/05/16 19:00 11/10/16 18:59 11/07/16 14:42 Aspirin (ASA) 81 mg DAILY GT 11/06/16 09:00 12/06/16 08:59 11/07/16 08:30 Cefepime HCl 1 gm/ Dextrose 50 ml @ 100 mls/hr Q12HR@1000,2200 IVPB 11/05/16 22:00 11/12/16 21:59 11/07/16 10:14 Dextrose (Dextrose 50%) STAT PRN IV Hypoglycemia 11/05/16 17:00 12/05/16 16:59 Fluconazole (Diflucan) 100 mg Q24H ORAL 11/06/16 18:00 11/13/16 17:59 11/07/16 17:54 Insulin Aspart (NovoLOG) Q6HR SUBQ 11/05/16 18:00 12/05/16 17:59 11/07/16 18:05 Insulin Detemir (Levemir) 50 units Q12HR SUBQ 11/07/16 09:00 12/07/16 08:59 Lactobacillus Acidophilus (Culturelle) 1 tab BID GT 11/05/16 18:00 12/05/16 17:59 11/07/16 17:53 Lactulose (Cephulac) 20 gm TID GT 11/05/16 18:00 12/05/16 17:59 11/05/16 17:49 Metoprolol Tartrate (Lopressor) 25 mg EVERY 12 HOURS ORAL 11/05/16 21:00 12/05/16 20:59 11/07/16 08:30 Metronidazole (Flagyl) 500 mg Q8HR ORAL 11/06/16 18:00 11/13/16 17:59 11/07/16 13:33 Ranitidine HCl (Zantac) 150 mg TWICE A DAY ORAL 11/05/16 18:00 12/05/16 17:59 11/07/16 17:53 Sucralfate (Carafate) 1 gm FOUR TIMES A DAY ORAL 11/05/16 18:00 12/05/16 17:59 11/07/16 17:53 Vancomycin HCl (Vanco rx to dose) 1 ea DAILY PRN MISC Per rx protocol 11/05/16 17:00 12/05/16 16:59 Vancomycin HCl/ Dextrose (Vancomycin/D5W) 275 ml @ 183.708 mls/hr Q8HR@0700,1500,2300 IVPB 11/05/16 23:00 11/10/16 22:59 11/07/16 14:59 SWATI THOMAS Nov 07, 2016 18:37
[2016-11-07 20:00] VITALS: BP 133/67
[2016-11-08] VITALS (8 sets, daily range): BP systolic 103–141; BP diastolic 51–78
[2016-11-08] MEDS: Albuterol ud Inhalation HHN SCH ×6 (02:42→23:21)
[2016-11-08] MEDS: NovoLOG Insulin Flexpen SUBQ SCH ×4 (06:43→20:42)
[2016-11-08] MEDS: metroNIDAZOLE 500mg tab ORAL SCH (06:52)
[2016-11-08] MEDS: Vancomycin 1 GM in D5W 275 ML IVPB SCH (07:24)
[2016-11-08 07:43] LABS: EOSINOPHILS % (AUTO) 3.5 % (0.0-3.0); LYMPHOCYTES % (AUTO) 30.4 % (20.0-45.0); MEAN CORPUSCULAR HEMOGLOBIN 32.9 PG (27.0-31.0); MEAN CORPUSCULAR HGB CONC 32.4 G/DL (32.0-36.0); MEAN CORPUSCULAR VOLUME 101 FL (80-99); MEAN PLATELET VOLUME 9.8 FL (6.5-10.1); MONOCYTES % (AUTO) 9.2 % (1.0-10.0); PLATELET COUNT 129 K/UL (150-450); RED BLOOD COUNT 3.87 M/UL (4.70-6.10); RED CELL DISTRIBUTION WIDTH 13.4 % (11.6-14.8); WHITE BLOOD COUNT 6.5 K/UL (4.8-10.8)
[2016-11-08 07:56] LABS: ALANINE AMINOTRANSFERASE 16 U/L (3-41); ALBUMIN/GLOBULIN RATIO 0.5 (1.0-2.7); ANION GAP 12 (5-15); ASPARTATE AMINO TRANSFERASE 21 U/L (5-40); CALCIUM 9.3 mg/dL (8.6-10.2); CARBON DIOXIDE 25 mEQ/L (20-30); CHLORIDE 101 mEQ/L (98-107); CREATININE 0.7 mg/dL (0.7-1.2); CRP QUANT 5.6 mg/dL (< 0.5); HEMOLYSIS 5; MAGNESIUM 2.1 mg/dL (1.7-2.5); PHOSPHORUS 2.5 mg/dL (2.5-4.8); SODIUM 138 mEQ/L (135-145); TOTAL PROTEIN 7.4 g/dL (6.6-8.7); URIC ACID 5.2 mg/dL (3.0-7.5)
--- NOTE | 2016-11-08 08:26 | Diagnostic Imaging Report ---
Indications: Chest pain Technique: Portable AP chest Findings: Comparison: 11/06/16 Inspiratory effort has improved. Bibasal linear densities, mild bilateral interstitial prominence persists, unchanged. Heart size, pulmonary vasculature remain within normal limits. No pleural abnormalities demonstrated. IMPRESSION: Stable bilateral interstitial disease, bibasal subsegmental atelectasis
[2016-11-08] MEDS: Sucralfate 1gm tab ORAL SCH ×4 (09:54→20:35)
[2016-11-08] MEDS: Metoprolol 25mg tab ORAL SCH ×2 (09:54→20:35)
[2016-11-08] MEDS: Lactobacillus-GG tablet GT SCH ×2 (09:54→17:23)
[2016-11-08] MEDS: Lactulose 20gm/30ml UDC GT SCH ×3 (09:55→17:30)
[2016-11-08] MEDS: Aspirin Baby 81mg GT SCH (09:55)
[2016-11-08] MEDS: Levemir Flexpen SUBQ SCH ×2 (10:21→20:41)
[2016-11-08] MEDS ORDERED: NovoLOG Insulin Flexpen SUBQ SCH (11:30)
--- NOTE | 2016-11-08 13:33 | Infectious Diseases Prog Note ---
Assessment/Plan Assessment/Plan ASSESSMENT AND PLAN: 1. sepsis, leukocytosis, possible aspiration pna/hcap vs atx, ? significance of e.coli/enterococcus sacral wound culture - clinically improved, less sob, leukocytosis resolved - change to oral augmentin for 5 days upon discharge - check labs and chest x-ray - pulmonary treatment - wound care per protocol - d/w Dr. Mack 2. Wound care protocol. 3. The patient has a history of hypertension. 4. Diabetes. 5. Blood sugar and blood pressure control per Dr. Mack and consultants. 6. Anemia. 7. Chronic obstructive pulmonary disease. 8. Pulmonary treatment. 9. Cerebrovascular accident. 10. Aspiration risk. 11. Weakness. 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 13. Dysphagia, on gastrostomy tube. 14. Aphasia. 15. Degenerative joint disease. 16. Depression. 17. Dyslipidemia, hypercholesterolemia. 18. Gastritis. 19. Contractures. 20. Past medical history is noted. 21. Social history, past smoker. 22. Family History noncontributory. 23. MAR was noted. 24. Case was discussed with RN. 25. Allergies to milk, soy, and soybeans. 26. Continue treatment per primary consultants. 27. Wound care protocol. 28. Notes were reviewed. 29. d/w Dr. Mack about patient care Subjective Constitutional: Denies: fever HEENT: Denies: congestion Respiratory: Denies: shortness of breath Cardiovascular: Denies: chest pain Gastrointestinal/Abdominal: Denies: diarrhea, nausea, vomiting Genitourinary: Reports: other - + garcia Neurologic: Denies: headache Psychiatric: Denies: depression Skin: Denies: rash Hematologic: Denies: bleeding Musculoskeletal: Denies: pain Allergies: Coded Allergies: MILK (Unverified Allergy, Unknown, 05/14/16) SOY (Unverified Allergy, Unknown, 05/14/16) SOYBEAN (Unverified Allergy, Unknown, 05/14/16) Objective Vital Signs Last 24 Hour Vital Signs Date Time Temp Pulse Resp B/P Pulse Ox O2 Delivery O2 Flow Rate FiO2 11/08/16 12:15 98.1 88 18 141/70 97 Nasal Cannula 11/08/16 10:39 81 16 98 Nasal Cannula 3.0 11/08/16 10:29 86 17 98 Nasal Cannula 3.0 11/08/16 09:54 92 118/78 11/08/16 08:46 97.7 92 18 118/78 99 Nasal Cannula 11/08/16 07:43 83 15 98 Nasal Cannula 3.0 32 11/08/16 07:39 82 16 97 Nasal Cannula 3.0 11/08/16 04:00 97.7 82 20 121/51 95 Nasal Cannula 11/08/16 02:52 79 18 97 Nasal Cannula 3.0 32 11/08/16 02:44 79 18 95 Nasal Cannula 3.0 32 11/08/16 00:00 97.9 79 18 129/62 98 Room Air 11/07/16 23:45 88 133/67 11/07/16 23:31 88 18 99 Nasal Cannula 3.0 32 11/07/16 23:23 88 18 99 Nasal Cannula 3.0 32 11/07/16 20:00 98.1 89 20 133/67 99 Nasal Cannula 3.0 11/07/16 19:56 87 18 99 Nasal Cannula 3.0 32 11/07/16 19:47 85 18 99 Nasal Cannula 3.0 11/07/16 16:28 96.8 89 18 132/72 98 Nasal Cannula 3.0 11/07/16 14:50 86 18 99 Nasal Cannula 3.0 32 11/07/16 14:42 32 11/07/16 14:42 82 18 98 Nasal Cannula 3.0 32 Height (Feet): 5 Height (Inches): 8.00 Weight (Pounds): 179 General Appearance: no acute distress HEENT: normocephalic, atraumatic, anicteric, mucous membranes moist, PERRL, EOMI, pharynx normal, supple, no JVD Respiratory/Chest: crackles/rales, rhonchi - bilaterally Cardiovascular: normal rate, regular rhythm, no gallop/murmur, no JVD Abdomen: normal bowel sounds, soft, non tender, no organomegaly, non distended Genitourinary: other - + garcia - urine slt cloudy Extremities: no cyanosis Skin: no rash, other - wounds - reviewed and look stable and not acutely infected 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 There is an ill-defined parenchymal opacity at the left lung base. Pneumonia certainly possible. These correlate clinically. Heart size is normal. The bones are osteopenic. Impression: Possible pneumonia versus atelectasis left lung base. Suspect a small pleural effusion chest x-ray - 11/08 - no change Microbiology Date/Time Source Procedure Growth Status 11/04/16 13:45 Blood Blood Culture - Preliminary NO GROWTH AFTER 72 HOURS Resulted 11/05/16 04:30 Sputum Induced Gram Stain - Final Complete 11/05/16 04:30 Sputum Induced Sputum Culture - Final NORMAL UPPER RESPIRATORY KASSANDRA AT 48 ... Complete 11/04/16 23:00 Indwelling Cath Urine Culture - Final NO GROWTH AFTER 48 HOURS Complete 11/05/16 00:30 Sacral Wound Gram Stain - Final Complete 11/05/16 00:30 Wound Culture - Final Escherichia Coli Enterococcus Faecalis Complete Laboratory Tests Test 11/08/16 06:30 White Blood Count 6.5 K/UL (4.8-10.8) Red Blood Count 3.87 M/UL (4.70-6.10) L Hemoglobin 12.7 G/DL (14.2-18.0) L Hematocrit 39.3 % (42.0-52.0) L Mean Corpuscular Volume 101 FL (80-99) H Mean Corpuscular Hemoglobin 32.9 PG (27.0-31.0) H Mean Corpuscular Hemoglobin Concent 32.4 G/DL (32.0-36.0) Red Cell Distribution Width 13.4 % (11.6-14.8) Platelet Count 129 K/UL (150-450) L Mean Platelet Volume 9.8 FL (6.5-10.1) Neutrophils (%) (Auto) 56.0 % (45.0-75.0) Lymphocytes (%) (Auto) 30.4 % (20.0-45.0) Monocytes (%) (Auto) 9.2 % (1.0-10.0) Eosinophils (%) (Auto) 3.5 % (0.0-3.0) H Basophils (%) (Auto) 1.0 % (0.0-2.0) Sodium Level 138 mEQ/L (135-145) Potassium Level 4.0 mEQ/L (3.4-4.9) Chloride Level 101 mEQ/L (98-107) Carbon Dioxide Level 25 mEQ/L (20-30) Anion Gap 12 (5-15) Blood Urea Nitrogen 15 mg/dL (7-23) Creatinine 0.7 mg/dL (0.7-1.2) Estimat Glomerular Filtration Rate mL/min (>60) Glucose Level 286 mg/dL (74-106) H Uric Acid 5.2 mg/dL (3.0-7.5) Calcium Level 9.3 mg/dL (8.6-10.2) Phosphorus Level 2.5 mg/dL (2.5-4.8) Magnesium Level 2.1 mg/dL (1.7-2.5) Total Bilirubin 0.3 mg/dL (0.0-1.2) Aspartate Amino Transf (AST/SGOT) 21 U/L (5-40) Alanine Aminotransferase (ALT/SGPT) 16 U/L (3-41) Alkaline Phosphatase 64 U/L (40-129) C-Reactive Protein, Quantitative 5.6 mg/dL (< 0.5) H Pro-B-Type Natriuretic Peptide 1024 pg/mL (0-450) H Total Protein 7.4 g/dL (6.6-8.7) Albumin 2.7 g/dL (3.5-5.2) L Globulin 4.7 g/dL Albumin/Globulin Ratio 0.5 (1.0-2.7) L Vancomycin Level Trough 28.2 ug/mL (5.0-12.0) H Current Medications Medications (Trade) Dose Ordered Sig/Francesca Route PRN Reason Start Time Stop Time Status Last Admin Dose Admin Acetaminophen (Tylenol) 650 mg Q4H PRN GT fever 100.5 and above 11/05/16 17:00 12/05/16 16:59 Albuterol Sulfate (Proventil) 2.5 mg Q4HRT HHN 11/05/16 19:00 11/10/16 18:59 11/08/16 10:28 Aspirin (ASA) 81 mg DAILY GT 11/06/16 09:00 12/06/16 08:59 11/08/16 09:55 Cefepime HCl/ Dextrose (Maxipime/D5W) 50 ml @ 100 mls/hr Q12HR@1000,2200 IVPB 11/05/16 22:00 11/12/16 21:59 11/08/16 10:12 Dextrose (Dextrose 50%) STAT PRN IV Hypoglycemia 11/08/16 11:00 12/08/16 10:59 Fluconazole (Diflucan) 100 mg Q24H ORAL 11/06/16 18:00 11/13/16 17:59 11/07/16 17:54 Insulin Aspart (NovoLOG) BEFORE MEALS AND HS SUBQ 11/08/16 11:30 12/08/16 11:29 11/08/16 12:46 Insulin Detemir 50 units 50 units Q12HR SUBQ 11/07/16 09:00 12/07/16 08:59 11/08/16 10:21 Lactobacillus Acidophilus (Culturelle) 1 tab BID GT 11/05/16 18:00 12/05/16 17:59 11/08/16 09:54 Lactulose (Cephulac) 20 gm TID GT 11/05/16 18:00 12/05/16 17:59 11/08/16 09:55 Metoprolol Tartrate (Lopressor) 25 mg EVERY 12 HOURS ORAL 11/05/16 21:00 12/05/16 20:59 11/08/16 09:54 Metronidazole (Flagyl) 500 mg Q8HR ORAL 11/06/16 18:00 11/13/16 17:59 11/08/16 06:52 Ranitidine HCl (Zantac) 150 mg TWICE A DAY ORAL 11/05/16 18:00 12/05/16 17:59 11/08/16 09:54 Sucralfate (Carafate) 1 gm FOUR TIMES A DAY ORAL 11/05/16 18:00 12/05/16 17:59 11/08/16 09:54 Vancomycin HCl (Vanco rx to dose) 1 ea DAILY PRN MISC Per rx protocol 11/05/16 17:00 12/05/16 16:59 Vancomycin HCl/ Dextrose (Vancomycin/D5W) 275 ml @ 183.708 mls/hr Q12HR@0600,1800 IVPB 11/08/16 18:00 11/13/16 17:59 ILYA AYON Nov 08, 2016 13:33
--- NOTE | 2016-11-08 16:06 | General Progress Note ---
Assessment/Plan Status: stable Assessment/Plan This patient is being admitted with the diagnosis of sepsis, hypoxia, tachycardia, high lactate level, and hyperglycemia. possible aspiration pna/hcap vs atx, ? gram neg sacral wound infection Other conditions are history of CVA, hypertension, high cholesterol, chronic obstructive pulmonary disease, and PEG. Plan: antibiotic switched will increase levemir abd add jenuvia for high BS Stop IV hydration- Increase GT feeding 50- HHN Antibiotics- Sugar control- increase levemir Per ID and Pulm ? DC in am Subjective ROS Limited/Unobtainable: No Allergies: Coded Allergies: MILK (Unverified Allergy, Unknown, 05/14/16) SOY (Unverified Allergy, Unknown, 05/14/16) SOYBEAN (Unverified Allergy, Unknown, 05/14/16) Objective Last 24 Hour Vital Signs Date Time Temp Pulse Resp B/P Pulse Ox O2 Delivery O2 Flow Rate FiO2 11/08/16 15:25 86 18 100 Nasal Cannula 3.0 11/08/16 15:14 85 18 98 Nasal Cannula 3.0 11/08/16 12:15 98.1 88 18 141/70 97 Nasal Cannula 11/08/16 10:39 81 16 98 Nasal Cannula 3.0 11/08/16 10:29 86 17 98 Nasal Cannula 3.0 11/08/16 09:54 92 118/78 11/08/16 08:46 97.7 92 18 118/78 99 Nasal Cannula 11/08/16 07:43 83 15 98 Nasal Cannula 3.0 32 11/08/16 07:39 82 16 97 Nasal Cannula 3.0 11/08/16 04:00 97.7 82 20 121/51 95 Nasal Cannula 11/08/16 02:52 79 18 97 Nasal Cannula 3.0 32 11/08/16 02:44 79 18 95 Nasal Cannula 3.0 32 11/08/16 00:00 97.9 79 18 129/62 98 Room Air 11/07/16 23:45 88 133/67 11/07/16 23:31 88 18 99 Nasal Cannula 3.0 32 11/07/16 23:23 88 18 99 Nasal Cannula 3.0 32 11/07/16 20:00 98.1 89 20 133/67 99 Nasal Cannula 3.0 11/07/16 19:56 87 18 99 Nasal Cannula 3.0 32 11/07/16 19:47 85 18 99 Nasal Cannula 3.0 32 11/07/16 16:28 96.8 89 18 132/72 98 Nasal Cannula 3.0 Intake and Output 11/07/16 11/08/16 19:00 07:00 Intake Total 550 ml 300 ml Output Total 450 ml 1000 ml Balance 100 ml -700 ml Free Water 150 ml IV Total 50 ml Tube Feeding 550 ml 100 ml Output Urine Total 450 ml 1000 ml # Bowel Movements 1 Laboratory Tests 11/08/16 06:30: White Blood Count 6.5, Red Blood Count 3.87L, Hemoglobin 12.7L, Hematocrit 39.3L , Mean Corpuscular Volume 101H, Mean Corpuscular Hemoglobin 32.9H, Mean Corpuscular Hemoglobin Concent 32.4, Red Cell Distribution Width 13.4, Platelet Count 129L, Mean Platelet Volume 9.8, Neutrophils (%) (Auto) 56.0, Lymphocytes ( %) (Auto) 30.4, Monocytes (%) (Auto) 9.2, Eosinophils (%) (Auto) 3.5H, Basophils (%) (Auto) 1.0, Sodium Level 138, Potassium Level 4.0, Chloride Level 101, Carbon Dioxide Level 25, Anion Gap 12, Blood Urea Nitrogen 15, Creatinine 0.7, Estimat Glomerular Filtration Rate , Glucose Level 286H, Uric Acid 5.2, Calcium Level 9.3, Phosphorus Level 2.5, Magnesium Level 2.1, Total Bilirubin 0.3, Aspartate Amino Transf (AST/SGOT) 21, Alanine Aminotransferase (ALT/SGPT) 16, Alkaline Phosphatase 64, C-Reactive Protein, Quantitative 5.6H, Pro-B-Type Natriuretic Peptide 1024H, Total Protein 7.4, Albumin 2.7L, Globulin 4.7, Albumin/Globulin Ratio 0.5L, Vancomycin Level Trough 28.2H Height (Feet): 5 Height (Inches): 8.00 Weight (Pounds): 179 General Appearance: no apparent distress Neck: limited range of motion Cardiovascular: regular rhythm Respiratory/Chest: decreased breath sounds Abdomen: soft JULIANNE HERNÁNDEZ Nov 08, 2016 16:06
[2016-11-08] MEDS: sitaGLIPtin 50mg tab GT SCH (17:22)
[2016-11-08] MEDS ORDERED: Vancomycin 1gm/D5W 275ml IVPB SCH ×2 (18:00)
[2016-11-08] MEDS: Augmentin 875mg Tab ORAL SCH (20:35)
--- NOTE | 2016-11-08 21:50 | Pulmonology Progress Note ---
Assessment/Plan Problems: (1) COPD (chronic obstructive pulmonary disease) (2) Sepsis (3) Encephalopathy (4) CVA, old, aphasia Assessment/Plan cxr showing mild bibasilar infiltrarte improving respiratory treatment check cultures check electrolytes all notes, meds reviewed. Subjective Allergies: Coded Allergies: MILK (Unverified Allergy, Unknown, 05/14/16) SOY (Unverified Allergy, Unknown, 05/14/16) SOYBEAN (Unverified Allergy, Unknown, 05/14/16) Objective Last 24 Hour Vital Signs Date Time Temp Pulse Resp B/P Pulse Ox O2 Delivery O2 Flow Rate FiO2 11/08/16 20:35 88 103/59 11/08/16 20:00 97.9 88 20 103/59 96 Nasal Cannula 3.0 11/08/16 19:48 83 18 100 Nasal Cannula 3.0 11/08/16 19:40 85 16 98 Nasal Cannula 3.0 11/08/16 16:00 96.8 94 18 137/71 98 Nasal Cannula 11/08/16 15:25 86 18 100 Nasal Cannula 3.0 11/08/16 15:14 85 18 98 Nasal Cannula 3.0 11/08/16 12:15 98.1 88 18 141/70 97 Nasal Cannula 11/08/16 10:39 81 16 98 Nasal Cannula 3.0 11/08/16 10:29 86 17 98 Nasal Cannula 3.0 11/08/16 09:54 92 118/78 11/08/16 08:46 97.7 92 18 118/78 99 Nasal Cannula 11/08/16 07:43 83 15 98 Nasal Cannula 3.0 32 11/08/16 07:39 82 16 97 Nasal Cannula 3.0 11/08/16 04:00 97.7 82 20 121/51 95 Nasal Cannula 11/08/16 02:52 79 18 97 Nasal Cannula 3.0 32 11/08/16 02:44 79 18 95 Nasal Cannula 3.0 32 11/08/16 00:00 97.9 79 18 129/62 98 Room Air 11/07/16 23:45 88 133/67 11/07/16 23:31 88 18 99 Nasal Cannula 3.0 32 11/07/16 23:23 88 18 99 Nasal Cannula 3.0 32 Intake and Output 11/07/16 11/08/16 19:00 07:00 Intake Total 550 ml 300 ml Output Total 450 ml 1000 ml Balance 100 ml -700 ml Free Water 150 ml IV Total 50 ml Tube Feeding 550 ml 100 ml Output Urine Total 450 ml 1000 ml # Bowel Movements 1 Laboratory Tests 11/08/16 06:30: White Blood Count 6.5, Red Blood Count 3.87L, Hemoglobin 12.7L, Hematocrit 39.3L , Mean Corpuscular Volume 101H, Mean Corpuscular Hemoglobin 32.9H, Mean Corpuscular Hemoglobin Concent 32.4, Red Cell Distribution Width 13.4, Platelet Count 129L, Mean Platelet Volume 9.8, Neutrophils (%) (Auto) 56.0, Lymphocytes ( %) (Auto) 30.4, Monocytes (%) (Auto) 9.2, Eosinophils (%) (Auto) 3.5H, Basophils (%) (Auto) 1.0, Sodium Level 138, Potassium Level 4.0, Chloride Level 101, Carbon Dioxide Level 25, Anion Gap 12, Blood Urea Nitrogen 15, Creatinine 0.7, Estimat Glomerular Filtration Rate , Glucose Level 286H, Uric Acid 5.2, Calcium Level 9.3, Phosphorus Level 2.5, Magnesium Level 2.1, Total Bilirubin 0.3, Aspartate Amino Transf (AST/SGOT) 21, Alanine Aminotransferase (ALT/SGPT) 16, Alkaline Phosphatase 64, C-Reactive Protein, Quantitative 5.6H, Pro-B-Type Natriuretic Peptide 1024H, Total Protein 7.4, Albumin 2.7L, Globulin 4.7, Albumin/Globulin Ratio 0.5L, Vancomycin Level Trough 28.2H Current Medications Medications (Trade) Dose Ordered Sig/Francesca Route PRN Reason Start Time Stop Time Status Last Admin Dose Admin Acetaminophen (Tylenol) 650 mg Q4H PRN GT fever 100.5 and above 11/05/16 17:00 12/05/16 16:59 Albuterol Sulfate (Proventil) 2.5 mg Q4HRT HHN 11/05/16 19:00 11/10/16 18:59 11/08/16 19:40 Amoxicillin/ Clavulanate Potassium (Augmentin) 875 mg EVERY 12 HOURS ORAL 11/08/16 21:00 11/15/16 20:59 11/08/16 20:35 Aspirin (ASA) 81 mg DAILY GT 11/06/16 09:00 12/06/16 08:59 11/08/16 09:55 Dextrose (Dextrose 50%) STAT PRN IV Hypoglycemia 11/08/16 11:00 12/08/16 10:59 Insulin Aspart (NovoLOG) BEFORE MEALS AND HS SUBQ 11/08/16 11:30 12/08/16 11:29 11/08/16 20:42 Insulin Detemir (Levemir) 60 units Q12HR SUBQ 11/08/16 21:00 12/08/16 20:59 11/08/16 20:41 Lactobacillus Acidophilus (Culturelle) 1 tab BID GT 11/05/16 18:00 12/05/16 17:59 11/08/16 17:23 Lactulose (Cephulac) 20 gm TID GT 11/05/16 18:00 12/05/16 17:59 11/08/16 14:13 Metoprolol Tartrate (Lopressor) 25 mg EVERY 12 HOURS ORAL 11/05/16 21:00 12/05/16 20:59 11/08/16 20:35 Ranitidine HCl (Zantac) 150 mg TWICE A DAY ORAL 11/05/16 18:00 12/05/16 17:59 11/08/16 17:22 Sitagliptin Phosphate (Januvia) 50 mg DAILY GT 11/08/16 16:30 12/08/16 16:29 11/08/16 17:22 Sucralfate (Carafate) 1 gm FOUR TIMES A DAY ORAL 11/05/16 18:00 12/05/16 17:59 11/08/16 20:35 SWATI THOMAS Nov 08, 2016 21:50
--- NOTE | 2016-11-08 23:53 | Geriatric Progress Note ---
Assessment/Plan Assessment/Plan stable Discussed with: hospital staff Subjective Constitutional: Reports: malaise, weakness Psychiatric: Reports: see HPI Geriatric Geriatric Last 24 Hour Vital Signs Date Time Temp Pulse Resp B/P Pulse Ox O2 Delivery O2 Flow Rate FiO2 11/08/16 23:28 87 18 100 Nasal Cannula 3.0 11/08/16 23:21 90 17 96 Nasal Cannula 3.0 11/08/16 20:35 88 103/59 11/08/16 20:00 97.9 88 20 103/59 96 Nasal Cannula 3.0 11/08/16 19:48 83 18 100 Nasal Cannula 3.0 11/08/16 19:40 85 16 98 Nasal Cannula 3.0 11/08/16 16:00 96.8 94 18 137/71 98 Nasal Cannula 11/08/16 15:25 86 18 100 Nasal Cannula 3.0 11/08/16 15:14 85 18 98 Nasal Cannula 3.0 11/08/16 12:15 98.1 88 18 141/70 97 Nasal Cannula 11/08/16 10:39 81 16 98 Nasal Cannula 3.0 11/08/16 10:29 86 17 98 Nasal Cannula 3.0 11/08/16 09:54 92 118/78 11/08/16 08:46 97.7 92 18 118/78 99 Nasal Cannula 11/08/16 07:43 83 15 98 Nasal Cannula 3.0 32 11/08/16 07:39 82 16 97 Nasal Cannula 3.0 11/08/16 04:00 97.7 82 20 121/51 95 Nasal Cannula 11/08/16 02:52 79 18 97 Nasal Cannula 3.0 32 11/08/16 02:44 79 18 95 Nasal Cannula 3.0 32 11/08/16 00:00 97.9 79 18 129/62 98 Room Air Intake and Output 11/07/16 11/08/16 19:00 07:00 Intake Total 550 ml 300 ml Output Total 450 ml 1000 ml Balance 100 ml -700 ml Free Water 150 ml IV Total 50 ml Tube Feeding 550 ml 100 ml Output Urine Total 450 ml 1000 ml # Bowel Movements 1 Laboratory Tests Test 11/08/16 06:30 White Blood Count 6.5 K/UL (4.8-10.8) Red Blood Count 3.87 M/UL (4.70-6.10) L Hemoglobin 12.7 G/DL (14.2-18.0) L Hematocrit 39.3 % (42.0-52.0) L Mean Corpuscular Volume 101 FL (80-99) H Mean Corpuscular Hemoglobin 32.9 PG (27.0-31.0) H Mean Corpuscular Hemoglobin Concent 32.4 G/DL (32.0-36.0) Red Cell Distribution Width 13.4 % (11.6-14.8) Platelet Count 129 K/UL (150-450) L Mean Platelet Volume 9.8 FL (6.5-10.1) Neutrophils (%) (Auto) 56.0 % (45.0-75.0) Lymphocytes (%) (Auto) 30.4 % (20.0-45.0) Monocytes (%) (Auto) 9.2 % (1.0-10.0) Eosinophils (%) (Auto) 3.5 % (0.0-3.0) H Basophils (%) (Auto) 1.0 % (0.0-2.0) Sodium Level 138 mEQ/L (135-145) Potassium Level 4.0 mEQ/L (3.4-4.9) Chloride Level 101 mEQ/L (98-107) Carbon Dioxide Level 25 mEQ/L (20-30) Anion Gap 12 (5-15) Blood Urea Nitrogen 15 mg/dL (7-23) Creatinine 0.7 mg/dL (0.7-1.2) Estimat Glomerular Filtration Rate mL/min (>60) Glucose Level 286 mg/dL (74-106) H Uric Acid 5.2 mg/dL (3.0-7.5) Calcium Level 9.3 mg/dL (8.6-10.2) Phosphorus Level 2.5 mg/dL (2.5-4.8) Magnesium Level 2.1 mg/dL (1.7-2.5) Total Bilirubin 0.3 mg/dL (0.0-1.2) Aspartate Amino Transf (AST/SGOT) 21 U/L (5-40) Alanine Aminotransferase (ALT/SGPT) 16 U/L (3-41) Alkaline Phosphatase 64 U/L (40-129) C-Reactive Protein, Quantitative 5.6 mg/dL (< 0.5) H Pro-B-Type Natriuretic Peptide 1024 pg/mL (0-450) H Total Protein 7.4 g/dL (6.6-8.7) Albumin 2.7 g/dL (3.5-5.2) L Globulin 4.7 g/dL Albumin/Globulin Ratio 0.5 (1.0-2.7) L Vancomycin Level Trough 28.2 ug/mL (5.0-12.0) H Current Medications Medications (Trade) Dose Ordered Sig/Francesca Route PRN Reason Start Time Stop Time Status Last Admin Dose Admin Acetaminophen (Tylenol) 650 mg Q4H PRN GT fever 100.5 and above 11/05/16 17:00 12/05/16 16:59 Albuterol Sulfate (Proventil) 2.5 mg Q4HRT HHN 11/05/16 19:00 11/10/16 18:59 11/08/16 23:21 Amoxicillin/ Clavulanate Potassium (Augmentin) 875 mg EVERY 12 HOURS ORAL 11/08/16 21:00 11/15/16 20:59 11/08/16 20:35 Aspirin (ASA) 81 mg DAILY GT 11/06/16 09:00 12/06/16 08:59 11/08/16 09:55 Dextrose (Dextrose 50%) STAT PRN IV Hypoglycemia 11/08/16 11:00 12/08/16 10:59 Insulin Aspart (NovoLOG) BEFORE MEALS AND HS SUBQ 11/08/16 11:30 12/08/16 11:29 11/08/16 20:42 Insulin Detemir (Levemir) 60 units Q12HR SUBQ 11/08/16 21:00 12/08/16 20:59 11/08/16 20:41 Lactobacillus Acidophilus (Culturelle) 1 tab BID GT 11/05/16 18:00 12/05/16 17:59 11/08/16 17:23 Lactulose (Cephulac) 20 gm TID GT 11/05/16 18:00 12/05/16 17:59 11/08/16 14:13 Metoprolol Tartrate (Lopressor) 25 mg EVERY 12 HOURS ORAL 11/05/16 21:00 12/05/16 20:59 11/08/16 20:35 Ranitidine HCl (Zantac) 150 mg TWICE A DAY ORAL 11/05/16 18:00 12/05/16 17:59 11/08/16 17:22 Sitagliptin Phosphate (Januvia) 50 mg DAILY GT 11/08/16 16:30 12/08/16 16:29 11/08/16 17:22 Sucralfate (Carafate) 1 gm FOUR TIMES A DAY ORAL 11/05/16 18:00 12/05/16 17:59 11/08/16 20:35 Height (Feet): 5 Height (Inches): 8.00 Weight (Pounds): 179 General Appearance: well appearing, no apparent distress, alert Neurologic: alert, aphasia Psychiatric Orientation: disoriented Affect: flat Insight: poor Neema Grady M.D. Nov 08, 2016 23:53
[2016-11-09] MEDS: Albuterol ud Inhalation HHN SCH ×3 (03:17→10:39)
[2016-11-09 04:00] VITALS: BP 111/72
[2016-11-09] MEDS: NovoLOG Insulin Flexpen SUBQ SCH (05:34)
[2016-11-09 08:25] VITALS: BP 130/75
[2016-11-09] MEDS: Augmentin 875mg Tab ORAL SCH (08:48)
[2016-11-09] MEDS: sitaGLIPtin 50mg tab GT SCH (08:48)
[2016-11-09] MEDS: Lactulose 20gm/30ml UDC GT SCH (08:48)
[2016-11-09] MEDS: Lactobacillus-GG tablet GT SCH (08:49)
[2016-11-09] MEDS: Sucralfate 1gm tab ORAL SCH (08:49)
[2016-11-09] MEDS: Aspirin Baby 81mg GT SCH (08:49)
[2016-11-09] MEDS: Metoprolol 25mg tab ORAL SCH (08:49)
[2016-11-09] MEDS: Levemir Flexpen SUBQ SCH (08:51)
[2016-11-09] MEDS ORDERED: NS 275ml ONE (10:04)
--- NOTE | 2016-11-09 10:06 | General Progress Note ---
Assessment/Plan Status: stable Status Narrative - sepsis, leukocytosis, possible aspiration pna/hcap vs atx, ? significance of e.coli/enterococcus sacral wound culture - clinically improved, less sob, leukocytosis resolved - change to oral augmentin for 5 days upon discharge - check labs and chest x-ray - pulmonary treatment - wound care per protocol Assessment/Plan This patient is being admitted with the diagnosis of sepsis, hypoxia, tachycardia, high lactate level, and hyperglycemia. possible aspiration pna/hcap vs atx, ? gram neg sacral wound infection Other conditions are history of CVA, hypertension, high cholesterol, chronic obstructive pulmonary disease, and PEG. Plan: antibiotic switched will increase levemir abd add jenuvia for high BS Stop IV hydration- Increase GT feeding 50- HHN Antibiotics- Sugar control- increase levemir Per ID and Pulm ? DC in am Subjective ROS Limited/Unobtainable: No Allergies: Coded Allergies: MILK (Unverified Allergy, Unknown, 05/14/16) SOY (Unverified Allergy, Unknown, 05/14/16) SOYBEAN (Unverified Allergy, Unknown, 05/14/16) Objective Last 24 Hour Vital Signs Date Time Temp Pulse Resp B/P Pulse Ox O2 Delivery O2 Flow Rate FiO2 11/09/16 08:49 86 130/75 11/09/16 08:25 98.4 86 20 130/75 98 Nasal Cannula 3.0 11/09/16 08:14 84 17 99 Nasal Cannula 3.0 11/09/16 08:08 82 17 99 Nasal Cannula 3.0 11/09/16 04:00 98.2 80 20 111/72 98 Nasal Cannula 3.0 11/09/16 03:25 79 18 99 Nasal Cannula 3.0 32 11/09/16 03:16 88 18 97 Nasal Cannula 3.0 32 11/08/16 23:55 97.7 79 18 105/61 97 Nasal Cannula 3.0 11/08/16 23:28 87 18 100 Nasal Cannula 3.0 11/08/16 23:21 90 17 96 Nasal Cannula 3.0 11/08/16 20:35 88 103/59 11/08/16 20:00 97.9 88 20 103/59 96 Nasal Cannula 3.0 11/08/16 19:48 83 18 100 Nasal Cannula 3.0 11/08/16 19:40 85 16 98 Nasal Cannula 3.0 11/08/16 16:00 96.8 94 18 137/71 98 Nasal Cannula 11/08/16 15:25 86 18 100 Nasal Cannula 3.0 11/08/16 15:14 85 18 98 Nasal Cannula 3.0 11/08/16 12:15 98.1 88 18 141/70 97 Nasal Cannula 11/08/16 10:39 81 16 98 Nasal Cannula 3.0 11/08/16 10:29 86 17 98 Nasal Cannula 3.0 Intake and Output 11/08/16 11/09/16 19:00 07:00 Intake Total 700 ml 660 ml Output Total 700 ml 650 ml Balance 0 ml 10 ml Free Water 100 ml 60 ml IV Total 50 ml Tube Feeding 550 ml 600 ml Output Urine Total 700 ml 650 ml # Bowel Movements 1 Current Medications Medications (Trade) Dose Ordered Sig/Francesca Route PRN Reason Start Time Stop Time Status Last Admin Dose Admin Acetaminophen (Tylenol) 650 mg Q4H PRN GT fever 100.5 and above 11/05/16 17:00 12/05/16 16:59 Albuterol Sulfate (Proventil) 2.5 mg Q4HRT HHN 11/05/16 19:00 11/10/16 18:59 11/09/16 08:06 Amoxicillin/ Clavulanate Potassium (Augmentin) 875 mg EVERY 12 HOURS ORAL 11/08/16 21:00 11/15/16 20:59 11/09/16 08:48 Aspirin (ASA) 81 mg DAILY GT 11/06/16 09:00 12/06/16 08:59 11/09/16 08:49 Dextrose (Dextrose 50%) STAT PRN IV Hypoglycemia 11/08/16 11:00 12/08/16 10:59 Insulin Aspart (NovoLOG) BEFORE MEALS AND HS SUBQ 11/08/16 11:30 12/08/16 11:29 11/09/16 05:34 Insulin Detemir (Levemir) 60 units Q12HR SUBQ 11/08/16 21:00 12/08/16 20:59 11/09/16 08:51 Lactobacillus Acidophilus (Culturelle) 1 tab BID GT 11/05/16 18:00 12/05/16 17:59 11/09/16 08:49 Lactulose (Cephulac) 20 gm TID GT 11/05/16 18:00 12/05/16 17:59 11/09/16 08:48 Metoprolol Tartrate (Lopressor) 25 mg EVERY 12 HOURS ORAL 11/05/16 21:00 12/05/16 20:59 11/09/16 08:49 Ranitidine HCl (Zantac) 150 mg TWICE A DAY ORAL 11/05/16 18:00 12/05/16 17:59 11/09/16 08:49 Sitagliptin Phosphate (Januvia) 50 mg DAILY GT 11/08/16 16:30 12/08/16 16:29 11/09/16 08:48 Sucralfate (Carafate) 1 gm FOUR TIMES A DAY ORAL 11/05/16 18:00 12/05/16 17:59 11/09/16 08:49 Height (Feet): 5 Height (Inches): 8.00 Weight (Pounds): 179 General Appearance: no apparent distress Respiratory/Chest: decreased breath sounds Abdomen: soft JULIANNE HERNÁNDEZ Nov 09, 2016 10:06
[2016-11-09] MEDS ORDERED: LEVEMIR FL100 UNIT/1 SUBQ (10:09)
[2016-11-09] MEDS ORDERED: CULTURELLE1 EACH GT (10:09)
[2016-11-09] MEDS ORDERED: JANUVIA50 MG GT (10:09)
[2016-11-09] MEDS ORDERED: AMOX TR-K CLV1 EAC2 ORAL (10:09)
--- NOTE | 2016-11-09 10:12 | Discharge Instructions ---
Discharge Instructions Discharge Instructions Follow up with: myself at [facility] Diet: other - tube feeding glucerna 50cc Special Instructions routine skin care - HHN QID SS insulin as before Aspiration percautions For Congestive Heart Failure Reminder Report to your physician any weight gain of 5 pounds or more in one week. JULIANNE HERNÁNDEZ Nov 09, 2016 10:12
[2016-11-09 11:25] VITALS: BP 135/72
--- NOTE | 2016-11-09 15:46 | Pulmonology Progress Note ---
Assessment/Plan Problems: (1) COPD (chronic obstructive pulmonary disease) (2) Sepsis (3) Encephalopathy (4) CVA, old, aphasia Assessment/Plan cxr showing mild bibasilar infiltrarte improving respiratory treatment check cultures check electrolytes all notes, meds reviewed. Subjective Allergies: Coded Allergies: MILK (Unverified Allergy, Unknown, 05/14/16) SOY (Unverified Allergy, Unknown, 05/14/16) SOYBEAN (Unverified Allergy, Unknown, 05/14/16) Objective Last 24 Hour Vital Signs Date Time Temp Pulse Resp B/P Pulse Ox O2 Delivery O2 Flow Rate FiO2 11/09/16 11:25 98.2 84 20 135/72 98 Nasal Cannula 3.0 11/09/16 10:50 83 18 99 Nasal Cannula 3.0 11/09/16 10:39 87 18 98 Nasal Cannula 3.0 11/09/16 08:49 86 130/75 11/09/16 08:25 98.4 86 20 130/75 98 Nasal Cannula 3.0 11/09/16 08:14 84 17 99 Nasal Cannula 3.0 11/09/16 08:08 82 17 99 Nasal Cannula 3.0 11/09/16 04:00 98.2 80 20 111/72 98 Nasal Cannula 3.0 11/09/16 03:25 79 18 99 Nasal Cannula 3.0 32 11/09/16 03:16 88 18 97 Nasal Cannula 3.0 32 11/08/16 23:55 97.7 79 18 105/61 97 Nasal Cannula 3.0 11/08/16 23:28 87 18 100 Nasal Cannula 3.0 11/08/16 23:21 90 17 96 Nasal Cannula 3.0 11/08/16 20:35 88 103/59 11/08/16 20:00 97.9 88 20 103/59 96 Nasal Cannula 3.0 11/08/16 19:48 83 18 100 Nasal Cannula 3.0 11/08/16 19:40 85 16 98 Nasal Cannula 3.0 11/08/16 16:00 96.8 94 18 137/71 98 Nasal Cannula Intake and Output 11/08/16 11/09/16 19:00 07:00 Intake Total 700 ml 660 ml Output Total 700 ml 650 ml Balance 0 ml 10 ml Free Water 100 ml 60 ml IV Total 50 ml Tube Feeding 550 ml 600 ml Output Urine Total 700 ml 650 ml # Bowel Movements 1 SWATI THOMAS Nov 09, 2016 15:46
--- NOTE | 2016-11-12 10:01 | Discharge Summary ---
Discharge Summary Hospital Course Date of Admission Nov 04, 2016 at 13:59 Date of Discharge Nov 09, 2016 at 12:32 Admitting Diagnosis respiratory failure, encephalopathy HPI Patrick Hawley is a 81 year old male who was admitted on Nov 04, 2016 at 13:59 for Respiratory Failure,Encephalopathy Hospital Course dc summary # [id number] Discharge Medications New Medications: Amoxicillin/Potassium Clav 875-125 Mg Tab* (Amox Tr-K Clv 875-125 Mg Tab*) 1 Each Tablet 875 MG ORAL EVERY 12 HOURS for 7 Days, TAB Insulin Detemir (Levemir Flexpen) 100 Unit/1 Ml Insuln.pen 60 UNITS SUBQ Q12HR for 30 Days, EA Lactobacillus Rhamnosus Gg* (Culturelle*) 1 Each Capsule 1 TAB GT BID for 14 Days, CAP Sitagliptin (Januvia) 50 Mg Tablet 50 MG GT DAILY for 30 Days, TAB Continued Medications: Acetaminophen (Acetaminophen) 650 Mg/20.3 Ml Solution 650 MG GT Q4H PRN for 14 Days, #60 TAB Albuterol Sulfate* (Albuterol Sulfate Hhn*) 2.5 Mg/3 Ml Vial.neb 2.5 MG HHN Q4HRT for 10 Days, #10 VIAL Aspirin* (Aspir-Low*) 81 Mg Tablet.dr 81 MG GT DAILY, TAB Cholecalciferol (Vitamin D3)* (Vitamin D*) 1,000 Unit Tablet 2000 UNITS GT DAILY, #30 TAB 0 Refills Cranberry Conc/C/Bacill Coag (Azo Cranberry Tablet) 1 Each Tablet 1 EACH GT DAILY Lactulose (Lactulose*) 20 Gm/30 Ml Solution 20 GM GT TID Metoprolol Tartrate* (Metoprolol Tartrate*) 25 Mg Tablet 25 MG ORAL EVERY 12 HOURS, TAB Ranitidine Hcl* (Zantac*) 150 Mg Tablet 150 MG ORAL TWICE A DAY, TAB Sucralfate* (Carafate*) 1 Gm Tablet 1 GM ORAL FOUR TIMES A DAY, TAB Tamsulosin HCl (Flomax) 0.4 Mg Cap 0.4 MG GT DAILY, CAP Discharge Condition Upon Discharge: stable Discharge Disposition Patient was discharged to SNF/Subacute Facility(03) Discharge Diagnoses: Discharge Instructions Discharge Instructions Follow up with: myself at [facility] Special Instructions I have been assigned to complete a D/C Summary on this account. I was not involved in the patient management Corona (Vanchtein)Eufemia TANG Nov 12, 2016 10:01
--- NOTE | 2016-11-13 02:01 | Discharge Summary 2 SIG ---
DATE OF ADMISSION: 11/04/2016 DATE OF DISCHARGE: 11/09/2016 REASON FOR ADMISSION: 81-year-old male, with a history of CVA with left-sided hemiparesis, diabetes, hypertension, dysphagia, G-tube, and chronic obstructive pulmonary disease, [facility] with altered level of consciousness. The patient was less responsive than usual. He was recently hospitalized for Klebsiella bacteremia. In the emergency department, the patient was found to have leukocytosis, WBC -16.7, and glucose- 434. Troponin was negative. Lactic acid- 2.9. Urinalysis positive for leukocyte esterase and few bacteria. EKG showed normal sinus rhythm. The patient was hypoxic and required placement on the BiPAP. ABG was done afterwards on the BiPAP and was stable. Hemoglobin and hematocrit were stable. Calcium -10.6, sodium -146, and creatinine -1.2. Initial chest x-ray revealed evidence of possible pneumonia versus atelectasis left lower lobe. The patient was admitted for further management. ADMITTING DIAGNOSES: 1. Sepsis. 2. Hypoxemia. 3. Hyperglycemia. 4. Diabetes mellitus, out of control. 5. Encephalopathy. 6. Hypertension. 7. Dysphagia. 8. Gastrostomy tube. 9. History of cerebrovascular accident with left hemiparesis. 10. Chronic obstructive pulmonary disease. 11. Sacral decubitus stage III, present on admission. 12. Possible aspiration pneumonia. HOSPITAL STAY: The patient was admitted to [facility]. The patient was started on empiric antibiotics. ID consult was requested. Pulmonology consult was requested. Urine culture were negative. Sputum culture were negative. Blood culture were negative. Wound culture was positive for E. coli and Enterococcus faecalis. The patient was on IV antibiotics as per ID recommendation. Switched to Augmentin upon discharge for additional seven days to complete the course in the [facility]. Collection Systems Consultant followed. The patient initially on the BiPAP. The patient was able to be weaned to oxygen via nasal cannula. BiPAP was on the stand up as needed. Pulse oximetry on 3 liters of oxygen via nasal cannula was stable prior to discharge. Pulmonary toilet provided. Venous duplex of bilateral lower extremities was negative. Final chest x-ray revealed stable bibasilar atelectasis. Strict aspiration precautions were maintained. The patient was started on G-tube feeding . Strict aspiration precautions were maintained. Rate of tube feeding increased as per dietary recommendations, patient was able to tolerate GT feeding. GT site care provided. Patient was initially on IV fluids. Sodium improved to 138. Creatinine down to 0.7. Intravenous fluids discontinued. Hemoglobin A1c- 9.7. The patient was on Levemir. Januvia added and sliding scale of insulin as needed. Blood sugar management need to be further optimized as outpatient to improve blood sugar control and reach therapeutic level of hemoglobin A1c. Wound care nurse seen the patient for present on admission sacral decubitus stage3.Wound care provided as per wound care nurse recommendation. Continue wound care at the [facility]. Aspirin was continued. Lipid panel was stable. DVT and GI prophylaxis provided. Blood pressure was managed with beta-gregoria and was stable. Psychiatrist seen and evaluated the patient and diagnosed him with the delirium secondary to general medical condition and started him on Seroquel as needed at night time. Leukocytosis resolved. Afebrile. Respiratory status stable. Mental status back to baseline. The patient was stable for discharge home on oral antibiotics. DISCHARGE DIAGNOSES: 1. Sepsis. 2. Possible aspiration pneumonia. 3. Hypoxemia. 4. Hyperglycemia. 5. Diabetes mellitus, out of control. 6. Acute toxic metabolic encephalopathy secondary to sepsis, resolved. 7. Delirium secondary to general medical condition. 8. Hypertension. 9. Gastrostomy tube, dysphagia. 10. History of cerebrovascular accident with left-sided hemiparesis. 11. Chronic obstructive pulmonary disease. 12. Sacral decubitus, stage III, present on admission. DISCHARGE MEDICATIONS: See medication reconciliation list. DISCHARGE INSTRUCTIONS: The [facility]. FOLLOWUP: Follow up with medical doctor at the facility. Scott Mack M.D. I have been assigned to dictate discharge summary on this account and I was not involved in the patient's management. Eufemia PearceAuburn Community HospitalRyanne, N.P. DR: ROBERTO JOB#: [id number] CC: IFRAH
== END 2016-11-09 12:32 | DRG 871 ==
LOC: EDBD 13:17 → EMR 13:45 → 2W 13:59 → EDBEDREQ 14:54 → 2W 21:19 → 4W 11-05 16:23
DX: A41.9 Sepsis, unspecified organism (principal); J69.0 Pneumonitis due to inhalation of food and vomit; J96.91 Respiratory failure, unspecified with hypoxia; G92 Toxic encephalopathy; J90 Pleural effusion, not elsewhere classified; L89.153 Pressure ulcer of sacral region, stage 3; J44.9 Chronic obstructive pulmonary disease, unspecified; R13.10 Dysphagia, unspecified; I69.959 Hemiplegia and hemiparesis following unspecified cerebrovascular disease affecting unspecified side; R65.20 Severe sepsis without septic shock; I69.920 Aphasia following unspecified cerebrovascular disease; Z93.1 Gastrostomy status; E11.65 Type 2 diabetes mellitus with hyperglycemia; I10 Essential (primary) hypertension; M19.90 Unspecified osteoarthritis, unspecified site; E78.00 Pure hypercholesterolemia, unspecified; F32.9 Major depressive disorder, single episode, unspecified; Z74.01 Bed confinement status
CPT/HCPCS: 36415; 36600; 71010; 80053; 80061; 80202; 81003; 82550; 82553; 82803; 82962; 82977; 83036; 83605; 83735; 83880; 84100; 84484; 84550; 85025; 85610; 85730; 86140; 87040; 87070; 87086; 87181; 87205; 93005; 93970; 94640; 94660; 94664; J1815; S5561

== ENCOUNTER 2017-01-04 22:27 | Inpatient (IN) | payer MEDICARE, MEDICAID ==
[~2017-01-04] VITALS: Ht 177.8 cm; Wt 88.9 kg
[~2017-01-04 22:27] MED LIST changes: +AMOX TR-K CLV1 EAC2 ORAL; +CULTURELLE1 EACH GT; +FERROUS SULFAT325 MG GT; +JANUVIA50 MG GT; +LEVEMIR100 UNIT/1 SUBQ; +TYLENOL EXTRA500 MG GT; +VITAMIN C500 M1 GT; +ZINC SULFATE220 M1 GT
[2017-01-05] VITALS (7 sets, daily range): BP systolic 102–136; BP diastolic 58–74
[2017-01-05] MEDS ORDERED: DuoNeb 0.5-3(2.5)mg/3ml neb HHN PRN ×2 (07:45→18:00)
[2017-01-05] MEDS ORDERED: Mylanta II UD 30ml ORAL PRN ×2 (07:45→20:00)
[2017-01-05] MEDS ORDERED: Nitroglycerin Subl 0.4mg tab (Bottle Of 25) SL PRN ×2 (07:45→16:00)
[2017-01-05] MEDS ORDERED: Promethazine/Codeine 5ml UD ORAL PRN ×2 (07:45→18:00)
[2017-01-05] MEDS ORDERED: Miralax 17gm pkt ORAL PRN (07:45)
[2017-01-05] MEDS ORDERED: Heparin 5000 units/ml inj SUBQ SCH (09:00)
[2017-01-05] MEDS ORDERED: Tamsulosin 0.4mg cap ORAL SCH (09:00)
[2017-01-05] MEDS ORDERED: Cefepime HCl 1 GM in D5W 55 ML IV SCH (10:00)
[2017-01-05] MEDS ORDERED: Vancomycin 1250mg/D5W 250ml 250 ML IVPB ONE (11:30)
[2017-01-05] MEDS ORDERED: NovoLOG Insulin Flexpen SUBQ SCH (11:30)
--- NOTE | 2017-01-05 12:48 | History and Physical ---
History of Present Illness General Date patient seen: Jan 05, 2017 Time patient seen: 10:00 Reason for Hospitalization: fever, tachycardia, hypoxia, PNA, severe sepsis Present Illness HPI 81 y/old male , resident of SNF, with PMH of CVA with L hemiparesis, COPD, DM, dysphagia, G tube, HTN, dyslipidemia was initially presented to [facility] ED in [facility] patietn was noted with increased lethargy, fever , hypoxia and tachypnea, O2 sat on RA-89% ,coarse breath sounds, subsequently the patietn was sent for eval to ED in ED fever- 103.6, tachycardic -123, tachypneic-30 CXR with LLL infiltrate Na 150 WBC 11,.0 lactic acid-3,3 BUN 35-creat-1.[address] with incomplete RBBB, Q waves in leads II, III,AVF, TWI in leads V1- V3 in ED received NS, supplemental O2, Tylenol, ratliff-culttured and started on abx ( Unasyn) patient DNR/DNI status transferred to [facility] for insurance purposes this am afebrile, VSS, no tachycardia, no tachypnea, on O2 via NC , sat stable Allergies: Coded Allergies: MILK (Unverified Allergy, Unknown, 05/14/16) SOY (Unverified Allergy, Unknown, 05/14/16) SOYBEAN (Unverified Allergy, Unknown, 05/14/16) Medication History Scheduled Albuterol Sulfate* (Albuterol Sulfate Hhn*), 2.5 MG HHN Q4HRT Amoxicillin/Potassium Clav 875-125 Mg Tab* (Amox Tr-K Clv 875-125 Mg Tab*), 875 MG ORAL EVERY 12 HOURS Ascorbic Acid* (Vitamin C*), 500 MG GT DAILY, (Reported) Aspirin* (Aspir-Low*), 81 MG GT DAILY, (Reported) Cholecalciferol (Vitamin D3)* (Vitamin D*), 2,000 UNITS GT DAILY, (Reported) Cholecalciferol (Vitamin D3)* (Vitamin D*), 2,000 UNITS GT DAILY, (Reported) Cranberry Conc/C/Bacill Coag (Azo Cranberry Tablet), 1 EACH GT DAILY, (Reported) Docusate Sodium* (Colace*), 100 MG GT DAILY, (Reported) Ferrous Sulfate* (Ferrous Sulfate*), 325 MG GT TID, (Reported) Insulin Detemir (Levemir Flexpen), 30 UNITS SUBQ Q12HR Insulin Detemir (Levemir), 30 UNITS SUBQ EVERY 12 HOURS, (Reported) Insulin Detemir (Levemir Flexpen), 60 UNITS SUBQ Q12HR Lactobacillus Rhamnosus Gg* (Culturelle*), 1 TAB GT BID Lactulose (Lactulose*), 20 GM GT TID, (Reported) Levofloxacin* (Levaquin*), 500 MG ORAL DAILY Magnesium Hydroxide (Milk of Magnesia), 30 ML ORAL DAILY, (Reported) Metoprolol Tartrate* (Metoprolol Tartrate*), 25 MG ORAL EVERY 12 HOURS, ( Reported) Metronidazole* (Flagyl*), 500 MG ORAL EVERY 8 HOURS Multivitamins Liq* (Multivitamin Liq*), 5 ML GT DAILY, (Reported) Nateglinide* (Starlix*), 120 MG ORAL TIAC Omeprazole (Omeprazole), 20 MG GT BID, (Reported) Ranitidine Hcl* (Zantac*), 150 MG ORAL TWICE A DAY, (Reported) Sitagliptin (Januvia), 50 MG GT DAILY Sucralfate* (Carafate*), 1 GM ORAL FOUR TIMES A DAY, (Reported) Tamsulosin HCl (Flomax), 0.4 MG GT DAILY, (Reported) Zinc Sulfate (Zinc Sulfate*), 220 MG GT DAILY, (Reported) Scheduled PRN Acetaminophen (Acetaminophen), 650 MG GT Q4H PRN Acetaminophen* (Tylenol Extra Strength*), 1,000 MG GT DAILY PRN for Mild Pain/ Temp > 100.5, (Reported) Patient History Healthcare decision maker Resuscitation status Do Not Resuscitate Advanced Directive on File Past Medical/Surgical History Past Medical/Surgical History: (1) Dyslipidemia (2) Dysphasia (3) HTN (hypertension) (4) Diabetes (5) COPD (chronic obstructive pulmonary disease) (6) CVA, old, aphasia (7) CVA, old, dysphagia (8) DM (diabetes mellitus) Review of Systems ROS Narrative unable to obtain due to ALOC Physical Exam General Appearance: no apparent distress, other - awake, nonverbal, poorly but responsive , bedridden AA male in NAD Lines, tubes and drains: peripheral HEENT: normocephalic, atraumatic, anicteric Neck: non-tender, supple Respiratory/Chest: no respiratory distress, decreased breath sounds Cardiovascular/Chest: normal peripheral pulses, normal rate, no JVD Abdomen: normal bowel sounds, non tender, soft, feeding tube - G tube Extremities: non-tender, no calf tenderness, no edema, other - L hemiparesis Neurologic: abnormal gait - bedridden , aphasic, L hemiparesis Musculoskeletal: atrophy - BLE Last 24 Hour Vital Signs Date Time Temp Pulse Resp B/P (MAP) Pulse Ox O2 Delivery O2 Flow Rate FiO2 01/05/17 12:00 97.3 84 21 123/63 99 Nasal Cannula 2.0 01/05/17 08:00 80 01/05/17 08:00 97.6 83 21 127/65 97 Nasal Cannula 2.0 01/05/17 04:53 2.0 01/05/17 04:00 87 01/05/17 04:00 97.5 81 20 111/58 97 Nasal Cannula 3.0 01/05/17 02:00 97.7 86 23 130/59 96 Nasal Cannula 3.0 Height (Feet): 5 Height (Inches): 10.00 Weight (Pounds): 158 Medications Current Medications Medications (Trade) Dose Ordered Sig/Francesca Route PRN Reason Start Time Stop Time Status Last Admin Dose Admin Acetaminophen (Tylenol) 650 mg Q4H PRN ORAL fever 01/05/17 07:45 02/04/17 07:44 Al Hydroxide/Mg Hydroxide (Mylanta II) 30 ml Q6H PRN ORAL dyspepsia 01/05/17 07:45 02/04/17 07:44 Albuterol/ Ipratropium (DuoNeb 0.5-3(2.5)mg/3ml) 3 ml Q4H PRN HHN Shortness of Breath 01/05/17 07:45 01/10/17 07:44 Cefepime HCl 1 gm/ Dextrose 55 ml @ 110 mls/hr Q12HR@1000,2200 IV 01/05/17 10:00 01/12/17 09:59 01/05/17 10:09 Heparin Sodium (Porcine) (Heparin 5000 units/ml) 5,000 units EVERY 12 HOURS SUBQ 01/05/17 09:00 02/04/17 08:59 01/05/17 10:10 Insulin Aspart (NovoLOG) BEFORE MEALS AND HS SUBQ 01/05/17 11:30 02/04/17 11:29 01/05/17 12:13 Nitroglycerin (Ntg) 0.4 mg Q5MIN X 3 DOSES PRN SL Prn Chest Pain 01/05/17 07:45 02/04/17 07:44 Ondansetron HCl (Zofran) 4 mg Q6H PRN IVP Nausea & Vomiting 01/05/17 07:45 02/04/17 07:44 Polyethylene Glycol (Miralax) 17 gm DAILYPRN PRN ORAL Constipation 01/05/17 07:45 02/04/17 07:44 Promethazine HCl/ Codeine (Phenergan with Codeine) 5 ml Q4H PRN ORAL For Cough 01/05/17 07:45 02/04/17 07:44 Tamsulosin HCl (Flomax) 0.4 mg DAILY ORAL 01/05/17 09:00 02/04/17 08:59 01/05/17 10:20 Temazepam (Restoril) 15 mg HSPRN PRN ORAL Insomnia 01/05/17 07:45 01/12/17 07:44 Vancomycin HCl (Vanco rx to dose) 1 ea DAILYPRN PRN MISC Per rx protocol 01/05/17 07:45 02/04/17 07:44 Vancomycin HCl 1 gm/Dextrose 275 ml @ 183.708 mls/hr Q24H IVPB 01/06/17 11:30 01/11/17 11:29 Vancomycin HCl/ Dextrose 250 ml @ 166.667 mls/hr ONCE ONCE IVPB 01/05/17 11:30 01/05/17 12:59 01/05/17 12:12 Assessment/Plan Assessment/Plan ASSESSMENT severe sepsis with acute organ dysfunction PNA ( aspiration vs HCAP) acute toxic metabolic encephalopathy on chronic dementia ( due to severe sepsis and dehydration) dehydration hypernatremia COPD HTN dysphagia, G tube Diabetes Hyperlipidemia PLAN OF CARE tele O2 keep sat above 92% pulmonary toeitl CXR in am empiric abx, fup with cx ID consult a/tussive prn start GT feeding, monitor tolerance, strict aspiration precautions free water flushes 100 cc q 4 fup with Na and renal parameters in am hypernatremia likely due to dehydration BS management with SS of insulin, check Hga1c BP stable for now, add anti HTN as needed lipid panel in am add ASA acute encephalopathy likely due to severe sepsis and dehydration DVT GI prophylaxis bowel regimen DNR/DNI status case discussed and evaluated by supervising physician Cj Andrew)Eufemia NP Jan 05, 2017 12:48
--- NOTE | 2017-01-05 17:15 | Infectious Diseases Prog Note ---
Infectious Disease Consult Infectious Disease Consult Infectious Disease Consult INFECTIOUS DISEASE CONSULTATION DATE OF CONSULTATION: [id number] CONSULTING PHYSICIAN: Joshua Sunshine M.D., MTM&H, CTropMed Covering for Dr. Cunningham REFERRING PHYSICIAN: Veronica Castellanos REASON FOR CONSULTATION: severe sepsis, LLL pneumonia HISTORY OF PRESENT ILLNESS: 81 y/old AAM, resident of [facility], with PMH of CVA with L hemiparesis/dysphagia/aphasia, COPD, DM, dysphagia, G tube, HTN, dyslipidemia initially presented to [facility] ED last night with lethary, fevers, sob, satting <89% on room air, now transferred for continued mgmt of LLL pneumonia, likely aspiration, c/ b severe sepsis. At [place] ER, was febrile to 103.5F, tachycardic to HR 123, tachypneic to 30, and labs notable for: Na 150 WBC 11.0, 13% bands, hgb 16.5, plt 147 lactic acid-3,3 BUN 35-creat-1.07, gluc 218 mildly elevated AST, nl ALT, borderline elevated bili 1.1, normal alk phos 43, alb 3.6, CO2 24. Urine Strep Ag negative. u/a 1.030/neg LE/neg nit. 3-5 WBC, no bacteria. CXR 1v reported to have LLL infiltrate w/o effusion, w/o cavity, and ECG with ST with incomplete RBBB, Q waves in leads II, III,AVF, TWI in leads V1-V3. received IV fluid resuscitation, able to get O2 sats to 93% with 4L NC, sputum and blood cx sent, given a dose of unasyn and then subsequently started on IV zosyn and azithromycin. Since transfer here has been on IV vancomycin and cefepime, and he has been afebrile, tachycardia resolved, less tachypneic, on 2L NC, saturations stable, still lethargic. Recent infection history includes LLL pneumonia in early November2016, a Klebsiella bacteremia and pseudomonas UTI several months ago, and a marsha UTI in october2016 , w/ h/o candidal colonization. PAST MEDICAL HISTORY: COPD CVA L hemiparesis aphasia dysphagia DM2 HTN HLD resident of [facility] LLL pneumonia (11/04/16)--negative sputum cx, negative blood cx, treated with IV vanc/cefeipme and continued on augmentin to complete 7D Klebsiella bacteremia, Pseudomona UTI--spring 2016 Marsha UTI--[id number]--6X fluconazole Past Surgical History: G tube placement ALLERGIES: No known drug allergies. allergic to mild and soybean. ANTIBIOTICS: Home and hospitalized medications reviewed. home meds: albuterol MDI ASA 81mg Cholecalciferol 1000u daily januvia 50mg daily lactulose 30cc TID insulin detemir 60 q12hr metoprolol 25mg q12hr ranitidine 150mg q12hr sucraid 10mg QID tamsulosin 0.4mg daily acetaminophen prn SOCIAL HISTORY: lives in SNF. denies tobacco, denies illicits. FAMILY HISTORY: Noncontributory REVIEW OF SYSTEMS: 11 point ROS negative except for that mentioned in HPI above. PHYSICAL EXAM: VITAL SIGNS: reviewed, afebrile, on 2L NC satting >93% GEN: opens eyes to voice, fatigued, grunting in response with h/o aphasia HEENT: Mild pale conjunctiva. oral mucosa dry, pharynx w/o exudate or effusion. dentition not poor. No icterus. Head normocephalic, neck supple. no meningismus. NECK: No cervical LAD, no JVD. no supraclavicular retractions CHEST: coarse rhonchi bilaterally with end expiratory wheezes. HEART: S1 and S2, no murmurs, no rubs. ABDOMEN: soft, non tender, distended, normoactive bowel sounds, peg in place w /o surrounding erythema, no hepatosplenomegaly. EXTREMITIES: No cyanosis, no clubbing, no edema. NEUROLOGIC: Awake, alert, no focal neurologic motor deficits. : new garcia in place. no erythema at urethral meatus. LYMPH: no LAD RECTAL: deferred LABORATORY AND DIAGNOSTIC DATA: reviewed as above. pending MRSA screen. RADIOLOGY: reviewed report of [facility] CXR. repeat CXR pending in AM. ASSESSMENT AND PLAN 81 y/o male h/o CVA with L hemiparesis, aphasia, dysphagia, PEG tube, COPD, DM2 , HTN, SNF resident, admitted with lethargy, fevers, dyspnea, and hypoxia found to have LLL pneumonia on CXR at [facility]. confounded by h/o COPD, not previously O2 dependent. ASSESSMENT: Severe sepsis (T 39.8C, HR 123, 13% bands, lactate 3.3 at [facility] ER), secondary to LLL Pneumonia LLL pneumonia, CURB-65 score 4. Aspiration vs HCAP. has healthy dentition, cxr w/o abscess, less concerned about anaerobes. leukocytosis bandemia hypoxia, requiring supplemental O2, not requring NIPPV at this time. lethargy, secondary to above. U/A negative for UTI stable sacral decubitus ulcer, colonized with E coli and enterococcus Hypernatremia DM2 HTN HLD h/o ischemic CVA c/b DNR/DNI PLAN: --continue empiric IV vancomycin/cefepime D#1 (01/04 s/p IV zosyn/azithromycin D#) --f/u [facility] labs: --blood cultures --sputum culture --urine legionella ag --repeat 1 v CXR in AM --f/u MRSA screen --monitor CBC daily, monitor chem panel --pulmonary managing inhaled bronchodilators for his h/o COPD --aspiration precautions --continue wound care for uninfected L lateral heel decub and stage II sacral decubitus ulcer also uninfected. Thank you for this consultation. Will continue to follow. Covering for Dr. Cunningham, please call me with questions, Joshua Sunshine M.D. Jan 05, 2017 17:15
[2017-01-05] MEDS: NovoLOG Insulin Flexpen SUBQ SCH ×2 (17:42→21:29)
[2017-01-05] MEDS ORDERED: Tubing IV Secondary IV ONE (19:56)
[2017-01-05] MEDS ORDERED: NS 275ml ONE (19:56)
[2017-01-05] MEDS: Famotidine 20 MG/ 2ML VIAL IVP SCH (20:50)
[2017-01-05] MEDS: Heparin 5000 units/ml inj SUBQ SCH (20:58)
[2017-01-05] MEDS: Cefepime HCl 1 GM in D5W 55 ML IV SCH (20:59)
[2017-01-05] MEDS ORDERED: Famotidine 20 MG/ 2ML VIAL IVP SCH (21:00)
[2017-01-06 04:02] VITALS: BP 117/59
[2017-01-06] MEDS: NovoLOG Insulin Flexpen SUBQ SCH ×3 (05:16→17:39)
[2017-01-06 07:05] LABS: ALANINE AMINOTRANSFERASE 19 U/L (3-41); ALBUMIN/GLOBULIN RATIO 0.5 (1.0-2.7); ANION GAP 11 (5-15); ASPARTATE AMINO TRANSFERASE 28 U/L (5-40); CALCIUM 9.3 mg/dL (8.6-10.2); CARBON DIOXIDE 21 mEQ/L (20-30); CHLORIDE 113 mEQ/L (98-107); CHOLESTEROL 120 mg/dL (< 200); CHOLESTEROL/HDL RATIO 4.8 (3.3-4.4); CREATININE 0.8 mg/dL (0.7-1.2); HEMOLYSIS 93; LDL CHOLESTEROL (CALC.) 59 mg/dL (60-99); PHOSPHORUS 2.1 mg/dL (2.5-4.8); POTASSIUM 3.7 mEQ/L (3.4-4.9); SODIUM 145 mEQ/L (135-145); TOTAL PROTEIN 7.2 g/dL (6.6-8.7)
[2017-01-06 07:11] LABS: BASOPHILS % (AUTO) 0.8 % (0.0-2.0); EOSINOPHILS % (AUTO) 3.1 % (0.0-3.0); LYMPHOCYTES % (AUTO) 19.6 % (20.0-45.0); MEAN CORPUSCULAR HEMOGLOBIN 33.9 PG (27.0-31.0); MEAN CORPUSCULAR HGB CONC 31.7 G/DL (32.0-36.0); MEAN CORPUSCULAR VOLUME 107 FL (80-99); MEAN PLATELET VOLUME 10.7 FL (6.5-10.1); MONOCYTES % (AUTO) 4.9 % (1.0-10.0); NEUTROPHILS % (AUTO) 71.6 % (45.0-75.0); PLATELET COUNT 124 K/UL (150-450); RED BLOOD COUNT 4.26 M/UL (4.70-6.10); RED CELL DISTRIBUTION WIDTH 13.9 % (11.6-14.8); WHITE BLOOD COUNT 11.3 K/UL (4.8-10.8)
[2017-01-06 08:08] VITALS: BP 116/64
[2017-01-06] MEDS ORDERED: Miralax 17gm pkt ORAL PRN (09:00)
[2017-01-06] MEDS ORDERED: Aspirin Baby 81mg ORAL SCH (09:00)
[2017-01-06] MEDS: Famotidine 20 MG/ 2ML VIAL IVP SCH ×2 (09:00→20:54)
[2017-01-06] MEDS: Tamsulosin 0.4mg cap ORAL SCH (10:06)
[2017-01-06] MEDS: Aspirin Baby 81mg ORAL SCH (10:07)
[2017-01-06] MEDS: Heparin 5000 units/ml inj SUBQ SCH ×2 (10:10→20:54)
[2017-01-06] MEDS: Cefepime HCl 1 GM in D5W 55 ML IV SCH ×2 (10:11→20:55)
[2017-01-06] MEDS ORDERED: Vancomycin 1gm in D5W 275ml IVPB SCH (11:30)
[2017-01-06 11:36] VITALS: BP 140/65
--- NOTE | 2017-01-06 11:54 | Wound Care Consultation ---
Wound Assessment Wound Assessment #1: Wound Number: 1 Wound Present on Admission: Yes New Wound: No Status Change of Wound: No Wound Location Body Site Modif: left Wound Location Body Site: heel Wound Type: pressure ulcer Jessica Test: Does not Jessica Pressure Ulcer Stage: deep tissue injury Wound Thickness: Full Thickness Wound Length: 6.0 Wound Width: 4.5 Wound Depth: utd Percent of Wound Holton/Red: 20 Percent of Wound Bed Yellow/Wh: 20 - dry Percent of Wound Purple/Maroon: 60 Wound Drainage Amount: None Wound Drainage Odor: None/Absent Tissue Surrounding Wound: Intact Wound General Appearance: Reddened - purple Wound Assessment #2: Wound Number: 2 Wound Present on Admission: Yes New Wound: No Status Change of Wound: No Wound Location Body Site Modif: right Wound Location Body Site: heel Wound Type: pressure ulcer Jessica Test: Does not Jessica Pressure Ulcer Stage: deep tissue injury Wound Thickness: Full Thickness Wound Length: 6.0 Wound Width: 4.5 Wound Depth: utd Percent of Wound Holton/Red: 20 Percent of Wound Bed Yellow/Wh: 20 - dry Percent of Wound Purple/Maroon: 60 Wound Drainage Amount: None Wound Drainage Odor: None/Absent Tissue Surrounding Wound: Intact Wound General Appearance: Reddened - purple Wound Assessment #3: Wound Number: 3 Wound Present on Admission: Yes New Wound: No Status Change of Wound: No Wound Location Body Site Modif: mid Wound Location Body Site: other - sacrococcygeal that extended to left and right buttocks Wound Type: scar - full thickness Wound Thickness: Full Thickness Wound Length: 8.5 Wound Width: 9.0 Wound Depth: utd Percent of Wound Holton/Red: 100 Wound Drainage Amount: None Wound Drainage Odor: None/Absent Tissue Surrounding Wound: Intact Wound General Appearance: Reddened - pink Wound Comment #1 Right heel resolving DTI pressure ulcer #2 Left heel resolving DTI pressure ulcer #3 Sacrococcygeal full thickness scar tissue Recommendation -Local wound care per protocol -Keep clean and dry -Optimize nutrition -Turn and reposition -Heel protector on both heels -Low air loss mattress -Offload both heels -Assess and f/u accordingly for any changes BAMBI TUBBS RN Jan 06, 2017 11:54
--- NOTE | 2017-01-06 12:49 | Diagnostic Imaging Report ---
Indication: Dyspnea Comparison: 11/08/16 A single view chest radiograph was obtained. Findings: There is interstitial edema that appears slightly worse. The heart is enlarged. Bones are osteopenic. Impression: Interstitial edema
[2017-01-06] MEDS: Vancomycin 1 GM in D5W 275 ML IVPB SCH (13:22)
--- NOTE | 2017-01-06 15:37 | Pulmonology Progress Note ---
Assessment/Plan Problems: (1) Pneumonia (2) COPD (chronic obstructive pulmonary disease) (3) feeding tube replacement (4) DM (diabetes mellitus) (5) HTN (hypertension) Assessment/Plan iv abx check cultures check electrolytes sliding scale diabetic diet dvt prophylaxis Subjective ROS Limited/Unobtainable: Yes Allergies: Coded Allergies: MILK (Unverified Allergy, Unknown, 05/14/16) SOY (Unverified Allergy, Unknown, 05/14/16) SOYBEAN (Unverified Allergy, Unknown, 05/14/16) Objective Last 24 Hour Vital Signs Date Time Temp Pulse Resp B/P (MAP) Pulse Ox O2 Delivery O2 Flow Rate FiO2 01/06/17 11:36 97.5 82 20 140/65 97 Nasal Cannula 2.0 01/06/17 08:08 97.3 82 20 116/64 98 Nasal Cannula 2.0 01/06/17 07:57 82 16 01/06/17 04:02 97.6 86 21 117/59 100 Nasal Cannula 01/05/17 23:41 97.6 87 20 102/66 100 Nasal Cannula 01/05/17 22:39 90 16 01/05/17 20:48 97.6 98 20 118/61 100 Nasal Cannula 01/05/17 18:59 96 20 Nasal Cannula 2.0 28 01/05/17 16:00 97.8 89 21 136/74 97 Nasal Cannula 2.0 01/05/17 16:00 81 Intake and Output 01/06/17 01/07/17 19:00 07:00 Intake Total 435 ml Output Total 200 ml Balance 235 ml Intake Oral 0 ml Free Water 200 ml IV Total 55 ml Tube Feeding 180 ml Output Urine Total 200 ml General Appearance: WD/WN HEENT: normocephalic, atraumatic Respiratory/Chest: chest wall non-tender, lungs clear Cardiovascular: normal peripheral pulses, normal rate Abdomen: normal bowel sounds, soft, non tender Genitourinary: normal external genitalia Extremities: no clubbing Skin: no lesions 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 Lymphatic: no neck adenopathy Laboratory Tests 01/06/17 06:10: White Blood Count 11.3H, Red Blood Count 4.26L, Hemoglobin 14.4, Hematocrit 45.6 , Mean Corpuscular Volume 107H, Mean Corpuscular Hemoglobin 33.9H, Mean Corpuscular Hemoglobin Concent 31.7L, Red Cell Distribution Width 13.9, Platelet Count 124L, Mean Platelet Volume 10.7H, Neutrophils (%) (Auto) 71.6, Lymphocytes (%) (Auto) 19.6L, Monocytes (%) (Auto) 4.9, Eosinophils (%) (Auto) 3.1H, Basophils (%) (Auto) 0.8, Sodium Level 145, Potassium Level 3.7, Chloride Level 113H, Carbon Dioxide Level 21, Anion Gap 11, Blood Urea Nitrogen 20, Creatinine 0.8, Estimat Glomerular Filtration Rate , Glucose Level 143H, Calcium Level 9.3, Phosphorus Level 2.1L, Total Bilirubin 0.6, Aspartate Amino Transf (AST/SGOT) 28, Alanine Aminotransferase (ALT/SGPT) 19, Alkaline Phosphatase 57, Total Protein 7.2, Albumin 2.5L, Globulin 4.7, Albumin/Globulin Ratio 0.5L, Triglycerides Level 180H, Cholesterol Level 120, LDL Cholesterol 59L , HDL Cholesterol 25, Cholesterol/HDL Ratio 4.8H Current Medications Medications (Trade) Dose Ordered Sig/Francesca Route PRN Reason Start Time Stop Time Status Last Admin Dose Admin Acetaminophen (Tylenol) 650 mg Q4H PRN ORAL fever 01/05/17 20:00 02/04/17 19:59 Al Hydroxide/Mg Hydroxide (Mylanta II) 30 ml Q6H PRN ORAL dyspepsia 01/05/17 20:00 02/04/17 19:59 Albuterol/ Ipratropium (DuoNeb 0.5-3(2.5)mg/3ml) 3 ml Q4H PRN HHN Shortness of Breath 01/05/17 18:00 01/10/17 17:59 Aspirin (ASA) 81 mg DAILY ORAL 01/06/17 09:00 02/05/17 08:59 01/06/17 10:07 Cefepime HCl 1 gm/ Dextrose 55 ml @ 110 mls/hr Q12HR@1000,2200 IV 01/05/17 22:00 01/12/17 09:59 01/06/17 10:11 Famotidine (Pepcid I.v.) 20 mg Q12HR IVP 01/05/17 21:00 02/04/17 20:59 01/06/17 09:00 Heparin Sodium (Porcine) (Heparin 5000 units/ml) 5,000 units EVERY 12 HOURS SUBQ 01/05/17 21:00 02/04/17 08:59 01/06/17 10:10 Insulin Aspart (NovoLOG) BEFORE MEALS AND HS SUBQ 01/05/17 16:30 02/04/17 11:29 01/06/17 12:50 Nitroglycerin (Ntg) 0.4 mg Q5MIN X 3 DOSES PRN SL Prn Chest Pain 01/05/17 16:00 02/04/17 07:44 Ondansetron HCl (Zofran) 4 mg Q6H PRN IVP Nausea & Vomiting 01/05/17 18:00 02/04/17 17:59 Polyethylene Glycol (Miralax) 17 gm DAILYPRN PRN ORAL Constipation 01/06/17 09:00 02/04/17 08:59 Promethazine HCl/ Codeine (Phenergan with Codeine) 5 ml Q4H PRN ORAL For Cough 01/05/17 18:00 02/04/17 17:59 Tamsulosin HCl (Flomax) 0.4 mg DAILY ORAL 01/06/17 09:00 02/04/17 08:59 01/06/17 10:06 Temazepam (Restoril) 15 mg HSPRN PRN ORAL Insomnia 01/05/17 21:00 01/12/17 20:59 Vancomycin HCl (Vanco rx to dose) 1 ea DAILYPRN PRN MISC Per rx protocol 01/05/17 16:00 02/04/17 15:59 Vancomycin HCl 1 gm/Dextrose 275 ml @ 183.708 mls/hr Q24H IVPB 01/06/17 11:30 01/11/17 11:29 01/06/17 13:22 SWATI THOMAS Jan 06, 2017 15:37
[2017-01-06 15:56] VITALS: BP 141/64
--- NOTE | 2017-01-06 16:48 | Infectious Diseases Prog Note ---
Assessment/Plan Assessment/Plan ASSESSMENT AND PLAN 81 y/o male h/o CVA with L hemiparesis, aphasia, dysphagia, PEG tube, COPD, DM2 , HTN, SNF resident, admitted with lethargy, fevers, dyspnea, and hypoxia found to have LLL pneumonia on CXR at [place]. confounded by h/o COPD, not previously O2 dependent. leukocytosis still mildly elevated, but bandemia has resolved, and he's much more alert today and is no longer requiring supplemental O2. ASSESSMENT: Severe sepsis (T 39.8C, HR 123, 13% bands, lactate 3.3 at [place] ER), secondary to LLL Pneumonia LLL pneumonia, CURB-65 score 4. Aspiration vs HCAP. has healthy dentition, cxr w/o abscess, less concerned about anaerobes. leukocytosis, stable, with resolution of bandemia bandemia, resolved hypoxia, s/p lethargy, secondary to above, resolved U/A negative for UTI stable sacral decubitus ulcer, colonized with E coli and enterococcus, not actively infected loose stool x1 this afternoon with WBC 11, will r/o c diff Hypernatremia, sp DM2 HTN HLD h/o ischemic CVA c/b DNR/DNI PLAN: --continue empiric IV vancomycin/cefepime D#2 (01/04 s/p IV zosyn/azithromycin D#) --f/u [place] labs: --blood cultures --sputum culture --urine legionella ag --c diff on stool --f/u MRSA screen --monitor CBC daily, monitor chem panel --pulmonary managing inhaled bronchodilators for his h/o COPD --aspiration precautions --continue wound care for uninfected L lateral heel decub and stage II sacral decubitus ulcer also uninfected. Subjective ROS Limited/Unobtainable: Yes Allergies: Coded Allergies: MILK (Unverified Allergy, Unknown, 05/14/16) SOY (Unverified Allergy, Unknown, 05/14/16) SOYBEAN (Unverified Allergy, Unknown, 05/14/16) Objective Vital Signs Last 24 Hour Vital Signs Date Time Temp Pulse Resp B/P (MAP) Pulse Ox O2 Delivery O2 Flow Rate FiO2 01/06/17 15:56 96.9 86 20 141/64 95 Room Air 01/06/17 11:36 97.5 82 20 140/65 97 Nasal Cannula 2.0 01/06/17 08:08 97.3 82 20 116/64 98 Nasal Cannula 2.0 01/06/17 07:57 82 16 01/06/17 04:02 97.6 86 21 117/59 100 Nasal Cannula 01/05/17 23:41 97.6 87 20 102/66 100 Nasal Cannula 01/05/17 22:39 90 16 01/05/17 20:48 97.6 98 20 118/61 100 Nasal Cannula 01/05/17 18:59 96 20 Nasal Cannula 2.0 28 Height (Feet): 5 Height (Inches): 10.00 Weight (Pounds): 196 Objective VITAL SIGNS: reviewed, afebrile GEN: opens eyes to voice, no longer fatigued, grunting in response with h/o aphasia HEENT: Mild pale conjunctiva. oral mucosa dry, pharynx w/o exudate or effusion. dentition not poor. No icterus. Head normocephalic, neck supple. no meningismus. NECK: No cervical LAD, no JVD. no supraclavicular retractions CHEST: coarse rhonchi bilaterally with end expiratory wheezes. HEART: S1 and S2, no murmurs, no rubs. ABDOMEN: soft, non tender, distended, normoactive bowel sounds, peg in place w /o surrounding erythema, no hepatosplenomegaly. EXTREMITIES: No cyanosis, no clubbing, no edema. NEUROLOGIC: Awake, alert, no focal neurologic motor deficits. : new garcia in place. no erythema at urethral meatus. LYMPH: no LAD RECTAL: deferred Patient : IVONNE LINDER Referring Physician: Eufemia Corona (Vanchtein) SHROUDMAN ID Number: [id number] Service Date: 01/06/17 : 1935 Report Date: 01/06/17 Gender: M Accession No.: [id number] Location: Procedure: XRAY Chest 1v Indication: Dyspnea Comparison: 11/08/16 A single view chest radiograph was obtained. Findings: There is interstitial edema that appears slightly worse. The heart is enlarged. Bones are osteopenic. Impression: Interstitial edema Laboratory Tests Test 01/06/17 06:10 White Blood Count 11.3 K/UL (4.8-10.8) H Red Blood Count 4.26 M/UL (4.70-6.10) L Hemoglobin 14.4 G/DL (14.2-18.0) Hematocrit 45.6 % (42.0-52.0) Mean Corpuscular Volume 107 FL (80-99) H Mean Corpuscular Hemoglobin 33.9 PG (27.0-31.0) H Mean Corpuscular Hemoglobin Concent 31.7 G/DL (32.0-36.0) L Red Cell Distribution Width 13.9 % (11.6-14.8) Platelet Count 124 K/UL (150-450) L Mean Platelet Volume 10.7 FL (6.5-10.1) H Neutrophils (%) (Auto) 71.6 % (45.0-75.0) Lymphocytes (%) (Auto) 19.6 % (20.0-45.0) L Monocytes (%) (Auto) 4.9 % (1.0-10.0) Eosinophils (%) (Auto) 3.1 % (0.0-3.0) H Basophils (%) (Auto) 0.8 % (0.0-2.0) Sodium Level 145 mEQ/L (135-145) Potassium Level 3.7 mEQ/L (3.4-4.9) Chloride Level 113 mEQ/L (98-107) H Carbon Dioxide Level 21 mEQ/L (20-30) Anion Gap 11 (5-15) Blood Urea Nitrogen 20 mg/dL (7-23) Creatinine 0.8 mg/dL (0.7-1.2) Estimat Glomerular Filtration Rate mL/min (>60) Glucose Level 143 mg/dL (74-106) H Calcium Level 9.3 mg/dL (8.6-10.2) Phosphorus Level 2.1 mg/dL (2.5-4.8) L Total Bilirubin 0.6 mg/dL (0.0-1.2) Aspartate Amino Transf (AST/SGOT) 28 U/L (5-40) Alanine Aminotransferase (ALT/SGPT) 19 U/L (3-41) Alkaline Phosphatase 57 U/L (40-129) Total Protein 7.2 g/dL (6.6-8.7) Albumin 2.5 g/dL (3.5-5.2) L Globulin 4.7 g/dL Albumin/Globulin Ratio 0.5 (1.0-2.7) L Triglycerides Level 180 mg/dL (< 150) H Cholesterol Level 120 mg/dL (< 200) LDL Cholesterol 59 mg/dL (60-99) L HDL Cholesterol 25 mg/dL (> 60) Cholesterol/HDL Ratio 4.8 (3.3-4.4) H Current Medications Medications (Trade) Dose Ordered Sig/Francesca Route PRN Reason Start Time Stop Time Status Last Admin Dose Admin Acetaminophen (Tylenol) 650 mg Q4H PRN ORAL fever 01/05/17 20:00 02/04/17 19:59 Al Hydroxide/Mg Hydroxide (Mylanta II) 30 ml Q6H PRN ORAL dyspepsia 01/05/17 20:00 02/04/17 19:59 Albuterol/ Ipratropium (DuoNeb 0.5-3(2.5)mg/3ml) 3 ml Q4H PRN HHN Shortness of Breath 01/05/17 18:00 01/10/17 17:59 Aspirin (ASA) 81 mg DAILY ORAL 01/06/17 09:00 02/05/17 08:59 01/06/17 10:07 Cefepime HCl 1 gm/ Dextrose 55 ml @ 110 mls/hr Q12HR@1000,2200 IV 01/05/17 22:00 01/12/17 09:59 01/06/17 10:11 Famotidine (Pepcid I.v.) 20 mg Q12HR IVP 01/05/17 21:00 02/04/17 20:59 01/06/17 09:00 Heparin Sodium (Porcine) (Heparin 5000 units/ml) 5,000 units EVERY 12 HOURS SUBQ 01/05/17 21:00 02/04/17 08:59 01/06/17 10:10 Insulin Aspart (NovoLOG) Q6HR SUBQ 01/06/17 18:00 02/04/17 11:29 Nitroglycerin (Ntg) 0.4 mg Q5MIN X 3 DOSES PRN SL Prn Chest Pain 01/05/17 16:00 02/04/17 07:44 Ondansetron HCl (Zofran) 4 mg Q6H PRN IVP Nausea & Vomiting 01/05/17 18:00 02/04/17 17:59 Polyethylene Glycol (Miralax) 17 gm DAILYPRN PRN ORAL Constipation 01/06/17 09:00 02/04/17 08:59 Promethazine HCl/ Codeine (Phenergan with Codeine) 5 ml Q4H PRN ORAL For Cough 01/05/17 18:00 02/04/17 17:59 Tamsulosin HCl (Flomax) 0.4 mg DAILY ORAL 01/06/17 09:00 02/04/17 08:59 01/06/17 10:06 Temazepam (Restoril) 15 mg HSPRN PRN ORAL Insomnia 01/05/17 21:00 01/12/17 20:59 Vancomycin HCl (Vanco rx to dose) 1 ea DAILYPRN PRN MISC Per rx protocol 01/05/17 16:00 02/04/17 15:59 Vancomycin HCl 1 gm/Dextrose 275 ml @ 183.708 mls/hr Q24H IVPB 01/06/17 11:30 01/11/17 11:29 01/06/17 13:22 Joshua Sunshine M.D. Jan 06, 2017 16:48
[2017-01-06 19:56] VITALS: BP 143/65
[2017-01-07] VITALS: BP 137/61
[2017-01-07 04:00] VITALS: BP 151/71
[2017-01-07] MEDS: NovoLOG Insulin Flexpen SUBQ SCH ×4 (06:07→18:04)
[2017-01-07 07:10] LABS: ALANINE AMINOTRANSFERASE 19 U/L (3-41); ALBUMIN/GLOBULIN RATIO 0.6 (1.0-2.7); ANION GAP 13 (5-15); ASPARTATE AMINO TRANSFERASE 22 U/L (5-40); CALCIUM 9.6 mg/dL (8.6-10.2); CARBON DIOXIDE 22 mEQ/L (20-30); CHLORIDE 109 mEQ/L (98-107); CREATININE 0.7 mg/dL (0.7-1.2); CRP QUANT 10.1 mg/dL (< 0.5); HEMOLYSIS 8; MAGNESIUM 2.1 mg/dL (1.7-2.5); SODIUM 144 mEQ/L (135-145)
[2017-01-07 07:15] LABS: BASOPHILS % (AUTO) 1.2 % (0.0-2.0); EOSINOPHILS % (AUTO) 4.2 % (0.0-3.0); LYMPHOCYTES % (AUTO) 31.9 % (20.0-45.0); MEAN CORPUSCULAR HEMOGLOBIN 33.1 PG (27.0-31.0); MEAN CORPUSCULAR HGB CONC 31.8 G/DL (32.0-36.0); MEAN CORPUSCULAR VOLUME 104 FL (80-99); MEAN PLATELET VOLUME 9.5 FL (6.5-10.1); MONOCYTES % (AUTO) 5.8 % (1.0-10.0); NEUTROPHILS % (AUTO) 57.1 % (45.0-75.0); PLATELET COUNT 150 K/UL (150-450); RED BLOOD COUNT 4.24 M/UL (4.70-6.10); RED CELL DISTRIBUTION WIDTH 13.6 % (11.6-14.8); WHITE BLOOD COUNT 7.6 K/UL (4.8-10.8)
[2017-01-07 08:00] VITALS: BP 141/69
[2017-01-07] MEDS: Famotidine 20 MG/ 2ML VIAL IVP SCH ×2 (08:44→20:20)
[2017-01-07] MEDS: Tamsulosin 0.4mg cap ORAL SCH (08:45)
[2017-01-07] MEDS: Aspirin Baby 81mg ORAL SCH (08:45)
[2017-01-07] MEDS: Heparin 5000 units/ml inj SUBQ SCH ×2 (08:46→20:22)
--- NOTE | 2017-01-07 10:23 | Diagnostic Imaging Report ---
Indication: DYSPNEA Technique: One view of the chest Comparison: 01/06/2017 Findings: There is mild interstitial edema, stable or minimally improved. The heart remains borderline enlarged. There is persistent atelectasis at the left lung base Impression: Stable or minimally improved interstitial edema, over one day
[2017-01-07] MEDS: Cefepime HCl 1 GM in D5W 55 ML IV SCH ×2 (10:27→20:20)
[2017-01-07 12:00] VITALS: BP 143/72
[2017-01-07 12:38] LABS: ERYTHROCYTE SEDIMENTATION RATE 62 MM/HR (0-20)
--- NOTE | 2017-01-07 14:15 | Consultation ---
Consult Note Consult Note 81 y/old male , resident of SNF, with PMH of CVA with L hemiparesis, COPD, DM, dysphagia, G tube, HTN, dyslipidemia was initially presented to [facility] ED in SNF patietn was noted with increased lethargy, fever , hypoxia and tachypnea, O2 sat on RA-89% ,coarse breath sounds, subsequently the patietn was sent for eval to ED in ED fever- 103.6, tachycardic -123, tachypneic-30 CXR with LLL infiltrate Na 150 WBC 11,.0 lactic acid-3,3 BUN 35-creat-1.[address] with incomplete RBBB, Q waves in leads II, III,AVF, TWI in leads V1- V3 (1) Dyslipidemia (2) Dysphasia (3) HTN (hypertension) (4) Diabetes (5) COPD (chronic obstructive pulmonary disease) (6) CVA, old, aphasia (7) CVA, old, dysphagia (8) DM (diabetes mellitus) Assessment/Plan This patient is being admitted from [facility] with the diagnosis of sepsis, hypoxia, tachycardia, high lactate level, and hyperglycemia. possible aspiration pna/hcap vs atx, ? gram neg sacral wound infection Other conditions are history of CVA, hypertension, high cholesterol, chronic obstructive pulmonary disease, and PEG. tele O2 keep sat above 92% pulmonary toeitl CXR in am empiric abx, fup with cx ID consult a/tussive prn start GT feeding, monitor tolerance, strict aspiration precautions free water flushes 100 cc q 4 fup with Na and renal parameters in am hypernatremia likely due to dehydration BS management with SS of insulin, check Hga1c BP stable for now, add anti HTN as needed lipid panel in am add ASA acute encephalopathy likely due to severe sepsis and dehydration DVT GI prophylaxis bowel regimen DNR/DNI status Per orders JULIANNE HERNÁNDEZ Jan 07, 2017 14:15
[2017-01-07 16:00] VITALS: BP 148/75
[2017-01-07] MEDS: Vancomycin 1 GM in D5W 275 ML IVPB SCH (16:05)
--- NOTE | 2017-01-07 16:16 | Pulmonology Progress Note ---
Assessment/Plan Problems: (1) Pneumonia (2) COPD (chronic obstructive pulmonary disease) (3) feeding tube replacement (4) DM (diabetes mellitus) (5) HTN (hypertension) Assessment/Plan more awake iv abx check cultures, nothing available yet tolerating gtube feeding check electrolytes sliding scale diabetic diet dvt prophylaxis Subjective ROS Limited/Unobtainable: No Constitutional: Reports: no symptoms HEENT: Repors: no symptoms Respiratory: Reports: no symptoms Allergies: Coded Allergies: MILK (Unverified Allergy, Unknown, 05/14/16) SOY (Unverified Allergy, Unknown, 05/14/16) SOYBEAN (Unverified Allergy, Unknown, 05/14/16) Objective Last 24 Hour Vital Signs Date Time Temp Pulse Resp B/P (MAP) Pulse Ox O2 Delivery O2 Flow Rate FiO2 01/07/17 16:00 97.3 81 20 148/75 97 Room Air 01/07/17 12:00 97.3 83 20 143/72 96 Room Air 01/07/17 08:00 98.1 82 20 141/69 95 Room Air 01/07/17 07:08 88 16 01/07/17 04:00 98.0 82 20 151/71 95 Room Air 01/07/17 00:00 97.7 72 18 137/61 94 Room Air 01/06/17 21:06 86 16 01/06/17 19:56 97.9 86 20 143/65 93 Room Air General Appearance: WD/WN HEENT: normocephalic, atraumatic Respiratory/Chest: chest wall non-tender, normal breath sounds Cardiovascular: normal peripheral pulses, normal rate Abdomen: normal bowel sounds, soft, non tender Genitourinary: normal external genitalia Extremities: no clubbing Skin: no rash Neurologic/Psychiatric: shop and 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 Complete 01/06/17 17:00 Stool Clostridium difficile Toxin Assay - Final Complete 01/05/17 02:00 Rectum VRE Culture - Final Enterococcus Faecium - Vre Complete Laboratory Tests 01/07/17 05:10: White Blood Count 7.6, Red Blood Count 4.24L, Hemoglobin 14.0L, Hematocrit 44.1 , Mean Corpuscular Volume 104H, Mean Corpuscular Hemoglobin 33.1H, Mean Corpuscular Hemoglobin Concent 31.8L, Red Cell Distribution Width 13.6, Platelet Count 150, Mean Platelet Volume 9.5, Neutrophils (%) (Auto) 57.1, Lymphocytes (%) (Auto) 31.9, Monocytes (%) (Auto) 5.8, Eosinophils (%) (Auto) 4.2H, Basophils (%) (Auto) 1.2, Erythrocyte Sedimentation Rate 62H, Sodium Level 144, Potassium Level 3.0L, Chloride Level 109H, Carbon Dioxide Level 22, Anion Gap 13, Blood Urea Nitrogen 15, Creatinine 0.7, Estimat Glomerular Filtration Rate , Glucose Level 102, Calcium Level 9.6, Phosphorus Level 3.0, Magnesium Level 2.1, Total Bilirubin 0.5, Aspartate Amino Transf (AST/SGOT) 22, Alanine Aminotransferase (ALT/SGPT) 19, Alkaline Phosphatase 60, C-Reactive Protein, Quantitative 10.1H, Pro-B-Type Natriuretic Peptide 1098H, Total Protein 8.0, Albumin 3.0L, Globulin 5.0, Albumin/Globulin Ratio 0.6L Current Medications Medications (Trade) Dose Ordered Sig/Francesca Route PRN Reason Start Time Stop Time Status Last Admin Dose Admin Acetaminophen (Tylenol) 650 mg Q4H PRN ORAL fever 01/05/17 20:00 02/04/17 19:59 Albuterol/ Ipratropium (DuoNeb 0.5-3(2.5)mg/3ml) 3 ml Q4H PRN HHN Shortness of Breath 01/05/17 18:00 01/10/17 17:59 Aspirin (ASA) 81 mg DAILY ORAL 01/06/17 09:00 02/05/17 08:59 01/07/17 08:45 Cefepime HCl 1 gm/ Dextrose 55 ml @ 110 mls/hr Q12HR@1000,2200 IV 01/05/17 22:00 01/12/17 09:59 01/07/17 10:27 Famotidine (Pepcid I.v.) 20 mg Q12HR IVP 01/05/17 21:00 02/04/17 20:59 01/07/17 08:44 Heparin Sodium (Porcine) (Heparin 5000 units/ml) 5,000 units EVERY 12 HOURS SUBQ 01/05/17 21:00 02/04/17 08:59 01/07/17 08:46 Insulin Aspart (NovoLOG) Q6HR SUBQ 01/06/17 18:00 02/04/17 11:29 01/07/17 06:07 Nitroglycerin (Ntg) 0.4 mg Q5MIN X 3 DOSES PRN SL Prn Chest Pain 01/05/17 16:00 02/04/17 07:44 Ondansetron HCl (Zofran) 4 mg Q6H PRN IVP Nausea & Vomiting 01/05/17 18:00 02/04/17 17:59 Polyethylene Glycol (Miralax) 17 gm DAILYPRN PRN ORAL Constipation 01/06/17 09:00 02/04/17 08:59 Promethazine HCl/ Codeine (Phenergan with Codeine) 5 ml Q4H PRN ORAL For Cough 01/05/17 18:00 02/04/17 17:59 Tamsulosin HCl (Flomax) 0.4 mg DAILY ORAL 01/06/17 09:00 02/04/17 08:59 01/07/17 08:45 Temazepam (Restoril) 15 mg HSPRN PRN ORAL Insomnia 01/05/17 21:00 01/12/17 20:59 01/06/17 21:44 Vancomycin HCl (Vanco rx to dose) 1 ea DAILYPRN PRN MISC Per rx protocol 01/05/17 16:00 02/04/17 15:59 Vancomycin HCl 1 gm/Dextrose 275 ml @ 183.708 mls/hr Q24H IVPB 01/06/17 11:30 01/11/17 11:29 01/07/17 16:05 SWATI THOMAS Jan 07, 2017 16:16
[2017-01-07] MEDS ORDERED: VANCOMYCIN1 GM/2502 IVPB (16:35)
[2017-01-07] MEDS ORDERED: CEFEPIME-D1 GM/50 ML IVPB (16:35)
--- NOTE | 2017-01-07 16:35 | Infectious Diseases Prog Note ---
Assessment/Plan Assessment/Plan ASSESSMENT AND PLAN 81 y/o male h/o CVA with L hemiparesis, aphasia, dysphagia, PEG tube, COPD, DM2 , HTN, SNF resident, admitted with lethargy, fevers, dyspnea, and hypoxia found to have LLL pneumonia on CXR at [place]. confounded by h/o COPD, not previously O2 dependent. leukocytosis has resolved, and he's much more alert today and is no longer requiring supplemental O2. ASSESSMENT: Severe sepsis (T 39.8C, HR 123, 13% bands, lactate 3.3 at [place] ER), secondary to LLL Pneumonia, resolving LLL pneumonia, CURB-65 score 4. Aspiration vs HCAP. has healthy dentition, cxr w/o abscess, less concerned about anaerobes. leukocytosis, resolved bandemia, resolved hypoxia, s/p lethargy, secondary to above, resolved U/A negative for UTI stable sacral decubitus ulcer, colonized with E coli and enterococcus, not actively infected C diff negative MRSA screen negative VRE colonized Hypernatremia, sp DM2 HTN HLD h/o ischemic CVA c/b DNR/DNI PLAN: --continue IV vancomycin/cefepime D#3/ (01/04 s/p IV zosyn/azithromycin D#) --f/u [place] labs: --blood cultures --sputum culture --urine legionella ag --monitor CBC daily, monitor chem panel --pulmonary managing inhaled bronchodilators for his h/o COPD --aspiration precautions --continue wound care for uninfected L lateral heel decub and stage II sacral decubitus ulcer also uninfected. Okay for discharge back to [facility] to complete IV vanc/cefepime from ID standpoint. covering for Dr. Cunningham. Subjective Constitutional: Reports: no symptoms Gastrointestinal/Abdominal: Reports: no symptoms Allergies: Coded Allergies: MILK (Unverified Allergy, Unknown, 05/14/16) SOY (Unverified Allergy, Unknown, 05/14/16) SOYBEAN (Unverified Allergy, Unknown, 05/14/16) Objective Vital Signs Last 24 Hour Vital Signs Date Time Temp Pulse Resp B/P (MAP) Pulse Ox O2 Delivery O2 Flow Rate FiO2 01/07/17 16:00 97.3 81 20 148/75 97 Room Air 01/07/17 12:00 97.3 83 20 143/72 96 Room Air 01/07/17 08:00 98.1 82 20 141/69 95 Room Air 01/07/17 07:08 88 16 01/07/17 04:00 98.0 82 20 151/71 95 Room Air 01/07/17 00:00 97.7 72 18 137/61 94 Room Air 01/06/17 21:06 86 16 01/06/17 19:56 97.9 86 20 143/65 93 Room Air Height (Feet): 5 Height (Inches): 10.00 Weight (Pounds): 196 Objective VITAL SIGNS: reviewed, afebrile GEN: opens eyes to voice, no longer fatigued, grunting in response with h/o aphasia, looks much better than admission HEENT: conjunctiva not pale. oral mucosa moist, pharynx w/o exudate or effusion. dentition not poor. No icterus. Head normocephalic, neck supple. no meningismus. NECK: No cervical LAD, no JVD. no supraclavicular retractions CHEST: coarse rhonchi bilaterally with end expiratory wheezes. HEART: S1 and S2, no murmurs, no rubs. ABDOMEN: soft, non tender, distended, normoactive bowel sounds, peg in place w /o surrounding erythema, no hepatosplenomegaly. EXTREMITIES: No cyanosis, no clubbing, no edema. NEUROLOGIC: Awake, alert, no focal neurologic motor deficits. : garcia in place (01/05/17). no erythema at urethral meatus. LYMPH: no LAD RECTAL: deferred Microbiology Date/Time Source Procedure Growth Status 01/05/17 02:00 Nasal Nares Right MRSA Culture - Final NO METHICILLIN RESISTANT STAPH AUREUS... Complete 01/06/17 17:00 Stool Clostridium difficile Toxin Assay - Final Complete 01/05/17 02:00 Rectum VRE Culture - Final Enterococcus Faecium - Vre Complete Laboratory Tests Test 01/07/17 05:10 White Blood Count 7.6 K/UL (4.8-10.8) Red Blood Count 4.24 M/UL (4.70-6.10) L Hemoglobin 14.0 G/DL (14.2-18.0) L Hematocrit 44.1 % (42.0-52.0) Mean Corpuscular Volume 104 FL (80-99) H Mean Corpuscular Hemoglobin 33.1 PG (27.0-31.0) H Mean Corpuscular Hemoglobin Concent 31.8 G/DL (32.0-36.0) L Red Cell Distribution Width 13.6 % (11.6-14.8) Platelet Count 150 K/UL (150-450) Mean Platelet Volume 9.5 FL (6.5-10.1) Neutrophils (%) (Auto) 57.1 % (45.0-75.0) Lymphocytes (%) (Auto) 31.9 % (20.0-45.0) Monocytes (%) (Auto) 5.8 % (1.0-10.0) Eosinophils (%) (Auto) 4.2 % (0.0-3.0) H Basophils (%) (Auto) 1.2 % (0.0-2.0) Erythrocyte Sedimentation Rate 62 MM/HR (0-20) H Sodium Level 144 mEQ/L (135-145) Potassium Level 3.0 mEQ/L (3.4-4.9) L Chloride Level 109 mEQ/L (98-107) H Carbon Dioxide Level 22 mEQ/L (20-30) Anion Gap 13 (5-15) Blood Urea Nitrogen 15 mg/dL (7-23) Creatinine 0.7 mg/dL (0.7-1.2) Estimat Glomerular Filtration Rate mL/min (>60) Glucose Level 102 mg/dL (74-106) Calcium Level 9.6 mg/dL (8.6-10.2) Phosphorus Level 3.0 mg/dL (2.5-4.8) Magnesium Level 2.1 mg/dL (1.7-2.5) Total Bilirubin 0.5 mg/dL (0.0-1.2) Aspartate Amino Transf (AST/SGOT) 22 U/L (5-40) Alanine Aminotransferase (ALT/SGPT) 19 U/L (3-41) Alkaline Phosphatase 60 U/L (40-129) C-Reactive Protein, Quantitative 10.1 mg/dL (< 0.5) H Pro-B-Type Natriuretic Peptide 1098 pg/mL (0-450) H Total Protein 8.0 g/dL (6.6-8.7) Albumin 3.0 g/dL (3.5-5.2) L Globulin 5.0 g/dL Albumin/Globulin Ratio 0.6 (1.0-2.7) L Current Medications Medications (Trade) Dose Ordered Sig/Francesca Route PRN Reason Start Time Stop Time Status Last Admin Dose Admin Acetaminophen (Tylenol) 650 mg Q4H PRN ORAL fever 01/05/17 20:00 02/04/17 19:59 Albuterol/ Ipratropium (DuoNeb 0.5-3(2.5)mg/3ml) 3 ml Q4H PRN HHN Shortness of Breath 01/05/17 18:00 01/10/17 17:59 Aspirin (ASA) 81 mg DAILY ORAL 01/06/17 09:00 02/05/17 08:59 01/07/17 08:45 Cefepime HCl 1 gm/ Dextrose 55 ml @ 110 mls/hr Q12HR@1000,2200 IV 01/05/17 22:00 01/12/17 09:59 01/07/17 10:27 Famotidine (Pepcid I.v.) 20 mg Q12HR IVP 01/05/17 21:00 02/04/17 20:59 01/07/17 08:44 Heparin Sodium (Porcine) (Heparin 5000 units/ml) 5,000 units EVERY 12 HOURS SUBQ 01/05/17 21:00 02/04/17 08:59 01/07/17 08:46 Insulin Aspart (NovoLOG) Q6HR SUBQ 01/06/17 18:00 02/04/17 11:29 01/07/17 06:07 Nitroglycerin (Ntg) 0.4 mg Q5MIN X 3 DOSES PRN SL Prn Chest Pain 01/05/17 16:00 02/04/17 07:44 Ondansetron HCl (Zofran) 4 mg Q6H PRN IVP Nausea & Vomiting 01/05/17 18:00 02/04/17 17:59 Polyethylene Glycol (Miralax) 17 gm DAILYPRN PRN ORAL Constipation 01/06/17 09:00 02/04/17 08:59 Promethazine HCl/ Codeine (Phenergan with Codeine) 5 ml Q4H PRN ORAL For Cough 01/05/17 18:00 02/04/17 17:59 Tamsulosin HCl (Flomax) 0.4 mg DAILY ORAL 01/06/17 09:00 02/04/17 08:59 01/07/17 08:45 Temazepam (Restoril) 15 mg HSPRN PRN ORAL Insomnia 01/05/17 21:00 01/12/17 20:59 01/06/17 21:44 Vancomycin HCl (Vanco rx to dose) 1 ea DAILYPRN PRN MISC Per rx protocol 01/05/17 16:00 02/04/17 15:59 Vancomycin HCl 1 gm/Dextrose 275 ml @ 183.708 mls/hr Q24H IVPB 01/06/17 11:30 01/11/17 11:29 01/07/17 16:05 Joshua Sunshine M.D. Jan 07, 2017 16:35
--- NOTE | 2017-01-07 17:36 | Consultation ---
History of Present Illness Present Illness HPI 81 y/old male , resident of [facility], with PMH of CVA with L hemiparesis, COPD, DM, dysphagia, G tube, HTN, dyslipidemia. the pt pw with agitation and ams. the pt was a poor historian and pw has impairment of cognition Allergies: Coded Allergies: MILK (Unverified Allergy, Unknown, 05/14/16) SOY (Unverified Allergy, Unknown, 05/14/16) SOYBEAN (Unverified Allergy, Unknown, 05/14/16) Medication History Scheduled Albuterol Sulfate* (Albuterol Sulfate Hhn*), 2.5 MG HHN Q4HRT Amoxicillin/Potassium Clav 875-125 Mg Tab* (Amox Tr-K Clv 875-125 Mg Tab*), 875 MG ORAL EVERY 12 HOURS Ascorbic Acid* (Vitamin C*), 500 MG GT DAILY, (Reported) Aspirin* (Aspir-Low*), 81 MG GT DAILY, (Reported) Cholecalciferol (Vitamin D3)* (Vitamin D*), 2,000 UNITS GT DAILY, (Reported) Cholecalciferol (Vitamin D3)* (Vitamin D*), 2,000 UNITS GT DAILY, (Reported) Cranberry Conc/C/Bacill Coag (Azo Cranberry Tablet), 1 EACH GT DAILY, (Reported) Docusate Sodium* (Colace*), 100 MG GT DAILY, (Reported) Ferrous Sulfate* (Ferrous Sulfate*), 325 MG GT TID, (Reported) Insulin Detemir (Levemir Flexpen), 30 UNITS SUBQ Q12HR Insulin Detemir (Levemir), 30 UNITS SUBQ EVERY 12 HOURS, (Reported) Insulin Detemir (Levemir Flexpen), 60 UNITS SUBQ Q12HR Lactobacillus Rhamnosus Gg* (Culturelle*), 1 TAB GT BID Lactulose (Lactulose*), 20 GM GT TID, (Reported) Levofloxacin* (Levaquin*), 500 MG ORAL DAILY Magnesium Hydroxide (Milk of Magnesia), 30 ML ORAL DAILY, (Reported) Metoprolol Tartrate* (Metoprolol Tartrate*), 25 MG ORAL EVERY 12 HOURS, ( Reported) Metronidazole* (Flagyl*), 500 MG ORAL EVERY 8 HOURS Multivitamins Liq* (Multivitamin Liq*), 5 ML GT DAILY, (Reported) Nateglinide* (Starlix*), 120 MG ORAL TIAC Omeprazole (Omeprazole), 20 MG GT BID, (Reported) Ranitidine Hcl* (Zantac*), 150 MG ORAL TWICE A DAY, (Reported) Sitagliptin (Januvia), 50 MG GT DAILY Sucralfate* (Carafate*), 1 GM ORAL FOUR TIMES A DAY, (Reported) Tamsulosin HCl (Flomax), 0.4 MG GT DAILY, (Reported) Zinc Sulfate (Zinc Sulfate*), 220 MG GT DAILY, (Reported) Scheduled PRN Acetaminophen (Acetaminophen), 650 MG GT Q4H PRN Acetaminophen* (Tylenol Extra Strength*), 1,000 MG GT DAILY PRN for Mild Pain/ Temp > 100.5, (Reported) Patient History Limited by: medical condition History Provided By: Patient, Medical Record, PMD Healthcare decision maker N Resuscitation status Do Not Resuscitate Advanced Directive on File Past Medical/Surgical History Past Medical/Surgical History: (1) Gastrointestinal hemorrhage (2) Rhabdomyolysis (3) bleeding from gtube site (4) Sepsis (5) Atelectasis (6) Hyperglycemia (7) Hypernatremia (8) Respiratory failure (9) Hypoalbuminemia (10) UTI (urinary tract infection) (11) Pneumonia (12) Fall (13) Acute GI hemorrhage (14) Acute GI bleeding (15) Encounter for feeding tube placement (16) Venous stasis dermatitis (17) Malfunction of gastrostomy tube (18) Malfunction of gastrostomy tube (19) At high risk for aspiration (20) G-tube site cellulitis (21) Symptomatic anemia (22) COPD (chronic obstructive pulmonary disease) (23) Dysphasia (24) Diabetes (25) HTN (hypertension) (26) DM (diabetes mellitus) (27) Dyslipidemia (28) CVA, old, aphasia (29) CVA, old, dysphagia (30) Pneumonia (31) feeding tube replacement Review of Systems Psychiatric: Reports: prior hx, anxiety Physical Exam General Appearance: alert, confused Neurologic: alert, responsive, disoriented, depressed affect Last 24 Hour Vital Signs Date Time Temp Pulse Resp B/P (MAP) Pulse Ox O2 Delivery O2 Flow Rate FiO2 01/07/17 16:00 97.3 81 20 148/75 97 Room Air 01/07/17 12:00 97.3 83 20 143/72 96 Room Air 01/07/17 08:00 98.1 82 20 141/69 95 Room Air 01/07/17 07:08 88 16 01/07/17 04:00 98.0 82 20 151/71 95 Room Air 01/07/17 00:00 97.7 72 18 137/61 94 Room Air 01/06/17 21:06 86 16 01/06/17 19:56 97.9 86 20 143/65 93 Room Air Laboratory Tests Test 01/07/17 05:10 White Blood Count 7.6 K/UL (4.8-10.8) Red Blood Count 4.24 M/UL (4.70-6.10) L Hemoglobin 14.0 G/DL (14.2-18.0) L Hematocrit 44.1 % (42.0-52.0) Mean Corpuscular Volume 104 FL (80-99) H Mean Corpuscular Hemoglobin 33.1 PG (27.0-31.0) H Mean Corpuscular Hemoglobin Concent 31.8 G/DL (32.0-36.0) L Red Cell Distribution Width 13.6 % (11.6-14.8) Platelet Count 150 K/UL (150-450) Mean Platelet Volume 9.5 FL (6.5-10.1) Neutrophils (%) (Auto) 57.1 % (45.0-75.0) Lymphocytes (%) (Auto) 31.9 % (20.0-45.0) Monocytes (%) (Auto) 5.8 % (1.0-10.0) Eosinophils (%) (Auto) 4.2 % (0.0-3.0) H Basophils (%) (Auto) 1.2 % (0.0-2.0) Erythrocyte Sedimentation Rate 62 MM/HR (0-20) H Sodium Level 144 mEQ/L (135-145) Potassium Level 3.0 mEQ/L (3.4-4.9) L Chloride Level 109 mEQ/L (98-107) H Carbon Dioxide Level 22 mEQ/L (20-30) Anion Gap 13 (5-15) Blood Urea Nitrogen 15 mg/dL (7-23) Creatinine 0.7 mg/dL (0.7-1.2) Estimat Glomerular Filtration Rate mL/min (>60) Glucose Level 102 mg/dL (74-106) Calcium Level 9.6 mg/dL (8.6-10.2) Phosphorus Level 3.0 mg/dL (2.5-4.8) Magnesium Level 2.1 mg/dL (1.7-2.5) Total Bilirubin 0.5 mg/dL (0.0-1.2) Aspartate Amino Transf (AST/SGOT) 22 U/L (5-40) Alanine Aminotransferase (ALT/SGPT) 19 U/L (3-41) Alkaline Phosphatase 60 U/L (40-129) C-Reactive Protein, Quantitative 10.1 mg/dL (< 0.5) H Pro-B-Type Natriuretic Peptide 1098 pg/mL (0-450) H Total Protein 8.0 g/dL (6.6-8.7) Albumin 3.0 g/dL (3.5-5.2) L Globulin 5.0 g/dL Albumin/Globulin Ratio 0.6 (1.0-2.7) L Height (Feet): 5 Height (Inches): 10.00 Weight (Pounds): 196 Medications Current Medications Medications (Trade) Dose Ordered Sig/Francesca Route PRN Reason Start Time Stop Time Status Last Admin Dose Admin Acetaminophen (Tylenol) 650 mg Q4H PRN ORAL fever 01/05/17 20:00 02/04/17 19:59 Albuterol/ Ipratropium (DuoNeb 0.5-3(2.5)mg/3ml) 3 ml Q4H PRN HHN Shortness of Breath 01/05/17 18:00 01/10/17 17:59 Aspirin (ASA) 81 mg DAILY ORAL 01/06/17 09:00 02/05/17 08:59 01/07/17 08:45 Cefepime HCl 1 gm/ Dextrose 55 ml @ 110 mls/hr Q12HR@1000,2200 IV 01/05/17 22:00 01/12/17 09:59 01/07/17 10:27 Famotidine (Pepcid I.v.) 20 mg Q12HR IVP 01/05/17 21:00 02/04/17 20:59 01/07/17 08:44 Heparin Sodium (Porcine) (Heparin 5000 units/ml) 5,000 units EVERY 12 HOURS SUBQ 01/05/17 21:00 02/04/17 08:59 01/07/17 08:46 Insulin Aspart (NovoLOG) Q6HR SUBQ 01/06/17 18:00 02/04/17 11:29 01/07/17 06:07 Nitroglycerin (Ntg) 0.4 mg Q5MIN X 3 DOSES PRN SL Prn Chest Pain 01/05/17 16:00 02/04/17 07:44 Ondansetron HCl (Zofran) 4 mg Q6H PRN IVP Nausea & Vomiting 01/05/17 18:00 02/04/17 17:59 Polyethylene Glycol (Miralax) 17 gm DAILYPRN PRN ORAL Constipation 01/06/17 09:00 02/04/17 08:59 Promethazine HCl/ Codeine (Phenergan with Codeine) 5 ml Q4H PRN ORAL For Cough 01/05/17 18:00 02/04/17 17:59 Tamsulosin HCl (Flomax) 0.4 mg DAILY ORAL 01/06/17 09:00 02/04/17 08:59 01/07/17 08:45 Temazepam (Restoril) 15 mg HSPRN PRN ORAL Insomnia 01/05/17 21:00 01/12/17 20:59 01/06/17 21:44 Vancomycin HCl (Vanco rx to dose) 1 ea DAILYPRN PRN MISC Per rx protocol 01/05/17 16:00 02/04/17 15:59 Vancomycin HCl 1 gm/Dextrose 275 ml @ 183.708 mls/hr Q24H IVPB 01/06/17 11:30 01/11/17 11:29 01/07/17 16:05 Assessment/Plan Status: stable Assessment/Plan CVA, ?delirium ?vascular dementia -may benefit from low dose of antipsychotics -will cont and follow Neema Grady M.D. Jan 07, 2017 17:35
[2017-01-07 20:00] VITALS: BP 136/79
[2017-01-08] VITALS: BP 130/76
[2017-01-08 04:00] VITALS: BP 167/69
[2017-01-08] MEDS: NovoLOG Insulin Flexpen SUBQ SCH ×4 (06:00→18:35)
[2017-01-08 07:04] LABS: BASOPHILS % (AUTO) 1.6 % (0.0-2.0); EOSINOPHILS % (AUTO) 4.9 % (0.0-3.0); LYMPHOCYTES % (AUTO) 35.2 % (20.0-45.0); MEAN CORPUSCULAR HEMOGLOBIN 34.9 PG (27.0-31.0); MEAN CORPUSCULAR HGB CONC 33.7 G/DL (32.0-36.0); MEAN CORPUSCULAR VOLUME 103 FL (80-99); MEAN PLATELET VOLUME 8.9 FL (6.5-10.1); MONOCYTES % (AUTO) 7.8 % (1.0-10.0); NEUTROPHILS % (AUTO) 50.5 % (45.0-75.0); PLATELET COUNT 137 K/UL (150-450); RED BLOOD COUNT 4.22 M/UL (4.70-6.10); RED CELL DISTRIBUTION WIDTH 12.8 % (11.6-14.8); WHITE BLOOD COUNT 7.3 K/UL (4.8-10.8)
[2017-01-08 07:14] LABS: HEMOGLOBIN A1C 6.2 % (< 6.0)
[2017-01-08 07:30] LABS: ALANINE AMINOTRANSFERASE 19 U/L (3-41); ALBUMIN/GLOBULIN RATIO 0.8 (1.0-2.7); ANION GAP 12 (5-15); ASPARTATE AMINO TRANSFERASE 27 U/L (5-40); CALCIUM 9.2 mg/dL (8.6-10.2); CARBON DIOXIDE 23 mEQ/L (20-30); CHLORIDE 106 mEQ/L (98-107); CHOLESTEROL 141 mg/dL (< 200); CHOLESTEROL/HDL RATIO 4.9 (3.3-4.4); CREATININE 0.7 mg/dL (0.7-1.2); CRP QUANT 6.4 mg/dL (< 0.5); HEMOLYSIS 46; LDL CHOLESTEROL (CALC.) 73 mg/dL (60-99); PHOSPHORUS 3.2 mg/dL (2.5-4.8); POTASSIUM 3.7 mEQ/L (3.4-4.9); SODIUM 141 mEQ/L (135-145); TOTAL PROTEIN 6.9 g/dL (6.6-8.7); URIC ACID 5.5 mg/dL (3.0-7.5)
[2017-01-08 08:02] VITALS: BP 130/66
[2017-01-08] MEDS: Tamsulosin 0.4mg cap ORAL SCH (09:31)
[2017-01-08] MEDS: Aspirin Baby 81mg ORAL SCH (09:31)
[2017-01-08] MEDS: Famotidine 20 MG/ 2ML VIAL IVP SCH ×2 (09:32→20:34)
[2017-01-08] MEDS: Heparin 5000 units/ml inj SUBQ SCH ×2 (09:32→20:35)
[2017-01-08] MEDS: Cefepime HCl 1 GM in D5W 55 ML IV SCH ×2 (09:33→20:34)
[2017-01-08 11:34] VITALS: BP 137/67
[2017-01-08] MEDS: Vancomycin 1250mg/D5W 250ml IVPB SCH (13:36)
--- NOTE | 2017-01-08 15:38 | General Progress Note ---
Assessment/Plan Status: stable Assessment/Plan status; This patient is being admitted from [facility] with the diagnosis of sepsis, hypoxia, tachycardia, high lactate level, and hyperglycemia. possible aspiration pna/hcap vs atx, ? gram neg sacral wound infection Other conditions are history of CVA, hypertension, high cholesterol, chronic obstructive pulmonary disease, and PEG. Antibiotics- Pulm toilet- keep BP and BS in check per consultants Subjective ROS Limited/Unobtainable: Yes Allergies: Coded Allergies: MILK (Unverified Allergy, Unknown, 05/14/16) SOY (Unverified Allergy, Unknown, 05/14/16) SOYBEAN (Unverified Allergy, Unknown, 05/14/16) Objective Last 24 Hour Vital Signs Date Time Temp Pulse Resp B/P (MAP) Pulse Ox O2 Delivery O2 Flow Rate FiO2 01/08/17 11:34 98.6 84 21 137/67 97 Room Air 01/08/17 08:36 77 20 01/08/17 08:02 97.1 78 19 130/66 96 Room Air 01/08/17 04:00 97.7 83 20 167/69 94 Room Air 01/08/17 00:00 98.4 89 20 130/76 95 Room Air 01/07/17 20:00 97.9 84 20 136/79 94 Room Air 01/07/17 19:10 88 16 01/07/17 16:00 97.3 81 20 148/75 97 Room Air Intake and Output 01/08/17 01/09/17 19:00 07:00 # Bowel Movements 1 Laboratory Tests 01/08/17 04:40: White Blood Count 7.3, Red Blood Count 4.22L, Hemoglobin 14.7, Hematocrit 43.6, Mean Corpuscular Volume 103H, Mean Corpuscular Hemoglobin 34.9H, Mean Corpuscular Hemoglobin Concent 33.7, Red Cell Distribution Width 12.8, Platelet Count 137L, Mean Platelet Volume 8.9, Neutrophils (%) (Auto) 50.5, Lymphocytes ( %) (Auto) 35.2, Monocytes (%) (Auto) 7.8, Eosinophils (%) (Auto) 4.9H, Basophils (%) (Auto) 1.6, Sodium Level 141, Potassium Level 3.7, Chloride Level 106, Carbon Dioxide Level 23, Anion Gap 12, Blood Urea Nitrogen 14, Creatinine 0.7, Estimat Glomerular Filtration Rate , Glucose Level 126H, Hemoglobin A1c 6.2H, Uric Acid 5.5, Calcium Level 9.2, Phosphorus Level 3.2, Magnesium Level 2.0, Total Bilirubin 0.4, Gamma Glutamyl Transpeptidase 23, Aspartate Amino Transf (AST/SGOT) 27, Alanine Aminotransferase (ALT/SGPT) 19, Alkaline Phosphatase 56, Total Creatine Kinase 191H, C-Reactive Protein, Quantitative 6.4H, Pro-B-Type Natriuretic Peptide 1406H, Total Protein 6.9, Albumin 3.1L, Globulin 3.8, Albumin/Globulin Ratio 0.8L, Triglycerides Level 193H, Cholesterol Level 141, LDL Cholesterol 73, HDL Cholesterol 29, Cholesterol/HDL Ratio 4.9H, Thyroid Stimulating Hormone (TSH) 2.400 01/08/17 10:30: Vancomycin Level Trough 7.3 Height (Feet): 5 Height (Inches): 10.00 Weight (Pounds): 197 General Appearance: no apparent distress Cardiovascular: normal rate Respiratory/Chest: decreased breath sounds Abdomen: soft, distended JULIANNE HERNÁNDEZ Jan 08, 2017 15:38
--- NOTE | 2017-01-08 15:58 | Pulmonology Progress Note ---
Assessment/Plan Problems: (1) Pneumonia (2) COPD (chronic obstructive pulmonary disease) (3) feeding tube replacement (4) DM (diabetes mellitus) (5) HTN (hypertension) Assessment/Plan afebrile wbc wnl more awake iv abx check cultures, nothing available yet tolerating gtube feeding check electrolytes sliding scale diabetic diet dvt prophylaxis dc to snif with abx Subjective ROS Limited/Unobtainable: No Constitutional: Reports: no symptoms HEENT: Repors: no symptoms Respiratory: Reports: no symptoms Allergies: Coded Allergies: MILK (Unverified Allergy, Unknown, 05/14/16) SOY (Unverified Allergy, Unknown, 05/14/16) SOYBEAN (Unverified Allergy, Unknown, 05/14/16) Objective Last 24 Hour Vital Signs Date Time Temp Pulse Resp B/P (MAP) Pulse Ox O2 Delivery O2 Flow Rate FiO2 01/08/17 11:34 98.6 84 21 137/67 97 Room Air 01/08/17 08:36 77 20 01/08/17 08:02 97.1 78 19 130/66 96 Room Air 01/08/17 04:00 97.7 83 20 167/69 94 Room Air 01/08/17 00:00 98.4 89 20 130/76 95 Room Air 01/07/17 20:00 97.9 84 20 136/79 94 Room Air 01/07/17 19:10 88 16 01/07/17 16:00 97.3 81 20 148/75 97 Room Air Intake and Output 01/08/17 01/09/17 19:00 07:00 # Bowel Movements 1 General Appearance: WD/WN HEENT: normocephalic, atraumatic Respiratory/Chest: chest wall non-tender, normal breath sounds Cardiovascular: normal peripheral pulses, normal rate Abdomen: soft, non tender, no organomegaly Extremities: no cyanosis, no clubbing Skin: no rash Neurologic/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 grossly normal Lymphatic: no neck adenopathy Microbiology Date/Time Source Procedure Growth Status 01/06/17 17:00 Stool Clostridium difficile Toxin Assay - Final Complete Laboratory Tests 01/08/17 04:40: White Blood Count 7.3, Red Blood Count 4.22L, Hemoglobin 14.7, Hematocrit 43.6, Mean Corpuscular Volume 103H, Mean Corpuscular Hemoglobin 34.9H, Mean Corpuscular Hemoglobin Concent 33.7, Red Cell Distribution Width 12.8, Platelet Count 137L, Mean Platelet Volume 8.9, Neutrophils (%) (Auto) 50.5, Lymphocytes ( %) (Auto) 35.2, Monocytes (%) (Auto) 7.8, Eosinophils (%) (Auto) 4.9H, Basophils (%) (Auto) 1.6, Sodium Level 141, Potassium Level 3.7, Chloride Level 106, Carbon Dioxide Level 23, Anion Gap 12, Blood Urea Nitrogen 14, Creatinine 0.7, Estimat Glomerular Filtration Rate , Glucose Level 126H, Hemoglobin A1c 6.2H, Uric Acid 5.5, Calcium Level 9.2, Phosphorus Level 3.2, Magnesium Level 2.0, Total Bilirubin 0.4, Gamma Glutamyl Transpeptidase 23, Aspartate Amino Transf (AST/SGOT) 27, Alanine Aminotransferase (ALT/SGPT) 19, Alkaline Phosphatase 56, Total Creatine Kinase 191H, C-Reactive Protein, Quantitative 6.4H, Pro-B-Type Natriuretic Peptide 1406H, Total Protein 6.9, Albumin 3.1L, Globulin 3.8, Albumin/Globulin Ratio 0.8L, Triglycerides Level 193H, Cholesterol Level 141, LDL Cholesterol 73, HDL Cholesterol 29, Cholesterol/HDL Ratio 4.9H, Thyroid Stimulating Hormone (TSH) 2.400 01/08/17 10:30: Vancomycin Level Trough 7.3 Current Medications Medications (Trade) Dose Ordered Sig/Francesca Route PRN Reason Start Time Stop Time Status Last Admin Dose Admin Acetaminophen (Tylenol) 650 mg Q4H PRN ORAL fever 01/05/17 20:00 02/04/17 19:59 Albuterol/ Ipratropium (DuoNeb 0.5-3(2.5)mg/3ml) 3 ml Q4H PRN HHN Shortness of Breath 01/05/17 18:00 01/10/17 17:59 Aspirin (ASA) 81 mg DAILY ORAL 01/06/17 09:00 02/05/17 08:59 01/08/17 09:31 Cefepime HCl 1 gm/ Dextrose 55 ml @ 110 mls/hr Q12HR@1000,2200 IV 01/05/17 22:00 01/12/17 09:59 01/08/17 09:33 Famotidine (Pepcid I.v.) 20 mg Q12HR IVP 01/05/17 21:00 02/04/17 20:59 01/08/17 09:32 Heparin Sodium (Porcine) (Heparin 5000 units/ml) 5,000 units EVERY 12 HOURS SUBQ 01/05/17 21:00 02/04/17 08:59 01/08/17 09:32 Insulin Aspart (NovoLOG) Q6HR SUBQ 01/06/17 18:00 02/04/17 11:29 01/08/17 12:41 Nitroglycerin (Ntg) 0.4 mg Q5MIN X 3 DOSES PRN SL Prn Chest Pain 01/05/17 16:00 02/04/17 07:44 Ondansetron HCl (Zofran) 4 mg Q6H PRN IVP Nausea & Vomiting 01/05/17 18:00 02/04/17 17:59 Polyethylene Glycol (Miralax) 17 gm DAILYPRN PRN ORAL Constipation 01/06/17 09:00 02/04/17 08:59 Promethazine HCl/ Codeine (Phenergan with Codeine) 5 ml Q4H PRN ORAL For Cough 01/05/17 18:00 02/04/17 17:59 Tamsulosin HCl (Flomax) 0.4 mg DAILY ORAL 01/06/17 09:00 02/04/17 08:59 01/08/17 09:31 Temazepam (Restoril) 15 mg HSPRN PRN ORAL Insomnia 01/05/17 21:00 01/12/17 20:59 01/06/17 21:44 Vancomycin HCl (Vanco rx to dose) 1 ea DAILYPRN PRN MISC Per rx protocol 01/05/17 16:00 02/04/17 15:59 Vancomycin HCl/ Dextrose 250 ml @ 166.667 mls/hr Q24H IVPB 01/08/17 13:00 01/13/17 12:59 01/08/17 13:36 SWATI THOMAS Jan 08, 2017 15:58
[2017-01-08 16:04] VITALS: BP 119/77
--- NOTE | 2017-01-08 17:23 | Infectious Diseases Prog Note ---
Assessment/Plan Assessment/Plan ASSESSMENT AND PLAN 81 y/o male h/o CVA with L hemiparesis, aphasia, dysphagia, PEG tube, COPD, DM2 , HTN, SNF resident, admitted with lethargy, fevers, dyspnea, and hypoxia found to have LLL pneumonia on CXR at [facility]. confounded by h/o COPD, not previously O2 dependent. leukocytosis has resolved, and he's much more alert today and is no longer requiring supplemental O2. ASSESSMENT: Severe sepsis (T 39.8C, HR 123, 13% bands, lactate 3.3 at [facility]), secondary to LLL Pneumonia, resolving LLL pneumonia, CURB-65 score 4. Aspiration vs HCAP. has healthy dentition, cxr w/o abscess, less concerned about anaerobes. leukocytosis, resolved bandemia, resolved U/A negative for UTI stable sacral decubitus ulcer, colonized with E coli and enterococcus, not actively infected C diff negative MRSA screen negative VRE colonized Hypernatremia, sp DM2 HTN HLD h/o ischemic CVA c/b DNR/DNI PLAN: --continue IV vancomycin/cefepime D# , Okay for discharge back to [facility] to complete IV vanc/cefepime from ID standpoint. (01/04 s/p IV zosyn/azithromycin D#) --f/u [facility] labs: --blood cultures --sputum culture --urine legionella ag --monitor CBC daily, monitor chem panel --pulmonary managing inhaled bronchodilators for his h/o COPD --aspiration precautions --continue wound care for uninfected L lateral heel decub and stage II sacral decubitus ulcer also uninfected. Subjective Allergies: Coded Allergies: MILK (Unverified Allergy, Unknown, 05/14/16) SOY (Unverified Allergy, Unknown, 05/14/16) SOYBEAN (Unverified Allergy, Unknown, 05/14/16) Subjective comfortable Objective Vital Signs Last 24 Hour Vital Signs Date Time Temp Pulse Resp B/P (MAP) Pulse Ox O2 Delivery O2 Flow Rate FiO2 01/08/17 16:04 97.7 83 22 119/77 96 Room Air 01/08/17 11:34 98.6 84 21 137/67 97 Room Air 01/08/17 08:36 77 20 01/08/17 08:02 97.1 78 19 130/66 96 Room Air 01/08/17 04:00 97.7 83 20 167/69 94 Room Air 01/08/17 00:00 98.4 89 20 130/76 95 Room Air 01/07/17 20:00 97.9 84 20 136/79 94 Room Air 01/07/17 19:10 88 16 Height (Feet): 5 Height (Inches): 10.00 Weight (Pounds): 197 HEENT: atraumatic Respiratory/Chest: no respiratory distress Cardiovascular: no gallop/murmur Abdomen: no mass Microbiology Date/Time Source Procedure Growth Status 01/06/17 17:00 Stool Clostridium difficile Toxin Assay - Final Complete Laboratory Tests Test 01/08/17 04:40 01/08/17 10:30 01/08/17 16:48 White Blood Count 7.3 K/UL (4.8-10.8) Red Blood Count 4.22 M/UL (4.70-6.10) L Hemoglobin 14.7 G/DL (14.2-18.0) Hematocrit 43.6 % (42.0-52.0) Mean Corpuscular Volume 103 FL (80-99) H Mean Corpuscular Hemoglobin 34.9 PG (27.0-31.0) H Mean Corpuscular Hemoglobin Concent 33.7 G/DL (32.0-36.0) Red Cell Distribution Width 12.8 % (11.6-14.8) Platelet Count 137 K/UL (150-450) L Mean Platelet Volume 8.9 FL (6.5-10.1) Neutrophils (%) (Auto) 50.5 % (45.0-75.0) Lymphocytes (%) (Auto) 35.2 % (20.0-45.0) Monocytes (%) (Auto) 7.8 % (1.0-10.0) Eosinophils (%) (Auto) 4.9 % (0.0-3.0) H Basophils (%) (Auto) 1.6 % (0.0-2.0) Sodium Level 141 mEQ/L (135-145) Potassium Level 3.7 mEQ/L (3.4-4.9) Chloride Level 106 mEQ/L (98-107) Carbon Dioxide Level 23 mEQ/L (20-30) Anion Gap 12 (5-15) Blood Urea Nitrogen 14 mg/dL (7-23) Creatinine 0.7 mg/dL (0.7-1.2) Estimat Glomerular Filtration Rate mL/min (>60) Glucose Level 126 mg/dL (74-106) H Hemoglobin A1c 6.2 % (< 6.0) H Uric Acid 5.5 mg/dL (3.0-7.5) Calcium Level 9.2 mg/dL (8.6-10.2) Phosphorus Level 3.2 mg/dL (2.5-4.8) Magnesium Level 2.0 mg/dL (1.7-2.5) Total Bilirubin 0.4 mg/dL (0.0-1.2) Gamma Glutamyl Transpeptidase 23 U/L (8-61) Aspartate Amino Transf (AST/SGOT) 27 U/L (5-40) Alanine Aminotransferase (ALT/SGPT) 19 U/L (3-41) Alkaline Phosphatase 56 U/L (40-129) Total Creatine Kinase 191 U/L (38-174) H C-Reactive Protein, Quantitative 6.4 mg/dL (< 0.5) H Pro-B-Type Natriuretic Peptide 1406 pg/mL (0-450) H Total Protein 6.9 g/dL (6.6-8.7) Albumin 3.1 g/dL (3.5-5.2) L Globulin 3.8 g/dL Albumin/Globulin Ratio 0.8 (1.0-2.7) L Triglycerides Level 193 mg/dL (< 150) H Cholesterol Level 141 mg/dL (< 200) LDL Cholesterol 73 mg/dL (60-99) HDL Cholesterol 29 mg/dL (> 60) Cholesterol/HDL Ratio 4.9 (3.3-4.4) H Thyroid Stimulating Hormone (TSH) 2.400 uIU/mL (0.300-4.500) Vancomycin Level Trough 7.3 ug/mL (5.0-12.0) Urine Color Pending Urine Appearance Pending Urine pH Pending Urine Specific [place] Pending Urine Protein Pending Urine Glucose (UA) Pending Urine Ketones Pending Urine Occult Blood Pending Urine Nitrite Pending Urine Bilirubin Pending Urine Urobilinogen Pending Urine Leukocyte Esterase Pending Urine RBC Pending Urine WBC Pending Urine Squamous Epithelial Cells Pending Urine Bacteria Pending Current Medications Medications (Trade) Dose Ordered Sig/Francesca Route PRN Reason Start Time Stop Time Status Last Admin Dose Admin Acetaminophen (Tylenol) 650 mg Q4H PRN ORAL fever 01/05/17 20:00 02/04/17 19:59 Albuterol/ Ipratropium (DuoNeb 0.5-3(2.5)mg/3ml) 3 ml Q4H PRN HHN Shortness of Breath 01/05/17 18:00 01/10/17 17:59 Aspirin (ASA) 81 mg DAILY ORAL 01/06/17 09:00 02/05/17 08:59 01/08/17 09:31 Cefepime HCl 1 gm/ Dextrose 55 ml @ 110 mls/hr Q12HR@1000,2200 IV 01/05/17 22:00 01/12/17 09:59 01/08/17 09:33 Famotidine (Pepcid I.v.) 20 mg Q12HR IVP 01/05/17 21:00 02/04/17 20:59 01/08/17 09:32 Heparin Sodium (Porcine) (Heparin 5000 units/ml) 5,000 units EVERY 12 HOURS SUBQ 01/05/17 21:00 02/04/17 08:59 01/08/17 09:32 Insulin Aspart (NovoLOG) Q6HR SUBQ 01/06/17 18:00 02/04/17 11:29 01/08/17 12:41 Nitroglycerin (Ntg) 0.4 mg Q5MIN X 3 DOSES PRN SL Prn Chest Pain 01/05/17 16:00 02/04/17 07:44 Ondansetron HCl (Zofran) 4 mg Q6H PRN IVP Nausea & Vomiting 01/05/17 18:00 02/04/17 17:59 Polyethylene Glycol (Miralax) 17 gm DAILYPRN PRN ORAL Constipation 01/06/17 09:00 02/04/17 08:59 Promethazine HCl/ Codeine (Phenergan with Codeine) 5 ml Q4H PRN ORAL For Cough 01/05/17 18:00 02/04/17 17:59 Tamsulosin HCl (Flomax) 0.4 mg DAILY ORAL 01/06/17 09:00 02/04/17 08:59 01/08/17 09:31 Temazepam (Restoril) 15 mg HSPRN PRN ORAL Insomnia 01/05/17 21:00 01/12/17 20:59 01/06/17 21:44 Vancomycin HCl (Vanco rx to dose) 1 ea DAILYPRN PRN MISC Per rx protocol 01/05/17 16:00 02/04/17 15:59 Vancomycin HCl/ Dextrose 250 ml @ 166.667 mls/hr Q24H IVPB 01/08/17 13:00 01/13/17 12:59 01/08/17 13:36 ASIYA WETZEL M.D. Jan 08, 2017 17:23
[2017-01-08 17:24] LABS: APPEARANCE,URINE CLEAR; KETONES,URINE NEGATIVE (NEGATIVE); LEUKOCYTE ESTERASE ,URINE 1+ (NEGATIVE); NITRITE,URINE NEGATIVE (NEGATIVE); PH,URINE 6.5 (4.5-8.0); PROTEIN,URINE 2+ (NEGATIVE); UROBILINOGEN,URINE 1 MG/DL (0.0-1.0)
[2017-01-08 17:29] LABS: BACTERIA,URINE FEW /HPF; WBC,URINE 0-2 /HPF (0 - 0)
[2017-01-08 17:30] LABS: AMORPHOUS SEDIMENT,UR FEW /LPF
[2017-01-08 20:00] VITALS: BP 143/71
--- NOTE | 2017-01-08 22:26 | General Progress Note ---
Assessment/Plan Status: stable, progressing Subjective Neurologic/Psychiatric: Reports: anxiety, emotional problems Allergies: Coded Allergies: MILK (Unverified Allergy, Unknown, 05/14/16) SOY (Unverified Allergy, Unknown, 05/14/16) SOYBEAN (Unverified Allergy, Unknown, 05/14/16) Subjective the pt is more awake still confused and disoriented Objective Last 24 Hour Vital Signs Date Time Temp Pulse Resp B/P (MAP) Pulse Ox O2 Delivery O2 Flow Rate FiO2 01/08/17 20:00 98.2 89 20 143/71 96 Room Air 01/08/17 19:56 81 20 01/08/17 16:04 97.7 83 22 119/77 96 Room Air 01/08/17 11:34 98.6 84 21 137/67 97 Room Air 01/08/17 08:36 77 20 01/08/17 08:02 97.1 78 19 130/66 96 Room Air 01/08/17 04:00 97.7 83 20 167/69 94 Room Air 01/08/17 00:00 98.4 89 20 130/76 95 Room Air Intake and Output 01/08/17 01/09/17 19:00 07:00 Intake Total 780 ml Output Total 800 ml Balance -20 ml Free Water 120 ml Tube Feeding 660 ml Output Urine Total 800 ml # Bowel Movements 1 Laboratory Tests 01/08/17 04:40: White Blood Count 7.3, Red Blood Count 4.22L, Hemoglobin 14.7, Hematocrit 43.6, Mean Corpuscular Volume 103H, Mean Corpuscular Hemoglobin 34.9H, Mean Corpuscular Hemoglobin Concent 33.7, Red Cell Distribution Width 12.8, Platelet Count 137L, Mean Platelet Volume 8.9, Neutrophils (%) (Auto) 50.5, Lymphocytes ( %) (Auto) 35.2, Monocytes (%) (Auto) 7.8, Eosinophils (%) (Auto) 4.9H, Basophils (%) (Auto) 1.6, Sodium Level 141, Potassium Level 3.7, Chloride Level 106, Carbon Dioxide Level 23, Anion Gap 12, Blood Urea Nitrogen 14, Creatinine 0.7, Estimat Glomerular Filtration Rate , Glucose Level 126H, Hemoglobin A1c 6.2H, Uric Acid 5.5, Calcium Level 9.2, Phosphorus Level 3.2, Magnesium Level 2.0, Total Bilirubin 0.4, Gamma Glutamyl Transpeptidase 23, Aspartate Amino Transf (AST/SGOT) 27, Alanine Aminotransferase (ALT/SGPT) 19, Alkaline Phosphatase 56, Total Creatine Kinase 191H, C-Reactive Protein, Quantitative 6.4H, Pro-B-Type Natriuretic Peptide 1406H, Total Protein 6.9, Albumin 3.1L, Globulin 3.8, Albumin/Globulin Ratio 0.8L, Triglycerides Level 193H, Cholesterol Level 141, LDL Cholesterol 73, HDL Cholesterol 29, Cholesterol/HDL Ratio 4.9H, Thyroid Stimulating Hormone (TSH) 2.400 01/08/17 10:30: Vancomycin Level Trough 7.3 01/08/17 16:48: Urine Color Pale yellow, Urine Appearance Clear, Urine pH 6.5, Urine Specific [place] 1.010, Urine Protein 2+H, Urine Glucose (UA) Negative, Urine Ketones Negative, Urine Occult Blood 4+H, Urine Nitrite Negative, Urine Bilirubin Negative, Urine Urobilinogen 1H, Urine Leukocyte Esterase 1+H, Urine RBC 5-10H, Urine WBC 0-2, Urine Squamous Epithelial Cells None, Urine Amorphous Sediment FewH, Urine Bacteria Few Height (Feet): 5 Height (Inches): 10.00 Weight (Pounds): 197 General Appearance: no apparent distress, confused Neurologic: alert, responsive, disoriented, depressed affect Neema Grady M.D. Jan 08, 2017 22:25
[2017-01-09] VITALS: BP 144/71
[2017-01-09] MEDS: NovoLOG Insulin Flexpen SUBQ SCH ×3 (01:18→12:00)
[2017-01-09 04:00] VITALS: BP 146/83
[2017-01-09 07:05] LABS: BASOPHILS % (AUTO) 1.6 % (0.0-2.0); EOSINOPHILS % (AUTO) 4.9 % (0.0-3.0); LYMPHOCYTES % (AUTO) 33.7 % (20.0-45.0); MEAN CORPUSCULAR HGB CONC 32.5 G/DL (32.0-36.0); MEAN CORPUSCULAR VOLUME 102 FL (80-99); MEAN PLATELET VOLUME 9.2 FL (6.5-10.1); MONOCYTES % (AUTO) 7.6 % (1.0-10.0); NEUTROPHILS % (AUTO) 52.3 % (45.0-75.0); PLATELET COUNT 180 K/UL (150-450); RED BLOOD COUNT 4.17 M/UL (4.70-6.10); RED CELL DISTRIBUTION WIDTH 12.7 % (11.6-14.8); WHITE BLOOD COUNT 7.1 K/UL (4.8-10.8)
[2017-01-09 07:13] LABS: TROPONIN I < 0.30 ng/mL (<=0.30)
[2017-01-09 07:17] LABS: ALANINE AMINOTRANSFERASE 20 U/L (3-41); ALBUMIN/GLOBULIN RATIO 0.6 (1.0-2.7); ANION GAP 9 (5-15); ASPARTATE AMINO TRANSFERASE 24 U/L (5-40); CALCIUM 9.5 mg/dL (8.6-10.2); CARBON DIOXIDE 25 mEQ/L (20-30); CHLORIDE 106 mEQ/L (98-107); CREATININE 0.7 mg/dL (0.7-1.2); CRP QUANT 4.7 mg/dL (< 0.5); HEMOLYSIS 9; MAGNESIUM 2.1 mg/dL (1.7-2.5); PHOSPHORUS 3.3 mg/dL (2.5-4.8); POTASSIUM 3.8 mEQ/L (3.4-4.9); SODIUM 140 mEQ/L (135-145); TOTAL PROTEIN 7.7 g/dL (6.6-8.7)
[2017-01-09 08:15] VITALS: BP 122/65
[2017-01-09] MEDS ORDERED: Lidocaine 1% Plain 30 ml INJ SCH (08:15)
[2017-01-09] MEDS ORDERED: Heparin 2000 units/Ns 1000ml IV SCH (08:15)
--- NOTE | 2017-01-09 08:18 | Pulmonology Progress Note ---
Assessment/Plan Assessment/Plan ASSESSMENT severe sepsis with acute organ dysfunction PNA ( aspiration vs HCAP) acute toxic metabolic encephalopathy on chronic dementia ( due to severe sepsis and dehydration) dehydration hypernatremia COPD HTN dysphagia, G tube Diabetes Hyperlipidemia PLAN OF CARE MS floor O2 keep sat above 92% pulmonary toilet fup CXR with stable and minimally improved interstitial edema, abx, ID follows stool C dif negative sputum cx not collected a/tussive prn GT feeding, monitor tolerance, strict aspiration precautions free water flushes 100 cc q 4 Na down to normal hypernatremia was likely due to dehydration BS management with SS of insulin, Hga1c -6.2 BP stable for now, add anti HTN as needed lipid panel with elevated TG, stable TC and LDL continue ASA acute encephalopathy likely due to severe sepsis and dehydration DVT GI prophylaxis bowel regimen DNR/DNI status dc plan for today to SNF case discussed and evaluated by supervising physician Subjective Allergies: Coded Allergies: MILK (Unverified Allergy, Unknown, 05/14/16) SOY (Unverified Allergy, Unknown, 05/14/16) SOYBEAN (Unverified Allergy, Unknown, 05/14/16) Subjective leucocytosis resolved, afebrile on RA sat stable Na down to normal BP stable Objective Last 24 Hour Vital Signs Date Time Temp Pulse Resp B/P (MAP) Pulse Ox O2 Delivery O2 Flow Rate FiO2 01/09/17 06:50 72 18 01/09/17 04:00 97.9 85 20 146/83 96 Room Air 01/09/17 00:00 97.7 88 20 144/71 96 Room Air 01/08/17 20:00 98.2 89 20 143/71 96 Room Air 01/08/17 19:56 81 20 01/08/17 16:04 97.7 83 22 119/77 96 Room Air 01/08/17 11:34 98.6 84 21 137/67 97 Room Air 01/08/17 08:36 77 20 Objective General Appearance: no apparent distress, other - awake, nonverbal, poorly but responsive , bedridden AA male in NAD HEENT: normocephalic, atraumatic, anicteric Neck: non-tender, supple Respiratory/Chest: no respiratory distress, decreased breath sounds Cardiovascular/Chest: normal peripheral pulses, normal rate, no JVD Abdomen: normal bowel sounds, non tender, soft, feeding tube - G tube Extremities: non-tender, no calf tenderness, no edema, other - L hemiparesis Neurologic: abnormal gait - bedridden , aphasic, L hemiparesis Musculoskeletal: atrophy - BLE Microbiology Date/Time Source Procedure Growth Status 01/06/17 17:00 Stool Clostridium difficile Toxin Assay - Final Complete Laboratory Tests 01/08/17 10:30: Vancomycin Level Trough 7.3 01/08/17 16:48: Urine Color Pale yellow, Urine Appearance Clear, Urine pH 6.5, Urine Specific [place] 1.010, Urine Protein 2+H, Urine Glucose (UA) Negative, Urine Ketones Negative, Urine Occult Blood 4+H, Urine Nitrite Negative, Urine Bilirubin Negative, Urine Urobilinogen 1H, Urine Leukocyte Esterase 1+H, Urine RBC 5-10H, Urine WBC 0-2, Urine Squamous Epithelial Cells None, Urine Amorphous Sediment FewH, Urine Bacteria Few 01/09/17 06:20: White Blood Count 7.1, Red Blood Count 4.17L, Hemoglobin 13.8L, Hematocrit 42.4 , Mean Corpuscular Volume 102H, Mean Corpuscular Hemoglobin 33.0H, Mean Corpuscular Hemoglobin Concent 32.5, Red Cell Distribution Width 12.7, Platelet Count 180, Mean Platelet Volume 9.2, Neutrophils (%) (Auto) 52.3, Lymphocytes (% ) (Auto) 33.7, Monocytes (%) (Auto) 7.6, Eosinophils (%) (Auto) 4.9H, Basophils (%) (Auto) 1.6, Sodium Level 140, Potassium Level 3.8, Chloride Level 106, Carbon Dioxide Level 25, Anion Gap 9, Blood Urea Nitrogen 15, Creatinine 0.7, Estimat Glomerular Filtration Rate , Glucose Level 120H, Calcium Level 9.5, Phosphorus Level 3.3, Magnesium Level 2.1, Total Bilirubin 0.3, Aspartate Amino Transf (AST/SGOT) 24, Alanine Aminotransferase (ALT/SGPT) 20, Alkaline Phosphatase 54, Troponin I < 0.30, C-Reactive Protein, Quantitative 4.7H, Total Protein 7.7, Albumin 3.0L, Globulin 4.7, Albumin/Globulin Ratio 0.6L Current Medications Medications (Trade) Dose Ordered Sig/Francesca Route PRN Reason Start Time Stop Time Status Last Admin Dose Admin Acetaminophen (Tylenol) 650 mg Q4H PRN ORAL fever 01/05/17 20:00 02/04/17 19:59 Albuterol/ Ipratropium (DuoNeb 0.5-3(2.5)mg/3ml) 3 ml Q4H PRN HHN Shortness of Breath 01/05/17 18:00 01/10/17 17:59 Aspirin (ASA) 81 mg DAILY ORAL 01/06/17 09:00 02/05/17 08:59 01/08/17 09:31 Cefepime HCl 1 gm/ Dextrose 55 ml @ 110 mls/hr Q12HR@1000,2200 IV 01/05/17 22:00 01/12/17 09:59 01/08/17 20:34 Chlorhexidine Gluconate (Layla-Hex 2%) 1 applic DAILY TOPIC 01/09/17 09:00 02/08/17 08:59 UNV Famotidine (Pepcid I.v.) 20 mg Q12HR IVP 01/05/17 21:00 02/04/17 20:59 01/08/17 20:34 Heparin Sodium (Porcine) (Heparin 5000 units/ml) 5,000 units EVERY 12 HOURS SUBQ 01/05/17 21:00 02/04/17 08:59 01/08/17 20:35 Heparin Sodium/ Sodium Chloride (Heparin 2000 units/Ns 1000ml premix) 2,000 unit ONCE ONCE IV 01/09/17 08:15 01/09/17 08:16 UNV Insulin Aspart (NovoLOG) Q6HR SUBQ 01/06/17 18:00 02/04/17 11:29 01/09/17 01:18 Lidocaine HCl (Xylocaine 1% 30ml) 30 ml ONCE ONCE INJ 01/09/17 08:15 01/09/17 08:16 UNV Nitroglycerin (Ntg) 0.4 mg Q5MIN X 3 DOSES PRN SL Prn Chest Pain 01/05/17 16:00 02/04/17 07:44 Ondansetron HCl (Zofran) 4 mg Q6H PRN IVP Nausea & Vomiting 01/05/17 18:00 02/04/17 17:59 Polyethylene Glycol (Miralax) 17 gm DAILYPRN PRN ORAL Constipation 01/06/17 09:00 02/04/17 08:59 Promethazine HCl/ Codeine (Phenergan with Codeine) 5 ml Q4H PRN ORAL For Cough 01/05/17 18:00 02/04/17 17:59 Tamsulosin HCl (Flomax) 0.4 mg DAILY ORAL 01/06/17 09:00 02/04/17 08:59 01/08/17 09:31 Temazepam (Restoril) 15 mg HSPRN PRN ORAL Insomnia 01/05/17 21:00 01/12/17 20:59 01/06/17 21:44 Vancomycin HCl (Vanco rx to dose) 1 ea DAILYPRN PRN MISC Per rx protocol 01/05/17 16:00 02/04/17 15:59 Vancomycin HCl/ Dextrose 250 ml @ 166.667 mls/hr Q24H IVPB 01/08/17 13:00 01/13/17 12:59 01/08/17 13:36 Cj (Sd)Eufemia NP Jan 09, 2017 08:18
[2017-01-09] MEDS: Famotidine 20 MG/ 2ML VIAL IVP SCH (08:43)
[2017-01-09] MEDS: Aspirin Baby 81mg ORAL SCH (08:43)
[2017-01-09] MEDS: Tamsulosin 0.4mg cap ORAL SCH (08:43)
[2017-01-09] MEDS: Heparin 5000 units/ml inj SUBQ SCH (08:44)
[2017-01-09] MEDS ORDERED: Dyna-Hex 2% Top Sol 8oz TOPIC SCH (09:00)
--- NOTE | 2017-01-09 09:50 | General Progress Note ---
Assessment/Plan Status: stable Assessment/Plan status; This patient is being admitted from [facility] with the diagnosis of sepsis, hypoxia, tachycardia, high lactate level, and hyperglycemia. possible aspiration pna/hcap vs atx, ? gram neg sacral wound infection Other conditions are history of CVA, hypertension, high cholesterol, chronic obstructive pulmonary disease, and PEG. Antibiotics- Pulm toilet- keep BP and BS in check per consultants ? DC planning? Subjective ROS Limited/Unobtainable: No Constitutional: Reports: malaise Allergies: Coded Allergies: MILK (Unverified Allergy, Unknown, 05/14/16) SOY (Unverified Allergy, Unknown, 05/14/16) SOYBEAN (Unverified Allergy, Unknown, 05/14/16) Objective Last 24 Hour Vital Signs Date Time Temp Pulse Resp B/P (MAP) Pulse Ox O2 Delivery O2 Flow Rate FiO2 01/09/17 08:15 97.7 78 20 122/65 96 Room Air 01/09/17 06:50 72 18 01/09/17 04:00 97.9 85 20 146/83 96 Room Air 01/09/17 00:00 97.7 88 20 144/71 96 Room Air 01/08/17 20:00 98.2 89 20 143/71 96 Room Air 01/08/17 19:56 81 20 01/08/17 16:04 97.7 83 22 119/77 96 Room Air 01/08/17 11:34 98.6 84 21 137/67 97 Room Air Laboratory Tests 01/08/17 10:30: Vancomycin Level Trough 7.3 01/08/17 16:48: Urine Color Pale yellow, Urine Appearance Clear, Urine pH 6.5, Urine Specific [place] 1.010, Urine Protein 2+H, Urine Glucose (UA) Negative, Urine Ketones Negative, Urine Occult Blood 4+H, Urine Nitrite Negative, Urine Bilirubin Negative, Urine Urobilinogen 1H, Urine Leukocyte Esterase 1+H, Urine RBC 5-10H, Urine WBC 0-2, Urine Squamous Epithelial Cells None, Urine Amorphous Sediment FewH, Urine Bacteria Few 01/09/17 06:20: White Blood Count 7.1, Red Blood Count 4.17L, Hemoglobin 13.8L, Hematocrit 42.4 , Mean Corpuscular Volume 102H, Mean Corpuscular Hemoglobin 33.0H, Mean Corpuscular Hemoglobin Concent 32.5, Red Cell Distribution Width 12.7, Platelet Count 180, Mean Platelet Volume 9.2, Neutrophils (%) (Auto) 52.3, Lymphocytes (% ) (Auto) 33.7, Monocytes (%) (Auto) 7.6, Eosinophils (%) (Auto) 4.9H, Basophils (%) (Auto) 1.6, Sodium Level 140, Potassium Level 3.8, Chloride Level 106, Carbon Dioxide Level 25, Anion Gap 9, Blood Urea Nitrogen 15, Creatinine 0.7, Estimat Glomerular Filtration Rate , Glucose Level 120H, Calcium Level 9.5, Phosphorus Level 3.3, Magnesium Level 2.1, Total Bilirubin 0.3, Aspartate Amino Transf (AST/SGOT) 24, Alanine Aminotransferase (ALT/SGPT) 20, Alkaline Phosphatase 54, Troponin I < 0.30, C-Reactive Protein, Quantitative 4.7H, Total Protein 7.7, Albumin 3.0L, Globulin 4.7, Albumin/Globulin Ratio 0.6L Height (Feet): 5 Height (Inches): 10.00 Weight (Pounds): 197 General Appearance: no apparent distress Objective no change JULIANNE HERNÁNDEZ Jan 09, 2017 09:50
[2017-01-09] MEDS ORDERED: NOVOLOG100 UNITS1 SUBQ (10:03)
[2017-01-09 11:48] VITALS: BP 125/68
[2017-01-09] MEDS: Cefepime HCl 1 GM in D5W 55 ML IV SCH (12:21)
[2017-01-09] MEDS: Vancomycin 1250mg/D5W 250ml IVPB SCH (13:36)
--- NOTE | 2017-01-09 14:45 | Diagnostic Imaging Report ---
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 The right upper extremity was prepped with alcohol. All elements of maximal sterile barrier technique were followed including usage of a cap, mask, sterile gown, sterile gloves, hand hygiene and a large sterile sheet. Sonographic evaluation of the upper extremity was performed demonstrating a patent and compressible basilic vein. Access was obtained under real-time ultrasound guidance and digital image was saved and archived. An .018 wire was introduced. Needle exchanged for a 5 [place] peel-away sheath. Measurements were obtained. A 5 [place] dual-lumen Power PICC line catheter was cut to 42 cm and introduced over the wire. Peel-away sheath and wire were removed.Catheter was secured to the skin using 2-0 Prolene suture. Both ports aspirate and flush easily. Fluoroscopic Images show distal tip in the superior vena cava. Total fluoroscopic time 0.6 minutes. Impression: Successful placement of an upper extremity PICC line catheter
--- NOTE | 2017-01-09 15:20 | General Progress Note ---
Assessment/Plan Status: stable, progressing Subjective Neurologic/Psychiatric: Reports: anxiety, emotional problems Allergies: Coded Allergies: MILK (Unverified Allergy, Unknown, 05/14/16) SOY (Unverified Allergy, Unknown, 05/14/16) SOYBEAN (Unverified Allergy, Unknown, 05/14/16) Subjective the pt is more awake still confused and disoriented Objective Last 24 Hour Vital Signs Date Time Temp Pulse Resp B/P (MAP) Pulse Ox O2 Delivery O2 Flow Rate FiO2 01/09/17 11:48 97.5 76 20 125/68 99 Room Air 01/09/17 08:15 97.7 78 20 122/65 96 Room Air 01/09/17 06:50 72 18 01/09/17 04:00 97.9 85 20 146/83 96 Room Air 01/09/17 00:00 97.7 88 20 144/71 96 Room Air 01/08/17 20:00 98.2 89 20 143/71 96 Room Air 01/08/17 19:56 81 20 01/08/17 16:04 97.7 83 22 119/77 96 Room Air Laboratory Tests 01/08/17 16:48: Urine Color Pale yellow, Urine Appearance Clear, Urine pH 6.5, Urine Specific [place] 1.010, Urine Protein 2+H, Urine Glucose (UA) Negative, Urine Ketones Negative, Urine Occult Blood 4+H, Urine Nitrite Negative, Urine Bilirubin Negative, Urine Urobilinogen 1H, Urine Leukocyte Esterase 1+H, Urine RBC 5-10H, Urine WBC 0-2, Urine Squamous Epithelial Cells None, Urine Amorphous Sediment FewH, Urine Bacteria Few 01/09/17 06:20: White Blood Count 7.1, Red Blood Count 4.17L, Hemoglobin 13.8L, Hematocrit 42.4 , Mean Corpuscular Volume 102H, Mean Corpuscular Hemoglobin 33.0H, Mean Corpuscular Hemoglobin Concent 32.5, Red Cell Distribution Width 12.7, Platelet Count 180, Mean Platelet Volume 9.2, Neutrophils (%) (Auto) 52.3, Lymphocytes (% ) (Auto) 33.7, Monocytes (%) (Auto) 7.6, Eosinophils (%) (Auto) 4.9H, Basophils (%) (Auto) 1.6, Sodium Level 140, Potassium Level 3.8, Chloride Level 106, Carbon Dioxide Level 25, Anion Gap 9, Blood Urea Nitrogen 15, Creatinine 0.7, Estimat Glomerular Filtration Rate , Glucose Level 120H, Calcium Level 9.5, Phosphorus Level 3.3, Magnesium Level 2.1, Total Bilirubin 0.3, Aspartate Amino Transf (AST/SGOT) 24, Alanine Aminotransferase (ALT/SGPT) 20, Alkaline Phosphatase 54, Troponin I < 0.30, C-Reactive Protein, Quantitative 4.7H, Total Protein 7.7, Albumin 3.0L, Globulin 4.7, Albumin/Globulin Ratio 0.6L Height (Feet): 5 Height (Inches): 10.00 Weight (Pounds): 196 General Appearance: no apparent distress, alert, confused Neurologic: alert, disoriented, depressed affect Neema Grady M.D. Jan 09, 2017 15:20
[2017-01-09] MEDS ORDERED: CEFTRIAXONE1 G2 IV (16:03)
[2017-01-09 16:13] VITALS: BP 117/64
[2017-01-09] MEDS ORDERED: NS 275ml ONE (17:22)
[2017-01-09] MEDS ORDERED: Tubing IV Secondary IV ONE (17:22)
--- NOTE | 2017-01-12 11:07 | Diagnostic Imaging Report ---
Indications: DYSPHAGIA Technique: Patient ingested multiple substances under the supervision of speech pathology. Video fluoroscopic recording performed. Total fluoroscopy time 203.6 seconds. Total dose area product 0.62506 mGycm2 Comparison: none Findings: With ingestion of thin liquid barium and nectar thick liquid barium, there is considerable pooling of contrast within the vallecula and puriform sinuses, markedly delayed initiation of deglutition. There is equivocal trace supraglottic laryngeal penetration. Some length pooling is also seen with honey thick barium as well as deep laryngeal upon swallowing of the residual Impression: Positive for penetration of multiple substances Please refer to speech pathology report for more detailed analysis
[2017-01-12] MEDS ORDERED: CEFEPIME-D1 GM/50 ML IVPB ×2 (12:42→12:44)
[2017-01-12] MEDS ORDERED: VANCOMYCIN1 GM/2502 IVPB ×2 (12:42→12:44)
--- NOTE | 2017-01-12 12:51 | Discharge Summary ---
Discharge Summary Hospital Course Date of Admission Jan 05, 2017 at 01:06 Date of Discharge Jan 09, 2017 at 17:23 Admitting Diagnosis HPI Patrick Hawley is a 81 year old male who was admitted on Jan 05, 2017 at 01:06 for Altered Mental Status/Sepsis Hospital Course dc summary #[id number] Discharge Medications New Medications: Cefepime Hcl/D5w (Cefepime-Dextrose 1 Gm/50 Ml) 1 Gm/50 Ml Piggyback 1 GM IVPB EVERY 12 HOURS, #6 BAG Vancomycin Hcl/D5w (Vancomycin-D5w 1 G/250 Ml) 1 Gm/250 Ml Plast..bag 1 GM IVPB Q24H, #3 BAG Insulin Aspart (Novolog Flexpen) 100 Unit/1 Ml Insuln.pen 0 UNITS SUBQ Q6HR, #1 SYR Continued Medications: Acetaminophen (Acetaminophen) 650 Mg/20.3 Ml Solution 650 MG GT Q4H PRN for 14 Days, #60 TAB Albuterol Sulfate* (Albuterol Sulfate Hhn*) 2.5 Mg/3 Ml Vial.neb 2.5 MG HHN Q4HRT for 10 Days, #10 VIAL Ascorbic Acid* (Vitamin C*) 500 Mg Tablet 500 MG GT DAILY, #30 TAB 0 Refills Cholecalciferol (Vitamin D3)* (Vitamin D*) 1,000 Unit Tablet 2000 UNITS GT DAILY, TAB Cholecalciferol (Vitamin D3)* (Vitamin D*) 1,000 Unit Tablet 2000 UNITS GT DAILY, #30 TAB 0 Refills Cranberry Conc/C/Bacill Coag (Azo Cranberry Tablet) 1 Each Tablet 1 EACH GT DAILY Docusate Sodium* (Colace*) 100 Mg Capsule 100 MG GT DAILY, CAP Ferrous Sulfate* (Ferrous Sulfate*) 325 Mg Tablet 325 MG GT TID, #30 TAB 0 Refills Magnesium Hydroxide (Milk of Magnesia) 400 Mg/5 Ml Oral.susp 30 ML ORAL DAILY, ML Multivitamins Liq* (Multivitamin Liq*) 5 Ml Udc 5 ML GT DAILY, ML Ranitidine Hcl* (Zantac*) 150 Mg Tablet 150 MG ORAL TWICE A DAY, TAB Sucralfate* (Carafate*) 1 Gm Tablet 1 GM ORAL FOUR TIMES A DAY, TAB Tamsulosin HCl (Flomax) 0.4 Mg Cap 0.4 MG GT DAILY, CAP Zinc Sulfate (Zinc Sulfate*) 220 Mg Capsule 220 MG GT DAILY, CAP 0 Refills Discharge Condition Upon Discharge: stable Discharge Disposition Patient was discharged to SNF/Subacute Facility(03) Discharge Diagnoses: Cj (Eufemia Duke NP Jan 12, 2017 12:51
--- NOTE | 2017-01-13 01:00 | Discharge Summary 2 SIG ---
DATE OF ADMISSION: 01/05/2017 DATE OF DISCHARGE: 01/09/2017 REASON FOR ADMISSION: The patient is a 81-year-old male, resident of [facility] facility with past medical history significant for CVA with left hemiparesis, COPD, diabetes, dysphagia, G-tube, hypertension, and dyslipidemia, who initially presented to the emergency department of [facility], [place]. The [facility] was [facility] from [facility] due to increased lethargy, fever, hypoxia and tachypnea. Oxygen saturation on room air was 89%. He demonstrated on auscultation coarse breath sounds and fever 103.6 in the emergency department, tachycardia 123, and tachypnea 30. Chest x-ray revealed left lower lobe infiltrate. Sodium 150, WBC 11, lactic acid 3.3, BUN 35, and creatinine . EKG revealed sinus tachycardia with incomplete right bundle-branch block. Q-waves in leads II, III, and aVF and T-wave inversion in leads V1 and V3. In the emergency department, the patient received normal saline for fluid resuscitation, supplemental oxygen, and Tylenol. The patient pancultured and started on empiric antibiotics (Unasyn). The patient is DNR/DNI status. The patient afterwards was transferred to [facility] for insurance purposes. ADMITTING DIAGNOSES: 1. Severe sepsis with acute organ dysfunction. 2. Pneumonia (aspiration versus healthcare associated). 3. Acute toxic metabolic encephalopathy and chronic dementia (due to severe sepsis and dehydration). 4. Dehydration. 5. Hypernatremia. 6. Chronic obstructive pulmonary disease. 7. Hypertension. 8. Dysphagia and G-tube. 9. Diabetes. 10. Hyperlipidemia. HOSPITAL COURSE: The patient was admitted to telemetry floor, supplemental oxygen provided to keep saturation above 92%. Pulmonary toilet provided. The patient was followed up with chest x-ray. ID consult requested. The patient was started on empiric antibiotics. Antitussive provided as needed. Stool for C. difficile was negative. Unable to collect sputum cultures as the patient's cough was dry. The patient was started on G-tube feeding with strict aspiration precaution. Tube feeding tolerance was monitored. The patient was on the free water flushes 100 mL every four hours to correct hypernatremia. Sodium down to normal. Hypernatremia was likely secondary to dehydration. Blood sugar was managed with sliding scale of insulin. Hemoglobin A1c 6.2 at goal. Blood pressure was stable and normotensive, and no antihypertensive medication, yet antihypertensive as needed. Lipid panel revealed elevated triglycerides. Stable total cholesterol and LDL. The patient's aspirin was continued. Acute encephalopathy was likely due to severe sepsis and dehydration. DVT and GI prophylaxes provided. Bowel regimen instituted. The patient with DNR/DNI status. Psychiatrist seen and evaluated the patient, stated that the patient might have delirium versus vascular dementia, and started on low dose of antipsychotic. The patient improving, mental status improving. Infectious Disease followed the patient closely. Per Infectious Disease, the patient had left lower lobe pneumonia. The patient is status post azithromycin and Zosyn and recommended to continue cefepime and vancomycin to complete a full course for seven days. Need two more days of vancomycin and cefepime at the half-way facility. The patient was stable for discharge. DISCHARGE DIAGNOSES: 1. Severe sepsis with acute organ dysfunction. 2. Pneumonia (aspiration versus healthcare associated pneumonia). 3. Acute toxic metabolic encephalopathy and chronic dementia (due to severe sepsis and dehydration). 4. Dehydration. 5. Hypernatremia, resolved. 6. Chronic obstructive pulmonary disease. 7. Hypertension. 8. Dysphagia and G-tube. 9. Diabetes. 10. Hyperlipidemia. DISCHARGE MEDICATIONS: See medication reconciliation list. DISCHARGE INSTRUCTIONS: The patient was discharged to half-way facility and follow up with medical doctor at the facility. Veronica Castellanos M.D. I have been assigned to dictate discharge summary on this account and I was not involved in the patient's management. Eufemia Corona (vanchtein) NRama PEREZ: EL JOB#: [id number] CC:
== END 2017-01-09 17:23 | DRG 871 ==
LOC: 2E 01-05 01:06 → 4E 01-05 16:05
PROC: 02HV33Z Insertion of Infusion Device into Superior Vena Cava, Percutaneous Approach (ICD-10-PCS; principal; 2017-01-09)
DX: A41.9 Sepsis, unspecified organism (principal); J18.9 Pneumonia, unspecified organism; L89.152 Pressure ulcer of sacral region, stage 2; G92 Toxic encephalopathy; L89.159 Pressure ulcer of sacral region, unspecified stage; E87.0 Hyperosmolality and hypernatremia; I69.354 Hemiplegia and hemiparesis following cerebral infarction affecting left non-dominant side; F03.90 Unspecified dementia, unspecified severity, without behavioral disturbance, psychotic disturbance, mood disturbance, and anxiety; R13.10 Dysphagia, unspecified; L89.620 Pressure ulcer of left heel, unstageable; L89.610 Pressure ulcer of right heel, unstageable; Z43.1 Encounter for attention to gastrostomy; J44.9 Chronic obstructive pulmonary disease, unspecified; E86.0 Dehydration; E11.9 Type 2 diabetes mellitus without complications; R65.20 Severe sepsis without septic shock; Z86.73 Personal history of transient ischemic attack (TIA), and cerebral infarction without residual deficits; I10 Essential (primary) hypertension; E78.5 Hyperlipidemia, unspecified; I45.10 Unspecified right bundle-branch block; Z66 Do not resuscitate; R09.02 Hypoxemia; Z79.4 Long term (current) use of insulin; I69.320 Aphasia following cerebral infarction; I69.391 Dysphagia following cerebral infarction; Z22.39 Carrier of other specified bacterial diseases
CPT/HCPCS: 36415; 36569; 71010; 74230; 76937; 80053; 80061; 80069; 80202; 81001; 82550; 82962; 82977; 83036; 83735; 83880; 84100; 84443; 84484; 84550; 85025; 85651; 86140; 87081; 87324; 94664; J1815